=== PATIENT | male | born 1950 | race Caucasian/White ===

== ENCOUNTER 2018-04-12 02:46 | Inpatient (IN) | END 2018-04-21 12:19 | disposition home or self-care (01) | DRG 840 ==

== ENCOUNTER 2018-06-23 20:23 | Inpatient (IN) | END 2018-06-25 14:16 | disposition home or self-care (01) | DRG 871 ==

== ENCOUNTER 2018-10-20 17:09 | Inpatient (IN) | payer MEDICARE, OTHER ==
[~2018-10-20] VITALS: Ht 170.2 cm; Wt 67.0 kg
[~2018-10-20 17:09] MED LIST: CEPH-443 PO; DEXA4TAB PO; HYDR4TAB PO; LENA15CA2 PO; NAPR-685 PO
[2018-10-20 17:13] VITALS: Ht 170.2 cm; Wt 67.0 kg
[2018-10-20] MEDS ORDERED: SODIUM CHLORIDE 0.9% 1L BAG IV* STA (17:17)
[2018-10-20] MEDS ORDERED: CEFEPIME 2GM/50 ML (PMX) 50 ML IVPB STA (17:17)
[2018-10-20] MEDS ORDERED: ACETAMINOPHEN 325 MG TAB PO STA (17:17)
[2018-10-20] MEDS ORDERED: VANCOMYCIN 1 GM (PMX) 250 ML IVPB ONE (17:30)
--- NOTE | 2018-10-20 19:18 | ERD ---
ER Documentation Chief Complaint Chief Complaint FEVER AND SOB X 6 DAYS. HPI This is a very pleasant 68-year-old gentleman with a history of multiple myeloma who presents to the emergency room with cough congestion and fever. Patient is having a productive cough and shortness of breath. He was noted to be hypoxic at triage. He denies any headache chest pain or abdominal pain. Symptoms present for approximately 48 hours but shortness of breath for approximately 5-6 days. ROS All systems reviewed and are negative except as per history of present illness. Medications Home Meds Active Scripts Cephalexin* (Keflex*) 500 Mg Capsule, 500 MG PO QID for 7 Days, CAP Prov:EVERETT GALICIA PA-C 08/18/18 Reported Medications Hydromorphone Hcl* (Hydromorphone Hcl*) 4 Mg Tablet, 4 MG PO Q4H PRN for PAIN, TAB 04/12/18 Naproxen* (Naproxen*) 375 Mg Tablet, 375 MG PO BID PRN for PAIN LEVEL 6-10, TAB TAKE 1 - 2 TABLETS BY MOUTH NEEDED FOR PAIN 04/12/18 Lenalidomide (Revlimid) 15 Mg Capsule, 15 MG PO, CAP 04/12/18 Dexamethasone* (Dexamethasone*) 4 Mg Tablet, 4 MG PO Q8, TAB Take 3 tablets by mouth Once a Week. QWED 04/12/18 Allergies Allergies: Coded Allergies: No Known Allergy (Unverified , 04/12/18) PMhx/Soc History of Surgery: Yes (arm/leg/shoulder/knee) Anesthesia Reaction: No Hx Neurological Disorder: No Hx Respiratory Disorders: Yes (pneumonia) Hx Cardiac Disorders: No Hx Psychiatric Problems: No Hx Miscellaneous Medical Probl: Yes (12/2013 mult. myeloma blood d/o) Hx Alcohol Use: No Hx Substance Use: Yes Hx Tobacco Use: No Smoking Status: Never smoker FmHx Family History: No diabetes Physical Exam Vitals Vital Signs Date Temp Pulse Resp B/P (MAP) Pulse Ox O2 O2 Flow FiO2 Time Delivery Rate 10/20/18 98.4 91 37 142/79 95 Nasal 4.0 19:05 (100) Cannula 10/20/18 Nasal 2 18:03 Cannula 10/20/18 104.0 102 18 152/72 86 17:13 (98) Physical Exam General: Well developed, well nourished, no acute distress Head: Normocephalic, atraumatic. Eyes: Pupils equally reactive, EOM intact ENT: Moist mucous membranes Neck: Supple, no lymphadenopathy Respiratory: Rhonchi bilaterally, no respiratory distress Cardiovascular: Tachycardia, no murmurs, rubs, or gallops Abdominal: Soft, non-tender, non-distended, no peritoneal signs : Deferred MSK: No edema, no unilateral swelling, 5/5 strength Neurologic: Alert and oriented, moving all extremities, normal speech, no focal weakness, no cerebellar signs Skin: No rash Psych: Normal mood Result Diagram: 10/20/18 1732 10/20/18 1732 Results 24 hrs Laboratory Tests Test 10/20/18 17:32 White Blood Count 1.6 10^3/ul Red Blood Count 2.53 10^6/ul Hemoglobin 7.6 g/dl Hematocrit 23.8 % Mean Corpuscular Volume 94.1 fl Mean Corpuscular Hemoglobin 30.0 pg Mean Corpuscular Hemoglobin Concent 31.9 g/dl Red Cell Distribution Width 16.5 % Platelet Count 73 10^3/UL Mean Platelet Volume 10.9 fl Immature Granulocytes % 24.200 % Neutrophils % % Segmented Neutrophils % (Manual) 67 % Band Neutrophils % (Manual) 8 % Lymphocytes % % Lymphocytes % (Manual) 17 % Monocytes % % Eosinophils % % Eosinophils % (Manual) 2 % Basophils % (Manual) 4 % Metamyelocytes % (manual) 1 % Myelocytes % (Manual) 1 % Nucleated Red Blood Cells % 28 % Immature Granulocytes # 0.380 10^3/ul Neutrophils # 10^3/ul Neutrophils # (Manual) 1.1 10^3/ul Band Neutrophils # 0.1 10^3/ul Lymphocytes (Manual) 0.2 10^3/ul Lymphocytes # 10^3/ul Monocytes # 10^3/ul Eosinophils # 10^3/ul Basophils # (Manual) 0.0 10^3/ul Metamyelocytes # 0.0 10^3/ul Myelocytes # 0.0 10^3/ul Platelet Estimate DECREASED Polychromasia 3+ Poikilocytosis 2+ Anisocytosis 1+ Macrocytosis 1+ Prothrombin Time 14.7 Sec Prothrombin Time Ratio 1.1 INR International Normalized Ratio 1.14 Activated Partial Thromboplast Time 29.8 Sec Sodium Level 137 mmol/L Potassium Level 5.0 mmol/L Chloride Level 104 mmol/L Carbon Dioxide Level 23 mmol/L Anion Gap 10 Blood Urea Nitrogen 31 mg/dl Creatinine 2.02 mg/dl Est Glomerular Filtrat Rate mL/min 33 mL/min Glucose Level 106 mg/dl POC Venous Lactate 1.1 mmol/L Calcium Level 8.7 mg/dl Total Bilirubin 0.3 mg/dl Direct Bilirubin 0.00 mg/dl Indirect Bilirubin 0.3 mg/dl Aspartate Amino Transf (AST/SGOT) 44 IU/L Alanine Aminotransferase (ALT/SGPT) 77 IU/L Alkaline Phosphatase 137 IU/L Troponin I < 0.012 ng/ml Total Protein 10.5 g/dl Albumin 3.8 g/dl Globulin 6.70 g/dl Albumin/Globulin Ratio 0.56 Current Medications Medications Dose Sig/Kareem Start Time Status Last (Trade) Ordered Route PRN Stop Time Admin Dose Reason Admin Sodium 2,010 ml BOLUS OVER 2 10/20/18 DC 10/20/18 Chloride HOURS STAT 17:17 18:03 (NS) IV* 10/20/18 17:19 650 mg ONCE STAT 10/20/18 DC 10/20/18 Acetaminophen PO 17:17 18:03 (Tylenol 10/20/18 17:19 Tab) Cefepime HCl 50 ml @ ONCE STAT 10/20/18 DC 10/20/18 100 mls/hr IVPB 17:17 18:03 10/20/18 17:46 Vancomycin 250 ml @ ONCE ONCE 10/20/18 HCl 125 mls/hr IVPB 17:30 10/20/18 19:29 IV Flush 3 ml PER 10/20/18 UNV (NS 3 ml) PROTOCOL IV 19:30 Ondansetron 4 mg Q6H PRN 10/20/18 UNV HCl (Zofran IV 19:30 Inj) NAUSEA/VOMITI NG 650 mg Q6H PRN 10/20/18 UNV Acetaminophen PO .PAIN 1-3 19:30 (Tylenol OR TEMP Tab) Sodium 1,000 ml @ Q20H IV 10/20/18 UNV Chloride 50 mls/hr 19:30 Albuterol/ 3 ml Q6HWA RESP 10/20/18 UNV Ipratropium THERAPY HHN 20:00 (Duoneb) Albuterol/ 3 ml Q2H RESP 10/20/18 UNV Ipratropium THERAPY PRN 19:30 (Duoneb) HHN shortness of breath Ondansetron 4 mg BRIDGE ORDER 10/20/18 HCl (Zofran PRN IV 19:30 Inj) NAUSEA/VOMITI 10/21/18 19:29 NG 650 mg ER BRIDGE 10/20/18 Acetaminophen PRN PO 19:30 (Tylenol .MILD PAIN 10/21/18 19:29 Tab) 1-3 OR TEMP Procedures/MDM EKG, MONITORS, & DIAGNOSTIC IMAGING: [EKG: I reviewed and interpreted a 12-lead EKG. Rhythm: sinus tachy ST Changes: No contiguous ST segment elevations T waves: No contiguous T wave inversions Impression: No evidence of acute cardiac ischemia CXR IMPRESSION: Right upper lobe infiltrate. Follow-up after treatment is recommended. LAB INTERPRETATION: I reviewed the laboratory testing and it shows pancytopenia, normal lactic acid, renal insufficiency consistent with prior MEDICAL DECISION MAKING: Presentation very concerning for pneumonia. The patient is immunocompromised. Sepsis screening was initiated. A code sepsis was started. Patient is protecting his airway and does not require positive pressure ventilation or intubation. Continue to monitor respiratory status. Patient's hypoxemia corrected with supplement oxygen. ER COURSE: * Blood cultures prior to broad-spectrum antibiotics. Antipyretics provided. A 30 cc/kg bolus of saline was provided. * Patient's lactic acid and hemodynamics are reassuring. No indication for central line or pressors or positive pressure ventilation. CONSULTATION: None DISPOSITION PLAN: Accepting care team and consultations: I discussed the current laboratory data, diagnostic imaging and emergency care provided. Admitting team: Dr. Perez Admitting team indication: Insurance directed Sepsis Documentation: Patient's infectious symptoms have not stabilized and the patient is at risk of rapid decompensation. The patient will be admitted for careful hydration, antibiotic therapy, and infectious source control. SEVERE SEPSIS CRITERIA: Infectious source: Healthcare associated pneumonia End organ damage indicated by: Acute Resp Failure (sat < 92% w/o oxygen) SEPSIS MANAGEMENT Time of recognition of sepsis: Upon MD assessment. Time of recognition of severe sepsis: Upon MD assessment. Time of recognition of septic shock: No septic shock at this time. 3 HOUR BUNDLE Blood cultures x 2 before broad-spectrum antibiotics: Yes 30 ml/kg NS bolus completed Initial lactate less than 2 Repeat lactate pending repeat SEPTIC SHOCK ASSESSMENT: No lactic acid > 4.0 No persistent hypotension (SBP < 90 or 40 mmHg drop, MAP < 65) despite 30 mL/kg IV fluid bolus VOLUME REASSESSMENT FOR SEPTIC SHOCK: The patient does not meet criteria for septic shock in the emergency department at this time PERSISTENT HYPOTENSION TREATMENT: Comfort care no Central line not Required Vasopressor started not required I considered further perfusion assessment with CVP measurement, SCVO2, bedside ultrasound volume assessment, passive leg raise, trial of further fluid bolus. And proceeded with 30 ml/kg fluid bolus of NSS, broad spectrum antibiotics, and admission. CRITICAL CARE Critical care time 40 minutes Emergent fluid management while maintaining close respiratory support. Provision of immediate and broad-spectrum antibiotic therapy. Simultaneous assessment for possible sources in order to direct targeted therapy. Consideration for invasive and chemical support to prevent cardiopulmonary collapse. Critical care time is independent of procedures performed. Departure Diagnosis: Primary Impression: Healthcare-associated pneumonia Additional Impressions: Severe sepsis Hypoxemia Acute renal insufficiency Multiple myeloma Multiple myeloma remission status: unspecified Qualified Codes: C90.00 - Multiple myeloma not having achieved remission Pancytopenia Condition: Stable CONSTANTINO MCBRIDE MD Oct 20, 2018 19:18
[2018-10-20] MEDS ORDERED: ONDANSETRON 4 MG INJ IV PRN (19:30)
[2018-10-20] MEDS ORDERED: SOD CHLORIDE 0.9% 1,000 ML IV SCH (19:30)
[2018-10-20] MEDS ORDERED: NACL 0.9% 3 ML SYG IV SCH (19:30)
[2018-10-20] MEDS ORDERED: ACETAMINOPHEN 325 MG TAB PO PRN (19:30)
[2018-10-20] MEDS: ALBUTEROL/IPRATROPIUM (NEB) 3 ML AMP HHN SCH (20:00)
[2018-10-20 22:14] VITALS: BP 130/70; PULSE 84; RESP 22; RESP 28
[2018-10-20] MEDS: ALBUTEROL/IPRATROPIUM (NEB) 3 ML AMP HHN PRN (23:17)
[2018-10-20] MEDS ORDERED: VANCOMYCIN IV PER PHARMACY XX SCH (23:30)
--- NOTE | 2018-10-20 23:30 | HP ---
Date/Time of Note Date/Time of Note DATE: 10/20/18 TIME: 23:29 Assessment/Plan VTE Prophylaxis SCD applied (from Nsg): Yes Pharmacological prophylaxis: NA/contraindicated Pharm contraindication: thrombocytopenia, other (Severe anemia. Patient also thrombocytopenic) Lines/Catheters IV Catheter Type (from Nrsg): Saline Lock Assessment/Plan Assessment/Plan 1. Neutropenic fever, sepsis: Secondary to pneumonia -IV antibiotic, IV fluid -Neutropenic precautions/isolation -Follow-up culture results -Consider Neupogen -Hematology consult 2. Pancytopenia -Monitor hemoglobin and platelets and transfuse as needed. Also consider Neupogen -Hematology consult 3. Multiple myeloma: Again hematology to see patient -family to bring home meds 4. CKD: Secondary to #3. Kidney function has been improving since his initial admission here in April 2018 -Monitor closely -Neurology consult as needed 5. Hypoxia, secondary to pneumonia -Treat pneumonia -Supplemental oxygen, bronchodilators -Obtain ABG Result Diagram: 10/20/18 1732 10/20/18 1732 Results 24hrs Laboratory Tests Test 10/20/18 17:32 10/20/18 18:56 10/20/18 19:11 10/20/18 21:55 White Blood Count 1.6 L Red Blood Count 2.53 L Hemoglobin 7.6 L Hematocrit 23.8 L Mean Corpuscular 94.1 Volume Mean Corpuscular 30.0 Hemoglobin Mean Corpuscular 31.9 L Hemoglobin Concent Red Cell 16.5 H Distribution Width Platelet Count 73 L Mean Platelet Volume 10.9 H Immature 24.200 H Granulocytes % Neutrophils % Segmented 67 Neutrophils % (Manual) Band Neutrophils % 8 H (Manual) Lymphocytes % Lymphocytes % 17 (Manual) Monocytes % Eosinophils % Eosinophils % 2 (Manual) Basophils % (Manual) 4 H Metamyelocytes % 1 H (manual) Myelocytes % 1 H (Manual) Nucleated Red Blood 28 H Cells % Immature 0.380 H Granulocytes # Neutrophils # Neutrophils # 1.1 L (Manual) Band Neutrophils # 0.1 Lymphocytes (Manual) 0.2 L Lymphocytes # Monocytes # Eosinophils # Basophils # (Manual) 0.0 Metamyelocytes # 0.0 Myelocytes # 0.0 Platelet Estimate DECREASED Polychromasia 3+ Poikilocytosis 2+ Anisocytosis 1+ Macrocytosis 1+ Prothrombin Time 14.7 Prothrombin Time 1.1 Ratio INR International 1.14 Normalized Ratio Activated 29.8 Partial Thromboplast Time Sodium Level 137 Potassium Level 5.0 Chloride Level 104 Carbon Dioxide Level 23 Anion Gap 10 Blood Urea Nitrogen 31 H Creatinine 2.02 H Est Glomerular 33 L Filtrat Rate mL/min Glucose Level 106 POC Venous Lactate 1.1 Calcium Level 8.7 Total Bilirubin 0.3 Direct Bilirubin 0.00 Indirect Bilirubin 0.3 Aspartate Amino 44 Transf (AST/SGOT) Alanine 77 H Aminotransferase (AL T/SGPT) Alkaline Phosphatase 137 H Troponin I < 0.012 Total Protein 10.5 H Albumin 3.8 Globulin 6.70 H Albumin/Globulin 0.56 Ratio Urine Color YELLOW Urine Clarity CLEAR Urine pH 6.0 Urine Specific 1.014 Banks Urine Ketones NEGATIVE Urine Nitrite NEGATIVE Urine Bilirubin NEGATIVE Urine Urobilinogen NEGATIVE Urine Leukocyte NEGATIVE Esterase Urine Microscopic 9 H RBC Urine Microscopic 0 WBC Urine Hemoglobin 1+ H Urine Glucose NEGATIVE Urine Total Protein 2+ H Lactic Acid Level 0.5 0.9 HPI/ROS Admit Date/Time Admit Date/Time Oct 20, 2018 at 19:11 Hx of Present Illness This is a 68-year-old male with a history of multiple myeloma, CKD, neutropenic fever, pneumonia who presented to ER complaining of cough, shortness of breath and fever. Patient was admitted here twice before in April and June 2018. At that time he was treated for neutropenic fever and sepsis secondary to pneumonia. When he presented to the ER this time, he had a temp of 104, oxygen saturation 86%. WBC 1.6 with 67% neutrophils. Hemoglobin 7.6. Chest x-ray was a finding of pneumonia. PMH/Family/Social Past Medical History Medical History: other (See HPI) Medications Current Medications IV Flush (NS 3 ml) 3 ml PER PROTOCOL IV ; Start 10/20/18 at 19:30 Ondansetron HCl (Zofran Inj) 4 mg Q6H PRN IV NAUSEA/VOMITING; Start 10/20/18 at 19:30 Acetaminophen (Tylenol Tab) 650 mg Q6H PRN PO .PAIN 1-3 OR TEMP; Start 10/20/18 at 19:30 Sodium Chloride 1,000 ml @ 50 mls/hr Q20H IV Last administered on 10/20/18at 23:03; Admin Dose 50 MLS/HR; Start 10/20/18 at 19:30 Albuterol/ Ipratropium (Duoneb) 3 ml Q6HWA RESP THERAPY HHN ; Start 10/20/18 at 20:00 Albuterol/ Ipratropium (Duoneb) 3 ml Q2H RESP THERAPY PRN HHN shortness of breath Last administered on 10/20/18at 23:17; Admin Dose 3 ML; Start 10/20/18 at 19:30 Ondansetron HCl (Zofran Inj) 4 mg BRIDGE ORDER PRN IV NAUSEA/VOMITING; Start 10/20/18 at 19:30; Stop 10/21/18 at 19:29 Acetaminophen (Tylenol Tab) 650 mg ER BRIDGE PRN PO .MILD PAIN 1-3 OR TEMP; Start 10/20/18 at 19:30; Stop 10/21/18 at 19:29 Coded Allergies: No Known Allergy (Unverified , 04/12/18) Past Surgical History Past Surgical Hx: other (See HPI) Family History Significant Family History: no pertinent family hx Social History Alcohol Use: none Smoking Status: Never smoker Drug Use: none Exam/Review of Systems Vital Signs Vitals Vital Signs Date Temp Pulse Resp B/P (MAP) Pulse Ox O2 O2 Flow FiO2 Time Delivery Rate 10/20/18 Nasal 4.0 22:30 Cannula 10/20/18 102.6 84 22 130/70 92 22:14 (90) Exam Constitutional: other (Patient has been coughing and showing signs of shortness of breath. He does look uncomfortable especially when he talks) Head: normocephalic, atraumatic Eyes: EOMI, PERRL Respiratory: wheezing Cardiovascular: regular rate and rhythm, nl pulses Gastrointestinal: soft, non-tender Extremities: normal pulses Skin: other (Warm to touch) CHET THOMAS MD Oct 20, 2018 23:30
[2018-10-21] VITALS (11 sets, daily range): BP systolic 120–138; BP diastolic 57–72; PULSE 89–98; RESP 20–31
[2018-10-21] MEDS: ACETAMINOPHEN 325 MG TAB PO PRN ×2 (00:07→20:45)
[2018-10-21] MEDS: ALBUTEROL/IPRATROPIUM (NEB) 3 ML AMP HHN PRN (03:19)
[2018-10-21] MEDS ORDERED: HYDROmorphONE 4 MG TAB PO PRN (06:00)
[2018-10-21] MEDS ORDERED: DEXAMETHASONE 4 MG TAB PO SCH (06:00)
[2018-10-21] MEDS: HYDROCODONE/APAP (10/325) TAB PO PRN ×3 (06:56→20:45)
[2018-10-21] MEDS: ALBUTEROL/IPRATROPIUM (NEB) 3 ML AMP HHN SCH ×3 (08:27→19:38)
[2018-10-21] MEDS: CEPHALEXIN 500 MG CAP PO SCH ×2 (08:56→12:59)
[2018-10-21] MEDS: CEFEPIME 1GM/50 ML (PMX) 50 ML IVPB SCH ×2 (08:56→22:36)
[2018-10-21] MEDS: SOD CHLORIDE 0.9% 1,000 ML IV SCH ×3 (09:01→20:41)
[2018-10-21] MEDS ORDERED: FUROSEMIDE 40 MG INJ IV ONE (12:00)
--- NOTE | 2018-10-21 14:53 | CONS ---
Assessment/Plan Assessment/Plan Hospital Course (Demo Recall) 1. Neutropenic Fever likely 2/2 PNA 2. PNA 3 Multiple Myeloma 4. Immunosuppression 5. CKD R: sputum cx f/u bcxs serial cxr agree with vanco/cefepime add quant gold add doxy for atypical coverage Consultation Date/Type/Reason Admit Date/Time Oct 20, 2018 at 19:11 Date of Consultation: Oct 21, 2018 Type of Consult ID Reason for Consultation ABX RECS; NEUTROPENIC FEVER Requesting Provider: IZZY LEBLANC Date/Time of Note DATE: 10/21/18 TIME: 14:34 Hx of Present Illness A very pleasant 68 yo male with pmh of Multiple Myeloma, currently on chemo and steroids, CKD, admitted with progressive cough over approx 5 days. He denies recent sick contacts or travel. He denies hx of TB. He appeared to be on Keflex per emr but denies taking this. He was noted to be neutropenic and hypoxic. Xray suggests a RUL infil. He has been on empiric vanco/cefepime. Constitutional: chills, diaphoresis, requiring O2 Eyes: no complaints ENT: no complaints Respiratory: pain, cough, pleuritic pain, shortness of breath, sputum Cardiovascular: no complaints Gastrointestinal: no complaints Genitourinary: no complaints Musculoskeletal: no complaints Skin: no complaints Neurologic: no complaints Endocrine: no complaints Past Medical History Medical History: cancer, other (See HPI) Home Meds Active Scripts Cephalexin* (Keflex*) 500 Mg Capsule, 500 MG PO QID for 7 Days, CAP Prov:EVERETT GALICIA PA-C 08/18/18 Reported Medications Hydromorphone Hcl* (Hydromorphone Hcl*) 4 Mg Tablet, 4 MG PO Q4H PRN for PAIN, TAB 04/12/18 Naproxen* (Naproxen*) 375 Mg Tablet, 375 MG PO BID PRN for PAIN LEVEL 6-10, TAB TAKE 1 - 2 TABLETS BY MOUTH NEEDED FOR PAIN 04/12/18 Lenalidomide (Revlimid) 15 Mg Capsule, 15 MG PO, CAP 04/12/18 Dexamethasone* (Dexamethasone*) 4 Mg Tablet, 4 MG PO Q8, TAB Take 3 tablets by mouth Once a Week. QWED 04/12/18 Medications Current Medications IV Flush (NS 3 ml) 3 ml PER PROTOCOL IV ; Start 10/20/18 at 19:30 Ondansetron HCl (Zofran Inj) 4 mg Q6H PRN IV NAUSEA/VOMITING; Start 10/20/18 at 19:30 Acetaminophen (Tylenol Tab) 650 mg Q6H PRN PO .PAIN 1-3 OR TEMP Last administered on 10/21/18at 00:07; Admin Dose 650 MG; Start 10/20/18 at 19:30 Albuterol/ Ipratropium (Duoneb) 3 ml Q6HWA RESP THERAPY HHN Last administered on 10/21/18 08:27; Admin Dose 3 ML; Start 10/20/18 at 20:00 Albuterol/ Ipratropium (Duoneb) 3 ml Q2H RESP THERAPY PRN HHN shortness of breath Last administered on 10/21/18at 03:19; Admin Dose 3 ML; Start 10/20/18 at 19:30 Cefepime HCl 50 ml @ 100 mls/hr Q12 IVPB Last administered on 10/21/18at 08:56; Admin Dose 100 MLS/HR; Start 10/21/18 at 09:00 Vancomycin HCl (Vanco Iv Per Pharmacy) VANCOMYCIN PER PHARMACY PER PROTOCOL XX ; Start 10/20/18 at 23:30 Sodium Chloride 1,000 ml @ 100 mls/hr Q10H IV Last administered on 10/21/18at 09:01; Admin Dose 100 MLS/HR; Start 10/21/18 at 00:00 Vancomycin HCl 250 ml @ 125 mls/hr Q36H IVPB ; Start 10/21/18 at 20:00 Cephalexin (Keflex) 500 mg QID PO Last administered on 10/21/18at 12:59; Admin Dose 500 MG; Start 10/21/18 at 09:00 Dexamethasone (Decadron) 4 mg Q8 PO ; Start 10/21/18 at 06:00; Status Hold Acetaminophen/ Hydrocodone Bitart ([place] ()) 1 tab Q6H PRN PO MODERATE PAIN LEVEL 4-6 Last administered on 10/21/18at 12:56; Admin Dose 1 TAB; Start 10/21/18 at 07:00 Allergies: Coded Allergies: No Known Allergy (Unverified , 04/12/18) Past Surgical History Past Surgical Hx: other (See HPI) Social History . He grew up here in [place] Alcohol Use: none Smoking Status: Never smoker Drug Use: none Exam/Review of Systems Exam Vitals Vital Signs Date Temp Pulse Resp B/P (MAP) Pulse Ox O2 O2 Flow FiO2 Time Delivery Rate 10/21/18 3.0 13:57 10/21/18 98 12:00 10/21/18 101.3 25 137/67 92 11:51 (90) 10/21/18 Simple 10:30 Mask 10/21/18 30 03:20 Intake and Output 10/20/18 10/20/18 10/21/18 1515:00 23:00 07:00 IntakeIntake Total 250 ml 600 ml OutputOutput Total 1050 ml BalanceBalance 250 ml -450 ml Constitutional: alert, oriented, well developed Psych: no complaints, nl mood/affect Head: normocephalic, atraumatic Eyes: nl conjunctiva, EOMI, nl lids, nl sclera, PERRL ENMT: nl external ears & nose, nl lips & teeth, nl nasal mucosa & septum Respiratory: diminished breath sounds Cardiovascular: regular rate and rhythm Gastrointestinal: soft, other (rectal area w/o abscess) Genitourinary - Male: nl penis, nl scrotum Musculoskeletal: nl extremities to inspection Extremities: normal pulses Neurological: [employer] II-XII intact, nl mental status, nl speech, nl strength Results Result Diagram: 10/21/1843210/21/18 0433 Results 24hrs Laboratory Tests Test 10/20/18 17:32 10/20/18 18:56 10/20/18 19:11 10/20/18 21:55 White Blood 1.6 L Count Red Blood Count 2.53 L Hemoglobin 7.6 L Hematocrit 23.8 L Mean Corpuscular 94.1 Volume Mean Corpuscular 30.0 Hemoglobin Mean Corpuscular 31.9 L Hemoglobin Dalila nt Red Cell 16.5 H Distribution Width Platelet Count 73 L Mean Platelet 10.9 H Volume Immature 24.200 H Granulocytes % Neutrophils % Segmented 67 Neutrophils % (Manual) Band Neutrophils 8 H % (Manual) Lymphocytes % Lymphocytes % 17 (Manual) Monocytes % Eosinophils % Eosinophils % 2 (Manual) Basophils % 4 H (Manual) Metamyelocytes % 1 H (manual) Myelocytes % 1 H (Manual) Nucleated Red 28 H Blood Cells % Immature 0.380 H Granulocytes # Neutrophils # Neutrophils # 1.1 L (Manual) Band Neutrophils 0.1 # Lymphocytes 0.2 L (Manual) Lymphocytes # Monocytes # Eosinophils # Basophils # 0.0 (Manual) Metamyelocytes # 0.0 Myelocytes # 0.0 Platelet DECREASED Estimate Polychromasia 3+ Poikilocytosis 2+ Anisocytosis 1+ Macrocytosis 1+ Prothrombin Time 14.7 Prothrombin Time 1.1 Ratio INR 1.14 International Normalized Ratio Activated 29.8 Partial Thrombop last Time Sodium Level 137 Potassium Level 5.0 Chloride Level 104 Carbon Dioxide 23 Level Anion Gap 10 Blood Urea 31 H Nitrogen Creatinine 2.02 H Est Glomerular 33 L Filtrat Rate mL/min Glucose Level 106 POC Venous 1.1 Lactate Calcium Level 8.7 Total Bilirubin 0.3 Direct Bilirubin 0.00 Indirect 0.3 Bilirubin Aspartate Amino 44 Transf (AST/SGOT ) Alanine 77 H Aminotransferase (ALT/SGPT) Alkaline 137 H Phosphatase Troponin I < 0.012 Total Protein 10.5 H Albumin 3.8 Globulin 6.70 H Albumin/Globulin 0.56 Ratio Urine Color YELLOW Urine Clarity CLEAR Urine pH 6.0 Urine Specific 1.014 [place] Urine Ketones NEGATIVE Urine Nitrite NEGATIVE Urine Bilirubin NEGATIVE Urine NEGATIVE Urobilinogen Urine Leukocyte NEGATIVE Esterase Urine 9 H Microscopic RBC Urine 0 Microscopic WBC Urine Hemoglobin 1+ H Urine Glucose NEGATIVE Urine Total 2+ H Protein Lactic Acid 0.5 0.9 Level Test 10/21/18 04:33 10/21/18 07:00 10/21/18 12:55 White Blood 1.1 #L Count Red Blood Count 2.21 L Hemoglobin 6.6 *L Hematocrit 21.3 L Mean Corpuscular 96.4 Volume Mean Corpuscular 29.9 Hemoglobin Mean Corpuscular 31.0 L Hemoglobin Dalila nt Red Cell 16.7 H Distribution Width Platelet Count 51 #L Mean Platelet 11.2 H Volume Immature 19.400 H Granulocytes % Neutrophils % Segmented 52 Neutrophils % (Manual) Band Neutrophils 10 H % (Manual) Lymphocytes % Lymphocytes % 30 (Manual) Reactive 3 H Lymphocytes % (Manual) Monocytes % Monocytes % 1 (Manual) Eosinophils % Eosinophils % 3 (Manual) Basophils % Metamyelocytes % 1 H (manual) Nucleated Red 0.0 Blood Cells % Immature 0.210 H Granulocytes # Neutrophils # Neutrophils # 0.6 L (Manual) Band Neutrophils 0.1 # Lymphocytes 0.3 L (Manual) Lymphocytes # Reactive 0.0 Lymphocytes # Monocytes # Monocytes # 0.0 L (Manual) Eosinophils # Basophils # Metamyelocytes # 0.0 Nucleated Red Blood Cells # Platelet SIG DECREASED Estimate Giant Platelets 1 H Polychromasia 3+ Poikilocytosis 1+ Anisocytosis 1+ Ovalocytes 1+ Sodium Level 138 Potassium Level 4.4 Chloride Level 108 Carbon Dioxide 22 Level Anion Gap 8 Blood Urea 28 H Nitrogen Creatinine 1.93 H Est Glomerular 35 L Filtrat Rate mL/min Glucose Level 109 Hemoglobin A1c 5.9 Calcium Level 7.7 L Magnesium Level 1.6 L Total Bilirubin 0.4 Direct Bilirubin 0.00 Indirect 0.4 Bilirubin Aspartate Amino 27 Transf (AST/SGOT ) Alanine 46 Aminotransferase (ALT/SGPT) Alkaline 120 Phosphatase Total Protein 8.7 H Albumin 3.0 L Globulin 5.70 H Albumin/Globulin 0.52 Ratio Blood Gas Blood arterial Specimen Source Arterial Blood 10/21/2018 11:00 Date Drawn :29 AM Arterial Blood 7.492 H pH (Temp corrected) Arterial Blood 27.9 L pCO2 (Temp correct) Arterial Blood 50.8 *L pO2 (Temp corrected) Arterial Blood 20.9 L HCO3 Arterial Blood -2.2 Base Excess Arterial Blood 86.7 L Oxygen Saturatio n Ruiz Test ACCEPTAB Arterial Blood Right Radial Gas Puncture Site Arterial 0.1 Blood Carboxyhem oglobin Arterial Blood 0.2 Methemoglobin Blood Gas A-a O2 151.9 H Differential Oxyhemoglobin 86.4 L Percent Blood Gas 37.0 Temperature Blood Gas NASAL CANNULA Modality FiO2 33.0 Blood Gas Eliot BLAIR RN Critical Value Read Back Blood Gas T [employer]LEY [employer] Notified Whom Blood Gas 10/21/2018 11:13 Notified Time :57 AM Urine Color YELLOW Urine Clarity CLEAR Urine pH 6.0 Urine Specific 1.017 [place] Urine Ketones NEGATIVE Urine Nitrite NEGATIVE Urine Bilirubin NEGATIVE Urine NEGATIVE Urobilinogen Urine Leukocyte NEGATIVE Esterase Urine 4 Microscopic RBC Urine 1 Microscopic WBC Urine Hemoglobin 1+ H Urine Glucose NEGATIVE Urine Total 3+ H Protein Medications Medication Current Medications IV Flush (NS 3 ml) 3 ml PER PROTOCOL IV ; Start 10/20/18 at 19:30 Ondansetron HCl (Zofran Inj) 4 mg Q6H PRN IV NAUSEA/VOMITING; Start 10/20/18 at 19:30 Acetaminophen (Tylenol Tab) 650 mg Q6H PRN PO .PAIN 1-3 OR TEMP Last administered on 10/21/18 00:07; Admin Dose 650 MG; Start 10/20/18 at 19:30 Albuterol/ Ipratropium (Duoneb) 3 ml Q6HWA RESP THERAPY HHN Last administered on 10/21/18 08:27; Admin Dose 3 ML; Start 10/20/18 at 20:00 Albuterol/ Ipratropium (Duoneb) 3 ml Q2H RESP THERAPY PRN HHN shortness of breath Last administered on 10/21/18 03:19; Admin Dose 3 ML; Start 10/20/18 at 19:30 Cefepime HCl 50 ml @ 100 mls/hr Q12 IVPB Last administered on 10/21/18 08:56; Admin Dose 100 MLS/HR; Start 10/21/18 at 09:00 Vancomycin HCl (Vanco Iv Per Pharmacy) VANCOMYCIN PER PHARMACY PER PROTOCOL XX ; Start 10/20/18 at 23:30 Sodium Chloride 1,000 ml @ 100 mls/hr Q10H IV Last administered on 10/21/18 09:01; Admin Dose 100 MLS/HR; Start 10/21/18 at 00:00 Vancomycin HCl 250 ml @ 125 mls/hr Q36H IVPB ; Start 10/21/18 at 20:00 Cephalexin (Keflex) 500 mg QID PO Last administered on 10/21/18 12:59; Admin Dose 500 MG; Start 10/21/18 at 09:00 Dexamethasone (Decadron) 4 mg Q8 PO ; Start 10/21/18 at 06:00; Status Hold Acetaminophen/ Hydrocodone Bitart ([place] (10/325)) 1 tab Q6H PRN PO MODERATE PAIN LEVEL 4-6 Last administered on 10/21/18 12:56; Admin Dose 1 TAB; Start 10/21/18 at 07:00 RUTHIE OCASIO MD Oct 21, 2018 14:47
--- NOTE | 2018-10-21 17:30 | PN ---
Date/Time of Note Date/Time of Note DATE: 10/21/18 TIME: 17:23 Assessment/Plan VTE Prophylaxis Risk score (from [facility] [place] [facility])>0 risk: 2 SCD applied (from [facility]): Yes Pharmacological prophylaxis: NA/contraindicated Pharm contraindication: blood coag disorder Lines/Catheters IV Catheter Type (from [facility]): Peripheral IV Assessment/Plan Hospital Course 1. Neutropenic fever, sepsis: Secondary to pneumonia -ID consultation appreciated, continue vancomycin, cefepime and doxycycline -Neutropenic precautions/isolation -Follow-up culture results -Defer Neupogen to hematology/oncology -Patient's oncologist Dr. Reddy has been consulted and will evaluate tomorrow, recommends to hold home Revlimid 2. Pancytopenia secondary to multiple myeloma and chemo -Patient was transfused 1 unit bleed today with rising temperature, will try to transfuse second unit later today if tolerates -Hematology consult obtained 3. Multiple myeloma -Again hematology to see patient 4. CKD: Secondary to #3. Kidney function has been improving since his initial admission here in April 2018 -Monitor closely -Nephrology consult as needed 5. Hypoxia, secondary to pneumonia -Continue IV antibiotics -Supplemental oxygen, bronchodilators Prophylaxis: SCDs DC planning: Not stable for DC, continue IV antibiotics, follow-up on ID and hematology/oncology recommendations Result Diagram: 10/21/18 0433 10/21/18 0433 Results 24hrs Laboratory Tests Test 10/20/18 17:32 10/20/18 18:56 10/20/18 19:11 10/20/18 21:55 White Blood 1.6 L Count Red Blood Count 2.53 L Hemoglobin 7.6 L Hematocrit 23.8 L Mean Corpuscular 94.1 Volume Mean Corpuscular 30.0 Hemoglobin Mean Corpuscular 31.9 L Hemoglobin Dalila nt Red Cell 16.5 H Distribution Width Platelet Count 73 L Mean Platelet 10.9 H Volume Immature 24.200 H Granulocytes % Neutrophils % Segmented 67 Neutrophils % (Manual) Band Neutrophils 8 H % (Manual) Lymphocytes % Lymphocytes % 17 (Manual) Monocytes % Eosinophils % Eosinophils % 2 (Manual) Basophils % 4 H (Manual) Metamyelocytes % 1 H (manual) Myelocytes % 1 H (Manual) Nucleated Red 28 H Blood Cells % Immature 0.380 H Granulocytes # Neutrophils # Neutrophils # 1.1 L (Manual) Band Neutrophils 0.1 # Lymphocytes 0.2 L (Manual) Lymphocytes # Monocytes # Eosinophils # Basophils # 0.0 (Manual) Metamyelocytes # 0.0 Myelocytes # 0.0 Platelet DECREASED Estimate Polychromasia 3+ Poikilocytosis 2+ Anisocytosis 1+ Macrocytosis 1+ Prothrombin Time 14.7 Prothrombin Time 1.1 Ratio INR 1.14 International Normalized Ratio Activated 29.8 Partial Thrombop last Time Sodium Level 137 Potassium Level 5.0 Chloride Level 104 Carbon Dioxide 23 Level Anion Gap 10 Blood Urea 31 H Nitrogen Creatinine 2.02 H Est Glomerular 33 L Filtrat Rate mL/min Glucose Level 106 POC Venous 1.1 Lactate Calcium Level 8.7 Total Bilirubin 0.3 Direct Bilirubin 0.00 Indirect 0.3 Bilirubin Aspartate Amino 44 Transf (AST/SGOT ) Alanine 77 H Aminotransferase (ALT/SGPT) Alkaline 137 H Phosphatase Troponin I < 0.012 Total Protein 10.5 H Albumin 3.8 Globulin 6.70 H Albumin/Globulin 0.56 Ratio Urine Color YELLOW Urine Clarity CLEAR Urine pH 6.0 Urine Specific 1.014 [place] Urine Ketones NEGATIVE Urine Nitrite NEGATIVE Urine Bilirubin NEGATIVE Urine NEGATIVE Urobilinogen Urine Leukocyte NEGATIVE Esterase Urine 9 H Microscopic RBC Urine 0 Microscopic WBC Urine Hemoglobin 1+ H Urine Glucose NEGATIVE Urine Total 2+ H Protein Lactic Acid 0.5 0.9 Level Test 10/21/18 04:33 10/21/18 07:00 10/21/18 12:55 White Blood 1.1 #L Count Red Blood Count 2.21 L Hemoglobin 6.6 *L Hematocrit 21.3 L Mean Corpuscular 96.4 Volume Mean Corpuscular 29.9 Hemoglobin Mean Corpuscular 31.0 L Hemoglobin Dalila nt Red Cell 16.7 H Distribution Width Platelet Count 51 #L Mean Platelet 11.2 H Volume Immature 19.400 H Granulocytes % Neutrophils % Segmented 52 Neutrophils % (Manual) Band Neutrophils 10 H % (Manual) Lymphocytes % Lymphocytes % 30 (Manual) Reactive 3 H Lymphocytes % (Manual) Monocytes % Monocytes % 1 (Manual) Eosinophils % Eosinophils % 3 (Manual) Basophils % Metamyelocytes % 1 H (manual) Nucleated Red 0.0 Blood Cells % Immature 0.210 H Granulocytes # Neutrophils # Neutrophils # 0.6 L (Manual) Band Neutrophils 0.1 # Lymphocytes 0.3 L (Manual) Lymphocytes # Reactive 0.0 Lymphocytes # Monocytes # Monocytes # 0.0 L (Manual) Eosinophils # Basophils # Metamyelocytes # 0.0 Nucleated Red Blood Cells # Platelet SIG DECREASED Estimate Giant Platelets 1 H Polychromasia 3+ Poikilocytosis 1+ Anisocytosis 1+ Ovalocytes 1+ Sodium Level 138 Potassium Level 4.4 Chloride Level 108 Carbon Dioxide 22 Level Anion Gap 8 Blood Urea 28 H Nitrogen Creatinine 1.93 H Est Glomerular 35 L Filtrat Rate mL/min Glucose Level 109 Hemoglobin A1c 5.9 Calcium Level 7.7 L Magnesium Level 1.6 L Total Bilirubin 0.4 Direct Bilirubin 0.00 Indirect 0.4 Bilirubin Aspartate Amino 27 Transf (AST/SGOT ) Alanine 46 Aminotransferase (ALT/SGPT) Alkaline 120 Phosphatase Total Protein 8.7 H Albumin 3.0 L Globulin 5.70 H Albumin/Globulin 0.52 Ratio Blood Gas Blood arterial Specimen Source Arterial Blood 10/21/2018 11:00 Date Drawn :29 AM Arterial Blood 7.492 H pH (Temp corrected) Arterial Blood 27.9 L pCO2 (Temp correct) Arterial Blood 50.8 *L pO2 (Temp corrected) Arterial Blood 20.9 L HCO3 Arterial Blood -2.2 Base Excess Arterial Blood 86.7 L Oxygen Saturatio n Ruiz Test ACCEPTAB Arterial Blood Right Radial Gas Puncture Site Arterial 0.1 Blood Carboxyhem oglobin Arterial Blood 0.2 Methemoglobin Blood Gas A-a O2 151.9 H Differential Oxyhemoglobin 86.4 L Percent Blood Gas 37.0 Temperature Blood Gas NASAL CANNULA Modality FiO2 33.0 Blood Gas S ROSSY RN Critical Value Read Back Blood Gas T [facility] Notified Whom Blood Gas 10/21/2018 11:13 Notified Time :57 AM Urine Color YELLOW Urine Clarity CLEAR Urine pH 6.0 Urine Specific 1.017 [place] Urine Ketones NEGATIVE Urine Nitrite NEGATIVE Urine Bilirubin NEGATIVE Urine NEGATIVE Urobilinogen Urine Leukocyte NEGATIVE Esterase Urine 4 Microscopic RBC Urine 1 Microscopic WBC Urine Hemoglobin 1+ H Urine Glucose NEGATIVE Urine Total 3+ H Protein Subjective 24 Hr Interval Summary Respiratory: pain, cough Exam/Review of Systems Exam Vitals Vital Signs Date Temp Pulse Resp B/P (MAP) Pulse Ox O2 O2 Flow FiO2 Time Delivery Rate 10/21/18 Simple 4.0 16:11 Mask 10/21/18 98.8 93 23 126/72 95 16:08 (90) 10/21/18 30 03:20 Intake and Output 10/20/18 10/20/18 10/21/18 1515:00 23:00 07:00 IntakeIntake Total 250 ml 600 ml OutputOutput Total 1050 ml BalanceBalance 250 ml -450 ml Constitutional: alert, oriented Respiratory: clear to auscultation Cardiovascular: regular rate and rhythm Gastrointestinal: soft; No distended Musculoskeletal: nl extremities to inspection Results Results 24hrs Laboratory Tests Test 10/20/18 17:32 10/20/18 18:56 10/20/18 19:11 10/20/18 21:55 White Blood 1.6 L Count Red Blood Count 2.53 L Hemoglobin 7.6 L Hematocrit 23.8 L Mean Corpuscular 94.1 Volume Mean Corpuscular 30.0 Hemoglobin Mean Corpuscular 31.9 L Hemoglobin Dalila nt Red Cell 16.5 H Distribution Width Platelet Count 73 L Mean Platelet 10.9 H Volume Immature 24.200 H Granulocytes % Neutrophils % Segmented 67 Neutrophils % (Manual) Band Neutrophils 8 H % (Manual) Lymphocytes % Lymphocytes % 17 (Manual) Monocytes % Eosinophils % Eosinophils % 2 (Manual) Basophils % 4 H (Manual) Metamyelocytes % 1 H (manual) Myelocytes % 1 H (Manual) Nucleated Red 28 H Blood Cells % Immature 0.380 H Granulocytes # Neutrophils # Neutrophils # 1.1 L (Manual) Band Neutrophils 0.1 # Lymphocytes 0.2 L (Manual) Lymphocytes # Monocytes # Eosinophils # Basophils # 0.0 (Manual) Metamyelocytes # 0.0 Myelocytes # 0.0 Platelet DECREASED Estimate Polychromasia 3+ Poikilocytosis 2+ Anisocytosis 1+ Macrocytosis 1+ Prothrombin Time 14.7 Prothrombin Time 1.1 Ratio INR 1.14 International Normalized Ratio Activated 29.8 Partial Thrombop last Time Sodium Level 137 Potassium Level 5.0 Chloride Level 104 Carbon Dioxide 23 Level Anion Gap 10 Blood Urea 31 H Nitrogen Creatinine 2.02 H Est Glomerular 33 L Filtrat Rate mL/min Glucose Level 106 POC Venous 1.1 Lactate Calcium Level 8.7 Total Bilirubin 0.3 Direct Bilirubin 0.00 Indirect 0.3 Bilirubin Aspartate Amino 44 Transf (AST/SGOT ) Alanine 77 H Aminotransferase (ALT/SGPT) Alkaline 137 H Phosphatase Troponin I < 0.012 Total Protein 10.5 H Albumin 3.8 Globulin 6.70 H Albumin/Globulin 0.56 Ratio Urine Color YELLOW Urine Clarity CLEAR Urine pH 6.0 Urine Specific 1.014 [place] Urine Ketones NEGATIVE Urine Nitrite NEGATIVE Urine Bilirubin NEGATIVE Urine NEGATIVE Urobilinogen Urine Leukocyte NEGATIVE Esterase Urine 9 H Microscopic RBC Urine 0 Microscopic WBC Urine Hemoglobin 1+ H Urine Glucose NEGATIVE Urine Total 2+ H Protein Lactic Acid 0.5 0.9 Level Test 10/21/18 04:33 10/21/18 07:00 10/21/18 12:55 White Blood 1.1 #L Count Red Blood Count 2.21 L Hemoglobin 6.6 *L Hematocrit 21.3 L Mean Corpuscular 96.4 Volume Mean Corpuscular 29.9 Hemoglobin Mean Corpuscular 31.0 L Hemoglobin Dalila nt Red Cell 16.7 H Distribution Width Platelet Count 51 #L Mean Platelet 11.2 H Volume Immature 19.400 H Granulocytes % Neutrophils % Segmented 52 Neutrophils % (Manual) Band Neutrophils 10 H % (Manual) Lymphocytes % Lymphocytes % 30 (Manual) Reactive 3 H Lymphocytes % (Manual) Monocytes % Monocytes % 1 (Manual) Eosinophils % Eosinophils % 3 (Manual) Basophils % Metamyelocytes % 1 H (manual) Nucleated Red 0.0 Blood Cells % Immature 0.210 H Granulocytes # Neutrophils # Neutrophils # 0.6 L (Manual) Band Neutrophils 0.1 # Lymphocytes 0.3 L (Manual) Lymphocytes # Reactive 0.0 Lymphocytes # Monocytes # Monocytes # 0.0 L (Manual) Eosinophils # Basophils # Metamyelocytes # 0.0 Nucleated Red Blood Cells # Platelet SIG DECREASED Estimate Giant Platelets 1 H Polychromasia 3+ Poikilocytosis 1+ Anisocytosis 1+ Ovalocytes 1+ Sodium Level 138 Potassium Level 4.4 Chloride Level 108 Carbon Dioxide 22 Level Anion Gap 8 Blood Urea 28 H Nitrogen Creatinine 1.93 H Est Glomerular 35 L Filtrat Rate mL/min Glucose Level 109 Hemoglobin A1c 5.9 Calcium Level 7.7 L Magnesium Level 1.6 L Total Bilirubin 0.4 Direct Bilirubin 0.00 Indirect 0.4 Bilirubin Aspartate Amino 27 Transf (AST/SGOT ) Alanine 46 Aminotransferase (ALT/SGPT) Alkaline 120 Phosphatase Total Protein 8.7 H Albumin 3.0 L Globulin 5.70 H Albumin/Globulin 0.52 Ratio Blood Gas Blood arterial Specimen Source Arterial Blood 10/21/2018 11:00 Date Drawn :29 AM Arterial Blood 7.492 H pH (Temp corrected) Arterial Blood 27.9 L pCO2 (Temp correct) Arterial Blood 50.8 *L pO2 (Temp corrected) Arterial Blood 20.9 L HCO3 Arterial Blood -2.2 Base Excess Arterial Blood 86.7 L Oxygen Saturatio n Ruiz Test ACCEPTAB Arterial Blood Right Radial Gas Puncture Site Arterial 0.1 Blood Carboxyhem oglobin Arterial Blood 0.2 Methemoglobin Blood Gas A-a O2 151.9 H Differential Oxyhemoglobin 86.4 L Percent Blood Gas 37.0 Temperature Blood Gas NASAL CANNULA Modality FiO2 33.0 Blood Gas S ROSSY TRISTAN Critical Value Read Back Blood Gas T [employer] Notified Whom Blood Gas 10/21/2018 11:13 Notified Time :57 AM Urine Color YELLOW Urine Clarity CLEAR Urine pH 6.0 Urine Specific 1.017 [place] Urine Ketones NEGATIVE Urine Nitrite NEGATIVE Urine Bilirubin NEGATIVE Urine NEGATIVE Urobilinogen Urine Leukocyte NEGATIVE Esterase Urine 4 Microscopic RBC Urine 1 Microscopic WBC Urine Hemoglobin 1+ H Urine Glucose NEGATIVE Urine Total 3+ H Protein Medications Medication Current Medications IV Flush (NS 3 ml) 3 ml PER PROTOCOL IV ; Start 10/20/18 at 19:30 Ondansetron HCl (Zofran Inj) 4 mg Q6H PRN IV NAUSEA/VOMITING; Start 10/20/18 at 19:30 Acetaminophen (Tylenol Tab) 650 mg Q6H PRN PO .PAIN 1-3 OR TEMP Last administered on 10/21/18at 00:07; Admin Dose 650 MG; Start 10/20/18 at 19:30 Albuterol/ Ipratropium (Duoneb) 3 ml Q6HWA RESP THERAPY HHN Last administered on 10/21/18at 14:59; Admin Dose 3 ML; Start 10/20/18 at 20:00 Albuterol/ Ipratropium (Duoneb) 3 ml Q2H RESP THERAPY PRN HHN shortness of breath Last administered on 10/21/18at 03:19; Admin Dose 3 ML; Start 10/20/18 at 19:30 Cefepime HCl 50 ml @ 100 mls/hr Q12 IVPB Last administered on 10/21/18at 08:56; Admin Dose 100 MLS/HR; Start 10/21/18 at 09:00 Vancomycin HCl (Vanco Iv Per Pharmacy) VANCOMYCIN PER PHARMACY PER PROTOCOL XX ; Start 10/20/18 at 23:30 Sodium Chloride 1,000 ml @ 100 mls/hr Q10H IV Last administered on 10/21/18at 09:01; Admin Dose 100 MLS/HR; Start 10/21/18 at 00:00 Vancomycin HCl 250 ml @ 125 mls/hr Q36H IVPB ; Start 10/21/18 at 20:00 Dexamethasone (Decadron) 4 mg Q8 PO ; Start 10/21/18 at 06:00; Status Hold Acetaminophen/ Hydrocodone Bitart ([place] (10/325)) 1 tab Q6H PRN PO MODERATE PAIN LEVEL 4-6 Last administered on 10/21/18at 12:56; Admin Dose 1 TAB; Start 10/21/18 at 07:00 Doxycycline Hyclate 100 mg/ Sodium Chloride 250 ml @ 250 mls/hr Q12 IVPB ; Start 10/21/18 at 21:00 IZZY LEBLANC Oct 21, 2018 17:30
[2018-10-21] MEDS ORDERED: MAGNESIUM SULFATE 3 GM in DEXTROSE 5% 100 ML IVPB ONE (19:00)
[2018-10-21] MEDS: VANCOMYCIN 1 GM 250 ML IVPB SCH (20:54)
[2018-10-21] MEDS: DOXYCYCLINE 100 MG in SOD CHLORIDE 0.9% 250 ML IVPB SCH (22:36)
[2018-10-22] VITALS (11 sets, daily range): BP systolic 120–143; BP diastolic 60–83; PULSE 65–87; RESP 18–22
[2018-10-22] MEDS: SOD CHLORIDE 0.9% 1,000 ML IV SCH (05:57)
[2018-10-22] MEDS: ACETAMINOPHEN 325 MG TAB PO PRN (05:58)
[2018-10-22] MEDS: HYDROCODONE/APAP (10/325) TAB PO PRN ×2 (05:58→20:38)
[2018-10-22] MEDS ORDERED: METHYLPREDNISOLONE 40 MG INJ IV ONE (06:30)
[2018-10-22] MEDS: ALBUTEROL/IPRATROPIUM (NEB) 3 ML AMP HHN SCH ×3 (08:22→20:41)
[2018-10-22] MEDS: CEFEPIME 1GM/50 ML (PMX) 50 ML IVPB SCH ×2 (09:57→20:37)
[2018-10-22] MEDS: DOXYCYCLINE 100 MG in SOD CHLORIDE 0.9% 250 ML IVPB SCH ×2 (09:58→20:37)
--- NOTE | 2018-10-22 15:05 | CONS ---
Assessment/Plan Assessment/Plan Hospital Course (Demo Recall) - Severe sepsis d/t PNA - Neutropenic fever d/t PNA - PNA, R>L - Acute respiratory failure - now on vapotherm - Multiple myeloma - Immunosuppression - Pancytopenia d/t multiple myeloma and recent chemo - Acute on chronic anemia requiring PRBC - CKD III Recommendations: - F/u sputum cx and blood cx (NGTD) - Continue vancomycin and cefepime (10/20/2018-) - Continue doxycycline (10/21/2018-) for atypical coverage - F/u quantiferon TB gold - Continue neutropenic precautions - We recommend consulting Dr. Hill or Dr. Reddy and starting Neupogen - Consider Pulmonary eval Management d/w patient, RN Alexei, and with Dr. Bailey Consultation Date/Type/Reason Admit Date/Time Oct 20, 2018 at 19:11 Initial Consult Date 10/21/18 Requesting Provider: IZZY LEBLANC Date/Time of Note DATE: 10/22/18 TIME: 14:53 24 HR Interval Summary Free Text/Dictation Feels "better" after blood transfusion. States was playing [employer] prior to admission. Currently only has mild left sided pleuritic chest discomfort with coughing. SOB improved. Chart reviewed. Fever curve is improving but WBC down to 0.4. S/p 2 units of PRBC yesterday. Now on high flow O2. Exam/Review of Systems Exam Vitals Vital Signs Date Temp Pulse Resp B/P (MAP) Pulse Ox O2 O2 Flow FiO2 Time Delivery Rate 10/22/18 98.8 79 20 143/83 98 11:43 (103) 10/22/18 55 10:56 10/22/18 High Flow 05:16 10/21/18 10.0 20:00 Intake and Output 10/21/18 10/21/18 10/22/18 1515:00 23:00 07:00 IntakeIntake Total 1440 ml 2156 ml OutputOutput Total 2400 ml BalanceBalance -960 ml 2156 ml Constitutional: alert, oriented, well developed Psych: no complaints Head: normocephalic, atraumatic Eyes: nl lids ENMT: nl external ears & nose, nl lips & teeth, nl nasal mucosa & septum Neck: supple Respiratory: normal air movement, congested cough, crackles/rales, diminished breath sounds, other (on high flow O2 at 35L via NC, FiO2 55%) Cardiovascular: regular rate and rhythm, nl pulses Gastrointestinal: soft, non-tender Musculoskeletal: nl extremities to inspection Extremities: normal pulses Neurological: nl mental status, nl speech, nl strength Skin: nl turgor; No rash or lesions Results Result Diagram: 10/22/18 0522 10/22/18 0522 Results 24hrs Laboratory Tests Test 10/22/18 05:22 White Blood Count 0.4 #L Red Blood Count 2.80 #L Hemoglobin 8.3 #L Hematocrit 26.0 #L Mean Corpuscular Volume 92.9 Mean Corpuscular Hemoglobin 29.6 Mean Corpuscular Hemoglobin Concent 31.9 L Red Cell Distribution Width 16.5 H Platelet Count 45 L Mean Platelet Volume 11.5 H Immature Granulocytes % 22.900 H Neutrophils % Segmented Neutrophils % (Manual) 53 Band Neutrophils % (Manual) 16 H Lymphocytes % Lymphocytes % (Manual) 26 Reactive Lymphocytes % (Manual) 3 H Monocytes % Monocytes % (Manual) 1 Eosinophils % Eosinophils % (Manual) 2 Basophils % Nucleated Red Blood Cells % 5 H Immature Granulocytes # 0.080 H Neutrophils # Neutrophils # (Manual) 0.2 L Band Neutrophils # 0.0 Lymphocytes (Manual) 0.1 L Lymphocytes # Reactive Lymphocytes # 0.0 Monocytes # Monocytes # (Manual) 0.0 L Eosinophils # Basophils # Nucleated Red Blood Cells # Toxic Granulation 2+ Platelet Estimate SIG DECREASED Polychromasia 1+ Hypochromasia 1+ Poikilocytosis 1+ Anisocytosis 1+ Schistocytes 1+ Sodium Level 134 L Potassium Level 4.4 Chloride Level 104 Carbon Dioxide Level 21 Anion Gap 9 Blood Urea Nitrogen 28 H Creatinine 2.13 H Est Glomerular Filtrat Rate mL/min 31 L Glucose Level 108 Calcium Level 7.1 L Phosphorus Level 3.2 Magnesium Level 2.4 Imaging Imaging CXR 10/22/2018: Stable bilateral pulmonary opacities, right greater than left. Stable expansile appearance of the posterior lateral left seventh rib. Medications Medication Current Medications IV Flush (NS 3 ml) 3 ml PER PROTOCOL IV ; Start 10/20/18 at 19:30 Ondansetron HCl (Zofran Inj) 4 mg Q6H PRN IV NAUSEA/VOMITING; Start 10/20/18 at 19:30 Acetaminophen (Tylenol Tab) 650 mg Q6H PRN PO .PAIN 1-3 OR TEMP Last administered on 10/22/18 05:58; Admin Dose 650 MG; Start 10/20/18 at 19:30 Albuterol/ Ipratropium (Duoneb) 3 ml Q6HWA RESP THERAPY HHN Last administered on 10/22/18 14:17; Admin Dose 3 ML; Start 10/20/18 at 20:00 Albuterol/ Ipratropium (Duoneb) 3 ml Q2H RESP THERAPY PRN HHN shortness of breath Last administered on 10/21/18 03:19; Admin Dose 3 ML; Start 10/20/18 at 19:30 Cefepime HCl 50 ml @ 100 mls/hr Q12 IVPB Last administered on 10/22/18 09:57; Admin Dose 100 MLS/HR; Start 10/21/18 at 09:00 Vancomycin HCl (Vanco Iv Per Pharmacy) VANCOMYCIN PER PHARMACY PER PROTOCOL XX ; Start 10/20/18 at 23:30 Vancomycin HCl 250 ml @ 125 mls/hr Q36H IVPB Last administered on 10/21/18at 20:54; Admin Dose 125 MLS/HR; Start 10/21/18 at 20:00 Dexamethasone (Decadron) 4 mg Q8 PO ; Start 10/21/18 at 06:00; Status Hold Acetaminophen/ Hydrocodone Bitart ([place] (10/325)) 1 tab Q6H PRN PO MODERATE PAIN LEVEL 4-6 Last administered on 10/22/18 05:58; Admin Dose 1 TAB; Start 10/21/18 at 07:00 Doxycycline Hyclate 100 mg/ Sodium Chloride 250 ml @ 250 mls/hr Q12 IVPB Last administered on 10/22/18 09:58; Admin Dose 250 MLS/HR; Start 10/21/18 at 21:00 PAULO PATTEN NP Oct 22, 2018 15:04
--- NOTE | 2018-10-22 15:49 | PN ---
Date/Time of Note Date/Time of Note DATE: 10/22/18 TIME: 15:47 Assessment/Plan VTE Prophylaxis Risk score (from Ns)>0 risk: 9 SCD applied (from Nsg): Yes Pharmacological prophylaxis: heparin Lines/Catheters IV Catheter Type (from Nrsg): Saline Lock Urinary Cath still in place: No Assessment/Plan Hospital Course EXAM: Comfortable Breathing stable on HF RRR Crackles in lungs Soft nt nd Ext no edema 68 yo male with MM presented with neutropenic fevers 2/2 pneumoina leading to hypoxic respiratory failure MM wiht pancytopenia/neutropenia: - Management per hematology Pneumonia: - Abx per ID Acute respiratory failure: - Continue HFNC Result Diagram: 10/22/18 0522 10/22/18 0522 Results 24hrs Laboratory Tests Test 10/22/18 05:22 White Blood Count 0.4 #L Red Blood Count 2.80 #L Hemoglobin 8.3 #L Hematocrit 26.0 #L Mean Corpuscular Volume 92.9 Mean Corpuscular Hemoglobin 29.6 Mean Corpuscular Hemoglobin Concent 31.9 L Red Cell Distribution Width 16.5 H Platelet Count 45 L Mean Platelet Volume 11.5 H Immature Granulocytes % 22.900 H Neutrophils % Segmented Neutrophils % (Manual) 53 Band Neutrophils % (Manual) 16 H Lymphocytes % Lymphocytes % (Manual) 26 Reactive Lymphocytes % (Manual) 3 H Monocytes % Monocytes % (Manual) 1 Eosinophils % Eosinophils % (Manual) 2 Basophils % Nucleated Red Blood Cells % 5 H Immature Granulocytes # 0.080 H Neutrophils # Neutrophils # (Manual) 0.2 L Band Neutrophils # 0.0 Lymphocytes (Manual) 0.1 L Lymphocytes # Reactive Lymphocytes # 0.0 Monocytes # Monocytes # (Manual) 0.0 L Eosinophils # Basophils # Nucleated Red Blood Cells # Toxic Granulation 2+ Platelet Estimate SIG DECREASED Polychromasia 1+ Hypochromasia 1+ Poikilocytosis 1+ Anisocytosis 1+ Schistocytes 1+ Sodium Level 134 L Potassium Level 4.4 Chloride Level 104 Carbon Dioxide Level 21 Anion Gap 9 Blood Urea Nitrogen 28 H Creatinine 2.13 H Est Glomerular Filtrat Rate mL/min 31 L Glucose Level 108 Calcium Level 7.1 L Phosphorus Level 3.2 Magnesium Level 2.4 Subjective 24 Hr Interval Summary Free Text/Dictation Says he is feeling improved since admission Continues on HFNC Exam/Review of Systems Exam Vitals Vital Signs Date Temp Pulse Resp B/P (MAP) Pulse Ox O2 O2 Flow FiO2 Time Delivery Rate 10/22/18 98.8 79 20 143/83 98 11:43 (103) 10/22/18 55 10:56 10/22/18 Vapotherm 09:00 10/21/18 10.0 20:00 Intake and Output 10/21/18 10/21/18 10/22/18 1515:00 23:00 07:00 IntakeIntake Total 1440 ml 2156 ml OutputOutput Total 2400 ml BalanceBalance -960 ml 2156 ml Results Results 24hrs Laboratory Tests Test 10/22/18 05:22 White Blood Count 0.4 #L Red Blood Count 2.80 #L Hemoglobin 8.3 #L Hematocrit 26.0 #L Mean Corpuscular Volume 92.9 Mean Corpuscular Hemoglobin 29.6 Mean Corpuscular Hemoglobin Concent 31.9 L Red Cell Distribution Width 16.5 H Platelet Count 45 L Mean Platelet Volume 11.5 H Immature Granulocytes % 22.900 H Neutrophils % Segmented Neutrophils % (Manual) 53 Band Neutrophils % (Manual) 16 H Lymphocytes % Lymphocytes % (Manual) 26 Reactive Lymphocytes % (Manual) 3 H Monocytes % Monocytes % (Manual) 1 Eosinophils % Eosinophils % (Manual) 2 Basophils % Nucleated Red Blood Cells % 5 H Immature Granulocytes # 0.080 H Neutrophils # Neutrophils # (Manual) 0.2 L Band Neutrophils # 0.0 Lymphocytes (Manual) 0.1 L Lymphocytes # Reactive Lymphocytes # 0.0 Monocytes # Monocytes # (Manual) 0.0 L Eosinophils # Basophils # Nucleated Red Blood Cells # Toxic Granulation 2+ Platelet Estimate SIG DECREASED Polychromasia 1+ Hypochromasia 1+ Poikilocytosis 1+ Anisocytosis 1+ Schistocytes 1+ Sodium Level 134 L Potassium Level 4.4 Chloride Level 104 Carbon Dioxide Level 21 Anion Gap 9 Blood Urea Nitrogen 28 H Creatinine 2.13 H Est Glomerular Filtrat Rate mL/min 31 L Glucose Level 108 Calcium Level 7.1 L Phosphorus Level 3.2 Magnesium Level 2.4 Medications Medication Current Medications IV Flush (NS 3 ml) 3 ml PER PROTOCOL IV ; Start 10/20/18 at 19:30 Ondansetron HCl (Zofran Inj) 4 mg Q6H PRN IV NAUSEA/VOMITING; Start 10/20/18 at 19:30 Acetaminophen (Tylenol Tab) 650 mg Q6H PRN PO .PAIN 1-3 OR TEMP Last administered on 10/22/18 05:58; Admin Dose 650 MG; Start 10/20/18 at 19:30 Albuterol/ Ipratropium (Duoneb) 3 ml Q6HWA RESP THERAPY HHN Last administered on 10/22/18 14:17; Admin Dose 3 ML; Start 10/20/18 at 20:00 Albuterol/ Ipratropium (Duoneb) 3 ml Q2H RESP THERAPY PRN HHN shortness of juan th Last administered on 10/21/18 03:19; Admin Dose 3 ML; Start 10/20/18 at 19:30 Cefepime HCl 50 ml @ 100 mls/hr Q12 IVPB Last administered on 10/22/18 09:57; Admin Dose 100 MLS/HR; Start 10/21/18 at 09:00 Vancomycin HCl (Vanco Iv Per Pharmacy) VANCOMYCIN PER PHARMACY PER PROTOCOL XX ; Start 10/20/18 at 23:30 Vancomycin HCl 250 ml @ 125 mls/hr Q36H IVPB Last administered on 10/21/18at 20:54; Admin Dose 125 MLS/HR; Start 10/21/18 at 20:00 Dexamethasone (Decadron) 4 mg Q8 PO ; Start 10/21/18 at 06:00; Status Hold Acetaminophen/ Hydrocodone Bitart ([place] (10/325)) 1 tab Q6H PRN PO MODERATE PAIN LEVEL 4-6 Last administered on 10/22/18 05:58; Admin Dose 1 TAB; Start 10/21/18 at 07:00 Doxycycline Hyclate 100 mg/ Sodium Chloride 250 ml @ 250 mls/hr Q12 IVPB Last administered on 10/22/18 09:58; Admin Dose 250 MLS/HR; Start 10/21/18 at 21:00 CHYNA ARCHER MD Oct 22, 2018 15:49
--- NOTE | 2018-10-22 21:29 | CONS ---
DATE OF ADMISSION: 10/20/2018 DATE OF CONSULTATION: 10/22/2018 TYPE OF CONSULTATION: Hematology. CHIEF COMPLAINT: Fever, chills and neutropenia PHYSICIAN REQUESTING CONSULTATION: Rome Norman MD Dear Dr. Norman: Thank you very much for asking me to see this very pleasant gentleman in hematologic consultation. HISTORY OF PRESENT ILLNESS: As you may know, I am very familiar with Mr. Kay who is a 68-year-old m suresh who has a history of multiple myeloma which dates back now over 4 years. The patient has had multiple therapies in the past. More recently, the patient has been switched fro m monoclonal antibody therapy with elotuzumab to combination of therapy with lenalidomide, dexamethas one and Kyprolis. On , 10/18/2018, the patient received a second dose of Kyprolis. The patient was admitted to [facility] after presenting to the emergency room on with fever and confusion as well as a cough. The patient had apparently been experiencing i ncreasing shortness of breath and cough for 4 or 5 days prior to admission. When seen in the emergency room, the patient did have a temperature as high as 104. There was some c onfusion associated with this. On admission, the patient's white count was 1600 with an absolute neutrophil count of 1100, hemoglobi n 7.6, hematocrit 23.8 and platelet count was 73,000. The patient has been transfused with 2 units o f packed red blood cells. These were administered on 10/21/2018. Today, the patient's white count w as 400 with an absolute neutrophil count of only 200, hemoglobin 8.3, hematocrit 26 and platelet coun t 45,000. Other findings on admission included a sodium 137, potassium 5, creatinine 2.02, BUN 31, calcium of 8 .7 with an albumin of 3.8, the globulin was 6.7. Today, sodium is 134, potassium 4.4, creatinine 2.13 and BUN 28, calcium 7.1. On admission, a chest x-ray did show right upper lobe infiltrate. Today, chest x-ray shows bilateral pulmonary opacities left side greater than the right. PAST MEDICAL HISTORY: As mentioned does include IgG multiple myeloma with previous histories of hype rcalcemia. MEDICATIONS: At time of admission included: 1. Lenalidomide 15 mg p.o. daily. The patient had been taking lenalidomide for approximately 14 day s out of a 21-day course. 2. Dexamethasone 3 tablets 4 mg, 12 mg once a week. 3. Hydromorphone 4 mg every 4 hours p.r.n. 4. Naproxen 375 mg b.i.d. ALLERGIES: THE PATIENT HAS NO KNOWN ALLERGIES. PAST SURGICAL HISTORY: Included surgeries on arms, legs, shoulder and knee. PHYSICAL EXAMINATION: GENERAL: At this time reveals a well-developed, well-nourished male who is in some respiratory distr ess. The patient is awake, alert and oriented. VITAL SIGNS: Temperature 97.9 orally, pulse 74 per minute and regular, respirations 20, blood pressu re is 120/80, pulse oximetry 99% on FiO2 of 55%. SKIN: No ecchymosis, no petechiae or rashes but pale. HEENT: Normocephalic. No evidence of trauma. Pupils are equal, round, react to light and accommoda tion. Sclerae are nonicteric. Oral mucosa is dry without lesions. There is nasal oxygen in place. The oral mucosa and conjunctivae are pale. NECK: Supple. No jugular venous distention or thyroid enlargement. CHEST: No pain on percussion of spine, sternum, clavicles or ribs. There are, however, bilateral wh eezes and rales. No rubs are heard. HEART: Regular sinus rhythm. No S3, S4 or murmurs. ABDOMEN: Soft. No masses, no ascites. EXTREMITIES: No clubbing, edema or cyanosis. No palpable cords or Homans sign. NEUROLOGIC: Normal except for weakness. DISCUSSION: This patient does have a known myeloma. He has required multiple therapies. More recently, he has been started on Kyprolis. He received second dose on 10/18/2018. This is like ly the cause of the patient's neutropenia. I do feel the patient should be started on filgrastim. We will start him on a 480 mcg daily. Thus far, cultures of blood and urine are negative. The chest x-ray is consistent with bilateral pne umonia and I am concerned that this patient may have pneumocystis pneumonia. He has been on immunosuppressive agents in addition to corticosteroids. We will discuss further induction of sputum versus bronchoscopy in order to rule out the possibility of pneumocystis. We would also consider empirically starting the patient on therapy. Dictated By: KVNG GONSALES MD SR/NTS Conf#: [id number] DID#: [id number] CC: CHET THOMAS MD; TRESA SABILLON MD; ROME NORMAN MD;*End*
[2018-10-23] VITALS (12 sets, daily range): BP systolic 122–149; BP diastolic 68–87; PULSE 65–91; RESP 16–18
[2018-10-23] MEDS: FILGRASTIM 480 MCG INJ SC SCH ×2 (02:53→16:21)
[2018-10-23] MEDS: ALBUTEROL/IPRATROPIUM (NEB) 3 ML AMP HHN SCH ×3 (08:17→21:01)
[2018-10-23] MEDS: CEFEPIME 1GM/50 ML (PMX) 50 ML IVPB SCH ×2 (08:32→20:27)
[2018-10-23] MEDS: VANCOMYCIN 1 GM 250 ML IVPB SCH (08:36)
[2018-10-23] MEDS: DOXYCYCLINE 100 MG in SOD CHLORIDE 0.9% 250 ML IVPB SCH ×2 (09:59→22:32)
--- NOTE | 2018-10-23 11:06 | CONS ---
Assessment/Plan Assessment/Plan Hospital Course (Demo Recall) - Severe sepsis d/t PNA-- fever curve down but continues to require significant o2 support - Neutropenic fever d/t PNA - PNA, R>L - Acute respiratory failure - now on vapotherm - Multiple myeloma - Immunosuppression - Pancytopenia d/t multiple myeloma and recent chemo - Acute on chronic anemia requiring PRBC - CKD III Recommendations: - F/u sputum cx and blood cx (NGTD)--unfortunately he has not bee able to produce a sputum - pcp dfa, cocci,crypto, beta-d glucan, resp virus panel, legionella all ordered - consider CT chest and pulm eval - low threshold to transfer to ICU - Continue vancomycin and cefepime (10/20/2018-)-- a consideration of changing Cefepime to Merrem being entertained - monitor crcl and plts; consideration of adding Linezolid being entertained yet low plts would suggest risk higher than any benefit at this point. - Continue doxycycline (10/21/2018-) for atypical coverage - add empiric IV Bactrim today - low threshold to add empiric antifungal coverage - F/u quantiferon TB gold - Neutropenic precautions as per hospital protocol - Nystatin Consultation Date/Type/Reason Admit Date/Time Oct 20, 2018 at 19:11 cct 2.5h Initial Consult Date 10/21/18 Type of Consult ID Requesting Provider: IZZY LEBLANC Date/Time of Note DATE: 10/23/18 TIME: 10:56 24 HR Interval Summary Free Text/Dictation fever curve down. continuing to require vapotherm Exam/Review of Systems Exam Vitals Vital Signs Date Temp Pulse Resp B/P (MAP) Pulse Ox O2 O2 Flow FiO2 Time Delivery Rate 10/23/18 82 20 90 55 08:19 10/23/18 98.6 139/75 08:02 (96) 10/22/18 Vapotherm 09:00 10/21/18 10.0 20:00 Intake and Output 10/22/18 10/22/18 10/23/18 1515:00 23:00 07:00 IntakeIntake Total 845 ml 800 ml BalanceBalance 845 ml 800 ml Constitutional: alert, oriented, well developed, other (still requring o2) Psych: no complaints Head: normocephalic, atraumatic Eyes: EOMI ENMT: other (brushing teeth. worried about beginnings of thrush) Respiratory: diminished breath sounds Cardiovascular: regular rate and rhythm Gastrointestinal: soft Musculoskeletal: nl extremities to inspection, nl gait and stance Neurological: MODELING DIRECTOR II-XII intact Results Result Diagram: 10/23/18 0459 10/23/18 0459 Results 24hrs Laboratory Tests Test 10/23/18 04:59 10/23/18 07:38 White Blood Count 0.3 #L Red Blood Count 2.74 L Hemoglobin 8.1 L Hematocrit 25.0 L Mean Corpuscular Volume 91.2 Mean Corpuscular Hemoglobin 29.6 Mean Corpuscular Hemoglobin Concent 32.4 Red Cell Distribution Width 16.2 H Platelet Count 57 #L Mean Platelet Volume 12.8 H Immature Granulocytes % 11.100 H Neutrophils % Segmented Neutrophils % (Manual) 57 Band Neutrophils % (Manual) 3 Lymphocytes % Lymphocytes % (Manual) 35 Monocytes % Monocytes % (Manual) 3 Eosinophils % Eosinophils % (Manual) 2 Basophils % Nucleated Red Blood Cells % 7 H Immature Granulocytes # 0.030 Neutrophils # Neutrophils # (Manual) 0.2 L Band Neutrophils # 0.0 Lymphocytes (Manual) 0.1 L Lymphocytes # Monocytes # Monocytes # (Manual) 0.0 L Eosinophils # Basophils # Nucleated Red Blood Cells # Toxic Granulation 1+ Platelet Estimate DECREASED Giant Platelets 4 H Polychromasia 3+ Anisocytosis 1+ Sodium Level 134 L Potassium Level 4.6 Chloride Level 105 Carbon Dioxide Level 20 L Anion Gap 9 Blood Urea Nitrogen 31 H Creatinine 1.93 H Est Glomerular Filtrat Rate mL/min 35 L Glucose Level 109 Calcium Level 7.1 L Lab Scanned Report BLOOD TRANSFUSION Medications Medication Current Medications IV Flush (NS 3 ml) 3 ml PER PROTOCOL IV ; Start 10/20/18 at 19:30 Ondansetron HCl (Zofran Inj) 4 mg Q6H PRN IV NAUSEA/VOMITING; Start 10/20/18 at 19:30 Acetaminophen (Tylenol Tab) 650 mg Q6H PRN PO .PAIN 1-3 OR TEMP Last administered on 10/22/18at 05:58; Admin Dose 650 MG; Start 10/20/18 at 19:30 Albuterol/ Ipratropium (Duoneb) 3 ml Q6HWA RESP THERAPY HHN Last administered on 10/23/18at 08:17; Admin Dose 3 ML; Start 10/20/18 at 20:00 Albuterol/ Ipratropium (Duoneb) 3 ml Q2H RESP THERAPY PRN HHN shortness of breath Last administered on 10/21/18 03:19; Admin Dose 3 ML; Start 10/20/18 at 19:30 Cefepime HCl 50 ml @ 100 mls/hr Q12 IVPB Last administered on 10/23/18 08:32; Admin Dose 100 MLS/HR; Start 10/21/18 at 09:00 Vancomycin HCl (Vanco Iv Per Pharmacy) VANCOMYCIN PER PHARMACY PER PROTOCOL XX ; Start 10/20/18 at 23:30 Vancomycin HCl 250 ml @ 125 mls/hr Q36H IVPB Last administered on 10/23/18at 08:36; Admin Dose 125 MLS/HR; Start 10/21/18 at 20:00 Dexamethasone (Decadron) 4 mg Q8 PO ; Start 10/21/18 at 06:00; Status Hold Acetaminophen/ Hydrocodone Bitart ([place] (10/325)) 1 tab Q6H PRN PO MODERATE PAIN LEVEL 4-6 Last administered on 10/22/18at 20:38; Admin Dose 1 TAB; Start 10/21/18 at 07:00 Doxycycline Hyclate 100 mg/ Sodium Chloride 250 ml @ 250 mls/hr Q12 IVPB Last administered on 10/23/18at 09:59; Admin Dose 250 MLS/HR; Start 10/21/18 at 21:00 Filgrastim (Neupogen) 480 mcg DAILY@1700 SC Last administered on 10/23/18at 02:53; Admin Dose 480 MCG; Start 10/22/18 at 22:00 Trimethoprim/ Sulfamethoxazole 10 ml/Dextrose 510 ml @ 350 mls/hr Q8 IVPB ; Start 10/23/18 at 14:00; Status UNV Miscellaneous Information (* Miscellaneous Pharmacy Order) ONCE XX ; Start 10/23/18 at 11:00; Status UNV RUTHIE OCASIO MD Oct 23, 2018 11:06
[2018-10-23] MEDS: NYSTATIN SUSP 5 ML CUP PO SCH ×3 (12:41→20:28)
[2018-10-23] MEDS ORDERED: POLYETHYLENE GLYCOL 17 GM PACKET PO ONE (13:30)
[2018-10-23] MEDS: TRIMETHOPRIM/SULFAMETHOXAZOLE 20 ML in DEXTROSE 5% 500 ML IVPB SCH ×2 (13:48→23:41)
--- NOTE | 2018-10-23 14:09 | PN ---
Date/Time of Note Date/Time of Note DATE: 10/23/18 TIME: 14:08 Assessment/Plan VTE Prophylaxis Risk score (from Ns)>0 risk: 4 SCD applied (from Ns): Yes Pharmacological prophylaxis: heparin Lines/Catheters IV Catheter Type (from Nrs): Saline Lock Urinary Cath still in place: No Assessment/Plan Hospital Course EXAM: Comfortable Breathing stable on HF RRR Crackles in lungs Soft nt nd Ext no edema 68 yo male with MM presented with neutropenic fevers 2/2 pneumoina leading to hypoxic respiratory failure MM wiht pancytopenia/neutropenia: - Neupogen per hematology Pneumonia: - Abx per ID - Concern for PCP. Will get sputum induction with DFA Acute respiratory failure: - Continue HFNC Result Diagram: 10/23/189 10/23/18458 Results 24hrs Laboratory Tests Test 10/23/18 04:59 10/23/18 07:38 10/23/18 11:46 White Blood Count 0.3 #L Red Blood Count 2.74 L Hemoglobin 8.1 L Hematocrit 25.0 L Mean Corpuscular Volume 91.2 Mean Corpuscular Hemoglobin 29.6 Mean Corpuscular 32.4 Hemoglobin Concent Red Cell Distribution Width 16.2 H Platelet Count 57 #L Mean Platelet Volume 12.8 H Immature Granulocytes % 11.100 H Neutrophils % Segmented Neutrophils 57 % (Manual) Band Neutrophils % (Manual) 3 Lymphocytes % Lymphocytes % (Manual) 35 Monocytes % Monocytes % (Manual) 3 Eosinophils % Eosinophils % (Manual) 2 Basophils % Nucleated Red Blood Cells % 7 H Immature Granulocytes # 0.030 Neutrophils # Neutrophils # (Manual) 0.2 L Band Neutrophils # 0.0 Lymphocytes (Manual) 0.1 L Lymphocytes # Monocytes # Monocytes # (Manual) 0.0 L Eosinophils # Basophils # Nucleated Red Blood Cells # Toxic Granulation 1+ Platelet Estimate DECREASED Giant Platelets 4 H Polychromasia 3+ Anisocytosis 1+ Sodium Level 134 L Potassium Level 4.6 Chloride Level 105 Carbon Dioxide Level 20 L Anion Gap 9 Blood Urea Nitrogen 31 H Creatinine 1.93 H Est Glomerular Filtrat 35 L Rate mL/min Glucose Level 109 Calcium Level 7.1 L Lab Scanned Report BLOOD TRANSFUSION Lactic Acid Level 0.9 HIV (1&2) Antibody NEGATIVE Subjective 24 Hr Interval Summary Free Text/Dictation Still quite hypoxic Given neupogen Feels well Exam/Review of Systems Exam Vitals Vital Signs Date Temp Pulse Resp B/P (MAP) Pulse Ox O2 O2 Flow FiO2 Time Delivery Rate 10/23/18 100 55 13:01 10/23/18 99.4 79 17 149/87 12:04 (107) 10/22/18 Vapotherm 09:00 10/21/18 10.0 20:00 Intake and Output 10/22/18 10/22/18 10/23/18 1515:00 23:00 07:00 IntakeIntake Total 845 ml 800 ml BalanceBalance 845 ml 800 ml Results Results 24hrs Laboratory Tests Test 10/23/18 04:59 10/23/18 07:38 10/23/18 11:46 White Blood Count 0.3 #L Red Blood Count 2.74 L Hemoglobin 8.1 L Hematocrit 25.0 L Mean Corpuscular Volume 91.2 Mean Corpuscular Hemoglobin 29.6 Mean Corpuscular 32.4 Hemoglobin Concent Red Cell Distribution Width 16.2 H Platelet Count 57 #L Mean Platelet Volume 12.8 H Immature Granulocytes % 11.100 H Neutrophils % Segmented Neutrophils 57 % (Manual) Band Neutrophils % (Manual) 3 Lymphocytes % Lymphocytes % (Manual) 35 Monocytes % Monocytes % (Manual) 3 Eosinophils % Eosinophils % (Manual) 2 Basophils % Nucleated Red Blood Cells % 7 H Immature Granulocytes # 0.030 Neutrophils # Neutrophils # (Manual) 0.2 L Band Neutrophils # 0.0 Lymphocytes (Manual) 0.1 L Lymphocytes # Monocytes # Monocytes # (Manual) 0.0 L Eosinophils # Basophils # Nucleated Red Blood Cells # Toxic Granulation 1+ Platelet Estimate DECREASED Giant Platelets 4 H Polychromasia 3+ Anisocytosis 1+ Sodium Level 134 L Potassium Level 4.6 Chloride Level 105 Carbon Dioxide Level 20 L Anion Gap 9 Blood Urea Nitrogen 31 H Creatinine 1.93 H Est Glomerular Filtrat 35 L Rate mL/min Glucose Level 109 Calcium Level 7.1 L Lab Scanned Report BLOOD TRANSFUSION Lactic Acid Level 0.9 HIV (1&2) Antibody NEGATIVE Medications Medication Current Medications IV Flush (NS 3 ml) 3 ml PER PROTOCOL IV ; Start 10/20/18 at 19:30 Ondansetron HCl (Zofran Inj) 4 mg Q6H PRN IV NAUSEA/VOMITING; Start 10/20/18 at 19:30 Acetaminophen (Tylenol Tab) 650 mg Q6H PRN PO .PAIN 1-3 OR TEMP Last administered on 10/22/18 05:58; Admin Dose 650 MG; Start 10/20/18 at 19:30 Albuterol/ Ipratropium (Duoneb) 3 ml Q6HWA RESP THERAPY HHN Last administered on 10/23/18 08:17; Admin Dose 3 ML; Start 10/20/18 at 20:00 Albuterol/ Ipratropium (Duoneb) 3 ml Q2H RESP THERAPY PRN HHN shortness of breath Last administered on 10/21/18 03:19; Admin Dose 3 ML; Start 10/20/18 at 19:30 Cefepime HCl 50 ml @ 100 mls/hr Q12 IVPB Last administered on 10/23/18 08:32; Admin Dose 100 MLS/HR; Start 10/21/18 at 09:00 Vancomycin HCl (Vanco Iv Per Pharmacy) VANCOMYCIN PER PHARMACY PER PROTOCOL XX ; Start 10/20/18 at 23:30 Vancomycin HCl 250 ml @ 125 mls/hr Q36H IVPB Last administered on 10/23/18 08:36; Admin Dose 125 MLS/HR; Start 10/21/18 at 20:00 Dexamethasone (Decadron) 4 mg Q8 PO ; Start 10/21/18 at 06:00; Status Hold Acetaminophen/ Hydrocodone Bitart ([employer] [place] (10/325)) 1 tab Q6H PRN PO MODERATE PAIN LEVEL 4-6 Last administered on 10/22/18 20:38; Admin Dose 1 TAB; Start 10/21/18 at 07:00 Doxycycline Hyclate 100 mg/ Sodium Chloride 250 ml @ 250 mls/hr Q12 IVPB Last administered on 10/23/18 09:59; Admin Dose 250 MLS/HR; Start 10/21/18 at 21:00 Filgrastim (Neupogen) 480 mcg DAILY@1700 SC Last administered on 10/23/18 02:53; Admin Dose 480 MCG; Start 10/22/18 at 22:00 Trimethoprim/ Sulfamethoxazole 20 ml/Dextrose 520 ml @ 350 mls/hr Q8 IVPB Last administered on 10/23/18 13:48; Admin Dose 350 MLS/HR; Start 10/23/18 at 14:00 Miscellaneous Information (* Miscellaneous Pharmacy Order) ONCE XX ; Start 10/23/18 at 11:00 Nystatin (Nystatin Susp) 5 ml QID PO Last administered on 10/23/18at 12:41; Admin Dose 5 ML; Start 10/23/18 at 13:00 CHYNA ARCHER MD Oct 23, 2018 14:09
[2018-10-23] MEDS: ACETAMINOPHEN 325 MG TAB PO PRN (16:25)
--- NOTE | 2018-10-23 21:00 | PN ---
DATE: 10/23/2018 SUBJECTIVE: The patient states that he is feeling somewhat more weak and lightheaded today. Cough persists and is still not productive. The patient states that the chest pain is somewhat improved. OBJECTIVE: GENERAL: The patient is a well-developed, chronically ill-appearing male who is in no acute distress but is dyspneic. VITAL SIGNS: Temperature 99.3 axillary, did have a T-max of 102.7 four hours ago. Pulse 72 per minute and regular, respirations 18, blood pressure 126/68, pulse oximetry 100% on high flow oxygen, FiO2 55. SKIN: Warm and dry. No ecchymosis, no petechiae or rashes. There are tattoos. HEENT: Normocephalic. No evidence of trauma. Pupils equal, round, react to light and accommodation. Sclerae are nonicteric. Oral mucosa is dry. There are no lesions. There is a pallor of the conjunctiva and oral mucosa. NECK: Supple. No jugular venous distention or thyroid enlargement. CHEST: Decreased breath sounds and dullness to percussion on the left side with some E to A changes on the left, which are greater than the right. ABDOMEN: Soft, no masses, no ascites. EXTREMITIES: Good range of motion, no clubbing, edema or cyanosis. No palpable cords or Homans sign. NEUROLOGIC: Normal except for weakness. There are no focal neurologic abnormalities. LABORATORY DATA: Sodium 134, potassium 4.6, creatinine 1.93, BUN 31, calcium 7.1. White count is 300 with absolute neutrophil count of 200, hemoglobin 8.1, hematocrit 25, and platelet count is 57,000. ASSESSMENT: 1. Neutropenic fever. 2. Respiratory failure with bilateral pulmonary infiltrates. 3. Multiple myeloma. 4. Pancytopenia secondary to #3 and chemotherapy. DISCUSSION: Still concern that this patient's pulmonary process represents a pneumocystis pneumonia. I have requested a beta D glucan level. It is likely the patient will require either an induced sputum or bronchoalveolar lavage. The patient's platelet count is marginal. As far as this type of traumatic intervention. If this is what is necessary to make the diagnosis, we will then transfused the platelets prior to this either of these procedures. We will continue the filgrastim 480 mcg daily. We will also recheck chest x-ray in a.m. Dictated By: KVNG GONSALES MD SR/NTS Conf#: [id number] [facility]#: [id number] CC: CHET THOMAS MD;*EndCC* MTDD
[2018-10-23] MEDS: HYDROCODONE/APAP (10/325) TAB PO PRN (22:57)
[2018-10-24] VITALS (28 sets, daily range): BP systolic 111–156; BP diastolic 63–85; PULSE 72–93; RESP 17–40
[2018-10-24] MEDS: TRIMETHOPRIM/SULFAMETHOXAZOLE 20 ML in DEXTROSE 5% 500 ML IVPB SCH ×3 (05:41→22:11)
[2018-10-24] MEDS: ALBUTEROL/IPRATROPIUM (NEB) 3 ML AMP HHN PRN (06:25)
[2018-10-24] MEDS: HYDROCODONE/APAP (10/325) TAB PO PRN ×2 (07:24→20:59)
[2018-10-24] MEDS: CEFEPIME 1GM/50 ML (PMX) 50 ML IVPB SCH (08:22)
[2018-10-24] MEDS: NYSTATIN SUSP 5 ML CUP PO SCH ×4 (08:22→20:59)
[2018-10-24] MEDS: ALBUTEROL/IPRATROPIUM (NEB) 3 ML AMP HHN SCH ×4 (08:24→20:52)
[2018-10-24] MEDS: DOXYCYCLINE 100 MG in SOD CHLORIDE 0.9% 250 ML IVPB SCH ×2 (09:29→21:20)
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
--- NOTE | 2018-10-24 13:45 | PN ---
Date/Time of Note Date/Time of Note DATE: 10/24/18 TIME: 13:43 Assessment/Plan VTE Prophylaxis Risk score (from Ns)>0 risk: 4 SCD applied (from Ns): Yes Pharmacological prophylaxis: heparin Lines/Catheters IV Catheter Type (from Nrs): Saline Lock Urinary Cath still in place: No Assessment/Plan Hospital Course EXAM: Comfortable Breathing stable on HF RRR Crackles in lungs Soft nt nd Ext no edema 68 yo male with MM presented with neutropenic fevers 2/2 pneumoina leading to hypoxic respiratory failure MM wiht pancytopenia/neutropenia: - Neupogen per hematology Pneumonia: - Abx per ID. Bactrim has been added - Concern for PCP. We have tried to do sputum induction but unsuccessful. I have consulted pulmonary for consideration of bronchoscopy Acute respiratory failure: - Continue HFNC CKD III: - stable - result of MM - trend creatinine Result Diagram: 10/24/18 0509 10/24/18 0509 Results 24hrs Laboratory Tests Test 10/24/18 05:09 White Blood Count 0.2 #L Red Blood Count 2.83 L Hemoglobin 8.3 L Hematocrit 26.1 L Mean Corpuscular Volume 92.2 Mean Corpuscular Hemoglobin 29.3 Mean Corpuscular Hemoglobin Concent 31.8 L Red Cell Distribution Width 15.8 H Platelet Count 58 L Mean Platelet Volume 11.6 H Immature Granulocytes % 0.000 L Neutrophils % Segmented Neutrophils % (Manual) 44 Band Neutrophils % (Manual) 22 H Lymphocytes % Lymphocytes % (Manual) 27 Reactive Lymphocytes % (Manual) 1 H Monocytes % Eosinophils % Eosinophils % (Manual) 3 Basophils % Metamyelocytes % (manual) 1 H Myelocytes % (Manual) 2 H Nucleated Red Blood Cells % 3 H Immature Granulocytes # 0.000 Neutrophils # Neutrophils # (Manual) 0.1 L Band Neutrophils # 0.0 Lymphocytes (Manual) 0.0 L Lymphocytes # Reactive Lymphocytes # 0.0 Monocytes # Eosinophils # Basophils # Metamyelocytes # 0.0 Myelocytes # 0.0 Nucleated Red Blood Cells # Platelet Estimate DECREASED Giant Platelets 9 H Polychromasia 2+ Poikilocytosis 1+ Anisocytosis 1+ Prothrombin Time 14.7 Prothrombin Time Ratio 1.1 INR International Normalized Ratio 1.14 Activated Partial Thromboplast Time 30.0 Fibrinogen 707.0 H Sodium Level 133 L Potassium Level 5.0 Chloride Level 103 Carbon Dioxide Level 22 Anion Gap 8 Blood Urea Nitrogen 26 H Creatinine 1.79 H Est Glomerular Filtrat Rate mL/min 38 L Glucose Level 96 Calcium Level 7.1 L Total Bilirubin 0.0 L Direct Bilirubin 0.00 Indirect Bilirubin 0.0 Aspartate Amino Transf (AST/SGOT) 25 Alanine Aminotransferase (ALT/SGPT) 15 Alkaline Phosphatase 74 Total Protein 8.4 H Albumin 2.9 L Globulin 5.50 H Albumin/Globulin Ratio 0.52 Immunoglobulin A < 40 L Immunoglobulin G 4349 H Immunoglobulin M < 25 L Subjective 24 Hr Interval Summary Free Text/Dictation Feels well but still very hypoxic Unable to produce sputum for PCP DFA Exam/Review of Systems Exam Vitals Vital Signs Date Temp Pulse Resp B/P (MAP) Pulse Ox O2 O2 Flow FiO2 Time Delivery Rate 10/24/18 89 18 98 55 13:10 10/24/18 99.9 147/65 11:47 (92) 10/24/18 High Flow 08:11 10/21/18 10.0 20:00 Intake and Output 10/23/18 10/23/18 10/24/18 1515:00 23:00 07:00 IntakeIntake Total 550 ml 940 ml 950 ml OutputOutput Total 475 ml 475 ml BalanceBalance 550 ml 465 ml 475 ml Results Results 24hrs Laboratory Tests Test 10/24/18 05:09 White Blood Count 0.2 #L Red Blood Count 2.83 L Hemoglobin 8.3 L Hematocrit 26.1 L Mean Corpuscular Volume 92.2 Mean Corpuscular Hemoglobin 29.3 Mean Corpuscular Hemoglobin Concent 31.8 L Red Cell Distribution Width 15.8 H Platelet Count 58 L Mean Platelet Volume 11.6 H Immature Granulocytes % 0.000 L Neutrophils % Segmented Neutrophils % (Manual) 44 Band Neutrophils % (Manual) 22 H Lymphocytes % Lymphocytes % (Manual) 27 Reactive Lymphocytes % (Manual) 1 H Monocytes % Eosinophils % Eosinophils % (Manual) 3 Basophils % Metamyelocytes % (manual) 1 H Myelocytes % (Manual) 2 H Nucleated Red Blood Cells % 3 H Immature Granulocytes # 0.000 Neutrophils # Neutrophils # (Manual) 0.1 L Band Neutrophils # 0.0 Lymphocytes (Manual) 0.0 L Lymphocytes # Reactive Lymphocytes # 0.0 Monocytes # Eosinophils # Basophils # Metamyelocytes # 0.0 Myelocytes # 0.0 Nucleated Red Blood Cells # Platelet Estimate DECREASED Giant Platelets 9 H Polychromasia 2+ Poikilocytosis 1+ Anisocytosis 1+ Prothrombin Time 14.7 Prothrombin Time Ratio 1.1 INR International Normalized Ratio 1.14 Activated Partial Thromboplast Time 30.0 Fibrinogen 707.0 H Sodium Level 133 L Potassium Level 5.0 Chloride Level 103 Carbon Dioxide Level 22 Anion Gap 8 Blood Urea Nitrogen 26 H Creatinine 1.79 H Est Glomerular Filtrat Rate mL/min 38 L Glucose Level 96 Calcium Level 7.1 L Total Bilirubin 0.0 L Direct Bilirubin 0.00 Indirect Bilirubin 0.0 Aspartate Amino Transf (AST/SGOT) 25 Alanine Aminotransferase (ALT/SGPT) 15 Alkaline Phosphatase 74 Total Protein 8.4 H Albumin 2.9 L Globulin 5.50 H Albumin/Globulin Ratio 0.52 Immunoglobulin A < 40 L Immunoglobulin G 4349 H Immunoglobulin M < 25 L Medications Medication Current Medications IV Flush (NS 3 ml) 3 ml PER PROTOCOL IV ; Start 10/20/18 at 19:30 Ondansetron HCl (Zofran Inj) 4 mg Q6H PRN IV NAUSEA/VOMITING; Start 10/20/18 at 19:30 Acetaminophen (Tylenol Tab) 650 mg Q6H PRN PO .PAIN 1-3 OR TEMP Last administered on 10/23/18at 16:25; Admin Dose 650 MG; Start 10/20/18 at 19:30 Albuterol/ Ipratropium (Duoneb) 3 ml Q6HWA RESP THERAPY HHN Last administered on 10/24/18at 13:00; Admin Dose 3 ML; Start 10/20/18 at 20:00 Albuterol/ Ipratropium (Duoneb) 3 ml Q2H RESP THERAPY PRN HHN shortness of juan th Last administered on 10/24/18at 06:25; Admin Dose 3 ML; Start 10/20/18 at 19:30 Cefepime HCl 50 ml @ 100 mls/hr Q12 IVPB Last administered on 10/24/18at 08:22; Admin Dose 100 MLS/HR; Start 10/21/18 at 09:00 Vancomycin HCl (Vanco Iv Per Pharmacy) VANCOMYCIN PER PHARMACY PER PROTOCOL XX ; Start 10/20/18 at 23:30 Vancomycin HCl 250 ml @ 125 mls/hr Q36H IVPB Last administered on 10/23/18at 08:36; Admin Dose 125 MLS/HR; Start 10/21/18 at 20:00 Dexamethasone (Decadron) 4 mg Q8 PO ; Start 10/21/18 at 06:00; Status Hold Acetaminophen/ Hydrocodone Bitart ([place] (10/325)) 1 tab Q6H PRN PO MODERATE PAIN LEVEL 4-6 Last administered on 10/24/18 07:24; Admin Dose 1 TAB; Start 10/21/18 at 07:00 Doxycycline Hyclate 100 mg/ Sodium Chloride 250 ml @ 250 mls/hr Q12 IVPB Last administered on 10/24/18 09:29; Admin Dose 250 MLS/HR; Start 10/21/18 at 21:00 Filgrastim (Neupogen) 480 mcg DAILY@1700 SC Last administered on 10/23/18 16:21; Admin Dose 480 MCG; Start 10/22/18 at 22:00 Trimethoprim/ Sulfamethoxazole 20 ml/Dextrose 520 ml @ 350 mls/hr Q8 IVPB Last administered on 10/24/18 13:09; Admin Dose 350 MLS/HR; Start 10/23/18 at 14:00 Miscellaneous Information (* Miscellaneous Pharmacy Order) ONCE XX ; Start 10/23/18 at 11:00 Nystatin (Nystatin Susp) 5 ml QID PO Last administered on 10/24/18 13:09; Admin Dose 5 ML; Start 10/23/18 at 13:00 Magnesium Hydroxide (Milk Of Mag) 30 ml DAILY PRN PO CONSTIPATION; Start 10/24/18 at 00:30 Miscellaneous Information (*Rx Drug Level Order Reminder*) VANCOMYCIN TROUGH LEVEL... 1900 ONCE XX ; Start 10/24/18 at 19:00; Stop 10/24/18 at 19:01 CHYNA ARCHER MD Oct 24, 2018 13:45
[2018-10-24] MEDS: FILGRASTIM 480 MCG INJ SC SCH (17:00)
[2018-10-24] MEDS ORDERED: FUROSEMIDE 40 MG INJ IV ONE (18:30)
--- NOTE | 2018-10-24 18:44 | CONS ---
Assessment/Plan Assessment/Plan Hospital Course (Demo Recall) Case reviewed with Dr. Norman several times yesterday afternoon. d/w Dr. Hill yesterday. Case d/w CHILD NUTRITION ASSISTANT Travis this afternoon. Care coordinated. d/w Dr. Gonzalez this evening. Care coordinated. EMR reviewed. Cxs/labs ordered. Abx broadened. Will continue to follow closely with you. Consultation Date/Type/Reason Admit Date/Time Oct 20, 2018 at 19:11 Initial Consult Date 10/21/18 Type of Consult ID Requesting Provider: IZZY LEBLANC Date/Time of Note DATE: 10/24/18 TIME: 18:39 cct 2.5 h 2nd visit today Exam/Review of Systems Exam Vitals Vital Signs Date Temp Pulse Resp B/P (MAP) Pulse Ox O2 O2 Flow FiO2 Time Delivery Rate 10/24/18 89 31 18:30 10/24/18 BIPAP 18:30 10/24/18 100 100 18:20 10/24/18 134/75 18:00 (94) 10/24/18 100.2 16:43 10/21/18 10.0 20:00 Intake and Output 10/23/18 10/23/18 10/24/18 1515:00 23:00 07:00 IntakeIntake Total 550 ml 940 ml 950 ml OutputOutput Total 475 ml 475 ml BalanceBalance 550 ml 465 ml 475 ml Results Result Diagram: 10/24/18 0509 10/24/18 0509 Results 24hrs Laboratory Tests Test 10/24/18 05:09 White Blood Count 0.2 #L Red Blood Count 2.83 L Hemoglobin 8.3 L Hematocrit 26.1 L Mean Corpuscular Volume 92.2 Mean Corpuscular Hemoglobin 29.3 Mean Corpuscular Hemoglobin Concent 31.8 L Red Cell Distribution Width 15.8 H Platelet Count 58 L Mean Platelet Volume 11.6 H Immature Granulocytes % 0.000 L Neutrophils % Segmented Neutrophils % (Manual) 44 Band Neutrophils % (Manual) 22 H Lymphocytes % Lymphocytes % (Manual) 27 Reactive Lymphocytes % (Manual) 1 H Monocytes % Eosinophils % Eosinophils % (Manual) 3 Basophils % Metamyelocytes % (manual) 1 H Myelocytes % (Manual) 2 H Nucleated Red Blood Cells % 3 H Immature Granulocytes # 0.000 Neutrophils # Neutrophils # (Manual) 0.1 L Band Neutrophils # 0.0 Lymphocytes (Manual) 0.0 L Lymphocytes # Reactive Lymphocytes # 0.0 Monocytes # Eosinophils # Basophils # Metamyelocytes # 0.0 Myelocytes # 0.0 Nucleated Red Blood Cells # Platelet Estimate DECREASED Giant Platelets 9 H Polychromasia 2+ Poikilocytosis 1+ Anisocytosis 1+ Prothrombin Time 14.7 Prothrombin Time Ratio 1.1 INR International Normalized Ratio 1.14 Activated Partial Thromboplast Time 30.0 Fibrinogen 707.0 H Sodium Level 133 L Potassium Level 5.0 Chloride Level 103 Carbon Dioxide Level 22 Anion Gap 8 Blood Urea Nitrogen 26 H Creatinine 1.79 H Est Glomerular Filtrat Rate mL/min 38 L Glucose Level 96 Calcium Level 7.1 L Total Bilirubin 0.0 L Direct Bilirubin 0.00 Indirect Bilirubin 0.0 Aspartate Amino Transf (AST/SGOT) 25 Alanine Aminotransferase (ALT/SGPT) 15 Alkaline Phosphatase 74 Total Protein 8.4 H Albumin 2.9 L Globulin 5.50 H Albumin/Globulin Ratio 0.52 Immunoglobulin A < 40 L Immunoglobulin G 4349 H Immunoglobulin M < 25 L Medications Medication Current Medications IV Flush (NS 3 ml) 3 ml PER PROTOCOL IV ; Start 10/20/18 at 19:30 Ondansetron HCl (Zofran Inj) 4 mg Q6H PRN IV NAUSEA/VOMITING; Start 10/20/18 at 19:30 Acetaminophen (Tylenol Tab) 650 mg Q6H PRN PO .PAIN 1-3 OR TEMP Last administered on 10/23/18at 16:25; Admin Dose 650 MG; Start 10/20/18 at 19:30 Albuterol/ Ipratropium (Duoneb) 3 ml Q6HWA RESP THERAPY HHN Last administered on 10/24/18at 13:00; Admin Dose 3 ML; Start 10/20/18 at 20:00 Albuterol/ Ipratropium (Duoneb) 3 ml Q2H RESP THERAPY PRN HHN shortness of breath Last administered on 10/24/18at 06:25; Admin Dose 3 ML; Start 10/20/18 at 19:30 Vancomycin HCl (Vanco Iv Per Pharmacy) VANCOMYCIN PER PHARMACY PER PROTOCOL XX ; Start 10/20/18 at 23:30 Vancomycin HCl 250 ml @ 125 mls/hr Q36H IVPB Last administered on 10/23/18at 08:36; Admin Dose 125 MLS/HR; Start 10/21/18 at 20:00 Acetaminophen/ Hydrocodone Bitart ([place] (10/325)) 1 tab Q6H PRN PO MODERATE PAIN LEVEL 4-6 Last administered on 10/24/18at 07:24; Admin Dose 1 TAB; Start 10/21/18 at 07:00 Doxycycline Hyclate 100 mg/ Sodium Chloride 250 ml @ 250 mls/hr Q12 IVPB Last administered on 10/24/18at 09:29; Admin Dose 250 MLS/HR; Start 10/21/18 at 21:00 Filgrastim (Neupogen) 480 mcg DAILY@1700 SC Last administered on 10/23/18at 16:21; Admin Dose 480 MCG; Start 10/22/18 at 22:00 Trimethoprim/ Sulfamethoxazole 20 ml/Dextrose 520 ml @ 350 mls/hr Q8 IVPB Last administered on 10/24/18at 13:09; Admin Dose 350 MLS/HR; Start 10/23/18 at 14:00 Miscellaneous Information (* Miscellaneous Pharmacy Order) ONCE XX ; Start 10/23/18 at 11:00 Nystatin (Nystatin Susp) 5 ml QID PO Last administered on 10/24/18at 17:46; Admin Dose 5 ML; Start 10/23/18 at 13:00 Magnesium Hydroxide (Milk Of Mag) 30 ml DAILY PRN PO CONSTIPATION; Start 10/24/18 at 00:30 Miscellaneous Information (*Rx Drug Level Order Reminder*) VANCOMYCIN TROUGH LEVEL... 1900 ONCE XX ; Start 10/24/18 at 19:00; Stop 10/24/18 at 19:01 Methylprednisolone Sodium Succinate (Solu-Medrol) 60 mg Q8 IV ; Start 10/24/18 at 18:30 Caspofungin 70 mg/ Sodium Chloride 250 ml @ 250 mls/hr ONCE ONCE IVPB ; Start 10/24/18 at 19:00; Stop 10/24/18 at 19:59; Status UNV Caspofungin 50 mg/ Sodium Chloride 250 ml @ 250 mls/hr Q24H IVPB ; Start 10/24/18 at 19:00; Status UNV Meropenem/Sodium Chloride 50 ml @ 100 mls/hr Q12 IVPB ; Start 10/24/18 at 21:00; Status UNV Oseltamivir Phosphate (Tamiflu) 75 mg DAILY PO ; Start 10/24/18 at 19:00; Status UNV RUTHIE OCASIO MD Oct 24, 2018 18:44
[2018-10-24] MEDS: METHYLPREDNISOLONE 125 MG INJ IV SCH (18:47)
[2018-10-24] MEDS ORDERED: CASPOFUNGIN 70 MG in SOD CHLORIDE 0.9% 250 ML IVPB ONE (19:00)
[2018-10-24] MEDS ORDERED: OSELTAMIVIR 75 MG CAP PO SCH (19:00)
[2018-10-24] MEDS ORDERED: CASPOFUNGIN 50 MG in SOD CHLORIDE 0.9% 250 ML IVPB SCH (19:00)
--- NOTE | 2018-10-24 19:49 | CONS ---
DATE OF ADMISSION: 10/20/2018 DATE OF CONSULTATION: REASON FOR CONSULTATION: Shortness of breath. Thank you, Dr. Norman, for this consultation. HISTORY OF PRESENT ILLNESS: This is a 68-year-old gentleman with a history of multiple myeloma statu s post chemotherapy, came in with fever, chills, cough and dyspnea, was found to have extensive bilat eral infiltrates complicated by neutropenia. Diagnosed with neutropenic fevers and pneumonia, possib ly opportunistic given his compromised immune status. Today, he continues high flow O2 with 55% FIO2 at 30 liters per minute, appears labored and intermittently confused. PAST MEDICAL HISTORY: Multiple myeloma. MEDICATIONS: Per chart include Bactrim, doxycycline, vancomycin, cefepime. Recently on doxycycline, and currently Neupogen. ALLERGIES: NONE. SOCIAL HISTORY: He is a nonsmoker, no alcohol, no history of drug use. FAMILY HISTORY: Noncontributory. SYSTEMS REVIEW: A 12-point review of systems was negative other than that mentioned. PHYSICAL EXAMINATION: GENERAL: A well-nourished, well-developed gentleman, comfortable at rest, no acute distress. VITAL SIGNS: Currently afebrile, pulse is 89, blood pressure 140/65, O2 saturation 94% on FIO2 of 55 %. NECK: Supple. No JVD or lymphadenopathy. CARDIAC: S1, S2. No added sounds or murmurs. CHEST: Diminished air entry bilaterally with rales. ABDOMEN: Soft, nontender. No guarding or rebound. EXTREMITIES: No cyanosis or clubbing. A 1+ edema. NEUROLOGIC: Generalized weakness. LABORATORIES: White count 0.2, hemoglobin 8.3, platelets of 58. BUN 26, creatinine 1.79. ABG: Rebeca 2 was 50 several days ago. INR was 1.14. DIAGNOSTIC STUDIES: Chest x-ray demonstrates ongoing bilateral infiltrates, slightly worse yesterday . IMPRESSION AND PLAN: 1. Acute hypoxemic respiratory failure, possibly secondary to opportunistic infection. 2. Severe neutropenia, status post chemotherapy for multiple myeloma. 3. Renal insufficiency. The patient will require: 1. Transfer to ICU. 2. High flow O2. 3. Continue broad-spectrum antibiotic coverage. 4. We will consider bronchoscopy, which I discussed with the patient at length today. The patient i s currently declining. I explained to him that bronchoscopy currently would require intubation, mech anical ventilation, which he does not want at this point. 5. Continue hematology/oncology recommendations with Neupogen. 6. We will consider addition of steroids given his marked hypoxemia and possibility of pneumocystis jiroveci. Dictated By: SAI JACKSON MD SV/NTS Conf#: [id number] DID#: [id number] CC: CHET THOMAS MD; TRESA SABILLON MD; CHYNA NORMAN MD;*[facility]*
[2018-10-24] MEDS ORDERED: LORAZEPAM 2 MG INJ IV ONE (21:00)
[2018-10-24] MEDS: MEROPENEM 1 GM/50ML(PMX) 50 ML IVPB SCH (21:00)
[2018-10-24] MEDS: VANCOMYCIN 1 GM 250 ML IVPB SCH (21:00)
[2018-10-24] MEDS ORDERED: METHYLPREDNISOLONE 125 MG INJ IV SCH (22:00)
[2018-10-24] MEDS: VORICONAZOLE 200 MG/100 ML 100 ML IVPB SCH (22:11)
--- NOTE | 2018-10-24 22:30 | PN ---
DATE: 10/24/2018 SUBJECTIVE: The patient has been transferred to the intensive care unit. Became increasingly short of breath and also demonstrated some mild confusion. The patient is now feeling better. Has just taken hydrocodone is not complaining of chest pain. OBJECTIVE: GENERAL: The patient is a well-developed, well-nourished, chronically ill-appearing, tachypneic male who is short of breath. VITAL SIGNS: Temperature 100.2 orally, pulse is 88 per minute and regular, respirations 30, blood pr essure 134/75, pulse oximetry is 97% with FIO2 of 60 on high flow oxygen. SKIN: No ecchymosis, no petechiae or rashes. HEENT: Normocephalic. No evidence of trauma. Pupils equal, round, reactive to light and accommodat ion. Sclerae nonicteric. Oral mucosa is moist without lesions. There is nasal oxygen in place. NECK: Supple. No jugular venous distention or thyroid enlargement. CHEST: Decreased breath sounds, particularly in the left base, with dullness to percussion, and E:a change. HEART: Regular sinus rhythm, no S3, S4 or murmurs. ABDOMEN: Soft, no masses, no ascites. EXTREMITIES: No clubbing. No edema or cyanosis. No palpable cords or Homans sign. NEUROLOGIC: Normal. LABORATORY DATA: White count 200 with absolute neutrophil count of 100, hemoglobin 8.3, hematocrit 2 6.1, platelet count 58,000. Sodium 133, potassium 5, creatinine 1.79, BUN 26, calcium 7.1, albumin i s 2.9. IgG4 1349, IgA less than 40, IgM less than 25. ASSESSMENT: 1. Pneumonia in an immunocompromised host. 2. Pancytopenia. 3. Multiple myeloma. 4. Neutropenic fever. PLAN: The patient has empirically been started on trimethoprim and sulfamethoxazole to cover possib le pneumocystis. Patient also remains on vancomycin as well as Meropenem. Discussed the possibility of a bronchoscopy with the patient. As noted, he is empirically being [place] for pneumocystis, but if a bronchoscope is ot done, the actual opportunistic infection may be mis sed. The patient's platelet count is borderline. I feel that an invasive procedure could be done, but if necessary would support the patient with platelets. Although the patient is critically ill. There has been some evidence of response to the Kyprolis. T he patient's creatinine is now the lowest it has been since starting on this medication. There has a lso been approximately a 25% decrease in the IgG level. Dictated By: KVNG GONSALES MD, SR/SHARON Conf#: [id number] DID#: [id number]
[2018-10-25] VITALS (35 sets, daily range): BP systolic 101–142; BP diastolic 64–93; PULSE 63–79; RESP 17–29
[2018-10-25] MEDS: METHYLPREDNISOLONE 125 MG INJ IV SCH ×4 (02:30→22:17)
[2018-10-25] MEDS: OSELTAMIVIR 75 MG CAP PO SCH ×2 (02:33→08:49)
[2018-10-25] MEDS: TRIMETHOPRIM/SULFAMETHOXAZOLE 20 ML in DEXTROSE 5% 500 ML IVPB SCH ×3 (05:42→22:17)
[2018-10-25] MEDS: NYSTATIN SUSP 5 ML CUP PO SCH ×4 (08:49→22:16)
[2018-10-25] MEDS: DOXYCYCLINE 100 MG in SOD CHLORIDE 0.9% 250 ML IVPB SCH ×2 (08:50→20:56)
[2018-10-25] MEDS: MEROPENEM 1 GM/50ML(PMX) 50 ML IVPB SCH ×2 (08:51→20:22)
[2018-10-25] MEDS: VORICONAZOLE 200 MG/100 ML 100 ML IVPB SCH ×2 (08:51→22:17)
[2018-10-25] MEDS: ALBUTEROL/IPRATROPIUM (NEB) 3 ML AMP HHN SCH ×3 (09:11→20:25)
[2018-10-25] MEDS ORDERED: FUROSEMIDE 40 MG INJ IV ONE (10:00)
--- NOTE | 2018-10-25 10:01 | CONS ---
Consult Date/Type/Reason Admit Date/Time Oct 20, 2018 at 19:11 Initial Consult Date 10/21/18 Type of Consult Pulmonary Requesting Provider: IZZY LELBANC Date/Time of Note DATE: 10/25/18 TIME: 09:59 Subjective Transfer to ICU yesterday for respiratory distress, feels significantly better today. Continues high flow O2 with no significant radiographic changes. However less respiratory distress and improved confusion. Objective Vital Signs Date Temp Pulse Resp B/P (MAP) Pulse Ox O2 O2 Flow FiO2 Time Delivery Rate 10/25/18 70 08:00 10/25/18 98 50 06:08 10/25/18 21 121/74 High Flow 06:00 (90) 10/25/18 97.9 04:00 10/21/18 10.0 20:00 Intake and Output 10/24/18 10/24/18 10/25/18 1515:00 23:00 07:00 IntakeIntake Total 2270 ml 720 ml OutputOutput Total 1330 ml 380 ml BalanceBalance 940 ml 340 ml Exam PHYSICAL EXAMINATION: GENERAL: A well-nourished, well-developed gentleman, comfortable at rest, no acute distress. VITAL SIGNS: NECK: Supple. No JVD or lymphadenopathy. CARDIAC: S1, S2. No added sounds or murmurs. CHEST: Diminished air entry bilaterally with rales. ABDOMEN: Soft, nontender. No guarding or rebound. EXTREMITIES: No cyanosis or clubbing. A 1+ edema. NEUROLOGIC: Generalized weakness. Vent Setting Fraction of Inspired Oxygen pe: 50 Results/Medications Result Diagram: 10/24/18 0509 10/24/18 0509 Results 24 hrs Laboratory Tests Test 10/24/18 19:00 10/24/18 19:07 10/24/18 19:30 10/25/18 07:00 Urine Color COLORLESS Urine Clarity CLEAR Urine pH 6.0 Urine Specific 1.005 [place] Urine Ketones NEGATIVE Urine Nitrite NEGATIVE Urine Bilirubin NEGATIVE Urine NEGATIVE Urobilinogen Urine Leukocyte NEGATIVE Esterase Urine 0 Microscopic RBC Urine 0 Microscopic WBC Urine Hemoglobin 1+ H Urine Glucose NEGATIVE Urine Total 1+ H Protein Lactic Acid 1.4 Level Vancomycin Level 5.7 L Trough Blood Gas Blood arterial Blood arterial Specimen Source Arterial Blood 10/24/2018 7:30: 10/25/2018 7:20: Date Drawn 00 PM 39 AM Arterial Blood 7.427 7.410 pH (Temp corrected) Arterial Blood 32.2 L 30.6 L pCO2 (Temp correct) Arterial Blood 265.8 H 83.5 pO2 (Temp corrected) Arterial Blood 20.7 L 19.0 L HCO3 Arterial Blood -3.0 -4.9 L Base Excess Arterial Blood 99.5 H 95.6 Oxygen Saturatio n Ruiz Test ACCEPTAB ACCEPTAB Arterial Blood Right Radial Right Radial Gas Puncture Site Arterial 0.3 0.3 Blood Carboxyhem oglobin Arterial Blood 0.5 0.1 Methemoglobin Blood Gas A-a O2 415.0 H 238.6 H Differential Oxyhemoglobin 98.7 95.2 Percent Blood Gas 37.0 37.0 Temperature Blood Gas 20.0 Respiration Rate Blood Gas Actual 36 Respiration Rate Blood Gas MASK - BIPAP HFNC Modality FiO2 100.0 50.0 Blood Gas 12 Pressure Support Blood Gas 20/8 IPAP/EPAP Ratio Blood Gas TX TM Notified Whom Blood Gas 10/24/2018 7:39: 10/25/2018 7:31: Notified Time 56 PM 47 AM Medications Current Medications IV Flush (NS 3 ml) 3 ml PER PROTOCOL IV ; Start 10/20/18 at 19:30 Ondansetron HCl (Zofran Inj) 4 mg Q6H PRN IV NAUSEA/VOMITING; Start 10/20/18 at 19:30 Acetaminophen (Tylenol Tab) 650 mg Q6H PRN PO .PAIN 1-3 OR TEMP Last administered on 10/23/18at 16:25; Admin Dose 650 MG; Start 10/20/18 at 19:30 Albuterol/ Ipratropium (Duoneb) 3 ml Q6HWA RESP THERAPY HHN Last administered on 10/25/18at 09:11; Admin Dose 3 ML; Start 10/20/18 at 20:00 Albuterol/ Ipratropium (Duoneb) 3 ml Q2H RESP THERAPY PRN HHN shortness of breath Last administered on 10/24/18at 06:25; Admin Dose 3 ML; Start 10/20/18 at 19:30 Vancomycin HCl (Vanco Iv Per Pharmacy) VANCOMYCIN PER PHARMACY PER PROTOCOL XX ; Start 10/20/18 at 23:30 Acetaminophen/ Hydrocodone Bitart ([place] (10/325)) 1 tab Q6H PRN PO MODERATE PAIN LEVEL 4-6 Last administered on 10/24/18at 20:59; Admin Dose 1 TAB; Start 10/21/18 at 07:00 Doxycycline Hyclate 100 mg/ Sodium Chloride 250 ml @ 250 mls/hr Q12 IVPB Last administered on 10/25/18 08:50; Admin Dose 250 MLS/HR; Start 10/21/18 at 21:00 Filgrastim (Neupogen) 480 mcg DAILY@1700 SC Last administered on 10/24/18at 17:00; Admin Dose 480 MCG; Start 10/22/18 at 22:00 Trimethoprim/ Sulfamethoxazole 20 ml/Dextrose 520 ml @ 350 mls/hr Q8 IVPB Last administered on 10/25/18 05:42; Admin Dose 350 MLS/HR; Start 10/23/18 at 14:00 Miscellaneous Information (* Miscellaneous Pharmacy Order) ONCE XX ; Start 10/23/18 at 11:00 Nystatin (Nystatin Susp) 5 ml QID PO Last administered on 10/25/18 08:49; A dmin Dose 5 ML; Start 10/23/18 at 13:00 Magnesium Hydroxide (Milk Of Mag) 30 ml DAILY PRN PO CONSTIPATION; Start 10/24/18 at 00:30 Methylprednisolone Sodium Succinate (Solu-Medrol) 60 mg Q8 IV Last administered on 10/25/18 05:42; Admin Dose 60 MG; Start 10/24/18 at 18:30 Meropenem/Sodium Chloride 50 ml @ 100 mls/hr Q12 IVPB Last administered on 10/25/18 08:51; Admin Dose 100 MLS/HR; Start 10/24/18 at 21:00 Voriconazole 100 ml @ 50 mls/hr Q12 IVPB Last administered on 10/25/18 08:51; Admin Dose 50 MLS/HR; Start 10/24/18 at 21:00 Miscellaneous Information (* Miscellaneous Pharmacy Order) Please adjust voriconazole dosing ... ONCE XX ; Start 10/24/18 at 19:00 Oseltamivir Phosphate (Tamiflu) 75 mg DAILY PO Last administered on 10/25/18 08:49; Admin Dose 75 MG; Start 10/24/18 at 21:30 Vancomycin HCl 250 ml @ 125 mls/hr Q24H IVPB ; Start 10/25/18 at 21:00 Assessment/Plan Hospital Course (Demo Recall) IMPRESSION AND PLAN: 1. Acute hypoxemic respiratory failure, possibly secondary to opportunistic infection. 2. Severe neutropenia, status post chemotherapy for multiple myeloma. 3. Renal insufficiency. Plan 1. Continue diuretics 2. High flow O2. Decrease as tolerated 3. Continue broad-spectrum antibiotic coverage. 4. Hold off on bronchoscopy for analysis patient currently improved on empiric treatment however will discuss with infectious disease and hematology oncology. 5. Continue hematology/oncology recommendations with Neugen. 6. Continue steroids for empiric pneumocystis hypoxemia Critical care time 40 minutes. SAI JACKSON MD, [facility] Oct 25, 2018 10:01
[2018-10-25] MEDS: MAGNESIUM HYDROXIDE 30ML CUP PO PRN (13:28)
[2018-10-25] MEDS: DOCUSATE SODIUM 100 MG CAP PO PRN (13:28)
--- NOTE | 2018-10-25 16:37 | PN ---
Date/Time of Note Date/Time of Note DATE: 10/25/18 TIME: 16:36 Assessment/Plan VTE Prophylaxis Risk score (from Nsg)>0 risk: 8 SCD applied (from Nsg): Yes Pharmacological prophylaxis: heparin Lines/Catheters IV Catheter Type (from Nrsg): Peripheral IV Urinary Cath still in place: No Assessment/Plan Hospital Course EXAM: Comfortable Breathing stable on HF RRR Crackles in lungs Soft nt nd Ext no edema 68 yo male with MM presented with neutropenic fevers 2/2 pneumoina leading to hypoxic respiratory failure MM wiht pancytopenia/neutropenia: - Neupogen per hematology Pneumonia: - Abx per ID. Bactrim has been added - Concern for PCP. Await DFA sputum. Bronchoscopy risk outweighs benefit per pulmonary Acute respiratory failure: - Continue HFNC - Lasix as needed for pulmonary edema CKD III: - stable - result of MM - trend creatinine Result Diagram: 10/25/18 1141 10/25/18 1141 Results 24hrs Laboratory Tests Test 10/24/18 19:00 10/24/18 19:07 10/24/18 19:30 10/25/18 07:00 Urine Color COLORLESS Urine Clarity CLEAR Urine pH 6.0 Urine Specific 1.005 [place] Urine Ketones NEGATIVE Urine Nitrite NEGATIVE Urine Bilirubin NEGATIVE Urine NEGATIVE Urobilinogen Urine Leukocyte NEGATIVE Esterase Urine 0 Microscopic RBC Urine 0 Microscopic WBC Urine 1+ H Hemoglobin Urine Glucose NEGATIVE Urine Total 1+ H Protein Lactic Acid 1.4 Level Vancomycin 5.7 L Level Trough Blood Gas Blood Blood Specimen arterial arterial Source Arterial Blood 10/24/2018 7:30 10/25/2018 7:20 Date Drawn :00 PM :39 AM Arterial Blood 7.427 7.410 pH (Temp corrected ) Arterial Blood 32.2 L 30.6 L pCO2 (Temp correct) Arterial Blood 265.8 H 83.5 pO2 (Temp corrected ) Arterial Blood 20.7 L 19.0 L HCO3 Arterial Blood -3.0 -4.9 L Base Excess Arterial Blood 99.5 H 95.6 Oxygen Saturati on Ruiz Test ACCEPTAB ACCEPTAB Arterial Blood Right Radial Right Radial Gas Puncture Site Arterial 0.3 0.3 Blood Carboxyhe moglobin Arterial Blood 0.5 0.1 Methemoglobin Blood Gas A-a 415.0 H 238.6 H O2 Differential Oxyhemoglobin 98.7 95.2 Percent Blood Gas 37.0 37.0 Temperature Blood Gas 20.0 Respiration Rate Blood Gas 36 Actual Respiration Rat e Blood Gas MASK - BIPAP HFNC Modality FiO2 100.0 50.0 Blood Gas 12 Pressure Support Blood Gas 20/8 IPAP/EPAP Ratio Blood Gas MA TM Notified Whom Blood Gas 10/24/2018 7:39 10/25/2018 7:31 Notified Time :56 PM :47 AM Test 10/25/18 11:37 10/25/18 11:41 Lab Scanned REFERENCE LAB Report White Blood 0.3 #L Count Red Blood Count 2.92 L Hemoglobin 8.7 L Hematocrit 26.2 L Mean 89.7 Corpuscular Volume Mean 29.8 Corpuscular Hemoglobin Mean 33.2 Corpuscular Hemoglobin Conc ent Red Cell 15.8 H Distribution Width Platelet Count 45 #L Mean Platelet 10.7 H Volume Immature 18.500 H Granulocytes % Neutrophils % Segmented 49 Neutrophils % (Manual) Band 12 H Neutrophils % (Manual) Lymphocytes % Lymphocytes % 29 (Manual) Reactive 4 H Lymphocytes % (Manual) Monocytes % Monocytes % 1 (Manual) Eosinophils % Basophils % Metamyelocytes 5 H % (manual) Nucleated Red 1 H Blood Cells % Immature 0.050 H Granulocytes # Neutrophils # Neutrophils # 0.1 L (Manual) Band 0.0 Neutrophils # Lymphocytes 0.0 L (Manual) Lymphocytes # Reactive 0.0 Lymphocytes # Monocytes # Monocytes # 0.0 L (Manual) Eosinophils # Basophils # Metamyelocytes 0.0 # Nucleated Red Blood Cells # Toxic 3+ Granulation Platelet SIG DECREASED Estimate Giant Platelets 4 H Polychromasia 1+ Anisocytosis 1+ Macrocytosis 1+ Sodium Level 134 L Potassium Level 4.4 Chloride Level 99 Carbon Dioxide 22 Level Anion Gap 13 Blood Urea 32 H Nitrogen Creatinine 2.06 H Est Glomerular 32 L Filtrat Rate mL/min Glucose Level 130 Calcium Level 7.2 L Subjective 24 Hr Interval Summary Free Text/Dictation Patient stable on high flow Comfortable respiratory status Exam/Review of Systems Exam Vitals Vital Signs Date Temp Pulse Resp B/P (MAP) Pulse Ox O2 O2 Flow FiO2 Time Delivery Rate 10/25/18 75 16:00 10/25/18 97.7 17 120/78 100 High Flow 16:00 (92) Nasal Cannula 10/25/18 50 14:27 10/21/18 10.0 20:00 Intake and Output 410/24/18 10/25/18 1515:00 23:00 07:00 IntakeIntake Total 2270 ml 720 ml OutputOutput Total 1330 ml 380 ml BalanceBalance 940 ml 340 ml Results Results 24hrs Laboratory Tests Test 10/24/18 19:00 10/24/18 19:07 10/24/18 19:30 10/25/18 07:00 Urine Color COLORLESS Urine Clarity CLEAR Urine pH 6.0 Urine Specific 1.005 [place] Urine Ketones NEGATIVE Urine Nitrite NEGATIVE Urine Bilirubin NEGATIVE Urine NEGATIVE Urobilinogen Urine Leukocyte NEGATIVE Esterase Urine 0 Microscopic RBC Urine 0 Microscopic WBC Urine 1+ H Hemoglobin Urine Glucose NEGATIVE Urine Total 1+ H Protein Lactic Acid 1.4 Level Vancomycin 5.7 L Level Trough Blood Gas Blood Blood Specimen arterial arterial Source Arterial Blood 10/24/2018 7:30 10/25/2018 7:20 Date Drawn :00 PM :39 AM Arterial Blood 7.427 7.410 pH (Temp corrected ) Arterial Blood 32.2 L 30.6 L pCO2 (Temp correct) Arterial Blood 265.8 H 83.5 pO2 (Temp corrected ) Arterial Blood 20.7 L 19.0 L HCO3 Arterial Blood -3.0 -4.9 L Base Excess Arterial Blood 99.5 H 95.6 Oxygen Saturati on Ruiz Test ACCEPTAB ACCEPTAB Arterial Blood Right Radial Right Radial Gas Puncture Site Arterial 0.3 0.3 Blood Carboxyhe moglobin Arterial Blood 0.5 0.1 Methemoglobin Blood Gas A-a 415.0 H 238.6 H O2 Differential Oxyhemoglobin 98.7 95.2 Percent Blood Gas 37.0 37.0 Temperature Blood Gas 20.0 Respiration Rate Blood Gas 36 Actual Respiration Rat e Blood Gas MASK - BIPAP HFNC Modality FiO2 100.0 50.0 Blood Gas 12 Pressure Support Blood Gas 20/8 IPAP/EPAP Ratio Blood Gas NC TM Notified Whom Blood Gas 10/24/2018 7:39 10/25/2018 7:31 Notified Time :56 PM :47 AM Test 10/25/18 11:37 10/25/18 11:41 Lab Scanned REFERENCE LAB Report White Blood 0.3 #L Count Red Blood Count 2.92 L Hemoglobin 8.7 L Hematocrit 26.2 L Mean 89.7 Corpuscular Volume Mean 29.8 Corpuscular Hemoglobin Mean 33.2 Corpuscular Hemoglobin Conc ent Red Cell 15.8 H Distribution Width Platelet Count 45 #L Mean Platelet 10.7 H Volume Immature 18.500 H Granulocytes % Neutrophils % Segmented 49 Neutrophils % (Manual) Band 12 H Neutrophils % (Manual) Lymphocytes % Lymphocytes % 29 (Manual) Reactive 4 H Lymphocytes % (Manual) Monocytes % Monocytes % 1 (Manual) Eosinophils % Basophils % Metamyelocytes 5 H % (manual) Nucleated Red 1 H Blood Cells % Immature 0.050 H Granulocytes # Neutrophils # Neutrophils # 0.1 L (Manual) Band 0.0 Neutrophils # Lymphocytes 0.0 L (Manual) Lymphocytes # Reactive 0.0 Lymphocytes # Monocytes # Monocytes # 0.0 L (Manual) Eosinophils # Basophils # Metamyelocytes 0.0 # Nucleated Red Blood Cells # Toxic 3+ Granulation Platelet SIG DECREASED Estimate Giant Platelets 4 H Polychromasia 1+ Anisocytosis 1+ Macrocytosis 1+ Sodium Level 134 L Potassium Level 4.4 Chloride Level 99 Carbon Dioxide 22 Level Anion Gap 13 Blood Urea 32 H Nitrogen Creatinine 2.06 H Est Glomerular 32 L Filtrat Rate mL/min Glucose Level 130 Calcium Level 7.2 L Medications Medication Current Medications IV Flush (NS 3 ml) 3 ml PER PROTOCOL IV ; Start 10/20/18 at 19:30 Ondansetron HCl (Zofran Inj) 4 mg Q6H PRN IV NAUSEA/VOMITING; Start 10/20/18 at 19:30 Acetaminophen (Tylenol Tab) 650 mg Q6H PRN PO .PAIN 1-3 OR TEMP Last adm inistered on 10/23/18at 16:25; Admin Dose 650 MG; Start 10/20/18 at 19:30 Albuterol/ Ipratropium (Duoneb) 3 ml Q6HWA RESP THERAPY HHN Last administered on 10/25/18at 14:26; Admin Dose 3 ML; Start 10/20/18 at 20:00 Albuterol/ Ipratropium (Duoneb) 3 ml Q2H RESP THERAPY PRN HHN shortness of breath Last administered on 10/24/18at 06:25; Admin Dose 3 ML; Start 10/20/18 at 19:30 Vancomycin HCl (Vanco Iv Per Pharmacy) VANCOMYCIN PER PHARMACY PER PROTOCOL XX ; Start 10/20/18 at 23:30 Acetaminophen/ Hydrocodone Bitart ([place] (10/325)) 1 tab Q6H PRN PO MODERATE PAIN LEVEL 4-6 Last administered on 10/24/18 20:59; Admin Dose 1 TAB; Start 10/21/18 at 07:00 Doxycycline Hyclate 100 mg/ Sodium Chloride 250 ml @ 250 mls/hr Q12 IVPB Last administered on 10/25/18 08:50; Admin Dose 250 MLS/HR; Start 10/21/18 at 21:00 Filgrastim (Neupogen) 480 mcg DAILY@1700 SC Last administered on 10/24/18 17:00; Admin Dose 480 MCG; Start 10/22/18 at 22:00 Trimethoprim/ Sulfamethoxazole 20 ml/Dextrose 520 ml @ 350 mls/hr Q8 IVPB Last administered on 10/25/18 13:28; Admin Dose 350 MLS/HR; Start 10/23/18 at 14:00 Miscellaneous Information (* Miscellaneous Pharmacy Order) ONCE XX ; Start 10/23/18 at 11:00 Nystatin (Nystatin Susp) 5 ml QID PO Last administered on 10/25/18 12:55; Admin Dose 5 ML; Start 10/23/18 at 13:00 Magnesium Hydroxide (Milk Of Mag) 30 ml DAILY PRN PO CONSTIPATION Last administered on 10/25/18 13:28; Admin Dose 30 ML; Start 10/24/18 at 00:30 Methylprednisolone Sodium Succinate (Solu-Medrol) 60 mg Q8 IV Last administered on 10/25/18 13:28; Admin Dose 60 MG; Start 10/24/18 at 18:30 Meropenem/Sodium Chloride 50 ml @ 100 mls/hr Q12 IVPB Last administered on 10/25/18 08:51; Admin Dose 100 MLS/HR; Start 10/24/18 at 21:00 Voriconazole 100 ml @ 50 mls/hr Q12 IVPB Last administered on 10/25/18 08:51; Admin Dose 50 MLS/HR; Start 10/24/18 at 21:00 Miscellaneous Information (* Miscellaneous Pharmacy Order) Please adjust voriconazole dosing ... ONCE XX ; Start 10/24/18 at 19:00 Oseltamivir Phosphate (Tamiflu) 75 mg DAILY PO Last administered on 10/25/18 08:49; Admin Dose 75 MG; Start 4/17/19 at 21:30 Docusate Sodium (Colace) 100 mg DAILY PRN PO CONSTIPATION Last administered on 10/25/18at 13:28; Admin Dose 100 MG; Start 10/25/18 at 10:30 Vancomycin HCl 250 ml @ 125 mls/hr Q24H IVPB ; Start 10/25/18 at 22:00 CHYNA ARCHER MD Oct 25, 2018 16:37
[2018-10-25] MEDS: FILGRASTIM 480 MCG INJ SC SCH (16:38)
--- NOTE | 2018-10-25 17:41 | CONS ---
Assessment/Plan Assessment/Plan Hospital Course (Demo Recall) - Severe sepsis d/t PNA-- fever curve down but continues to require significant o2 support - Neutropenic fever d/t PNA - PNA, R>L - Acute respiratory failure - now on vapotherm - Multiple myeloma - Immunosuppression - Pancytopenia d/t multiple myeloma and recent chemo - Acute on chronic anemia requiring PRBC - CKD III - resp virus panel returned negative - s/p cefepime (10/20/2018-)- Recommendations: - F/u sputum cx again tmrw. so far ngtd - F/u blood cx (NGTD), cocci,crypto, beta-d glucan, legionella, TB Quantiferon Gold; pcp dfa - all sent and in process - Continue vancomycin and Merrem - if bcxs and sputum remain negative tmrw then consider d/c Vanco - Continue doxycycline (10/21/2018-) for atypical coverage - Continue empiric IV Bactrim (10/23/18 - ) - cont. vfend; monitor crcl. We may need to change to po formulation if renal insufficiency worsens/continues; coordinated with pharmacy earlier - Neutropenic precautions as per hospital protocol - Continue Nystatin Consultation Date/Type/Reason Admit Date/Time Oct 20, 2018 at 19:11 Initial Consult Date 10/21/18 Type of Consult ID Requesting Provider: IZZY LEBLANC Date/Time of Note DATE: 10/25/18 TIME: 17:35 cct 2.5 h 24 HR Interval Summary Free Text/Dictation I had a prolonged conversation with patient and his . I answered all their questions. I explained to him/her the critical nature of the situation. d/w Pulm earlier this afternoon as well. care coordinated. Exam/Review of Systems Exam Vitals Vital Signs Date Temp Pulse Resp B/P (MAP) Pulse Ox O2 O2 Flow FiO2 Time Delivery Rate 10/25/18 75 16:00 10/25/18 97.7 17 120/78 100 High Flow 16:00 (92) Nasal Cannula 10/25/18 50 14:27 10/21/18 10.0 20:00 Intake and Output 10/24/18 10/24/18 10/25/18 1515:00 23:00 07:00 IntakeIntake Total 2270 ml 720 ml OutputOutput Total 1330 ml 380 ml BalanceBalance 940 ml 340 ml Constitutional: alert, frail, other (fatigued) Head: normocephalic, atraumatic Eyes: EOMI Respiratory: diminished breath sounds Cardiovascular: regular rate and rhythm Gastrointestinal: soft Neurological: LABORATORY ASST II-XII intact Results Result Diagram: 10/25/18 1141 10/25/18 1141 Results 24hrs Laboratory Tests Test 10/24/18 19:00 10/24/18 19:07 10/24/18 19:30 10/25/18 07:00 Urine Color COLORLESS Urine Clarity CLEAR Urine pH 6.0 Urine Specific 1.005 [place] Urine Ketones NEGATIVE Urine Nitrite NEGATIVE Urine Bilirubin NEGATIVE Urine NEGATIVE Urobilinogen Urine Leukocyte NEGATIVE Esterase Urine 0 Microscopic RBC Urine 0 Microscopic WBC Urine 1+ H Hemoglobin Urine Glucose NEGATIVE Urine Total 1+ H Protein Lactic Acid 1.4 Level Vancomycin 5.7 L Level Trough Blood Gas Blood Blood Specimen arterial arterial Source Arterial Blood 10/24/2018 7:30 10/25/2018 7:20 Date Drawn :00 PM :39 AM Arterial Blood 7.427 7.410 pH (Temp corrected ) Arterial Blood 32.2 L 30.6 L pCO2 (Temp correct) Arterial Blood 265.8 H 83.5 pO2 (Temp corrected ) Arterial Blood 20.7 L 19.0 L HCO3 Arterial Blood -3.0 -4.9 L Base Excess Arterial Blood 99.5 H 95.6 Oxygen Saturati on Ruiz Test ACCEPTAB ACCEPTAB Arterial Blood Right Radial Right Radial Gas Puncture Site Arterial 0.3 0.3 Blood Carboxyhe moglobin Arterial Blood 0.5 0.1 Methemoglobin Blood Gas A-a 415.0 H 238.6 H O2 Differential Oxyhemoglobin 98.7 95.2 Percent Blood Gas 37.0 37.0 Temperature Blood Gas 20.0 Respiration Rate Blood Gas 36 Actual Respiration Rat e Blood Gas MASK - BIPAP HFNC Modality FiO2 100.0 50.0 Blood Gas 12 Pressure Support Blood Gas 20/8 IPAP/EPAP Ratio Blood Gas MA TM Notified Whom Blood Gas 10/24/2018 7:39 10/25/2018 7:31 Notified Time :56 PM :47 AM Test 10/25/18 11:37 10/25/18 11:41 Lab Scanned REFERENCE LAB Report White Blood 0.3 #L Count Red Blood Count 2.92 L Hemoglobin 8.7 L Hematocrit 26.2 L Mean 89.7 Corpuscular Volume Mean 29.8 Corpuscular Hemoglobin Mean 33.2 Corpuscular Hemoglobin Conc ent Red Cell 15.8 H Distribution Width Platelet Count 45 #L Mean Platelet 10.7 H Volume Immature 18.500 H Granulocytes % Neutrophils % Segmented 49 Neutrophils % (Manual) Band 12 H Neutrophils % (Manual) Lymphocytes % Lymphocytes % 29 (Manual) Reactive 4 H Lymphocytes % (Manual) Monocytes % Monocytes % 1 (Manual) Eosinophils % Basophils % Metamyelocytes 5 H % (manual) Nucleated Red 1 H Blood Cells % Immature 0.050 H Granulocytes # Neutrophils # Neutrophils # 0.1 L (Manual) Band 0.0 Neutrophils # Lymphocytes 0.0 L (Manual) Lymphocytes # Reactive 0.0 Lymphocytes # Monocytes # Monocytes # 0.0 L (Manual) Eosinophils # Basophils # Metamyelocytes 0.0 # Nucleated Red Blood Cells # Toxic 3+ Granulation Platelet SIG DECREASED Estimate Giant Platelets 4 H Polychromasia 1+ Anisocytosis 1+ Macrocytosis 1+ Sodium Level 134 L Potassium Level 4.4 Chloride Level 99 Carbon Dioxide 22 Level Anion Gap 13 Blood Urea 32 H Nitrogen Creatinine 2.06 H Est Glomerular 32 L Filtrat Rate mL/min Glucose Level 130 Calcium Level 7.2 L Medications Medication Current Medications IV Flush (NS 3 ml) 3 ml PER PROTOCOL IV ; Start 10/20/18 at 19:30 Ondansetron HCl (Zofran Inj) 4 mg Q6H PRN IV NAUSEA/VOMITING; Start 10/20/18 at 19:30 Acetaminophen (Tylenol Tab) 650 mg Q6H PRN PO .PAIN 1-3 OR TEMP Last administered on 10/23/18at 16:25; Admin Dose 650 MG; Start 10/20/18 at 19:30 Albuterol/ Ipratropium (Duoneb) 3 ml Q6HWA RESP THERAPY HHN Last administered on 10/25/18at 14:26; Admin Dose 3 ML; Start 10/20/18 at 20:00 Albuterol/ Ipratropium (Duoneb) 3 ml Q2H RESP THERAPY PRN HHN shortness of breath Last administered on 10/24/18at 06:25; Admin Dose 3 ML; Start 10/20/18 at 19:30 Vancomycin HCl (Vanco Iv Per Pharmacy) VANCOMYCIN PER PHARMACY PER PROTOCOL XX ; Start 10/20/18 at 23:30 Acetaminophen/ Hydrocodone Bitart ([place] (10)) 1 tab Q6H PRN PO MODERATE PAIN LEVEL 4-6 Last administered on 10/24/18 20:59; Admin Dose 1 TAB; Start 10/21/18 at 07:00 Doxycycline Hyclate 100 mg/ Sodium Chloride 250 ml @ 250 mls/hr Q12 IVPB Last administered on 10/25/18 08:50; Admin Dose 250 MLS/HR; Start 10/21/18 at 21:00 Filgrastim (Neupogen) 480 mcg DAILY@1700 SC Last administered on 10/25/18 16:38; Admin Dose 480 MCG; Start 10/22/18 at 22:00 Trimethoprim/ Sulfamethoxazole 20 ml/Dextrose 520 ml @ 350 mls/hr Q8 IVPB Last administered on 10/25/18 13:28; Admin Dose 350 MLS/HR; Start 10/23/18 at 14:00 Miscellaneous Information (* Miscellaneous Pharmacy Order) ONCE XX ; Start 10/23/18 at 11:00 Nystatin (Nystatin Susp) 5 ml QID PO Last administered on 10/25/18 16:36; Admin Dose 5 ML; Start 10/23/18 at 13:00 Magnesium Hydroxide (Milk Of Mag) 30 ml DAILY PRN PO CONSTIPATION Last administered on 10/25/18 13:28; Admin Dose 30 ML; Start 10/24/18 at 00:30 Methylprednisolone Sodium Succinate (Solu-Medrol) 60 mg Q8 IV Last administered on 10/25/18 13:28; Admin Dose 60 MG; Start 10/24/18 at 18:30 Meropenem/Sodium Chloride 50 ml @ 100 mls/hr Q12 IVPB Last administered on 10/25/18 08:51; Admin Dose 100 MLS/HR; Start 10/24/18 at 21:00 Voriconazole 100 ml @ 50 mls/hr Q12 IVPB Last administered on 10/25/18 08:51; Admin Dose 50 MLS/HR; Start 10/24/18 at 21:00 Miscellaneous Information (* Miscellaneous Pharmacy Order) Please adjust voriconazole dosing ... ONCE XX ; Start 10/24/18 at 19:00 Docusate Sodium (Colace) 100 mg DAILY PRN PO CONSTIPATION Last administered on 10/25/18at 13:28; Admin Dose 100 MG; Start 10/25/18 at 10:30 Vancomycin HCl 250 ml @ 125 mls/hr Q24H IVPB ; Start 10/25/18 at 22:00 RUTHIE OCASIO MD Oct 25, 2018 17:41
[2018-10-25] MEDS: ONDANSETRON 4 MG INJ IV PRN (19:28)
[2018-10-25] MEDS ORDERED: VANCOMYCIN HCL 1.25 GM in SOD CHLORIDE 0.9% 250 ML IVPB SCH (21:00)
[2018-10-25] MEDS ORDERED: VANCOMYCIN 1 GM 250 ML IVPB SCH ×3 (21:00→22:00)
--- NOTE | 2018-10-25 22:21 | PN ---
DATE: 10/25/2018 SUBJECTIVE: The patient is lethargic and according to partner, he has been sleeping much of the day. There have been no complaints of pain. OBJECTIVE: GENERAL: The patient is a well-developed, but chronically appearing male, who is sleeping at the pre sent time. VITAL SIGNS: Temperature 97.7 orally, pulse 74 per minute and regular, respirations 20, blood pressu re 124/70 and pulse oximetry 97% on FIO2 of 40. SKIN: No ecchymosis, no petechiae or rashes. HEENT: Normocephalic. No evidence of trauma. Pupils equal, round, reactive to light and accommodat ion. Sclerae are nonicteric. Oral mucosa is dry, but there are no lesions. Mucosa and conjunctivae are pale. NECK: Supple. No jugular venous distention or thyroid enlargement. CHEST: Decreased breath sounds and some tubular breath sounds with dullness to percussion in the lef t base as compared to the right. Breath sounds have improved; however, since yesterday. There are n o rubs. HEART: Regular sinus rhythm, no S3, S4 or murmurs. No rubs. ABDOMEN: Soft, no masses, no ascites. EXTREMITIES: No clubbing. No edema or cyanosis. NEUROLOGIC: Reveals no focal neurologic abnormalities. The patient is lethargic as noted. LABORATORY DATA: Sodium 134, potassium 4.4, BUN 32, creatinine 2.06 and calcium 7.2. White count is 300 with an absolute neutrophil count of 100, hemoglobin 8.7, hematocrit 26.2 and platelet count 45, 000. Sputum for cytology from 10/24reveals only normal respiratory kobe. ASSESSMENT: 1. Pneumonia in an immunocompromised host. 2. Pancytopenia secondary to chemotherapy and myeloma. 3. Multiple myeloma for neutropenic fever. There has been some slight improvement from respiratory status. There has not been any improvement h ematologically. We will continue the patient on filgrastim 480 mcg daily. The patient will be continued on trimethoprim and sulfa as empiric therapy for pneumocystis. A decis ion for bronchoscopy or bronchoalveolar lavage has not been made. According to the patient's girlfriend, he has not had a bowel movement for a week. We will give the patient a methylnaltrexone subcutaneously to hopefully stimulate bowel movement. It is unclear how m uch the patient has received in the way of narcotics. We will also offer patient high calorie and protein dietary supplements. Dictated By: KVNG GONSALES MD, SR/SHARON Conf#: [id number] DID#: [id number]
[2018-10-26] VITALS (19 sets, daily range): BP systolic 119–147; BP diastolic 67–89; PULSE 66–79; RESP 18–27
[2018-10-26] MEDS: TRIMETHOPRIM/SULFAMETHOXAZOLE 20 ML in DEXTROSE 5% 500 ML IVPB SCH ×3 (06:09→23:12)
[2018-10-26] MEDS: METHYLPREDNISOLONE 125 MG INJ IV SCH ×3 (06:09→23:12)
[2018-10-26] MEDS: NYSTATIN SUSP 5 ML CUP PO SCH ×4 (08:43→21:06)
[2018-10-26] MEDS: MEROPENEM 1 GM/50ML(PMX) 50 ML IVPB SCH ×2 (08:44→21:06)
[2018-10-26] MEDS: ALBUTEROL/IPRATROPIUM (NEB) 3 ML AMP HHN SCH ×3 (08:48→19:55)
--- NOTE | 2018-10-26 08:56 | PN ---
DATE: 10/26/2018 SUBJECTIVE: The patient is more awake and talkative this morning, was able to eat some protein shake s yesterday. He is not experiencing any chest pain. Cough has been productive of grayish yellow sputum. The vipul ent has not had shaking chills. OBJECTIVE: GENERAL: The patient is a well-developed, but chronically ill appearing male who is in no acute dist ress. VITAL SIGNS: Temperature 97.7 orally, pulse 70 per minute and regular, respirations 24 per minute, b lood pressure 116/73, pulse oximetry 100% on 35% FIO2. SKIN: No ecchymosis, no petechiae or rashes. HEENT: Normocephalic. No evidence of trauma. Pupils are equal, round, react to light and accommoda tion. Sclerae are nonicteric. Oral mucosa is moist without lesions. Tongue is well papillated. No gingival hyperplasia, no hypertrophy of Wal[place]yer ring. NECK: Supple. No jugular venous distention or thyroid enlargement. No wheezes, rhonchi or rales. CHEST: Decreased breath sounds throughout. Some dullness to percussion greater on the left than on the right with some changes and diffuse rales. This is better than previous. No pain on percussion of spine, sternum, clavicles or ribs. HEART: Regular sinus rhythm, no S3, S4 or murmurs. ABDOMEN: Soft, no masses, no ascites. EXTREMITIES: Good range of motion, no clubbing, edema or cyanosis. No palpable cords or Homans sign . NEUROLOGIC: Normal. LABORATORY DATA: Pending. ASSESSMENT: 1. Pneumonia in immunocompromised host. 2. Pancytopenia secondary to chemotherapy and myeloma. 3. Multiple myeloma with neutropenic fever. PLAN: Again, the patient seems to have improved. His FIO2 requirements are decreasing. The patient is producing some sputum. He is more awake and talkative today. The patient will continue on empiric therapy for pneumocystis as well as other broad spectrum antibio tics. We will continue to push the patient's caloric intake. The patient continues to take filgrastim for neutropenia. Dictated By: KVNG GONSALES MD SR/NTS Conf#: [id number] DID#: [id number] CC: CHET THOMAS MD; TRESA SABILLON MD; CHYNA ARCHER MD;*EndCC*
[2018-10-26] MEDS: DOXYCYCLINE 100 MG in SOD CHLORIDE 0.9% 250 ML IVPB SCH ×2 (09:00→23:12)
[2018-10-26] MEDS: METHYLNALTREXONE 12 MG/0.6 ML VIAL SC SCH (09:00)
--- NOTE | 2018-10-26 10:01 | CONS ---
Consult Date/Type/Reason Admit Date/Time Oct 20, 2018 at 19:11 Initial Consult Date 10/21/18 Type of Consult Pulmonary Requesting Provider: IZZY LEBLANC Date/Time of Note DATE: 10/26/18 TIME: 10:00 Subjective Patient continues to slowly improve. Decreasing FiO2 requirements although no significant radiographic changes. Objective Vital Signs Date Temp Pulse Resp B/P (MAP) Pulse Ox O2 O2 Flow FiO2 Time Delivery Rate 10/26/18 96 35 08:49 10/26/18 66 20 08:49 10/26/18 132/76 High Flow 08:00 (94) 10/26/18 97.9 04:00 Intake and Output 10/25/18 10/25/18 10/26/18 1515:00 23:00 07:00 IntakeIntake Total 1290.00 ml 450 ml 1120 ml OutputOutput Total 1280 ml 230 ml 700 ml BalanceBalance 10.00 ml 220 ml 420 ml Exam PHYSICAL EXAMINATION: GENERAL: A well-nourished, well-developed gentleman, comfortable at rest, no acute distress. VITAL SIGNS: NECK: Supple. No JVD or lymphadenopathy. CARDIAC: S1, S2. No added sounds or murmurs. CHEST: Diminished air entry bilaterally with rales. ABDOMEN: Soft, nontender. No guarding or rebound. EXTREMITIES: No cyanosis or clubbing. A 1+ edema. NEUROLOGIC: Generalized weakness. Vent Setting Fraction of Inspired Oxygen pe: 35 Results/Medications Result Diagram: 10/26/18 0818 10/26/18 0818 Results 24 hrs Laboratory Tests Test 10/25/18 11:37 10/25/18 11:41 10/26/18 04:40 10/26/18 07:00 Lab Scanned REFERENCE LAB Report White Blood 0.3 #L Count Red Blood Count 2.92 L Hemoglobin 8.7 L Hematocrit 26.2 L Mean 89.7 Corpuscular Volume Mean 29.8 Corpuscular Hemoglobin Mean 33.2 Corpuscular Hemoglobin Conc ent Red Cell 15.8 H Distribution Width Platelet Count 45 #L Mean Platelet 10.7 H Volume Immature 18.500 H Granulocytes % Neutrophils % Segmented 49 Neutrophils % (Manual) Band 12 H Neutrophils % (Manual) Lymphocytes % Lymphocytes % 29 (Manual) Reactive 4 H Lymphocytes % (Manual) Monocytes % Monocytes % 1 (Manual) Eosinophils % Basophils % Metamyelocytes 5 H % (manual) Nucleated Red 1 H Blood Cells % Immature 0.050 H Granulocytes # Neutrophils # Neutrophils # 0.1 L (Manual) Band 0.0 Neutrophils # Lymphocytes 0.0 L (Manual) Lymphocytes # Reactive 0.0 Lymphocytes # Monocytes # Monocytes # 0.0 L (Manual) Eosinophils # Basophils # Metamyelocytes 0.0 # Nucleated Red Blood Cells # Toxic 3+ Granulation Platelet SIG DECREASED Estimate Giant Platelets 4 H Polychromasia 1+ Anisocytosis 1+ Macrocytosis 1+ Sodium Level 134 L Potassium Level 4.4 Chloride Level 99 Carbon Dioxide 22 Level Anion Gap 13 Blood Urea 32 H 37 H Nitrogen Creatinine 2.06 H 1.91 H Est Glomerular 32 L Filtrat Rate mL/min Glucose Level 130 Calcium Level 7.2 L Blood Gas Blood Specimen arterial Source Arterial Blood 10/26/2018 7:00 Date Drawn :32 AM Arterial Blood 7.448 pH (Temp corrected ) Arterial Blood 28.0 L pCO2 (Temp correct) Arterial Blood 91.2 pO2 (Temp corrected ) Arterial Blood 18.9 L HCO3 Arterial Blood -4.2 L Base Excess Arterial Blood 96.2 Oxygen Saturati on Ruiz Test ACCEPTAB Arterial Blood Right Radial Gas Puncture Site Arterial 0.2 Blood Carboxyhe moglobin Arterial Blood 0 Methemoglobin Blood Gas A-a 125.8 H O2 Differential Oxyhemoglobin 96.0 Percent Blood Gas 37.0 Temperature Blood Gas HFNC Modality FiO2 35.0 Blood Gas TM Notified Whom Blood Gas 10/26/2018 7:27 Notified Time :37 AM Test 10/26/18 08:18 10/26/18 09:27 White Blood 0.4 #L Count Red Blood Count 2.52 L Hemoglobin 7.5 L Hematocrit 22.8 L Mean 90.5 Corpuscular Volume Mean 29.8 Corpuscular Hemoglobin Mean 32.9 Corpuscular Hemoglobin Conc ent Red Cell 16.0 H Distribution Width Platelet Count 37 L Mean Platelet Volume Immature 21.600 H Granulocytes % Neutrophils % Segmented 78 H Neutrophils % (Manual) Band 2 Neutrophils % (Manual) Lymphocytes % Lymphocytes % 19 (Manual) Reactive 1 H Lymphocytes % (Manual) Monocytes % Monocytes % 1 (Manual) Eosinophils % Basophils % Nucleated Red 2 H Blood Cells % Immature 0.080 H Granulocytes # Neutrophils # Neutrophils # 0.3 L (Manual) Band 0.0 Neutrophils # Lymphocytes 0.0 L (Manual) Lymphocytes # Reactive 0.0 Lymphocytes # Monocytes # Monocytes # 0.0 L (Manual) Eosinophils # Basophils # Nucleated Red Blood Cells # Toxic 3+ Granulation Platelet DECREASED Estimate Giant Platelets 42 H Polychromasia 2+ Poikilocytosis 1+ Anisocytosis 1+ Ovalocytes 1+ Sodium Level 133 L Potassium Level 4.1 Chloride Level 103 Carbon Dioxide 20 L Level Anion Gap 10 Blood Urea 36 H Nitrogen Creatinine 1.77 H Est Glomerular 38 L Filtrat Rate mL/min Glucose Level 153 Calcium Level 7.0 L Lab Scanned REFERENCE LAB Report Medications Current Medications IV Flush (NS 3 ml) 3 ml PER PROTOCOL IV ; Start 10/20/18 at 19:30 Ondansetron HCl (Zofran Inj) 4 mg Q6H PRN IV NAUSEA/VOMITING Last administered on 10/25/18 19:28; Admin Dose 4 MG; Start 10/20/18 at 19:30 Acetaminophen (Tylenol Tab) 650 mg Q6H PRN PO .PAIN 1-3 OR TEMP Last administered on 10/23/18 16:25; Admin Dose 650 MG; Start 10/20/18 at 19:30 Albuterol/ Ipratropium (Duoneb) 3 ml Q6HWA RESP THERAPY HHN Last administered on 10/26/18 08:48; Admin Dose 3 ML; Start 10/20/18 at 20:00 Albuterol/ Ipratropium (Duoneb) 3 ml Q2H RESP THERAPY PRN HHN shortness of breath Last administered on 10/24/18 06:25; Admin Dose 3 ML; Start 10/20/18 at 19:30 Vancomycin HCl (Vanco Iv Per Pharmacy) VANCOMYCIN PER PHARMACY PER PROTOCOL XX ; Start 10/20/18 at 23:30 Acetaminophen/ Hydrocodone Bitart ([place] (10/325)) 1 tab Q6H PRN PO MODERATE PAIN LEVEL 4-6 Last administered on 10/24/18 20:59; Admin Dose 1 TAB; Start 10/21/18 at 07:00 Doxycycline Hyclate 100 mg/ Sodium Chloride 250 ml @ 250 mls/hr Q12 IVPB Last administered on 10/25/18 20:56; Admin Dose 250 MLS/HR; Start 10/21/18 at 21:00 Filgrastim (Neupogen) 480 mcg DAILY@1700 SC Last administered on 10/25/18 16:38; Admin Dose 480 MCG; Start 10/22/18 at 22:00 Trimethoprim/ Sulfamethoxazole 20 ml/Dextrose 520 ml @ 350 mls/hr Q8 IVPB Last administered on 10/26/18 06:09; Admin Dose 350 MLS/HR; Start 10/23/18 at 14:00 Miscellaneous Information (* Miscellaneous Pharmacy Order) ONCE XX ; Start 10/23/18 at 11:00 Nystatin (Nystatin Susp) 5 ml QID PO Last administered on 10/26/18 08:43; Admin Dose 5 ML; Start 10/23/18 at 13:00 Magnesium Hydroxide (Milk Of Mag) 30 ml DAILY PRN PO CONSTIPATION Last administered on 10/25/18 13:28; Admin Dose 30 ML; Start 10/24/18 at 00:30 Methylprednisolone Sodium Succinate (Solu-Medrol) 60 mg Q8 IV Last administered on 10/26/18 06:09; Admin Dose 60 MG; Start 10/24/18 at 18:30 Meropenem/Sodium Chloride 50 ml @ 100 mls/hr Q12 IVPB Last administered on 10/26/18 08:44; Admin Dose 100 MLS/HR; Start 10/24/18 at 21:00 Voriconazole 100 ml @ 50 mls/hr Q12 IVPB Last administered on 10/25/18 22:17; Admin Dose 50 MLS/HR; Start 10/24/18 at 21:00 Miscellaneous Information (* Miscellaneous Pharmacy Order) Please adjust voriconazole dosing ... ONCE XX ; Start 10/24/18 at 19:00 Docusate Sodium (Colace) 100 mg DAILY PRN PO CONSTIPATION Last administered on 10/25/18 13:28; Admin Dose 100 MG; Start 10/25/18 at 10:30 Vancomycin HCl 250 ml @ 125 mls/hr Q24H IVPB Last administered on 10/25/18 23:06; Admin Dose 125 MLS/HR; Start 10/25/18 at 22:00 Methylnaltrexone [place] (Relistor) 12 mg DAILY SC ; Start 10/26/18 at 09:00 Assessment/Plan Hospital Course (Demo Recall) IMPRESSION AND PLAN: 1. Acute hypoxemic respiratory failure, possibly secondary to opportunistic infection. 2. Severe neutropenia, status post chemotherapy for multiple myeloma. 3. Renal insufficiency. Plan 1. Continue diuretics 2. High flow O2. Decrease as tolerated 3. Continue broad-spectrum antibiotic coverage. 4. Discussed with hematology oncology this morning. Will hold off on b ronchoscopy for now and is clinically improving. 5. Continue hematology/oncology recommendations with Neupogen. 6. Continue steroids for empiric pneumocystis hypoxemia, will decrease steroids tomorrow. Critical care time 40 minutes. SAI JACKSON MD, [facility] Oct 26, 2018 10:01
[2018-10-26] MEDS: VORICONAZOLE 200 MG/100 ML 100 ML IVPB SCH (11:06)
[2018-10-26] MEDS: ONDANSETRON 4 MG INJ IV PRN (11:17)
[2018-10-26] MEDS: HYDROCODONE/APAP (10/325) TAB PO PRN (11:31)
--- NOTE | 2018-10-26 14:19 | CONS ---
[facility] LIVE HCIS Consult Follow-up Patient Name: Cornell Kay Unit Number: [id number] Date of : 1950 Patient Status: Admitted Inpatient Attending Doctor: Rome Norman MD Edit: CHANTAL ADAIR M.D. on 10/29/18 @ 04:47 Mana: I discussed the management with [employer]ENER and agree Assessment/Plan Assessment/Plan Hospital Course (Demo Recall) - Severe sepsis d/t PNA - fever curve down but continues to require significant o2 support - Neutropenic fever d/t PNA - PNA, R>L - Acute respiratory failure - now on vapotherm - Multiple myeloma - Immunosuppression - Pancytopenia d/t multiple myeloma and recent chemo - Acute on chronic anemia requiring PRBC - CKD III - resp virus panel returned negative, crypto neg, legionella screen neg, TB Quant Gold indeterminate - s/p cefepime (10/20/2018-) Recommendations: - F/u blood cx (NGTD), cocci, beta d glucan, pcp dfa, fungal blood cxs, aspergillus screen - all sent and in process - Ordered: Aspergillus antigen, Histoplasma, mycoplasma IgG IgM, Fungal sputum specimen - Continue Merrem - Discontinue vanco - ordered - Continue doxycycline (10/21/2018-) for atypical coverage - Continue empiric IV Bactrim (10/23/18 - ) - Cont. vfend; - Change to PO; monitor crcl. - check vori trough level next week - Neutropenic precautions as per hospital protocol - Continue Nystatin Plan was d/w patient, patient's RN at the bedside, and with Dr. Adair. Thank you Total critical care time spent: 75 minutes. Consultation Date/Type/Reason Admit Date/Time Oct 20, 2018 at 19:11 Initial Consult Date 10/21/18 Type of Consult ID Requesting Provider: IZZY LEBLANC Date/Time of Note DATE: 10/26/18 TIME: 14:12 24 HR Interval Summary Free Text/Dictation The patient will be transferring out of ICU today to 6th floor. No acute issues were reported by nursing, he has remained afebrile. WBC 0.4, neut 0.3. plts 37. The patient reports sob with exertion, still with occasional cough without phlegm expectoration. Generalized body pain. Exam/Review of Systems Exam Vitals Vital Signs Date Temp Pulse Resp B/P (MAP) Pulse Ox O2 O2 Flow FiO2 Time Delivery Rate 10/26/18 98 35 12:50 10/26/18 66 24 12:50 10/26/18 119/71 High Flow 11:00 (87) 10/26/18 98.2 09:00 Intake and Output 10/25/18 10/25/18 10/26/18 1515:00 23:00 07:00 IntakeIntake Total 1290.00 ml 450 ml 1120 ml OutputOutput Total 1280 ml 230 ml 700 ml BalanceBalance 10.00 ml 220 ml 420 ml Allergies Coded Allergies No Known Allergy (Eevdpadcre22/4/18) . Constitutional: alert, oriented, well developed, other (sitting up in bed) Psych: no complaints, nl mood/affect Head: normocephalic, atraumatic Eyes: nl conjunctiva, nl lids, nl sclera ENMT: nl external ears & nose, nl nasal mucosa & septum, mucosa pink and moist Neck: supple, non-tender Respiratory: normal air movement, diminished breath sounds, other (on nc high flow 35% , sob with exertion in bed) Cardiovascular: regular rate and rhythm, nl pulses Gastrointestinal: soft, non-tender, bowel sounds (normoactive ); No distended, No tender Genitourinary - Male: other (urinal at bedside) Musculoskeletal: nl extremities to inspection Extremities: normal pulses, other (LUE PIV site c/d/i) Neurological: nl mental status, nl speech, nl strength Skin: nl turgor, other (R lateral knee well healed scar, RUE well healed scar ); No rash or lesions Results Result Diagram: 10/26/18 0818 10/26/18 0818 Results 24hrs Laboratory Tests Test 10/26/18 04:40 10/26/18 07:00 10/26/18 08:18 10/26/18 09:27 Blood Urea 37 H 36 H Nitrogen Creatinine 1.91 H 1.77 H Blood Gas Blood arterial Specimen Source Arterial Blood 10/26/2018 7:00: Date Drawn 32 AM Arterial Blood 7.448 pH (Temp corrected) Arterial Blood 28.0 L pCO2 (Temp correct) Arterial Blood 91.2 pO2 (Temp corrected) Arterial Blood 18.9 L HCO3 Arterial Blood -4.2 L Base Excess Arterial Blood 96.2 Oxygen Saturatio n Ruiz Test ACCEPTAB Arterial Blood Right Radial Gas Puncture Site Arterial 0.2 Blood Carboxyhem oglobin Arterial Blood 0 Methemoglobin Blood Gas A-a O2 125.8 H Differential Oxyhemoglobin 96.0 Percent Blood Gas 37.0 Temperature Blood Gas HFNC Modality FiO2 35.0 Blood Gas TM Notified Whom Blood Gas 10/26/2018 7:27: Notified Time 37 AM White Blood 0.4 #L Count Red Blood Count 2.52 L Hemoglobin 7.5 L Hematocrit 22.8 L Mean Corpuscular 90.5 Volume Mean Corpuscular 29.8 Hemoglobin Mean Corpuscular 32.9 Hemoglobin Dalila nt Red Cell 16.0 H Distribution Width Platelet Count 37 L Mean Platelet Volume Immature 21.600 H Granulocytes % Neutrophils % Segmented 78 H Neutrophils % (Manual) Band Neutrophils 2 % (Manual) Lymphocytes % Lymphocytes % 19 (Manual) Reactive 1 H Lymphocytes % (Manual) Monocytes % Monocytes % 1 (Manual) Eosinophils % Basophils % Nucleated Red 2 H Blood Cells % Immature 0.080 H Granulocytes # Neutrophils # Neutrophils # 0.3 L (Manual) Band Neutrophils 0.0 # Lymphocytes 0.0 L (Manual) Lymphocytes # Reactive 0.0 Lymphocytes # Monocytes # Monocytes # 0.0 L (Manual) Eosinophils # Basophils # Nucleated Red Blood Cells # Toxic 3+ Granulation Platelet DECREASED Estimate Giant Platelets 42 H Polychromasia 2+ Poikilocytosis 1+ Anisocytosis 1+ Ovalocytes 1+ Sodium Level 133 L Potassium Level 4.1 Chloride Level 103 Carbon Dioxide 20 L Level Anion Gap 10 Est Glomerular 38 L Filtrat Rate mL/min Glucose Level 153 Calcium Level 7.0 L Lab Scanned REFERENCE LAB Report Imaging Imaging CXR 10/26/18 IMPRESSION: 1. Diffuse bilateral alveolar opacities may reflect combination of edema and pneumonia. No significant interval change. 2. Low lung volumes. Medications Medication Current Medications IV Flush (NS 3 ml) 3 ml PER PROTOCOL IV ; Start 10/20/18 at 19:30 Ondansetron HCl (Zofran Inj) 4 mg Q6H PRN IV NAUSEA/VOMITING Last administered on 10/26/18 11:17; Admin Dose 4 MG; Start 10/20/18 at 19:30 Acetaminophen (Tylenol Tab) 650 mg Q6H PRN PO .PAIN 1-3 OR TEMP Last administered on 10/23/18 16:25; Admin Dose 650 MG; Start 10/20/18 at 19:30 Albuterol/ Ipratropium (Duoneb) 3 ml Q6HWA RESP THERAPY HHN Last administered on 10/26/18 12:51; Admin Dose 3 ML; Start 10/20/18 at 20:00 Albuterol/ Ipratropium (Duoneb) 3 ml Q2H RESP THERAPY PRN HHN shortness of breath Last administered on 10/24/18 06:25; Admin Dose 3 ML; Start 10/20/18 at 19:30 Vancomycin HCl (Vanco Iv Per Pharmacy) VANCOMYCIN PER PHARMACY PER PROTOCOL XX ; Start 10/20/18 at 23:30 Acetaminophen/ Hydrocodone Bitart ([place] (10/325)) 1 tab Q6H PRN PO MODERATE PAIN LEVEL 4-6 Last administered on 10/26/18 11:31; Admin Dose 1 TAB; Start 10/21/18 at 07:00 Doxycycline Hyclate 100 mg/ Sodium Chloride 250 ml @ 250 mls/hr Q12 IVPB Last administered on 10/26/18 09:00; Admin Dose 250 MLS/HR; Start 10/21/18 at 21:00 Filgrastim (Neupogen) 480 mcg DAILY@1700 SC Last administered on 10/25/18 16:38; Admin Dose 480 MCG; Start 10/22/18 at 22:00 Trimethoprim/ Sulfamethoxazole 20 ml/Dextrose 520 ml @ 350 mls/hr Q8 IVPB Last administered on 10/26/18 13:43; Admin Dose 350 MLS/HR; Start 10/23/18 at 14:00 Miscellaneous Information (* Miscellaneous Pharmacy Order) ONCE XX ; Start 10/23/18 at 11:00 Nystatin (Nystatin Susp) 5 ml QID PO Last administered on 10/26/18 12:33; Admin Dose 5 ML; Start 10/23/18 at 13:00 Magnesium Hydroxide (Milk Of Mag) 30 ml DAILY PRN PO CONSTIPATION Last administered on 10/25/18 13:28; Admin Dose 30 ML; Start 10/24/18 at 00:30 Methylprednisolone Sodium Succinate (Solu-Medrol) 60 mg Q8 IV Last administered on 10/26/18 13:50; Admin Dose 60 MG; Start 10/24/18 at 18:30 Meropenem/Sodium Chloride 50 ml @ 100 mls/hr Q12 IVPB Last administered on 10/26/18 08:44; Admin Dose 100 MLS/HR; Start 10/24/18 at 21:00 Voriconazole 100 ml @ 50 mls/hr Q12 IVPB Last administered on 10/26/18 11:06; Admin Dose 50 MLS/HR; Start 10/24/18 at 21:00 Miscellaneous Information (* Miscellaneous Pharmacy Order) Please adjust voriconazole dosing ... ONCE XX ; Start 10/24/18 at 19:00 Docusate Sodium (Colace) 100 mg DAILY PRN PO CONSTIPATION Last administered on 10/25/18 13:28; Admin Dose 100 MG; Start 10/25/18 at 10:30 Vancomycin HCl 250 ml @ 125 mls/hr Q24H IVPB Last administered on 10/25/18 23:06; Admin Dose 125 MLS/HR; Start 10/25/18 at 22:00 Methylnaltrexone [place] (Relistor) 12 mg DAILY SC Last administered on 10/26/18 09:00; Admin Dose 12 MG; Start 10/26/18 at 09:00 MAR CHISHOLM NP Oct 26, 2018 14:19
--- NOTE | 2018-10-26 15:00 | PN ---
Date/Time of Note Date/Time of Note DATE: 10/26/18 TIME: 14:59 Assessment/Plan VTE Prophylaxis Risk score (from Ns)>0 risk: 8 SCD applied (from Ns): Yes Pharmacological prophylaxis: heparin Lines/Catheters IV Catheter Type (from Nrs): Peripheral IV Urinary Cath still in place: No Assessment/Plan Hospital Course EXAM: Comfortable Breathing stable on HF RRR Crackles in lungs Soft nt nd Ext no edema 68 yo male with MM presented with neutropenic fevers 2/2 pneumoina leading to hypoxic respiratory failure MM wiht pancytopenia/neutropenia: - Neupogen per hematology Pneumonia: - Abx per ID. Bactrim has been added - Concern for PCP. Await DFA sputum. Bronchoscopy risk outweighs benefit per pulmonary Acute respiratory failure: - Continue HFNC - Lasix as needed for pulmonary edema CKD III: - stable - result of MM - trend creatinine Result Diagram: 10/26/18 0818 10/26/18 0818 Results 24hrs Laboratory Tests Test 10/26/18 04:40 10/26/18 07:00 10/26/18 08:18 10/26/18 09:27 Blood Urea 37 H 36 H Nitrogen Creatinine 1.91 H 1.77 H Blood Gas Blood arterial Specimen Source Arterial Blood 10/26/2018 7:00: Date Drawn 32 AM Arterial Blood 7.448 pH (Temp corrected) Arterial Blood 28.0 L pCO2 (Temp correct) Arterial Blood 91.2 pO2 (Temp corrected) Arterial Blood 18.9 L HCO3 Arterial Blood -4.2 L Base Excess Arterial Blood 96.2 Oxygen Saturatio n Ruiz Test ACCEPTAB Arterial Blood Right Radial Gas Puncture Site Arterial 0.2 Blood Carboxyhem oglobin Arterial Blood 0 Methemoglobin Blood Gas A-a O2 125.8 H Differential Oxyhemoglobin 96.0 Percent Blood Gas 37.0 Temperature Blood Gas HFNC Modality FiO2 35.0 Blood Gas TM Notified Whom Blood Gas 10/26/2018 7:27: Notified Time 37 AM White Blood 0.4 #L Count Red Blood Count 2.52 L Hemoglobin 7.5 L Hematocrit 22.8 L Mean Corpuscular 90.5 Volume Mean Corpuscular 29.8 Hemoglobin Mean Corpuscular 32.9 Hemoglobin Dalila nt Red Cell 16.0 H Distribution Width Platelet Count 37 L Mean Platelet Volume Immature 21.600 H Granulocytes % Neutrophils % Segmented 78 H Neutrophils % (Manual) Band Neutrophils 2 % (Manual) Lymphocytes % Lymphocytes % 19 (Manual) Reactive 1 H Lymphocytes % (Manual) Monocytes % Monocytes % 1 (Manual) Eosinophils % Basophils % Nucleated Red 2 H Blood Cells % Immature 0.080 H Granulocytes # Neutrophils # Neutrophils # 0.3 L (Manual) Band Neutrophils 0.0 # Lymphocytes 0.0 L (Manual) Lymphocytes # Reactive 0.0 Lymphocytes # Monocytes # Monocytes # 0.0 L (Manual) Eosinophils # Basophils # Nucleated Red Blood Cells # Toxic 3+ Granulation Platelet DECREASED Estimate Giant Platelets 42 H Polychromasia 2+ Poikilocytosis 1+ Anisocytosis 1+ Ovalocytes 1+ Sodium Level 133 L Potassium Level 4.1 Chloride Level 103 Carbon Dioxide 20 L Level Anion Gap 10 Est Glomerular 38 L Filtrat Rate mL/min Glucose Level 153 Calcium Level 7.0 L Lab Scanned REFERENCE LAB Report Subjective 24 Hr Interval Summary Free Text/Dictation Continues on HFNC A bit lethargic today s/p benzos Exam/Review of Systems Exam Vitals Vital Signs Date Temp Pulse Resp B/P (MAP) Pulse Ox O2 O2 Flow FiO2 Time Delivery Rate 10/26/18 98 35 12:50 10/26/18 66 24 12:50 10/26/18 119/71 High Flow 11:00 (87) 10/26/18 98.2 09:00 Intake and Output 10/25/18 10/25/18 10/26/18 1515:00 23:00 07:00 IntakeIntake Total 1290.00 ml 450 ml 1120 ml OutputOutput Total 1280 ml 230 ml 700 ml BalanceBalance 10.00 ml 220 ml 420 ml Results Results 24hrs Laboratory Tests Test 10/26/18 04:40 10/26/18 07:00 10/26/18 08:18 10/26/18 09:27 Blood Urea 37 H 36 H Nitrogen Creatinine 1.91 H 1.77 H Blood Gas Blood arterial Specimen Source Arterial Blood 10/26/2018 7:00: Date Drawn 32 AM Arterial Blood 7.448 pH (Temp corrected) Arterial Blood 28.0 L pCO2 (Temp correct) Arterial Blood 91.2 pO2 (Temp corrected) Arterial Blood 18.9 L HCO3 Arterial Blood -4.2 L Base Excess Arterial Blood 96.2 Oxygen Saturatio n Ruiz Test ACCEPTAB Arterial Blood Right Radial Gas Puncture Site Arterial 0.2 Blood Carboxyhem oglobin Arterial Blood 0 Methemoglobin Blood Gas A-a O2 125.8 H Differential Oxyhemoglobin 96.0 Percent Blood Gas 37.0 Temperature Blood Gas HFNC Modality FiO2 35.0 Blood Gas TM Notified Whom Blood Gas 10/26/2018 7:27: Notified Time 37 AM White Blood 0.4 #L Count Red Blood Count 2.52 L Hemoglobin 7.5 L Hematocrit 22.8 L Mean Corpuscular 90.5 Volume Mean Corpuscular 29.8 Hemoglobin Mean Corpuscular 32.9 Hemoglobin Dalila nt Red Cell 16.0 H Distribution Width Platelet Count 37 L Mean Platelet Volume Immature 21.600 H Granulocytes % Neutrophils % Segmented 78 H Neutrophils % (Manual) Band Neutrophils 2 % (Manual) Lymphocytes % Lymphocytes % 19 (Manual) Reactive 1 H Lymphocytes % (Manual) Monocytes % Monocytes % 1 (Manual) Eosinophils % Basophils % Nucleated Red 2 H Blood Cells % Immature 0.080 H Granulocytes # Neutrophils # Neutrophils # 0.3 L (Manual) Band Neutrophils 0.0 # Lymphocytes 0.0 L (Manual) Lymphocytes # Reactive 0.0 Lymphocytes # Monocytes # Monocytes # 0.0 L (Manual) Eosinophils # Basophils # Nucleated Red Blood Cells # Toxic 3+ Granulation Platelet DECREASED Estimate Giant Platelets 42 H Polychromasia 2+ Poikilocytosis 1+ Anisocytosis 1+ Ovalocytes 1+ Sodium Level 133 L Potassium Level 4.1 Chloride Level 103 Carbon Dioxide 20 L Level Anion Gap 10 Est Glomerular 38 L Filtrat Rate mL/min Glucose Level 153 Calcium Level 7.0 L Lab Scanned REFERENCE LAB Report Medications Medication Current Medications IV Flush (NS 3 ml) 3 ml PER PROTOCOL IV ; Start 10/20/18 at 19:30 Ondansetron HCl (Zofran Inj) 4 mg Q6H PRN IV NAUSEA/VOMITING Last administered on 10/26/18at 11:17; Admin Dose 4 MG; Start 10/20/18 at 19:30 Acetaminophen (Tylenol Tab) 650 mg Q6H PRN PO .PAIN 1-3 OR TEMP Last administered on 10/23/18 16:25; Admin Dose 650 MG; Start 10/20/18 at 19:30 Albuterol/ Ipratropium (Duoneb) 3 ml Q6HWA RESP THERAPY HHN Last administered on 10/26/18at 12:51; Admin Dose 3 ML; Start 10/20/18 at 20:00 Albuterol/ Ipratropium (Duoneb) 3 ml Q2H RESP THERAPY PRN HHN shortness of breath Last administered on 10/24/18 06:25; Admin Dose 3 ML; Start 10/20/18 at 19:30 Vancomycin HCl (Vanco Iv Per Pharmacy) VANCOMYCIN PER PHARMACY PER PROTOCOL XX ; Start 10/20/18 at 23:30 Acetaminophen/ Hydrocodone Bitart ([place] (10)) 1 tab Q6H PRN PO MODERATE PAIN LEVEL 4-6 Last administered on 10/26/18 11:31; Admin Dose 1 TAB; Start 10/21/18 at 07:00 Doxycycline Hyclate 100 mg/ Sodium Chloride 250 ml @ 250 mls/hr Q12 IVPB Last administered on 10/26/18 09:00; Admin Dose 250 MLS/HR; Start 10/21/18 at 21:00 Filgrastim (Neupogen) 480 mcg DAILY@1700 SC Last administered on 10/25/18 16:38; Admin Dose 480 MCG; Start 10/22/18 at 22:00 Trimethoprim/ Sulfamethoxazole 20 ml/Dextrose 520 ml @ 350 mls/hr Q8 IVPB Last administered on 10/26/18 13:43; Admin Dose 350 MLS/HR; Start 10/23/18 at 14:00 Miscellaneous Information (* Miscellaneous Pharmacy Order) ONCE XX ; Start 10/23/18 at 11:00 Nystatin (Nystatin Susp) 5 ml QID PO Last administered on 10/26/18 12:33; Admin Dose 5 ML; Start 10/23/18 at 13:00 Magnesium Hydroxide (Milk Of Mag) 30 ml DAILY PRN PO CONSTIPATION Last administered on 10/25/18 13:28; Admin Dose 30 ML; Start 10/24/18 at 00:30 Methylprednisolone Sodium Succinate (Solu-Medrol) 60 mg Q8 IV Last administered on 10/26/18 13:50; Admin Dose 60 MG; Start 10/24/18 at 18:30 Meropenem/Sodium Chloride 50 ml @ 100 mls/hr Q12 IVPB Last administered on 10/26/18 08:44; Admin Dose 100 MLS/HR; Start 10/24/18 at 21:00 Voriconazole 100 ml @ 50 mls/hr Q12 IVPB Last administered on 10/26/18 11:06; Admin Dose 50 MLS/HR; Start 10/24/18 at 21:00 Miscellaneous Information (* Miscellaneous Pharmacy Order) Please adjust voriconazole dosing ... ONCE XX ; Start 10/24/18 at 19:00 Docusate Sodium (Colace) 100 mg DAILY PRN PO CONSTIPATION Last administered on 10/25/18at 13:28; Admin Dose 100 MG; Start 10/25/18 at 10:30 Vancomycin HCl 250 ml @ 125 mls/hr Q24H IVPB Last administered on 10/25/18 23:06; Admin Dose 125 MLS/HR; Start 10/25/18 at 22:00 Methylnaltrexone [place] (Relistor) 12 mg DAILY SC Last administered on 10/26/18 09:00; Admin Dose 12 MG; Start 10/26/18 at 09:00 CHYNA ARCHER MD Oct 26, 2018 15:00
[2018-10-26] MEDS: FILGRASTIM 480 MCG INJ SC SCH (16:48)
[2018-10-26] MEDS: VORICONAZOLE 200 MG TAB PO SCH (21:07)
[2018-10-27] VITALS (12 sets, daily range): BP systolic 141–160; BP diastolic 65–75; PULSE 63–73; RESP 17–20
[2018-10-27] MEDS: TRIMETHOPRIM/SULFAMETHOXAZOLE 20 ML in DEXTROSE 5% 500 ML IVPB SCH ×3 (06:41→23:28)
[2018-10-27] MEDS: METHYLPREDNISOLONE 125 MG INJ IV SCH (06:41)
[2018-10-27] MEDS: ONDANSETRON 4 MG INJ IV PRN (07:01)
[2018-10-27] MEDS: ALBUTEROL/IPRATROPIUM (NEB) 3 ML AMP HHN SCH ×3 (08:00→21:01)
--- NOTE | 2018-10-27 08:08 | CONS ---
Consult Date/Type/Reason Admit Date/Time Oct 20, 2018 at 7:11 pm Initial Consult Date 10/21/18 Requesting Provider: IZZY LEBLANC Date/Time of Note DATE: 10/27/18 TIME: 08:01 Subjective Pt transferred to floor from ICU. Feels a bit better. Less sob. Eating some. Objective Vitals Vital Signs Date Temp Pulse Resp B/P (MAP) Pulse Ox O2 O2 Flow FiO2 Time Delivery Rate 10/27/18 98.4 73 18 155/75 99 07:56 (101) 10/27/18 4.0 05:45 10/26/18 Nasal 23:48 Cannula 10/26/18 35 19:55 Intake and Output 10/26/18 10/26/18 10/27/18 1515:00 23:00 07:00 IntakeIntake Total 275 ml 250 ml 770 ml OutputOutput Total 600 ml 200 ml 250 ml BalanceBalance -325 ml 50 ml 520 ml Exam Mild respiratory distress while talking OP clear RRR no m/g/r CTA B-without much wheezing at all Soft NT ND +BS No c/c/e Results/Medications Result Diagram: 10/27/18 0535 10/27/18 0535 Results 24 hrs Laboratory Tests Test 10/26/18 08:18 10/26/18 09:27 10/27/18 05:35 White Blood Count 0.4 #L 0.6 #L Red Blood Count 2.52 L 2.70 L Hemoglobin 7.5 L 8.0 L Hematocrit 22.8 L 24.6 L Mean Corpuscular Volume 90.5 91.1 Mean Corpuscular Hemoglobin 29.8 29.6 Mean Corpuscular 32.9 32.5 Hemoglobin Concent Red Cell Distribution Width 16.0 H 16.1 H Platelet Count 37 L 32 L Mean Platelet Volume Immature Granulocytes % 21.600 H 1.700 H Neutrophils % Segmented Neutrophils % (Manual) 78 H Band Neutrophils % (Manual) 2 Lymphocytes % Lymphocytes % (Manual) 19 Reactive Lymphocytes % (Manual) 1 H Monocytes % Monocytes % (Manual) 1 Eosinophils % Basophils % Nucleated Red Blood Cells % 2 H 0.0 Immature Granulocytes # 0.080 H 0.010 Neutrophils # Neutrophils # (Manual) 0.3 L Band Neutrophils # 0.0 Lymphocytes (Manual) 0.0 L Lymphocytes # Reactive Lymphocytes # 0.0 Monocytes # Monocytes # (Manual) 0.0 L Eosinophils # Basophils # Nucleated Red Blood Cells # Toxic Granulation 3+ Platelet Estimate DECREASED Giant Platelets 42 H Polychromasia 2+ Poikilocytosis 1+ Anisocytosis 1+ Ovalocytes 1+ Sodium Level 133 L 136 Potassium Level 4.1 4.7 Chloride Level 103 104 Carbon Dioxide Level 20 L 21 Anion Gap 10 11 Blood Urea Nitrogen 36 H 41 H Creatinine 1.77 H 1.61 H Est Glomerular Filtrat 38 L 43 L Rate mL/min Glucose Level 153 113 # Calcium Level 7.0 L 7.2 L Lab Scanned Report REFERENCE LAB Phosphorus Level 3.2 Magnesium Level 2.9 H Home Meds Active Scripts Cephalexin* (Keflex*) 500 Mg Capsule, 500 MG PO QID for 7 Days, CAP Prov:EVERETT GALICIA PA-C 08/18/18 Reported Medications Hydromorphone Hcl* (Hydromorphone Hcl*) 4 Mg Tablet, 4 MG PO Q4H PRN for PAIN, TAB 04/12/18 Naproxen* (Naproxen*) 375 Mg Tablet, 375 MG PO BID PRN for PAIN LEVEL 6-10, TAB TAKE 1 - 2 TABLETS BY MOUTH NEEDED FOR PAIN 04/12/18 Lenalidomide (Revlimid) 15 Mg Capsule, 15 MG PO, CAP 04/12/18 Dexamethasone* (Dexamethasone*) 4 Mg Tablet, 4 MG PO Q8, TAB Take 3 tablets by mouth Once a Week. QWED 04/12/18 Medications Current Medications IV Flush (NS 3 ml) 3 ml PER PROTOCOL IV ; Start 10/20/18 at 19:30 Ondansetron HCl (Zofran Inj) 4 mg Q6H PRN IV NAUSEA/VOMITING Last administered on 10/27/18at 07:01; Admin Dose 4 MG; Start 10/20/18 at 19:30 Acetaminophen (Tylenol Tab) 650 mg Q6H PRN PO .PAIN 1-3 OR TEMP Last administered on 10/23/18at 16:25; Admin Dose 650 MG; Start 10/20/18 at 19:30 Albuterol/ Ipratropium (Duoneb) 3 ml Q6HWA RESP THERAPY HHN Last administered on 10/26/18at 19:55; Admin Dose 3 ML; Start 10/20/18 at 20:00 Albuterol/ Ipratropium (Duoneb) 3 ml Q2H RESP THERAPY PRN HHN shortness of breath Last administered on 10/24/18 06:25; Admin Dose 3 ML; Start 10/20/18 at 19:30 Acetaminophen/ Hydrocodone Bitart ([place] (10/)) 1 tab Q6H PRN PO MODERATE PAIN LEVEL 4-6 Last administered on 10/26/18 11:31; Admin Dose 1 TAB; Start 10/21/18 at 07:00 Doxycycline Hyclate 100 mg/ Sodium Chloride 250 ml @ 250 mls/hr Q12 IVPB Last administered on 10/26/18 23:12; Admin Dose 250 MLS/HR; Start 10/21/18 at 21:00 Filgrastim (Neupogen) 480 mcg DAILY@1700 SC Last administered on 10/26/18 16:48; Admin Dose 480 MCG; Start 10/22/18 at 22:00 Trimethoprim/ Sulfamethoxazole 20 ml/Dextrose 520 ml @ 350 mls/hr Q8 IVPB Last administered on 10/27/18 06:41; Admin Dose 350 MLS/HR; Start 10/23/18 at 14:00 Miscellaneous Information (* Miscellaneous Pharmacy Order) ONCE XX ; Start 10/23/18 at 11:00 Nystatin (Nystatin Susp) 5 ml QID PO Last administered on 10/26/18 21:06; Admin Dose 5 ML; Start 10/23/18 at 13:00 Magnesium Hydroxide (Milk Of Mag) 30 ml DAILY PRN PO CONSTIPATION Last administered on 10/25/18 13:28; Admin Dose 30 ML; Start 10/24/18 at 00:30 Methylprednisolone Sodium Succinate (Solu-Medrol) 60 mg Q8 IV Last administered on 10/27/18 06:41; Admin Dose 60 MG; Start 10/24/18 at 18:30 Meropenem/Sodium Chloride 50 ml @ 100 mls/hr Q12 IVPB Last administered on 10/26/18 21:06; Admin Dose 100 MLS/HR; Start 10/24/18 at 21:00 Miscellaneous Information (* Miscellaneous Pharmacy Order) Please adjust voriconazole dosing ... ONCE XX ; Start 10/24/18 at 19:00 Docusate Sodium (Colace) 100 mg DAILY PRN PO CONSTIPATION Last administered on 10/25/18at 13:28; Admin Dose 100 MG; Start 10/25/18 at 10:30 Methylnaltrexone [place] (Relistor) 12 mg DAILY SC Last administered on 10/26/18at 09:00; Admin Dose 12 MG; Start 10/26/18 at 09:00 Voriconazole (Vfend) 200 mg BID PO Last administered on 10/26/18at 21:07; Admin Dose 200 MG; Start 10/26/18 at 21:00 Assessment/Plan Assessment/Plan (Daily) 68yo male with h/o MM admitted with PNA. On broad spectrum Abx. May have PCP pna. On Bactrim. 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 May be complicated by Bactrim. On G-CSF. Counts improving slightly-particularly WBC and Hb. Cont current tx. No new heme recs. Will f/u tomorrow. Remain in isolation with neutropenic precautions. ABHI HERNANDEZ Oct 27, 2018 8:08 am
[2018-10-27] MEDS: MEROPENEM 1 GM/50ML(PMX) 50 ML IVPB SCH (10:07)
[2018-10-27] MEDS: NYSTATIN SUSP 5 ML CUP PO SCH ×4 (10:08→20:46)
[2018-10-27] MEDS: VORICONAZOLE 200 MG TAB PO SCH ×2 (10:08→20:52)
[2018-10-27] MEDS: DOXYCYCLINE 100 MG in SOD CHLORIDE 0.9% 250 ML IVPB SCH ×2 (10:14→20:54)
[2018-10-27] MEDS: METHYLNALTREXONE 12 MG/0.6 ML VIAL SC SCH (11:22)
--- NOTE | 2018-10-27 11:52 | CONS ---
Consult Date/Type/Reason Admit Date/Time Oct 20, 2018 at 19:11 Initial Consult Date 10/21/18 Type of Consult Pulmonary Requesting Provider: IZZY LEBLANC Date/Time of Note DATE: 10/27/18 TIME: 11:51 Subjective Continues to improve. Decreased FiO2 requirements. Still with significant global weakness. Objective Vital Signs Date Temp Pulse Resp B/P (MAP) Pulse Ox O2 O2 Flow FiO2 Time Delivery Rate 10/27/18 69 08:18 10/27/18 98.4 18 155/75 99 07:56 (101) 10/27/18 4.0 05:45 10/26/18 Nasal 23:48 Cannula 10/26/18 35 19:55 Intake and Output 10/26/18 10/26/18 10/27/18 1515:00 23:00 07:00 IntakeIntake Total 275 ml 250 ml 770 ml OutputOutput Total 600 ml 200 ml 250 ml BalanceBalance -325 ml 50 ml 520 ml Exam PHYSICAL EXAMINATION: GENERAL: A well-nourished, well-developed gentleman, comfortable at rest, no acute distress. 3 L nasal cannula VITAL SIGNS: NECK: Supple. No JVD or lymphadenopathy. CARDIAC: S1, S2. No added sounds or murmurs. CHEST: Diminished air entry bilaterally with rales. ABDOMEN: Soft, nontender. No guarding or rebound. EXTREMITIES: No cyanosis or clubbing. A 1+ edema. NEUROLOGIC: Generalized weakness. Vent Setting Fraction of Inspired Oxygen pe: 35 Results/Medications Result Diagram: 10/27/18 0535 10/27/18 0535 Results 24 hrs Laboratory Tests Test 10/27/18 05:35 White Blood Count 0.6 #L Red Blood Count 2.70 L Hemoglobin 8.0 L Hematocrit 24.6 L Mean Corpuscular Volume 91.1 Mean Corpuscular Hemoglobin 29.6 Mean Corpuscular Hemoglobin Concent 32.5 Red Cell Distribution Width 16.1 H Platelet Count 32 L Mean Platelet Volume Immature Granulocytes % 1.700 H Neutrophils % Segmented Neutrophils % (Manual) 77 Band Neutrophils % (Manual) 12 H Lymphocytes % Lymphocytes % (Manual) 8 L Monocytes % Monocytes % (Manual) 1 Eosinophils % Basophils % Myelocytes % (Manual) 1 H Plasma Cells % (manual) 1 Nucleated Red Blood Cells % 3 H Immature Granulocytes # 0.010 Neutrophils # Neutrophils # (Manual) 0.5 L Band Neutrophils # 0.0 Lymphocytes (Manual) 0.0 L Lymphocytes # Monocytes # Monocytes # (Manual) 0.0 L Eosinophils # Basophils # Myelocytes # 0.0 Plasma Cells # (manual) 0.0 Nucleated Red Blood Cells # Toxic Granulation 3+ Platelet Estimate DECREASED Polychromasia 1+ Poikilocytosis 1+ Anisocytosis 1+ Macrocytosis 1+ Ovalocytes 1+ Rouleau 1+ Sodium Level 136 Potassium Level 4.7 Chloride Level 104 Carbon Dioxide Level 21 Anion Gap 11 Blood Urea Nitrogen 41 H Creatinine 1.61 H Est Glomerular Filtrat Rate mL/min 43 L Glucose Level 113 # Calcium Level 7.2 L Phosphorus Level 3.2 Magnesium Level 2.9 H Medications Current Medications IV Flush (NS 3 ml) 3 ml PER PROTOCOL IV ; Start 10/20/18 at 19:30 Ondansetron HCl (Zofran Inj) 4 mg Q6H PRN IV NAUSEA/VOMITING Last administered on 10/27/18 07:01; Admin Dose 4 MG; Start 10/20/18 at 19:30 Acetaminophen (Tylenol Tab) 650 mg Q6H PRN PO .PAIN 1-3 OR TEMP Last administered on 10/23/18 16:25; Admin Dose 650 MG; Start 10/20/18 at 19:30 Albuterol/ Ipratropium (Duoneb) 3 ml Q6HWA RESP THERAPY HHN Last administered on 10/26/18 19:55; Admin Dose 3 ML; Start 10/20/18 at 20:00 Albuterol/ Ipratropium (Duoneb) 3 ml Q2H RESP THERAPY PRN HHN shortness of breath Last administered on 10/24/18at 06:25; Admin Dose 3 ML; Start 10/20/18 at 19:30 Acetaminophen/ Hydrocodone Bitart ([place] ()) 1 tab Q6H PRN PO MODERATE PAIN LEVEL 4-6 Last administered on 10/26/18 11:31; Admin Dose 1 TAB; Start 10/21/18 at 07:00 Doxycycline Hyclate 100 mg/ Sodium Chloride 250 ml @ 250 mls/hr Q12 IVPB Last administered on 10/27/18 10:14; Admin Dose 250 MLS/HR; Start 10/21/18 at 21:00 Filgrastim (Neupogen) 480 mcg DAILY@1700 SC Last administered on 10/26/18 16:48; Admin Dose 480 MCG; Start 10/22/18 at 22:00 Trimethoprim/ Sulfamethoxazole 20 ml/Dextrose 520 ml @ 350 mls/hr Q8 IVPB Last administered on 10/27/18 06:41; Admin Dose 350 MLS/HR; Start 10/23/18 at 14:00 Miscellaneous Information (* Miscellaneous Pharmacy Order) ONCE XX ; Start 10/23/18 at 11:00 Nystatin (Nystatin Susp) 5 ml QID PO Last administered on 10/27/18 10:08; Admin Dose 5 ML; Start 10/23/18 at 13:00 Magnesium Hydroxide (Milk Of Mag) 30 ml DAILY PRN PO CONSTIPATION Last administered on 10/25/18 13:28; Admin Dose 30 ML; Start 10/24/18 at 00:30 Methylprednisolone Sodium Succinate (Solu-Medrol) 60 mg Q8 IV Last administered on 10/27/18 06:41; Admin Dose 60 MG; Start 10/24/18 at 18:30 Meropenem/Sodium Chloride 50 ml @ 100 mls/hr Q12 IVPB Last administered on 10/27/18 10:07; Admin Dose 100 MLS/HR; Start 10/24/18 at 21:00 Miscellaneous Information (* Miscellaneous Pharmacy Order) Please adjust voricon azole dosing ... ONCE XX ; Start 10/24/18 at 19:00 Docusate Sodium (Colace) 100 mg DAILY PRN PO CONSTIPATION Last administered on 10/25/18 13:28; Admin Dose 100 MG; Start 10/25/18 at 10:30 Methylnaltrexone [place] (Relistor) 12 mg DAILY SC Last administered on 10/27/18 11:22; Admin Dose 12 MG; Start 10/26/18 at 09:00 Voriconazole (Vfend) 200 mg BID PO Last administered on 10/27/18 10:08; Admin Dose 200 MG; Start 10/26/18 at 21:00 Assessment/Plan Hospital Course (Demo Recall) IMPRESSION AND PLAN: 1. Acute hypoxemic respiratory failure, possibly secondary to opportunistic infection. 2. Severe neutropenia, status post chemotherapy for multiple myeloma. Improving WBC 3. Renal insufficiency. Plan 1. Continue diuretics, decrease steroids 2. High flow O2. Decrease as tolerated 3. Continue broad-spectrum antibiotic coverage. 4. Continue Neupogen per oncology 5. Continue hematology/oncology recommendations with Neupogen. 6. Physical therapy SAI Wang MD, [facility] Oct 27, 2018 11:52
--- NOTE | 2018-10-27 13:22 | CONS ---
[facility] LIVE HCIS Consult Follow-up Patient Name: Cornell Kay Unit Number: [id number] Date of : 1950 Patient Status: Admitted Inpatient Attending Doctor: Rome Norman MD Edit: CHANTAL ADAIR M.D. on 10/29/18 @ 04:50 Mana: I discussed the management with CAR LOADER and agree Assessment/Plan Assessment/Plan Hospital Course (Demo Recall) - Severe sepsis d/t PNA - fever curve down but continues to require significant o2 support but this is slowly being titrated down. Now on nc 4l. - Neutropenic fever d/t PNA - PNA, R>L - Acute respiratory failure - now on vapotherm - Multiple myeloma - Immunosuppression - Pancytopenia d/t multiple myeloma and recent chemo - Acute on chronic anemia requiring PRBC - CKD III - resp virus panel returned negative, crypto neg, legionella screen neg, TB Quant Gold indeterminate - s/p cefepime (10/20/2018-) Recommendations: - F/u blood cx (NGTD), cocci, beta d glucan, pcp dfa, fungal blood cxs, aspergillus ab/ag, histoplasma, mycoplasma IgG, IgM - all sent and in process - Asked RN to obtain and send Fungal sputum specimen ordered yesterday - D/c Merrem - ordered - Reordered Aspergillus Antigen as the order I placed yesterday was gone - Continue doxycycline (10/21/2018-) for atypical coverage - Continue empiric IV Bactrim (10/23/18 - ) - Cont. vfend PO; monitor crcl. - check vori trough level next week - Neutropenic precautions as per hospital protocol - Continue Nystatin Plan was d/w patient, his family, RN at bedside, and with Dr. Adair. Thank you Consultation Date/Type/Reason Admit Date/Time Oct 20, 2018 at 19:11 Initial Consult Date 10/21/18 Type of Consult ID Requesting Provider: IZZY LEBLANC Date/Time of Note DATE: 10/27/18 TIME: 13:18 24 HR Interval Summary Free Text/Dictation The patient still reports sob with exertion but is up in the chair and reports feeling better in the chair. Ambulated in the room and to the bathroom. Reports he rec'd laxative and had 2 bm yesterday that had "chunks but with some liquid." States he feels like he has phlegm but having trouble expectorating it, states he will provide a specimen if he is able to bring it up. Denies feeling of fevers, but c/o sweating. Denies chills. Denies chest pain, palpitations, h/a, n/v/d. Does c/o acid reflux and per his family member at the bedside he has been only eating oatmeal for breakfast lunch and dinner. Denies dysuria, prurits, or rash. No acute issues were reported by nsg and patient has remained afebrile Detailed Summary Eyes: no complaints ENT: no complaints Respiratory: shortness of breath, sputum (unable to bring up) Cardiovascular: no complaints Gastrointestinal: passing stool, other (acid reflux) Genitourinary: no complaints Musculoskeletal: no complaints Skin: bruising (RUE) Neurologic: no complaints Endocrine: no complaints Lymphatic: no complaints Psychological: no complaints, nl mood/affect Exam/Review of Systems Exam Vitals Vital Signs Date Temp Pulse Resp B/P (MAP) Pulse Ox O2 O2 Flow FiO2 Time Delivery Rate 10/27/18 70 12:16 10/27/18 98.2 20 160/70 92 12:05 (100) 10/27/18 Nasal 4.0 08:54 Cannula 10/26/18 35 19:55 Intake and Output 10/26/18 10/26/18 10/27/18 1515:00 23:00 07:00 IntakeIntake Total 275 ml 250 ml 770 ml OutputOutput Total 600 ml 200 ml 250 ml BalanceBalance -325 ml 50 ml 520 ml Allergies Coded Allergies No Known Allergy ([id number]) Exam Constitutional: alert, oriented, well developed, other (sitting up in a chair at the bedside) Psych: no complaints, nl mood/affect Head: normocephalic, atraumatic Eyes: nl conjunctiva, nl lids, nl sclera ENMT: nl external ears & nose, nl nasal mucosa & septum, mucosa pink and moist Neck: supple, non-tender Respiratory: normal air movement, diminished breath sounds, other (on nc 4L, sob with exertion) Cardiovascular: regular rate and rhythm, nl pulses Gastrointestinal: soft, non-tender, bowel sounds (normoactive ); No distended, No tender Genitourinary - Male: other (urinal at bedside) Musculoskeletal: nl extremities to inspection Extremities: normal pulses, other (LUE PIV site c/d/i) Neurological: nl mental status, nl speech, nl strength Skin: nl turgor, ecchymosis (RUE), other (R lateral knee well healed scar, RUE well healed scar ); No rash or lesions Results Result Diagram: 10/27/18 0535 10/27/18 0535 Results 24hrs Laboratory Tests Test 10/27/18 05:35 White Blood Count 0.6 #L Red Blood Count 2.70 L Hemoglobin 8.0 L Hematocrit 24.6 L Mean Corpuscular Volume 91.1 Mean Corpuscular Hemoglobin 29.6 Mean Corpuscular Hemoglobin Concent 32.5 Red Cell Distribution Width 16.1 H Platelet Count 32 L Mean Platelet Volume Immature Granulocytes % 1.700 H Neutrophils % Segmented Neutrophils % (Manual) 77 Band Neutrophils % (Manual) 12 H Lymphocytes % Lymphocytes % (Manual) 8 L Monocytes % Monocytes % (Manual) 1 Eosinophils % Basophils % Myelocytes % (Manual) 1 H Plasma Cells % (manual) 1 Nucleated Red Blood Cells % 3 H Immature Granulocytes # 0.010 Neutrophils # Neutrophils # (Manual) 0.5 L Band Neutrophils # 0.0 Lymphocytes (Manual) 0.0 L Lymphocytes # Monocytes # Monocytes # (Manual) 0.0 L Eosinophils # Basophils # Myelocytes # 0.0 Plasma Cells # (manual) 0.0 Nucleated Red Blood Cells # Toxic Granulation 3+ Platelet Estimate DECREASED Polychromasia 1+ Poikilocytosis 1+ Anisocytosis 1+ Macrocytosis 1+ Ovalocytes 1+ Rouleau 1+ Sodium Level 136 Potassium Level 4.7 Chloride Level 104 Carbon Dioxide Level 21 Anion Gap 11 Blood Urea Nitrogen 41 H Creatinine 1.61 H Est Glomerular Filtrat Rate mL/min 43 L Glucose Level 113 # Calcium Level 7.2 L Phosphorus Level 3.2 Magnesium Level 2.9 H Imaging Imaging CXR 10/26/18 IMPRESSION: 1. Diffuse bilateral alveolar opacities may reflect combination of edema and pneumonia. No significant interval change. 2. Low lung volumes. Medications Medication Current Medications IV Flush (NS 3 ml) 3 ml PER PROTOCOL IV ; Start 10/20/18 at 19:30 Ondansetron HCl (Zofran Inj) 4 mg Q6H PRN IV NAUSEA/VOMITING Last administered on 10/27/18 07:01; Admin Dose 4 MG; Start 10/20/18 at 19:30 Acetaminophen (Tylenol Tab) 650 mg Q6H PRN PO .PAIN 1-3 OR TEMP Last administered on 10/23/18 16:25; Admin Dose 650 MG; Start 10/20/18 at 19:30 Albuterol/ Ipratropium (Duoneb) 3 ml Q6HWA RESP THERAPY HHN Last administered on 10/26/18 19:55; Admin Dose 3 ML; Start 10/20/18 at 20:00 Albuterol/ Ipratropium (Duoneb) 3 ml Q2H RESP THERAPY PRN HHN shortness of b reath Last administered on 10/24/18 06:25; Admin Dose 3 ML; Start 10/20/18 at 19:30 Acetaminophen/ Hydrocodone Bitart ([place] (10/325)) 1 tab Q6H PRN PO MODERATE PAIN LEVEL 4-6 Last administered on 10/26/18 11:31; Admin Dose 1 TAB; Start 10/21/18 at 07:00 Doxycycline Hyclate 100 mg/ Sodium Chloride 250 ml @ 250 mls/hr Q12 IVPB Last administered on 10/27/18 10:14; Admin Dose 250 MLS/HR; Start 10/21/18 at 21:00 Filgrastim (Neupogen) 480 mcg DAILY@1700 SC Last administered on 10/26/18 16:48; Admin Dose 480 MCG; Start 10/22/18 at 22:00 Trimethoprim/ Sulfamethoxazole 20 ml/Dextrose 520 ml @ 350 mls/hr Q8 IVPB Last administered on 10/27/18 06:41; Admin Dose 350 MLS/HR; Start 10/23/18 at 14:00 Miscellaneous Information (* Miscellaneous Pharmacy Order) ONCE XX ; Start 10/23/18 at 11:00 Nystatin (Nystatin Susp) 5 ml QID PO Last administered on 10/27/18 10:08; Admin Dose 5 ML; Start 10/23/18 at 13:00 Magnesium Hydroxide (Milk Of Mag) 30 ml DAILY PRN PO CONSTIPATION Last administered on 10/25/18 13:28; Admin Dose 30 ML; Start 10/24/18 at 00:30 Meropenem/Sodium Chloride 50 ml @ 100 mls/hr Q12 IVPB Last administered on 10/27/18 10:07; Admin Dose 100 MLS/HR; Start 10/24/18 at 21:00 Miscellaneous Information (* Miscellaneous Pharmacy Order) Please adjust voriconazole dosing ... ONCE XX ; Start 10/24/18 at 19:00 Docusate Sodium (Colace) 100 mg DAILY PRN PO CONSTIPATION Last administered on 10/25/18 13:28; Admin Dose 100 MG; Start 10/25/18 at 10:30 Methylnaltrexone [place] (Relistor) 12 mg DAILY SC Last administered on 10/27/18 11:22; Admin Dose 12 MG; Start 10/26/18 at 09:00 Voriconazole (Vfend) 200 mg BID PO Last administered on 10/27/18 10:08; Admin Dose 200 MG; Start 10/26/18 at 21:00 Methylprednisolone Sodium Succinate (Solu-Medrol) 40 mg Q12 IV ; Start 10/27/18 at 21:00 MAR CHISHOLM NP Oct 27, 2018 13:22
[2018-10-27] MEDS: CALCIUM CARBONATE 500 MG CHEW TAB PO PRN ×2 (14:23→20:45)
--- NOTE | 2018-10-27 14:41 | PN ---
Date/Time of Note Date/Time of Note DATE: 10/27/18 TIME: 14:41 Assessment/Plan VTE Prophylaxis Risk score (from Ns)>0 risk: 10 SCD applied (from Ns): Yes Pharmacological prophylaxis: heparin Lines/Catheters IV Catheter Type (from Nrsg): Peripheral IV Urinary Cath still in place: No Assessment/Plan Hospital Course EXAM: Comfortable Breathing stable on NC RRR Crackles in lungs Soft nt nd Ext no edema 68 yo male with MM presented with neutropenic fevers 2/2 pneumoina leading to hypoxic respiratory failure MM wiht pancytopenia/neutropenia: - Neupogen per hematology Pneumonia: - Abx per ID. Bactrim has been added - Concern for PCP. Await DFA sputum. Bronchoscopy risk outweighs benefit per pulmonary Acute respiratory failure: - Continue O2 by NC as needed - Lasix as needed for pulmonary edema CKD III: - stable - result of MM - trend creatinine Result Diagram: 10/27/18 0535 10/27/18 0535 Results 24hrs Laboratory Tests Test 10/27/18 05:35 White Blood Count 0.6 #L Red Blood Count 2.70 L Hemoglobin 8.0 L Hematocrit 24.6 L Mean Corpuscular Volume 91.1 Mean Corpuscular Hemoglobin 29.6 Mean Corpuscular Hemoglobin Concent 32.5 Red Cell Distribution Width 16.1 H Platelet Count 32 L Mean Platelet Volume Immature Granulocytes % 1.700 H Neutrophils % Segmented Neutrophils % (Manual) 77 Band Neutrophils % (Manual) 12 H Lymphocytes % Lymphocytes % (Manual) 8 L Monocytes % Monocytes % (Manual) 1 Eosinophils % Basophils % Myelocytes % (Manual) 1 H Plasma Cells % (manual) 1 Nucleated Red Blood Cells % 3 H Immature Granulocytes # 0.010 Neutrophils # Neutrophils # (Manual) 0.5 L Band Neutrophils # 0.0 Lymphocytes (Manual) 0.0 L Lymphocytes # Monocytes # Monocytes # (Manual) 0.0 L Eosinophils # Basophils # Myelocytes # 0.0 Plasma Cells # (manual) 0.0 Nucleated Red Blood Cells # Toxic Granulation 3+ Platelet Estimate DECREASED Polychromasia 1+ Poikilocytosis 1+ Anisocytosis 1+ Macrocytosis 1+ Ovalocytes 1+ Rouleau 1+ Sodium Level 136 Potassium Level 4.7 Chloride Level 104 Carbon Dioxide Level 21 Anion Gap 11 Blood Urea Nitrogen 41 H Creatinine 1.61 H Est Glomerular Filtrat Rate mL/min 43 L Glucose Level 113 # Calcium Level 7.2 L Phosphorus Level 3.2 Magnesium Level 2.9 H Subjective 24 Hr Interval Summary Free Text/Dictation Oxygenation is improving Feels well Exam/Review of Systems Exam Vitals Vital Signs Date Temp Pulse Resp B/P (MAP) Pulse Ox O2 O2 Flow FiO2 Time Delivery Rate 10/27/18 68 18 98 Nasal 3.0 14:13 Cannula 10/27/18 98.2 160/70 12:05 (100) 10/26/18 35 19:55 Intake and Output 10/26/18 10/26/18 10/27/18 1515:00 23:00 07:00 IntakeIntake Total 275 ml 250 ml 770 ml OutputOutput Total 600 ml 200 ml 250 ml BalanceBalance -325 ml 50 ml 520 ml Results Results 24hrs Laboratory Tests Test 10/27/18 05:35 White Blood Count 0.6 #L Red Blood Count 2.70 L Hemoglobin 8.0 L Hematocrit 24.6 L Mean Corpuscular Volume 91.1 Mean Corpuscular Hemoglobin 29.6 Mean Corpuscular Hemoglobin Concent 32.5 Red Cell Distribution Width 16.1 H Platelet Count 32 L Mean Platelet Volume Immature Granulocytes % 1.700 H Neutrophils % Segmented Neutrophils % (Manual) 77 Band Neutrophils % (Manual) 12 H Lymphocytes % Lymphocytes % (Manual) 8 L Monocytes % Monocytes % (Manual) 1 Eosinophils % Basophils % Myelocytes % (Manual) 1 H Plasma Cells % (manual) 1 Nucleated Red Blood Cells % 3 H Immature Granulocytes # 0.010 Neutrophils # Neutrophils # (Manual) 0.5 L Band Neutrophils # 0.0 Lymphocytes (Manual) 0.0 L Lymphocytes # Monocytes # Monocytes # (Manual) 0.0 L Eosinophils # Basophils # Myelocytes # 0.0 Plasma Cells # (manual) 0.0 Nucleated Red Blood Cells # Toxic Granulation 3+ Platelet Estimate DECREASED Polychromasia 1+ Poikilocytosis 1+ Anisocytosis 1+ Macrocytosis 1+ Ovalocytes 1+ Rouleau 1+ Sodium Level 136 Potassium Level 4.7 Chloride Level 104 Carbon Dioxide Level 21 Anion Gap 11 Blood Urea Nitrogen 41 H Creatinine 1.61 H Est Glomerular Filtrat Rate mL/min 43 L Glucose Level 113 # Calcium Level 7.2 L Phosphorus Level 3.2 Magnesium Level 2.9 H Medications Medication Current Medications IV Flush (NS 3 ml) 3 ml PER PROTOCOL IV ; Start 10/20/18 at 19:30 Ondansetron HCl (Zofran Inj) 4 mg Q6H PRN IV NAUSEA/VOMITING Last administered on 10/27/18 07:01; Admin Dose 4 MG; Start 10/20/18 at 19:30 Acetaminophen (Tylenol Tab) 650 mg Q6H PRN PO .PAIN 1-3 OR TEMP Last administered on 10/23/18 16:25; Admin Dose 650 MG; Start 10/20/18 at 19:30 Albuterol/ Ipratropium (Duoneb) 3 ml Q6HWA RESP THERAPY HHN Last administered on 10/27/18 14:06; Admin Dose 3 ML; Start 10/20/18 at 20:00 Albuterol/ Ipratropium (Duoneb) 3 ml Q2H RESP THERAPY PRN HHN shortness of breath Last administered on 10/24/18 06:25; Admin Dose 3 ML; Start 10/20/18 at 19:30 Acetaminophen/ Hydrocodone Bitart ([place] (10/325)) 1 tab Q6H PRN PO MODERATE PAIN LEVEL 4-6 Last administered on 10/26/18 11:31; Admin Dose 1 TAB; Start 10/21/18 at 07:00 Doxycycline Hyclate 100 mg/ Sodium Chloride 250 ml @ 250 mls/hr Q12 IVPB Last administered on 10/27/18 10:14; Admin Dose 250 MLS/HR; Start 10/21/18 at 21:00 Filgrastim (Neupogen) 480 mcg DAILY@1700 SC Last administered on 10/26/18 16:48; Admin Dose 480 MCG; Start 10/22/18 at 22:00 Trimethoprim/ Sulfamethoxazole 20 ml/Dextrose 520 ml @ 350 mls/hr Q8 IVPB Last administered on 10/27/18 13:25; Admin Dose 350 MLS/HR; Start 10/23/18 at 14:00 Miscellaneous Information (* Miscellaneous Pharmacy Order) ONCE XX ; Start 10/23/18 at 11:00 Nystatin (Nystatin Susp) 5 ml QID PO Last administered on 10/27/18 13:24; Admin Dose 5 ML; Start 10/23/18 at 13:00 Magnesium Hydroxide (Milk Of Mag) 30 ml DAILY PRN PO CONSTIPATION Last administered on 10/25/18 13:28; Admin Dose 30 ML; Start 10/24/18 at 00:30 Meropenem/Sodium Chloride 50 ml @ 100 mls/hr Q12 IVPB Last administered on 10/27/18 10:07; Admin Dose 100 MLS/HR; Start 10/24/18 at 21:00 Miscellaneous Information (* Miscellaneous Pharmacy Order) Please adjust voriconazole dosing ... ONCE XX ; Start 10/24/18 at 19:00 Docusate Sodium (Colace) 100 mg DAILY PRN PO CONSTIPATION Last administered on 10/25/18 13:28; Admin Dose 100 MG; Start 10/25/18 at 10:30 Methylnaltrexone [place] (Relistor) 12 mg DAILY SC Last administered on 10/27/18 11:22; Admin Dose 12 MG; Start 10/26/18 at 09:00 Voriconazole (Vfend) 200 mg BID PO Last administered on 10/27/18 10:08; Admin Dose 200 MG; Start 10/26/18 at 21:00 Methylprednisolone Sodium Succinate (Solu-Medrol) 40 mg Q12 IV ; Start 10/27/18 at 21:00 Calcium Carbonate (Tums) 500 mg PRN PRN PO HEARTBURN Last administered on 10/27/18 14:23; Admin Dose 500 MG; Start 10/27/18 at 14:00 CHYNA ARCHER MD Oct 27, 2018 14:41
[2018-10-27 16:04] LABS: PNEUMOCYSTIS JIROVECCI DFA NOT DETECTED
[2018-10-27] MEDS: FILGRASTIM-AAFI 480 MCG/0.8 ML SYRINGE SC SCH (18:42)
[2018-10-27] MEDS: HYDROCODONE/APAP (10/325) TAB PO PRN (19:00)
[2018-10-27] MEDS: METHYLPREDNISOLONE 40 MG INJ IV SCH (20:56)
[2018-10-27] MEDS: ACETAMINOPHEN 325 MG TAB PO PRN (21:17)
[2018-10-27] MEDS ORDERED: morphine 2 MG INJ IV PRN (22:30)
[2018-10-27] MEDS ORDERED: HYDROmorphONE 1 MG/ML SYG IV ONE (23:30)
[2018-10-27] MEDS ORDERED: ASPIRIN 325 MG TAB PO ONE (23:30)
[2018-10-28] VITALS (12 sets, daily range): BP systolic 138–161; BP diastolic 74–81; PULSE 62–81; RESP 17–21
[2018-10-28] MEDS ORDERED: NITROGLYCERIN (SL) 0.4 MG TAB SL ONE (00:30)
[2018-10-28] MEDS ORDERED: morphine 2 MG INJ IV ONE (01:11)
--- NOTE | 2018-10-28 01:16 | EN ---
Date/Time of Note Date/Time of Note DATE: 10/28/18 TIME: 01:15 Event Note Medicine Medicine Event Note acute event note Chief complaint: Chest pain Was notified by the RN that the patient had been reporting chest pain at approximately 22: 20 on 10/27/2018. Stat EKG was ordered along with stat tro ponin and CK-MB. Patient was given his as needed morphine that was already on board. EKG was reviewed which when compared to previous EKG on admission did show some changes in leads V2 and V3 however there was no overt ST segment elevation noted. Patient was given aspirin 325 mg p.o. x1 patient did report some mild improvement in the chest pain so a sublingual nitroglycerin was then given which did improve patient's pain significantly. Repeat EKG at approximately at 06: 31 on 10/28/2018 showed some changes in the prior EKG however again there was no ST elevation noted. Patient did have a slightly elevated troponin of 0.277. At this point patient's pain had improved completely. I did speak with Dr. Gandara of the warehouse logistics coordinator crane ladle person who at the current time recommended continued monitoring and no emergent intervention at the current time. Vital signs stable General: Patient currently sitting in bed in no acute distress CVS: Regular rate rhythm Lungs: Clear to auscultation bilaterally, no wheezes noted Neuro: Alert and oriented x3 EKG: Normal sinus rhythm with changes noted in V2 to V3 compared to previous EKG but no overt ST elevations appreciated Repeat EKG: Again normal sinus rhythm with progression of previous changes noted, however with no overt ST elevation Assessment and plan: 1. Non-STEMI: Type I versus type II. patient did have some EKG changes however there was no ST elevation noted. Troponin was slightly elevated at 0.277. Patient's pain at the current time has been relieved with sublingual nitro. Will add a nitro patch. Patient was given aspirin 325 mg p.o. initially when he first experienced chest pain. Continue to monitor closely. Given his renal failure we will hold off on initiation of ALYSSA inhibitor at the current time. Also patient has significant thrombocytopenia which may make it challenging in regards to anticoagulation if indeed patient is found to have an overt non- STEMI. Will monitor closely. We will continue to monitor patient on telemetry, Greater than 35 minutes of critical care time was spent on the care management this patient. ARACELIS DAMON Oct 28, 2018 01:16
[2018-10-28] MEDS: NITROGLYCERIN 0.2 MG/HR PATCH TRANSDERM SCH ×2 (01:21→09:00)
[2018-10-28] MEDS ORDERED: ATORVASTATIN 80 MG TAB PO ONE ×2 (04:00→08:00)
[2018-10-28] MEDS ORDERED: LISINOPRIL 5 MG TAB PO ONE (04:00)
[2018-10-28] MEDS: TRIMETHOPRIM/SULFAMETHOXAZOLE 20 ML in DEXTROSE 5% 500 ML IVPB SCH ×2 (06:33→14:05)
--- NOTE | 2018-10-28 08:09 | CONS ---
Consult Date/Type/Reason Admit Date/Time Oct 20, 2018 at 19:11 Initial Consult Date 10/21/18 Requesting Provider: IZZY LEBLANC Date/Time of Note DATE: 10/28/18 TIME: 07:59 Subjective Pt quite fatigued and breathing is labored. Able to walk around room but tires easily. Eating about 25% of meals. No fevers or chills. Reported some chest pain with radiation to arms. Objective Vitals Vital Signs Date Temp Pulse Resp B/P (MAP) Pulse Ox O2 O2 Flow FiO2 Time Delivery Rate 10/28/18 98.8 67 20 158/75 100 07:08 (102) 10/28/18 3.0 02:16 10/28/18 Nasal 02:00 Cannula 10/26/18 35 19:55 Intake and Output 10/27/18 10/27/18 10/28/18 1414:59 22:59 06:59 IntakeIntake Total 350 ml 1050 ml 520 ml OutputOutput Total 850 ml BalanceBalance 350 ml 200 ml 520 ml Exam NCAT, VICKIE, EOMI B, Anicteric B Moderate respiratory distress while talking Oxygen dependent Using accessory muscles to help breath Neck supple, No LAD OP: clear RRR no m/g/r Bilateral crackles Soft, NT, ND, +BS No c/c/e Results/Medications Result Diagram: 10/28/18 0554 10/28/18 0554 Results 24 hrs Laboratory Tests Test 10/27/18 21:19 10/27/18 23:37 10/28/18 02:50 10/28/18 05:54 Bedside Glucose 138 Creatine Kinase 27 89 148 Creatine Kinase 8.1 7.7 10.5 Index Creatinine Kinase MB 2.20 6.81 H 15.50 H (Mass) Troponin I 0.277 *H 1.770 *H 4.870 *H White Blood Count 1.4 #L Red Blood Count 2.72 L Hemoglobin 7.9 L Hematocrit 24.5 L Mean Corpuscular 90.1 Volume Mean Corpuscular 29.0 Hemoglobin Mean Corpuscular 32.2 Hemoglobin Concent Red Cell 16.3 H Distribution Width Platelet Count 21 #*L Mean Platelet Volume Immature 17.400 H Granulocytes % Neutrophils % Lymphocytes % Monocytes % Eosinophils % Basophils % Nucleated Red Blood 1.4 H Cells % Immature 0.250 H Granulocytes # Neutrophils # Lymphocytes # Monocytes # Eosinophils # Basophils # Nucleated Red Blood Cells # Sodium Level 135 Potassium Level 5.2 H Chloride Level 107 Carbon Dioxide Level 19 L Anion Gap 9 Blood Urea Nitrogen 47 H Creatinine 1.68 H Est Glomerular 41 L Filtrat Rate mL/min Glucose Level 121 Calcium Level 7.6 L Magnesium Level 2.8 H Home Meds Active Scripts Cephalexin* (Keflex*) 500 Mg Capsule, 500 MG PO QID for 7 Days, CAP Prov:EVERETT GALICIA PA-C 08/18/18 Reported Medications Hydromorphone Hcl* (Hydromorphone Hcl*) 4 Mg Tablet, 4 MG PO Q4H PRN for PAIN, TAB 04/12/18 Naproxen* (Naproxen*) 375 Mg Tablet, 375 MG PO BID PRN for PAIN LEVEL 6-10, TAB TAKE 1 - 2 TABLETS BY MOUTH NEEDED FOR PAIN 04/12/18 Lenalidomide (Revlimid) 15 Mg Capsule, 15 MG PO, CAP 04/12/18 Dexamethasone* (Dexamethasone*) 4 Mg Tablet, 4 MG PO Q8, TAB Take 3 tablets by mouth Once a Week. QWED 04/12/18 Medications Current Medications IV Flush (NS 3 ml) 3 ml PER PROTOCOL IV ; Start 10/20/18 at 19:30 Ondansetron HCl (Zofran Inj) 4 mg Q6H PRN IV NAUSEA/VOMITING Last administered on 10/27/18at 07:01; Admin Dose 4 MG; Start 10/20/18 at 19:30 Acetaminophen (Tylenol Tab) 650 mg Q6H PRN PO .PAIN 1-3 OR TEMP Last administered on 10/27/18at 21:17; Admin Dose 650 MG; Start 10/20/18 at 19:30 Albuterol/ Ipratropium (Duoneb) 3 ml Q6HWA RESP THERAPY HHN Last administered on 10/27/18at 21:01; Admin Dose 3 ML; Start 10/20/18 at 20:00 Albuterol/ Ipratropium (Duoneb) 3 ml Q2H RESP THERAPY PRN HHN shortness of breath Last administered on 10/24/18at 06:25; Admin Dose 3 ML; Start 10/20/18 at 19:30 Acetaminophen/ Hydrocodone Bitart ([place] (10/325)) 1 tab Q6H PRN PO MODERATE PAIN LEVEL 4-6 Last administered on 10/27/18 19:00; Admin Dose 1 TAB; Start 10/21/18 at 07:00 Doxycycline Hyclate 100 mg/ Sodium Chloride 250 ml @ 250 mls/hr Q12 IVPB Last administered on 10/27/18 20:54; Admin Dose 250 MLS/HR; Start 10/21/18 at 21:00 Trimethoprim/ Sulfamethoxazole 20 ml/Dextrose 520 ml @ 350 mls/hr Q8 IVPB Last administered on 10/28/18 06:33; Admin Dose 350 MLS/HR; Start 10/23/18 at 14:00 Miscellaneous Information (* Miscellaneous Pharmacy Order) ONCE XX ; Start 10/23/18 at 11:00 Nystatin (Nystatin Susp) 5 ml QID PO Last administered on 10/27/18 18:04; Admin Dose 5 ML; Start 10/23/18 at 13:00 Magnesium Hydroxide (Milk Of Mag) 30 ml DAILY PRN PO CONSTIPATION Last administered on 10/25/18 13:28; Admin Dose 30 ML; Start 10/24/18 at 00:30 Miscellaneous Information (* Miscellaneous Pharmacy Order) Please adjust voriconazole dosing ... ONCE XX ; Start 10/24/18 at 19:00 Docusate Sodium (Colace) 100 mg DAILY PRN PO CONSTIPATION Last administered on 10/25/18 13:28; Admin Dose 100 MG; Start 10/25/18 at 10:30 Methylnaltrexone [place] (Relistor) 12 mg DAILY SC Last administered on 10/27/18 11:22; Admin Dose 12 MG; Start 10/26/18 at 09:00 Voriconazole (Vfend) 200 mg BID PO Last administered on 10/27/18 20:52; Admin Dose 200 MG; Start 10/26/18 at 21:00 Methylprednisolone Sodium Succinate (Solu-Medrol) 40 mg Q12 IV Last administered on 10/27/18 20:56; Admin Dose 40 MG; Start 10/27/18 at 21:00 Calcium Carbonate (Tums) 500 mg PRN PRN PO HEARTBURN Last administered on 10/27/18 20:45; Admin Dose 500 MG; Start 10/27/18 at 14:00 Filgrastim (Nivestym) 480 mcg DAILY@1700 SC Last administered on 10/27/18at 18:42; Admin Dose 480 MCG; Start 10/27/18 at 18:45 Morphine Sulfate (morphine) 2 mg Q4H PRN IV SEVERE PAIN LEVEL 7-10 Last administered on 10/27/18at 22:10; Admin Dose 2 MG; Start 10/27/18 at 22:30 Nitroglycerin (Nitroglycerin 0.2 Mg/Hr) 1 patch DAILY TRANSDERM Last administered on 10/28/18at 01:21; Admin Dose 1 PATCH; Start 10/28/18 at 01:30 Al Hydrox/Mg Hydrox/Simethicone (Mag-Al Plus) 30 ml Q6H PRN PO GASTROINTESTINAL UPSET; Start 10/28/18 at 06:00 Assessment/Plan Assessment/Plan (Daily) 68yo male with h/o MM admitted with PNA-bilateral. Pt quite immunocompromised du e to MM and myelosuppression. On broad spectrum Abx. May have PCP pna. On Bactrim. 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 May be complicated by Bactrim. On G-CSF. Counts improving slightly-particularly WBC and Hb. Chest pain:likely pulmonary in origin but troponins rising. Possible SC? Cont broad spectrum Abx for now. Remain in isolation with neutropenic precautions. Cont G-CSF. D/c once ANC over 500 for at least 3 days. No need for platelet or pRBC transfusion today. F/u cultures. Sputum sample sent yesterday. Cardiology to see pt. Anti-platelet therapy ok. Not a good candidate for coronary revascularization. Abhi Hernandez MD Hematology/Oncology ABHI HERNANDEZ Oct 28, 2018 08:09
--- NOTE | 2018-10-28 08:36 | CONS ---
Assessment/Plan Assessment/Plan Hospital Course (Demo Recall) 68 yo with multiple myeloma and opportunistic infections, pneumonia, who had an NSTEMI last night, with chest pain, dynamic ekg changes, and elevation of troponin. Impression: NSTEMI severe thrombocytopenia, multifactorial, due to MM, and possibly also drug- induced Multiple myeloma Recommendations: The patient's severe thrombocytopenia makes management of the patient's CO challenging. Conventional therapy, which would involve coronary angiography, possible angioplasty with stent placement, and subsequent dual antiplatelet therapy for a minimum of one month would be very risky for life-threatening bleeding. At this point, the patient is pain free, and will treat conservatively. I have spoken at length with Dr. Yuan, who feels reasonably comfortable with single antiplatelet therapy, but that dual antiplatelets would be too risky. Spoke with pharmacy, and there is an interaction of clopidogrel and voriconazole which leads to enhanced elimination of clopidogrel, so I will g lissette asa 81 mg po daily. I have put him on carvedilol and atorvastatin as well. Echo, lipid panel, and CXR are ordered. He knows to let nursing know if he has recurrent chest pain; if this occurs, this may push us toward a more invasive, but ultimately riskier. Consultation Date/Type/Reason Admit Date/Time Oct 20, 2018 at 19:11 Date of Consultation: Oct 28, 2018 Type of Consult Cardiology Reason for Consultation chest pain, CO Requesting Provider: ARACELIS DAMON Date/Time of Note DATE: 10/28/18 TIME: 08:24 Hx of Present Illness 68 yo with multiple myeloma, admitted due to infections, being treated with chemotherapy and antibiotics, had onset of chest pain last night. Pain began as a sensation of reflux, but pain spread across the chest to both arms and persisted. Troponins have risen significantly, and EKG demonstrates subtle but dynamic changes. At present he is pain free. Patient states no h/o prior cardiac issues, no hypertension, remote h/o hyperlipidemia, no diabetes. Prior to hospitalization, and even throughout chemotherapy, he has been physically active playing [employer] for up to 2 hours a day. Constitutional: no complaints Eyes: no complaints ENT: no complaints Respiratory: shortness of breath Cardiovascular: chest pain Gastrointestinal: no complaints Genitourinary: no complaints Musculoskeletal: no complaints Skin: no complaints Neurologic: no complaints Endocrine: no complaints Lymphatic: no complaints Psychological: no complaints Immunologic: no complaints Past Medical History Medical History: other (multiple myeloma) Home Meds Active Scripts Cephalexin* (Keflex*) 500 Mg Capsule, 500 MG PO QID for 7 Days, CAP Prov:EVERETT GALICIA PA-C 08/18/18 Reported Medications Hydromorphone Hcl* (Hydromorphone Hcl*) 4 Mg Tablet, 4 MG PO Q4H PRN for PAIN, TAB 04/12/18 Naproxen* (Naproxen*) 375 Mg Tablet, 375 MG PO BID PRN for PAIN LEVEL 6-10, TAB TAKE 1 - 2 TABLETS BY MOUTH NEEDED FOR PAIN 04/12/18 Lenalidomide (Revlimid) 15 Mg Capsule, 15 MG PO, CAP 04/12/18 Dexamethasone* (Dexamethasone*) 4 Mg Tablet, 4 MG PO Q8, TAB Take 3 tablets by mouth Once a Week. QWED 04/12/18 Medications Current Medications IV Flush (NS 3 ml) 3 ml PER PROTOCOL IV ; Start 10/20/18 at 19:30 Ondansetron HCl (Zofran Inj) 4 mg Q6H PRN IV NAUSEA/VOMITING Last administered on 10/27/18at 07:01; Admin Dose 4 MG; Start 10/20/18 at 19:30 Acetaminophen (Tylenol Tab) 650 mg Q6H PRN PO .PAIN 1-3 OR TEMP Last administered on 10/27/18at 21:17; Admin Dose 650 MG; Start 10/20/18 at 19:30 Albuterol/ Ipratropium (Duoneb) 3 ml Q6HWA RESP THERAPY HHN Last administered on 10/27/18at 21:01; Admin Dose 3 ML; Start 10/20/18 at 20:00 Albuterol/ Ipratropium (Duoneb) 3 ml Q2H RESP THERAPY PRN HHN shortness of breath Last administered on 10/24/18at 06:25; Admin Dose 3 ML; Start 10/20/18 at 19:30 Acetaminophen/ Hydrocodone Bitart ([place] (10/325)) 1 tab Q6H PRN PO MODERATE PAIN LEVEL 4-6 Last administered on 10/27/18at 19:00; Admin Dose 1 TAB; Start 10/21/18 at 07:00 Doxycycline Hyclate 100 mg/ Sodium Chloride 250 ml @ 250 mls/hr Q12 IVPB Last administered on 10/27/18 20:54; Admin Dose 250 MLS/HR; Start 10/21/18 at 21:00 Trimethoprim/ Sulfamethoxazole 20 ml/Dextrose 520 ml @ 350 mls/hr Q8 IVPB Last administered on 10/28/18 06:33; Admin Dose 350 MLS/HR; Start 10/23/18 at 14:00 Miscellaneous Information (* Miscellaneous Pharmacy Order) ONCE XX ; Start 10/23/18 at 11:00 Nystatin (Nystatin Susp) 5 ml QID PO Last administered on 10/27/18 18:04; Admin Dose 5 ML; Start 10/23/18 at 13:00 Magnesium Hydroxide (Milk Of Mag) 30 ml DAILY PRN PO CONSTIPATION Last administered on 10/25/18 13:28; Admin Dose 30 ML; Start 10/24/18 at 00:30 Miscellaneous Information (* Miscellaneous Pharmacy Order) Please adjust voricon azole dosing ... ONCE XX ; Start 10/24/18 at 19:00 Docusate Sodium (Colace) 100 mg DAILY PRN PO CONSTIPATION Last administered on 10/25/18 13:28; Admin Dose 100 MG; Start 10/25/18 at 10:30 Methylnaltrexone [place] (Relistor) 12 mg DAILY SC Last administered on 10/27/18 11:22; Admin Dose 12 MG; Start 10/26/18 at 09:00 Voriconazole (Vfend) 200 mg BID PO Last administered on 10/27/18 20:52; Admin Dose 200 MG; Start 10/26/18 at 21:00 Methylprednisolone Sodium Succinate (Solu-Medrol) 40 mg Q12 IV Last administered on 10/27/18 20:56; Admin Dose 40 MG; Start 10/27/18 at 21:00 Calcium Carbonate (Tums) 500 mg PRN PRN PO HEARTBURN Last administered on 10/27/18 20:45; Admin Dose 500 MG; Start 10/27/18 at 14:00 Filgrastim (Nivestym) 480 mcg DAILY@1700 SC Last administered on 10/27/18 18:42; Admin Dose 480 MCG; Start 10/27/18 at 18:45 Morphine Sulfate (morphine) 2 mg Q4H PRN IV SEVERE PAIN LEVEL 7-10 Last administered on 10/27/18at 22:10; Admin Dose 2 MG; Start 10/27/18 at 22:30 Nitroglycerin (Nitroglycerin 0.2 Mg/Hr) 1 patch DAILY TRANSDERM Last administered on 10/28/18at 01:21; Admin Dose 1 PATCH; Start 10/28/18 at 01:30 Al Hydrox/Mg Hydrox/Simethicone (Mag-Al Plus) 30 ml Q6H PRN PO GASTROINTESTINAL UPSET; Start 10/28/18 at 06:00 Atorvastatin Calcium (Lipitor) 80 mg HS PO ; Start 10/29/18 at 21:00 Carvedilol (Coreg) 3.125 mg BID PO ; Start 10/28/18 at 09:00 Allergies: Coded Allergies: No Known Allergy (Unverified , 04/12/18) Family History Significant Family History: no pertinent family hx Social History Alcohol Use: none Smoking Status: Never smoker Drug Use: none Exam/Review of Systems Vital Signs Vitals Vital Signs Date Temp Pulse Resp B/P (MAP) Pulse Ox O2 O2 Flow FiO2 Time Delivery Rate 10/28/18 81 08:00 10/28/18 98.8 20 158/75 100 07:08 (102) 10/28/18 3.0 02:16 10/28/18 Nasal 02:00 Cannula 10/26/18 35 19:55 Intake and Output 10/27/18 10/27/18 10/28/18 1515:00 23:00 07:00 IntakeIntake Total 350 ml 1050 ml 520 ml OutputOutput Total 850 ml BalanceBalance 350 ml 200 ml 520 ml Exam Constitutional: alert, oriented, well developed Psych: nl mood/affect Head: normocephalic, atraumatic Eyes: nl conjunctiva, EOMI, nl lids, nl sclera ENMT: nl external ears & nose, nl lips & teeth, nl nasal mucosa & septum Neck: supple, non-tender Respiratory: normal air movement, crackles/rales (at both bases) Cardiovascular: regular rate and rhythm, nl pulses; No murmurs/extra sounds Gastrointestinal: soft, nl liver, spleen, non-tender Musculoskeletal: nl extremities to inspection Extremities: normal pulses Neurological: nl mental status, nl speech Skin: No rash or lesions Lymph: nl lymph nodes Labs Result Diagram: 10/28/18 0554 10/28/18 0554 Results 24hrs Laboratory Tests Test 10/27/18 21:19 10/27/18 23:37 10/28/18 02:50 10/28/18 05:54 Bedside Glucose 138 Creatine Kinase 27 89 148 Creatine Kinase 8.1 7.7 10.5 Index Creatinine Kinase MB 2.20 6.81 H 15.50 H (Mass) Troponin I 0.277 *H 1.770 *H 4.870 *H White Blood Count 1.4 #L Red Blood Count 2.72 L Hemoglobin 7.9 L Hematocrit 24.5 L Mean Corpuscular 90.1 Volume Mean Corpuscular 29.0 Hemoglobin Mean Corpuscular 32.2 Hemoglobin Concent Red Cell 16.3 H Distribution Width Platelet Count 21 #*L Mean Platelet Volume Immature 17.400 H Granulocytes % Neutrophils % Lymphocytes % Monocytes % Eosinophils % Basophils % Nucleated Red Blood 1.4 H Cells % Immature 0.250 H Granulocytes # Neutrophils # Lymphocytes # Monocytes # Eosinophils # Basophils # Nucleated Red Blood Cells # Sodium Level 135 Potassium Level 5.2 H Chloride Level 107 Carbon Dioxide Level 19 L Anion Gap 9 Blood Urea Nitrogen 47 H Creatinine 1.68 H Est Glomerular 41 L Filtrat Rate mL/min Glucose Level 121 Calcium Level 7.6 L Magnesium Level 2.8 H Imaging Imaging EKG last night demonstrates NSR at 79 bpm, Peaked T waves with subtle [address] elevation in lead V1, and about 1/2 mm elevation in lead V2, with reciprocal subtle depressions in V4-V6, AVL. Repeat ekg this am shows resolution of these changes. Medications Medications Current Medications IV Flush (NS 3 ml) 3 ml PER PROTOCOL IV ; Start 10/20/18 at 19:30 Ondansetron HCl (Zofran Inj) 4 mg Q6H PRN IV NAUSEA/VOMITING Last administered on 10/27/18at 07:01; Admin Dose 4 MG; Start 10/20/18 at 19:30 Acetaminophen (Tylenol Tab) 650 mg Q6H PRN PO .PAIN 1-3 OR TEMP Last administered on 10/27/18at 21:17; Admin Dose 650 MG; Start 10/20/18 at 19:30 Albuterol/ Ipratropium (Duoneb) 3 ml Q6HWA RESP THERAPY HHN Last administered on 10/27/18 21:01; Admin Dose 3 ML; Start 10/20/18 at 20:00 Albuterol/ Ipratropium (Duoneb) 3 ml Q2H RESP THERAPY PRN HHN shortness of breath Last administered on 10/24/18 06:25; Admin Dose 3 ML; Start 10/20/18 at 19:30 Acetaminophen/ Hydrocodone Bitart ([place] (10/325)) 1 tab Q6H PRN PO MODERATE PAIN LEVEL 4-6 Last administered on 10/27/18 19:00; Admin Dose 1 TAB; Start 10/21/18 at 07:00 Doxycycline Hyclate 100 mg/ Sodium Chloride 250 ml @ 250 mls/hr Q12 IVPB Last administered on 10/27/18 20:54; Admin Dose 250 MLS/HR; Start 10/21/18 at 21:00 Trimethoprim/ Sulfamethoxazole 20 ml/Dextrose 520 ml @ 350 mls/hr Q8 IVPB Last administered on 10/28/18 06:33; Admin Dose 350 MLS/HR; Start 10/23/18 at 14:00 Miscellaneous Information (* Miscellaneous Pharmacy Order) ONCE XX ; Start 10/23/18 at 11:00 Nystatin (Nystatin Susp) 5 ml QID PO Last administered on 10/27/18 18:04; Admin Dose 5 ML; Start 10/23/18 at 13:00 Magnesium Hydroxide (Milk Of Mag) 30 ml DAILY PRN PO CONSTIPATION Last administered on 10/25/18 13:28; Admin Dose 30 ML; Start 10/24/18 at 00:30 Miscellaneous Information (* Miscellaneous Pharmacy Order) Please adjust voriconazole dosing ... ONCE XX ; Start 10/24/18 at 19:00 Docusate Sodium (Colace) 100 mg DAILY PRN PO CONSTIPATION Last administered on 10/25/18 13:28; Admin Dose 100 MG; Start 10/25/18 at 10:30 Methylnaltrexone [place] (Relistor) 12 mg DAILY SC Last administered on 10/27/18 11:22; Admin Dose 12 MG; Start 10/26/18 at 09:00 Voriconazole (Vfend) 200 mg BID PO Last administered on 10/27/18 20:52; Admin Dose 200 MG; Start 10/26/18 at 21:00 Methylprednisolone Sodium Succinate (Solu-Medrol) 40 mg Q12 IV Last administered on 10/27/18at 20:56; Admin Dose 40 MG; Start 10/27/18 at 21:00 Calcium Carbonate (Tums) 500 mg PRN PRN PO HEARTBURN Last administered on 10/27/18at 20:45; Admin Dose 500 MG; Start 10/27/18 at 14:00 Filgrastim (Nivestym) 480 mcg DAILY@1700 SC Last administered on 10/27/18at 18:42; Admin Dose 480 MCG; Start 10/27/18 at 18:45 Morphine Sulfate (morphine) 2 mg Q4H PRN IV SEVERE PAIN LEVEL 7-10 Last administered on 10/27/18at 22:10; Admin Dose 2 MG; Start 10/27/18 at 22:30 Nitroglycerin (Nitroglycerin 0.2 Mg/Hr) 1 patch DAILY TRANSDERM Last administered on 10/28/18at 01:21; Admin Dose 1 PATCH; Start 10/28/18 at 01:30 Al Hydrox/Mg Hydrox/Simethicone (Mag-Al Plus) 30 ml Q6H PRN PO GASTROINTESTINAL UPSET; Start 10/28/18 at 06:00 Atorvastatin Calcium (Lipitor) 80 mg HS PO ; Start 10/29/18 at 21:00 Carvedilol (Coreg) 3.125 mg BID PO ; Start 10/28/18 at 09:00 GUANAKITO MOHAN Oct 28, 2018 08:36
[2018-10-28] MEDS: ALBUTEROL/IPRATROPIUM (NEB) 3 ML AMP HHN SCH ×3 (08:44→20:45)
[2018-10-28] MEDS: VORICONAZOLE 200 MG TAB PO SCH ×2 (08:56→21:13)
[2018-10-28] MEDS: ASPIRIN 81 MG TAB PO SCH (08:57)
[2018-10-28] MEDS: NYSTATIN SUSP 5 ML CUP PO SCH ×4 (08:57→21:14)
[2018-10-28] MEDS: METHYLNALTREXONE 12 MG/0.6 ML VIAL SC SCH (09:00)
[2018-10-28] MEDS ORDERED: CLOPIDOGREL 75 MG TAB PO SCH (09:00)
[2018-10-28] MEDS: METHYLPREDNISOLONE 40 MG INJ IV SCH ×2 (09:00→21:13)
[2018-10-28] MEDS: FILGRASTIM-AAFI 480 MCG/0.8 ML SYRINGE SC SCH (10:32)
--- NOTE | 2018-10-28 10:58 | CONS ---
Consult Date/Type/Reason Admit Date/Time Oct 20, 2018 at 19:11 Initial Consult Date 10/21/18 Type of Consult Pulmonary Requesting Provider: ARACELIS DAMON Date/Time of Note DATE: 10/28/18 TIME: 10:56 Subjective Patient had chest pain overnight. Elevated troponins noted this morning. Objective Vital Signs Date Temp Pulse Resp B/P (MAP) Pulse Ox O2 O2 Flow FiO2 Time Delivery Rate 10/28/18 4.0 08:00 10/28/18 81 08:00 10/28/18 98.8 20 158/75 100 07:08 (102) 10/28/18 Nasal 02:00 Cannula 10/26/18 35 19:55 Intake and Output 10/27/18 10/27/18 10/28/18 1515:00 23:00 07:00 IntakeIntake Total 350 ml 1050 ml 520 ml OutputOutput Total 850 ml BalanceBalance 350 ml 200 ml 520 ml Exam PHYSICAL EXAMINATION: GENERAL: A well-nourished, well-developed gentleman, comfortable at rest, no acute distress. 3 L nasal cannula VITAL SIGNS: NECK: Supple. No JVD or lymphadenopathy. CARDIAC: S1, S2. No added sounds or murmurs. CHEST: Bilateral rales. ABDOMEN: Soft, nontender. No guarding or rebound. EXTREMITIES: No cyanosis or clubbing. A 1+ edema. NEUROLOGIC: Generalized weakness. Vent Setting Fraction of Inspired Oxygen pe: 35 Results/Medications Result Diagram: 10/28/18 0554 10/28/18 0554 Results 24 hrs Laboratory Tests Test 10/27/18 21:19 10/27/18 23:37 10/28/18 02:50 10/28/18 05:54 Bedside Glucose 138 Creatine Kinase 27 89 148 Creatine Kinase 8.1 7.7 10.5 Index Creatinine Kinase 2.20 6.81 H 15.50 H MB (Mass) Troponin I 0.277 *H 1.770 *H 4.870 *H White Blood Count 1.4 #L Red Blood Count 2.72 L Hemoglobin 7.9 L Hematocrit 24.5 L Mean Corpuscular 90.1 Volume Mean Corpuscular 29.0 Hemoglobin Mean Corpuscular 32.2 Hemoglobin Concent Red Cell 16.3 H Distribution Width Platelet Count 21 #*L Mean Platelet Volume Immature 17.400 H Granulocytes % Neutrophils % Segmented 75 Neutrophils % (Manual) Band Neutrophils % 20 H (Manual) Lymphocytes % Lymphocytes % 5 L (Manual) Monocytes % Eosinophils % Basophils % Nucleated Red 2 H Blood Cells % Immature 0.250 H Granulocytes # Neutrophils # Neutrophils # 1.1 L (Manual) Band Neutrophils # 0.2 Lymphocytes 0.0 L (Manual) Lymphocytes # Monocytes # Eosinophils # Basophils # Nucleated Red Blood Cells # Platelet Estimate SIG DECREASED Giant Platelets 2 H Polychromasia 1+ Hypochromasia 1+ Anisocytosis 1+ Ovalocytes 1+ Sodium Level 135 Potassium Level 5.2 H Chloride Level 107 Carbon Dioxide 19 L Level Anion Gap 9 Blood Urea 47 H Nitrogen Creatinine 1.68 H Est Glomerular 41 L Filtrat Rate mL/min Glucose Level 121 Calcium Level 7.6 L Magnesium Level 2.8 H Triglycerides 314 H Level Cholesterol Level 115 LDL Cholesterol, 42 Calculated HDL Cholesterol 10 L Cholesterol/HDL 11.5 Ratio Medications Current Medications IV Flush (NS 3 ml) 3 ml PER PROTOCOL IV ; Start 10/20/18 at 19:30 Ondansetron HCl (Zofran Inj) 4 mg Q6H PRN IV NAUSEA/VOMITING Last administered on 10/27/18at 07:01; Admin Dose 4 MG; Start 10/20/18 at 19:30 Acetaminophen (Tylenol Tab) 650 mg Q6H PRN PO .PAIN 1-3 OR TEMP Last administered on 10/27/18 21:17; Admin Dose 650 MG; Start 10/20/18 at 19:30 Albuterol/ Ipratropium (Duoneb) 3 ml Q6HWA RESP THERAPY HHN Last administered on 10/28/18 08:44; Admin Dose 3 ML; Start 10/20/18 at 20:00 Albuterol/ Ipratropium (Duoneb) 3 ml Q2H RESP THERAPY PRN HHN shortness of breath Last administered on 10/24/18 06:25; Admin Dose 3 ML; Start 10/20/18 at 19:30 Acetaminophen/ Hydrocodone Bitart ([place] (10/325)) 1 tab Q6H PRN PO MODERATE PAIN LEVEL 4-6 Last administered on 10/27/18 19:00; Admin Dose 1 TAB; Start 10/21/18 at 07:00 Doxycycline Hyclate 100 mg/ Sodium Chloride 250 ml @ 250 mls/hr Q12 IVPB Last administered on 10/27/18 20:54; Admin Dose 250 MLS/HR; Start 10/21/18 at 21:00 Trimethoprim/ Sulfamethoxazole 20 ml/Dextrose 520 ml @ 350 mls/hr Q8 IVPB Last administered on 10/28/18 06:33; Admin Dose 350 MLS/HR; Start 10/23/18 at 14:00 Miscellaneous Information (* Miscellaneous Pharmacy Order) ONCE XX ; Start 10/23/18 at 11:00 Nystatin (Nystatin Susp) 5 ml QID PO Last administered on 10/28/18 08:57; Adm in Dose 5 ML; Start 10/23/18 at 13:00 Magnesium Hydroxide (Milk Of Mag) 30 ml DAILY PRN PO CONSTIPATION Last administered on 10/25/18 13:28; Admin Dose 30 ML; Start 10/24/18 at 00:30 Miscellaneous Information (* Miscellaneous Pharmacy Order) Please adjust voriconazole dosing ... ONCE XX ; Start 10/24/18 at 19:00 Docusate Sodium (Colace) 100 mg DAILY PRN PO CONSTIPATION Last administered on 10/25/18 13:28; Admin Dose 100 MG; Start 10/25/18 at 10:30 Methylnaltrexone [place] (Relistor) 12 mg DAILY SC Last administered on 10/27/18 11:22; Admin Dose 12 MG; Start 10/26/18 at 09:00 Voriconazole (Vfend) 200 mg BID PO Last administered on 10/28/18 08:56; Admin Dose 200 MG; Start 10/26/18 at 21:00 Methylprednisolone Sodium Succinate (Solu-Medrol) 40 mg Q12 IV Last administered on 10/28/18 09:00; Admin Dose 40 MG; Start 10/27/18 at 21:00 Calcium Carbonate (Tums) 500 mg PRN PRN PO HEARTBURN Last administered on 10/27/18 20:45; Admin Dose 500 MG; Start 10/27/18 at 14:00 Filgrastim (Nivestym) 480 mcg DAILY@1700 SC Last administered on 10/27/18 18:42; Admin Dose 480 MCG; Start 10/27/18 at 18:45 Morphine Sulfate (morphine) 2 mg Q4H PRN IV SEVERE PAIN LEVEL 7-10 Last administered on 10/27/18at 22:10; Admin Dose 2 MG; Start 10/27/18 at 22:30 Nitroglycerin (Nitroglycerin 0.2 Mg/Hr) 1 patch DAILY TRANSDERM Last administered on 10/28/18at 09:00; Admin Dose 1 PATCH; Start 10/28/18 at 01:30 Al Hydrox/Mg Hydrox/Simethicone (Mag-Al Plus) 30 ml Q6H PRN PO GASTROINTESTINAL UPSET; Start 10/28/18 at 06:00 Atorvastatin Calcium (Lipitor) 80 mg HS PO ; Start 10/29/18 at 21:00 Carvedilol (Coreg) 3.125 mg BID PO Last administered on 10/28/18at 08:57; Admin Dose 3.125 MG; Start 10/28/18 at 09:00 Aspirin (Aspirin) 81 mg DAILY PO Last administered on 10/28/18at 08:57; Admin Dose 81 MG; Start 10/28/18 at 09:00 Assessment/Plan Hospital Course (Demo Recall) IMPRESSION AND PLAN: 1. Acute hypoxemic respiratory failure, possibly secondary to opportunistic in fection. 2. Severe neutropenia, status post chemotherapy for multiple myeloma. Improving WBC 3. Renal insufficiency. 4. Non-STEMI acute. Plan 1. Continue diuretics, decrease steroids 2. Decrease O2 as tolerated currently on 3 L 3. Continue broad-spectrum antibiotic coverage. 4. Continue Neupogen per oncology 5. Cardiology recommendations regarding no STEMI. Antiplatelet therapy is limi [place] secondary to thrombocytopenia. 6. Physical therapy recommendations SAI JACKSON MD, [facility] Oct 28, 2018 10:58
[2018-10-28] MEDS: DOXYCYCLINE 100 MG in SOD CHLORIDE 0.9% 250 ML IVPB SCH ×2 (10:59→21:14)
--- NOTE | 2018-10-28 11:35 | CONS ---
[facility] LIVE HCIS Consult Follow-up Patient Name: Cornell Kay Unit Number: [id number] Date of : 1950 Patient Status: Admitted Inpatient Attending Doctor: Rome Norman MD Edit: CHANTAL ADAIR M.D. on 10/29/18 @ 04:52 Mana: I discussed the management with [employer] 9 12 TUTOR and agree Assessment/Plan Assessment/Plan Hospital Course (Demo Recall) - Severe sepsis d/t PNA - fever curve down but continues to require significant o2 support but this is slowly being titrated down. Now on nc 4l. - Neutropenic fever d/t PNA - PNA, R>L - Acute respiratory failure - now on vapotherm - Multiple myeloma - Immunosuppression - Pancytopenia d/t multiple myeloma and recent chemo - Acute on chronic anemia requiring PRBC - CKD III - resp virus panel returned negative, crypto neg, legionella screen neg, TB Quant Gold indeterminate - s/p cefepime (10/20/2018-) Updated Recommendations: - F/u blood cx (NGTD), cocci, beta d glucan, pcp dfa, fungal blood cxs, fungal sputum culture, aspergillus ab/ag, histoplasma, mycoplasma IgG, IgM - all sent and in process - Continue doxycycline (10/21/2018-) for atypical coverage - Discontinue empiric IV Bactrim (10/23/18 - 10/28/18) - ordered - Start Atovaquone 750mg bid - ordered - Cont. vfend PO; monitor crcl. - check vori trough level next week - Neutropenic precautions as per hospital protocol - Continue Nystatin Plan was d/w patient, his at bedside, RN at bedside, pharmacist, and with Dr. Adair. Thank you Consultation Date/Type/Reason Admit Date/Time Oct 20, 2018 at 19:11 Initial Consult Date 10/21/18 Type of Consult ID Requesting Provider: ARACELIS DAMON Date/Time of Note DATE: 10/28/18 TIME: 11:32 24 HR Interval Summary Free Text/Dictation Getting 2u Platelets today - platelets were 21. Remains afebrile, WBC up to 1.4 today. No other acute issues reported by nursing today. Detailed Summary Eyes: no complaints ENT: no complaints Respiratory: cough (intermittent but improved and infrequent), shortness of breath, other (states sputum production improved); No wheezing Cardiovascular: no complaints Gastrointestinal: other (states acid reflux has improved, was able to eat all his oatmeal this morning); No diarrhea, No nausea, No vomiting Genitourinary: no complaints Musculoskeletal: other (feels weak, states break from PT today then will resume tomorrow, states will do strengthening exercises BLE in bed) Skin: no complaints Neurologic: no complaints Endocrine: no complaints Lymphatic: no complaints Psychological: no complaints, nl mood/affect Exam/Review of Systems Exam Vitals Vital Signs Date Temp Pulse Resp B/P (MAP) Pulse Ox O2 O2 Flow FiO2 Time Delivery Rate 10/28/18 4.0 08:00 10/28/18 81 08:00 10/28/18 98.8 20 158/75 100 07:08 (102) 10/28/18 Nasal 02:00 Cannula 10/26/18 35 19:55 Intake and Output 10/27/18 10/27/18 10/28/18 1515:00 23:00 07:00 IntakeIntake Total 350 ml 1050 ml 520 ml OutputOutput Total 850 ml BalanceBalance 350 ml 200 ml 520 ml Allergies Coded Allergies No Known Allergy ([id number]/4/18) Exam Constitutional: alert, oriented, well developed, other (sitting up in bed in NAD) Psych: no complaints, nl mood/affect Head: normocephalic, atraumatic Eyes: nl conjunctiva, nl lids, nl sclera ENMT: nl external ears & nose, nl nasal mucosa & septum, mucosa pink and moist Neck: supple, non-tender Respiratory: normal air movement, crackles/rales (bilaterally posteriorly), diminished breath sounds, other (on nc, sob with exertion) Cardiovascular: regular rate and rhythm, nl pulses Gastrointestinal: soft, non-tender, bowel sounds (normoactive); No distended, No tender Genitourinary - Male: other (urinal at bedside) Musculoskeletal: nl extremities to inspection Extremities: normal pulses, other (LUE PIV site c/d/i, R hand PIV site is c/d/i) Neurological: nl mental status, nl speech, nl strength Skin: nl turgor, ecchymosis (RUE), other (R lateral knee well healed scar, RUE well healed scar ); No rash or lesions Results Result Diagram: 10/28/18 0554 10/28/18 0554 Results 24hrs Laboratory Tests Test 10/27/18 21:19 10/27/18 23:37 10/28/18 02:50 10/28/18 05:54 Bedside Glucose 138 Creatine Kinase 27 89 148 Creatine Kinase 8.1 7.7 10.5 Index Creatinine Kinase 2.20 6.81 H 15.50 H MB (Mass) Troponin I 0.277 *H 1.770 *H 4.870 *H White Blood Count 1.4 #L Red Blood Count 2.72 L Hemoglobin 7.9 L Hematocrit 24.5 L Mean Corpuscular 90.1 Volume Mean Corpuscular 29.0 Hemoglobin Mean Corpuscular 32.2 Hemoglobin Concent Red Cell 16.3 H Distribution Width Platelet Count 21 #*L Mean Platelet Volume Immature 17.400 H Granulocytes % Neutrophils % Segmented 75 Neutrophils % (Manual) Band Neutrophils % 20 H (Manual) Lymphocytes % Lymphocytes % 5 L (Manual) Monocytes % Eosinophils % Basophils % Nucleated Red 2 H Blood Cells % Immature 0.250 H Granulocytes # Neutrophils # Neutrophils # 1.1 L (Manual) Band Neutrophils # 0.2 Lymphocytes 0.0 L (Manual) Lymphocytes # Monocytes # Eosinophils # Basophils # Nucleated Red Blood Cells # Platelet Estimate SIG DECREASED Giant Platelets 2 H Polychromasia 1+ Hypochromasia 1+ Anisocytosis 1+ Ovalocytes 1+ Sodium Level 135 Potassium Level 5.2 H Chloride Level 107 Carbon Dioxide 19 L Level Anion Gap 9 Blood Urea 47 H Nitrogen Creatinine 1.68 H Est Glomerular 41 L Filtrat Rate mL/min Glucose Level 121 Calcium Level 7.6 L Magnesium Level 2.8 H Triglycerides 314 H Level Cholesterol Level 115 LDL Cholesterol, 42 Calculated HDL Cholesterol 10 L Cholesterol/HDL 11.5 Ratio Imaging Imaging CXR 10/27/18 FINDINGS: The heart is normal in size. There are mild aortic calcifications. There are moderate right greater left lung consolidations with mild improvement within the left upper lobe. There is no pleural effusion. No pneumothorax is identified. The osseous structures are intact. IMPRESSION: Moderate right greater left lung consolidations with mild improvement within the left upper lobe. Aortic calcifications. Further findings as detailed above. Medications Medication Current Medications IV Flush (NS 3 ml) 3 ml PER PROTOCOL IV ; Start 10/20/18 at 19:30 Ondansetron HCl (Zofran Inj) 4 mg Q6H PRN IV NAUSEA/VOMITING Last administered on 10/27/18 07:01; Admin Dose 4 MG; Start 10/20/18 at 19:30 Acetaminophen (Tylenol Tab) 650 mg Q6H PRN PO .PAIN 1-3 OR TEMP Last administered on 10/27/18 21:17; Admin Dose 650 MG; Start 10/20/18 at 19:30 Albuterol/ Ipratropium (Duoneb) 3 ml Q6HWA RESP THERAPY HHN Last administered on 10/28/18 08:44; Admin Dose 3 ML; Start 10/20/18 at 20:00 Albuterol/ Ipratropium (Duoneb) 3 ml Q2H RESP THERAPY PRN HHN shortness of breath Last administered on 10/24/18 06:25; Admin Dose 3 ML; Start 10/20/18 at 19:30 Acetaminophen/ Hydrocodone Bitart ([place] (10/325)) 1 tab Q6H PRN PO MODERATE PAIN LEVEL 4-6 Last administered on 10/27/18 19:00; Admin Dose 1 TAB; Start 10/21/18 at 07:00 Doxycycline Hyclate 100 mg/ Sodium Chloride 250 ml @ 250 mls/hr Q12 IVPB Last administered on 10/28/18 10:59; Admin Dose 250 MLS/HR; Start 10/21/18 at 21:00 Trimethoprim/ Sulfamethoxazole 20 ml/Dextrose 520 ml @ 350 mls/hr Q8 IVPB Last administered on 10/28/18 06:33; Admin Dose 350 MLS/HR; Start 10/23/18 at 14:00 Miscellaneous Information (* Miscellaneous Pharmacy Order) ONCE XX ; Start 10/23/18 at 11:00 Nystatin (Nystatin Susp) 5 ml QID PO Last administered on 10/28/18 08:57; Admin Dose 5 ML; Start 10/23/18 at 13:00 Magnesium Hydroxide (Milk Of Mag) 30 ml DAILY PRN PO CONSTIPATION Last administered on 10/25/18 13:28; Admin Dose 30 ML; Start 10/24/18 at 00:30 Miscellaneous Information (* Miscellaneous Pharmacy Order) Please adjust voriconazole dosing ... ONCE XX ; Start 10/24/18 at 19:00 Docusate Sodium (Colace) 100 mg DAILY PRN PO CONSTIPATION Last administered on 10/25/18 13:28; Admin Dose 100 MG; Start 10/25/18 at 10:30 Methylnaltrexone [place] (Relistor) 12 mg DAILY SC Last administered on 10/27/18 11:22; Admin Dose 12 MG; Start 10/26/18 at 09:00 Voriconazole (Vfend) 200 mg BID PO Last administered on 10/28/18 08:56; Admin Dose 200 MG; Start 10/26/18 at 21:00 Methylprednisolone Sodium Succinate (Solu-Medrol) 40 mg Q12 IV Last administer ed on 10/28/18 09:00; Admin Dose 40 MG; Start 10/27/18 at 21:00 Calcium Carbonate (Tums) 500 mg PRN PRN PO HEARTBURN Last administered on 10/27/18 20:45; Admin Dose 500 MG; Start 10/27/18 at 14:00 Filgrastim (Nivestym) 480 mcg DAILY@1700 SC Last administered on 10/27/18 18:42; Admin Dose 480 MCG; Start 10/27/18 at 18:45 Morphine Sulfate (morphine) 2 mg Q4H PRN IV SEVERE PAIN LEVEL 7-10 Last administered on 10/27/18 22:10; Admin Dose 2 MG; Start 10/27/18 at 22:30 Nitroglycerin (Nitroglycerin 0.2 Mg/Hr) 1 patch DAILY TRANSDERM Last administered on 10/28/18 09:00; Admin Dose 1 PATCH; Start 10/28/18 at 01:30 Al Hydrox/Mg Hydrox/Simethicone (Mag-Al Plus) 30 ml Q6H PRN PO GASTROINTESTINAL UPSET; Start 10/28/18 at 06:00 Atorvastatin Calcium (Lipitor) 80 mg HS PO ; Start 10/29/18 at 21:00 Carvedilol (Coreg) 3.125 mg BID PO Last administered on 10/28/18at 08:57; Admin Dose 3.125 MG; Start 10/28/18 at 09:00 Aspirin (Aspirin) 81 mg DAILY PO Last administered on 10/28/18at 08:57; Admin D ose 81 MG; Start 10/28/18 at 09:00 Furosemide (Lasix) 40 mg DAILY IV ; Start 10/28/18 at 11:00 MAR CHISHOLM NP Oct 28, 2018 11:35
[2018-10-28] MEDS: FUROSEMIDE 40 MG INJ IV SCH (12:38)
[2018-10-28] MEDS: ONDANSETRON 4 MG INJ IV PRN (15:07)
--- NOTE | 2018-10-28 16:47 | PN ---
Date/Time of Note Date/Time of Note DATE: 10/28/18 TIME: 16:46 Assessment/Plan VTE Prophylaxis Risk score (from Ns)>0 risk: 9 SCD applied (from Ns): Yes Pharmacological prophylaxis: heparin Lines/Catheters IV [facility]from [facility] Peripheral IV Urinary Cath still in place: No Assessment/Plan Hospital Course EXAM: Comfortable Breathing stable on NC RRR Crackles in lungs Soft nt nd Ext no edema 68 yo male with MM presented with neutropenic fevers 2/2 pneumoina leading to hypoxic respiratory failure MM wiht pancytopenia/neutropenia: - Neupogen per hematology. Neutrophil count thankfully is starting to respond he is no longer neutropenic NSTEMI: -Managing medically given thrombocytopenia and other medical morbidities Pneumonia: - Abx per ID. Bactrim has been added for empiric treatment of PCP Acute respiratory failure: - Continue O2 by NC as needed. Dialysis markedly improved - Lasix as needed for pulmonary edema CKD III: - stable - result of MM - trend creatinine Result Diagram: 10/28/18 0554 10/28/18 0554 Results 24hrs Laboratory Tests Test 10/27/18 21:19 10/27/18 23:37 10/28/18 02:50 10/28/18 05:54 Bedside Glucose 138 Creatine Kinase 27 89 148 Creatine Kinase 8.1 7.7 10.5 Index Creatinine Kinase 2.20 6.81 H 15.50 H MB (Mass) Troponin I 0.277 *H 1.770 *H 4.870 *H White Blood Count 1.4 #L Red Blood Count 2.72 L Hemoglobin 7.9 L Hematocrit 24.5 L Mean Corpuscular 90.1 Volume Mean Corpuscular 29.0 Hemoglobin Mean Corpuscular 32.2 Hemoglobin Concent Red Cell 16.3 H Distribution Width Platelet Count 21 #*L Mean Platelet Volume Immature 17.400 H Granulocytes % Neutrophils % Segmented 75 Neutrophils % (Manual) Band Neutrophils % 20 H (Manual) Lymphocytes % Lymphocytes % 5 L (Manual) Monocytes % Eosinophils % Basophils % Nucleated Red 2 H Blood Cells % Immature 0.250 H Granulocytes # Neutrophils # Neutrophils # 1.1 L (Manual) Band Neutrophils # 0.2 Lymphocytes 0.0 L (Manual) Lymphocytes # Monocytes # Eosinophils # Basophils # Nucleated Red Blood Cells # Platelet Estimate SIG DECREASED Giant Platelets 2 H Polychromasia 1+ Hypochromasia 1+ Anisocytosis 1+ Ovalocytes 1+ Sodium Level 135 Potassium Level 5.2 H Chloride Level 107 Carbon Dioxide 19 L Level Anion Gap 9 Blood Urea 47 H Nitrogen Creatinine 1.68 H Est Glomerular 41 L Filtrat Rate mL/min Glucose Level 121 Calcium Level 7.6 L Magnesium Level 2.8 H Triglycerides 314 H Level Cholesterol Level 115 LDL Cholesterol, 42 Calculated HDL Cholesterol 10 L Cholesterol/HDL 11.5 Ratio Test 10/28/18 14:37 Creatine Kinase 267 H Creatine Kinase 14.0 Index Creatinine Kinase 37.40 H MB (Mass) Troponin I 11.500 *H Subjective 24 Hr Interval Summary Free Text/Dictation The patient unfortunately suffered an NSTEMI last night. Had chest pain. Medically managed. Now symptoms are resolved Respiratory status is doing much better Exam/Review of Systems Exam Vitals Vital Signs Date Temp Pulse Resp B/P (MAP) Pulse Ox O2 O2 Flow FiO2 Time Delivery Rate 10/28/18 98.5 76 20 138/78 97 16:14 (98) 10/28/18 Nasal 3.0 13:41 Cannula 10/26/18 35 19:55 Intake and Output 10/27/18 10/27/18 10/28/18 1515:00 23:00 07:00 IntakeIntake Total 350 ml 1050 ml 520 ml OutputOutput Total 850 ml BalanceBalance 350 ml 200 ml 520 ml Results Results 24hrs Laboratory Tests Test 10/27/18 21:19 10/27/18 23:37 10/28/18 02:50 10/28/18 05:54 Bedside Glucose 138 Creatine Kinase 27 89 148 Creatine Kinase 8.1 7.7 10.5 Index Creatinine Kinase 2.20 6.81 H 15.50 H MB (Mass) Troponin I 0.277 *H 1.770 *H 4.870 *H White Blood Count 1.4 #L Red Blood Count 2.72 L Hemoglobin 7.9 L Hematocrit 24.5 L Mean Corpuscular 90.1 Volume Mean Corpuscular 29.0 Hemoglobin Mean Corpuscular 32.2 Hemoglobin Concent Red Cell 16.3 H Distribution Width Platelet Count 21 #*L Mean Platelet Volume Immature 17.400 H Granulocytes % Neutrophils % Segmented 75 Neutrophils % (Manual) Band Neutrophils % 20 H (Manual) Lymphocytes % Lymphocytes % 5 L (Manual) Monocytes % Eosinophils % Basophils % Nucleated Red 2 H Blood Cells % Immature 0.250 H Granulocytes # Neutrophils # Neutrophils # 1.1 L (Manual) Band Neutrophils # 0.2 Lymphocytes 0.0 L (Manual) Lymphocytes # Monocytes # Eosinophils # Basophils # Nucleated Red Blood Cells # Platelet Estimate SIG DECREASED Giant Platelets 2 H Polychromasia 1+ Hypochromasia 1+ Anisocytosis 1+ Ovalocytes 1+ Sodium Level 135 Potassium Level 5.2 H Chloride Level 107 Carbon Dioxide 19 L Level Anion Gap 9 Blood Urea 47 H Nitrogen Creatinine 1.68 H Est Glomerular 41 L Filtrat Rate mL/min Glucose Level 121 Calcium Level 7.6 L Magnesium Level 2.8 H Triglycerides 314 H Level Cholesterol Level 115 LDL Cholesterol, 42 Calculated HDL Cholesterol 10 L Cholesterol/HDL 11.5 Ratio Test 10/28/18 14:37 Creatine Kinase 267 H Creatine Kinase 14.0 Index Creatinine Kinase 37.40 H MB (Mass) Troponin I 11.500 *H Medications Medication Current Medications IV Flush (NS 3 ml) 3 ml PER PROTOCOL IV ; Start 10/20/18 at 19:30 Ondansetron HCl (Zofran Inj) 4 mg Q6H PRN IV NAUSEA/VOMITING Last administered on 10/28/18at 15:07; Admin Dose 4 MG; Start 10/20/18 at 19:30 Acetaminophen (Tylenol Tab) 650 mg Q6H PRN PO .PAIN 1-3 OR TEMP Last administered on 10/27/18at 21:17; Admin Dose 650 MG; Start 10/20/18 at 19:30 Albuterol/ Ipratropium (Duoneb) 3 ml Q6HWA RESP THERAPY HHN Last administered on 10/28/18at 13:41; Admin Dose 3 ML; Start 10/20/18 at 20:00 Albuterol/ Ipratropium (Duoneb) 3 ml Q2H RESP THERAPY PRN HHN shortness of breath Last administered on 10/24/18at 06:25; Admin Dose 3 ML; Start 10/20/18 at 19:30 Acetaminophen/ Hydrocodone Bitart ([place] (10/325)) 1 tab Q6H PRN PO MODERATE PAIN LEVEL 4-6 Last administered on 10/27/18at 19:00; Admin Dose 1 TAB; Start 10/21/18 at 07:00 Doxycycline Hyclate 100 mg/ Sodium Chloride 250 ml @ 250 mls/hr Q12 IVPB Last administered on 10/28/18 10:59; Admin Dose 250 MLS/HR; Start 10/21/18 at 21:00 Nystatin (Nystatin Susp) 5 ml QID PO Last administered on 10/28/18 12:39; Admin Dose 5 ML; Start 10/23/18 at 13:00 Magnesium Hydroxide (Milk Of Mag) 30 ml DAILY PRN PO CONSTIPATION Last administered on 10/25/18 13:28; Admin Dose 30 ML; Start 10/24/18 at 00:30 Miscellaneous Information (* Miscellaneous Pharmacy Order) Please adjust voriconazole dosing ... ONCE XX ; Start 10/24/18 at 19:00 Docusate Sodium (Colace) 100 mg DAILY PRN PO CONSTIPATION Last administered on 10/25/18 13:28; Admin Dose 100 MG; Start 10/25/18 at 10:30 Methylnaltrexone [place] (Relistor) 12 mg DAILY SC Last administered on 10/27/18 11:22; Admin Dose 12 MG; Start 10/26/18 at 09:00 Voriconazole (Vfend) 200 mg BID PO Last administered on 10/28/18 08:56; Admin Dose 200 MG; Start 10/26/18 at 21:00 Methylprednisolone Sodium Succinate (Solu-Medrol) 40 mg Q12 IV Last administered on 10/28/18 09:00; Admin Dose 40 MG; Start 10/27/18 at 21:00 Calcium Carbonate (Tums) 500 mg PRN PRN PO HEARTBURN Last administered on 10/27/18 20:45; Admin Dose 500 MG; Start 10/27/18 at 14:00 Filgrastim (Nivestym) 480 mcg DAILY@1700 SC Last administered on 10/27/18 18:42; Admin Dose 480 MCG; Start 10/27/18 at 18:45 Morphine Sulfate (morphine) 2 mg Q4H PRN IV SEVERE PAIN LEVEL 7-10 Last administered on 10/27/18 22:10; Admin Dose 2 MG; Start 10/27/18 at 22:30 Nitroglycerin (Nitroglycerin 0.2 Mg/Hr) 1 patch DAILY TRANSDERM Last administered on 10/28/18 09:00; Admin Dose 1 PATCH; Start 10/28/18 at 01:30 Al Hydrox/Mg Hydrox/Simethicone (Mag-Al Plus) 30 ml Q6H PRN PO GASTROINTESTINAL UPSET; Start 10/28/18 at 06:00 Atorvastatin Calcium (Lipitor) 80 mg HS PO ; Start 10/29/18 at 21:00 Carvedilol (Coreg) 3.125 mg BID PO Last administered on 10/28/18at 08:57; Admin Dose 3.125 MG; Start 10/28/18 at 09:00 Aspirin (Aspirin) 81 mg DAILY PO Last administered on 10/28/18at 08:57; Admin Dose 81 MG; Start 10/28/18 at 09:00 Furosemide (Lasix) 40 mg DAILY IV Last administered on 10/28/18at 12:38; Admin Dose 40 MG; Start 10/28/18 at 11:00 Atovaquone (Mepron) 750 mg BID PO ; Start 10/28/18 at 21:00 CHYNA ARCHER MD Oct 28, 2018 16:47
--- NOTE | 2018-10-28 17:35 | RADRPT ---
Echocardiogram Report Patient Name: ELISE CLARKPatient ID: [id number] : 1950 (68y 1m)Study Date: 10/28/2018 9:27:18 AM Gender: MAccession #: [id number] Tech: Marcio Cordero [facility] Location: 8- Ref.Physician: MILY GANDARA Height(Cm): BSA: Weight(Kg): Quality: AdequateAccount #: Procedures: Echocardiographic Report: Transthoracic echocardiogram with complete 2D, M-Mode, and doppler examination. Indications: [place]. Measurements: 2D/M Mode Doppler Measurement Value Normal Range Measurement Value Normal Range LVIDd 2D 4.6 [ 4.2 - 5.8 ] cm AV Peak Hong 1.9 [ 100.0 - 170.0 ] cm/sec LVIDs 2D 3.5 [ 2.5 - 4.0 ] cm AV Peak PG 14.0 [ 2.0 - 9.0 ] mmHg LVPWd 2D 1.0 [ 0.6 - 1.0 ] cm LVOT Peak Hong 1.1 [ 70.0 - 110.0 ] cm/sec IVSd 2D 0.9 [ 0.6 - 1.0 ] cm LVOT Peak PG 5.0 [ 2.0 - 6.0 ] mmHg IVS/LVPW 2D 0.9 ratio MV E Peak Hong 0.8 [ 60.0 - 130.0 ] cm/sec AoR Diam 2D 2.8 [ 2.6 - 3.4 ] cm MV A Peak Hong 1.1 [ 100.0 - 120.0 ] cm/sec LA/Ao 2D 1 ratio MV E/A 0.8 [ 0.8 - 1.5 ] ratio LA Dimen 2D 3.2 [ 3.0 - 4.0 ] cm MV Decel Time 169 [ 104 - 258 ] msec MV E/A 0.8 [ 0.8 - 1.5 ] ratio Findings: Left Ventricle: Normal left ventricular systolic function. Normal left ventricular cavity size. Normal left ventricular wall thickness. Ejection fraction is visually estimated at 55 %. Tissue Doppler/Mitral Doppler indices are consistent with impaired relaxation (Stage I diastolic dysfunction). These segments of the LV are akinetic apical anterior segment and apical cap. Right Ventricle: Normal right ventricular size. Normal right ventricular systolic function. Left Atrium: The left atrium is normal in size. Right Atrium: The right atrium is normal in size. Atrial Septum: Normal atrial septum. Ventricular septum: Normal/intact ventricular septum. Mitral Valve: Normal appearance of the mitral valve. Trace mitral regurgitation. Aortic Valve: No significant aortic stenosis or insufficiency. Mild aortic valve regurgitation. Tricuspid Valve: Normal appearance of the tricuspid valve. Unable to obtain RVSP due to minimal presence of tricuspid regurgitation. Pulmonic Valve: Pulmonic valve not well visualized. No evidence of pulmonic regurgitation. Pericardium: Normal pericardium with no significant pericardial effusion. Aorta: Normal aortic root. IVC: Normal size and normal respiratory collapse consistent with normal right atrial pressure. Conclusions: Preserved left ventricular systolic function with apical, distal septal and distal anterior akinesis. Impaired relaxation. Trace mitral regurgitation. Mild aortic regurgitation. Electronically Signed By: Mily Gandara 2018-10-28 17:34:43 PDT
[2018-10-28] MEDS: MAGNESIUM HYDROXIDE 30ML CUP PO PRN (17:59)
[2018-10-28] MEDS: ATOVAQUONE 750 MG/5 ML CUP PO SCH (21:14)
[2018-10-29] VITALS (12 sets, daily range): BP systolic 120–151; BP diastolic 65–76; PULSE 59–75; RESP 16–18
[2018-10-29] MEDS: AL HYDROX/MG HYDROX/SIMETH 30 ML CUP PO PRN ×2 (07:30→19:23)
[2018-10-29] MEDS: METHYLPREDNISOLONE 40 MG INJ IV SCH ×2 (08:17→21:39)
[2018-10-29] MEDS: ATOVAQUONE 750 MG/5 ML CUP PO SCH (08:17)
[2018-10-29] MEDS: NYSTATIN SUSP 5 ML CUP PO SCH ×4 (08:17→21:39)
[2018-10-29] MEDS: VORICONAZOLE 200 MG TAB PO SCH ×2 (08:18→21:39)
[2018-10-29] MEDS: FUROSEMIDE 40 MG INJ IV SCH (08:18)
[2018-10-29] MEDS: ASPIRIN 81 MG TAB PO SCH (08:18)
[2018-10-29] MEDS: DOXYCYCLINE 100 MG in SOD CHLORIDE 0.9% 250 ML IVPB SCH (08:19)
[2018-10-29] MEDS: METHYLNALTREXONE 12 MG/0.6 ML VIAL SC SCH (08:26)
[2018-10-29] MEDS: NITROGLYCERIN 0.2 MG/HR PATCH TRANSDERM SCH (08:32)
[2018-10-29] MEDS: ALBUTEROL/IPRATROPIUM (NEB) 3 ML AMP HHN SCH ×3 (08:35→20:38)
--- NOTE | 2018-10-29 12:48 | CONS ---
Consult Date/Type/Reason Admit Date/Time Oct 20, 2018 at 19:11 Initial Consult Date 10/21/18 Type of Consult Pulmonary Requesting Provider: ARACELIS DAMON Date/Time of Note DATE: 10/29/18 TIME: 12:47 Subjective Patient had rapid response this morning. Slurred speech and increased respiratory distress which appears to be transient now resolved. Objective Vital Signs Date Temp Pulse Resp B/P (MAP) Pulse Ox O2 O2 Flow FiO2 Time Delivery Rate 10/29/18 97.5 67 16 120/70 98 11:58 (87) 10/29/18 Aerosol 3.0 08:36 Mask 10/26/18 35 19:55 Intake and Output 10/28/18 10/28/18 10/29/18 1515:00 23:00 07:00 IntakeIntake Total 1836 ml 1178 ml OutputOutput Total 1650 ml 1500 ml BalanceBalance 186 ml -322 ml Exam PHYSICAL EXAMINATION: GENERAL: A well-nourished, well-developed gentleman, comfortable at rest, no acute distress. 5 L nasal cannula VITAL SIGNS: NECK: Supple. No JVD or lymphadenopathy. CARDIAC: S1, S2. No added sounds or murmurs. CHEST: Bilateral rales. ABDOMEN: Soft, nontender. No guarding or rebound. EXTREMITIES: No cyanosis or clubbing. A 1+ edema. NEUROLOGIC: Generalized weakness. Vent Setting Fraction of Inspired Oxygen pe: 35 Results/Medications Result Diagram: 10/29/18 0547 10/29/18 0547 Results 24 hrs Laboratory Tests Test 10/28/18 14:37 10/28/18 20:14 10/29/18 05:47 10/29/18 10:07 Creatine Kinase 267 H 255 H Creatine Kinase 14.0 16.5 Index Creatinine Kinase 37.40 H 42.00 H MB (Mass) Troponin I 11.500 *H 16.400 *H White Blood Count 1.4 L 1.6 L Red Blood Count 2.69 L 2.85 L Hemoglobin 7.9 L 8.2 L Hematocrit 24.3 L 25.9 L Mean Corpuscular 90.3 90.9 Volume Mean Corpuscular 29.4 28.8 L Hemoglobin Mean Corpuscular 32.5 31.7 L Hemoglobin Concent Red Cell 16.1 H 16.2 H Distribution Width Platelet Count 56 #L 43 #L Mean Platelet 11.0 H Volume Immature 25.700 H 6.400 H Granulocytes % Neutrophils % Segmented 71 85 H Neutrophils % (Manual) Band Neutrophils % 15 H 6 H (Manual) Lymphocytes % Lymphocytes % 11 L 7 L (Manual) Monocytes % Monocytes % 3 2 (Manual) Eosinophils % Basophils % Nucleated Red 0.0 0.0 Blood Cells % Immature 0.370 H 0.100 H Granulocytes # Neutrophils # Neutrophils # 1.0 L 1.4 L (Manual) Band Neutrophils # 0.2 0.0 Lymphocytes 0.1 L 0.1 L (Manual) Lymphocytes # Monocytes # Monocytes # 0.0 L 0.0 L (Manual) Eosinophils # Basophils # Nucleated Red Blood Cells # Toxic Granulation 1+ 1+ Platelet Estimate DECREASED DECREASED Giant Platelets 1 H 2 H Polychromasia 1+ 3+ Hypochromasia 1+ Poikilocytosis 2+ 1+ Anisocytosis 1+ Microcytosis 1+ Target Cells 1+ Ovalocytes 1+ Sodium Level 134 L 134 L Potassium Level 5.3 H 5.8 H Chloride Level 98 101 Carbon Dioxide 26 26 Level Anion Gap 10 7 Blood Urea 53 H 58 H Nitrogen Creatinine 1.70 H 1.69 H Est Glomerular 40 L 40 L Filtrat Rate mL/min Glucose Level 122 118 Calcium Level 7.7 L 7.6 L Tear Drop Cells 1+ Phosphorus Level 3.7 Magnesium Level 2.7 H Bedside Glucose 143 Test 10/29/18 12:46 Lab Scanned Report REFERENCE LAB Medications Current Medications IV Flush (NS 3 ml) 3 ml PER PROTOCOL IV ; Start 10/20/18 at 19:30 Ondansetron HCl (Zofran Inj) 4 mg Q6H PRN IV NAUSEA/VOMITING Last administered on 10/28/18at 15:07; Admin Dose 4 MG; Start 10/20/18 at 19:30 Acetaminophen (Tylenol Tab) 650 mg Q6H PRN PO .PAIN 1-3 OR TEMP Last adminis tered on 10/27/18at 21:17; Admin Dose 650 MG; Start 10/20/18 at 19:30 Albuterol/ Ipratropium (Duoneb) 3 ml Q6HWA RESP THERAPY HHN Last administered on 10/29/18at 08:35; Admin Dose 3 ML; Start 10/20/18 at 20:00 Albuterol/ Ipratropium (Duoneb) 3 ml Q2H RESP THERAPY PRN HHN shortness of breath Last administered on 10/24/18 06:25; Admin Dose 3 ML; Start 10/20/18 at 19:30 Acetaminophen/ Hydrocodone Bitart ([place] (10/325)) 1 tab Q6H PRN PO MODERATE PAIN LEVEL 4-6 Last administered on 10/27/18 19:00; Admin Dose 1 TAB; Start 10/21/18 at 07:00 Doxycycline Hyclate 100 mg/ Sodium Chloride 250 ml @ 250 mls/hr Q12 IVPB Last administered on 10/29/18 08:19; Admin Dose 250 MLS/HR; Start 10/21/18 at 21:00 Nystatin (Nystatin Susp) 5 ml QID PO Last administered on 10/29/18 08:17; Admin Dose 5 ML; Start 10/23/18 at 13:00 Magnesium Hydroxide (Milk Of Mag) 30 ml DAILY PRN PO CONSTIPATION Last admini stered on 10/28/18 17:59; Admin Dose 30 ML; Start 10/24/18 at 00:30 Miscellaneous Information (* Miscellaneous Pharmacy Order) Please adjust voriconazole dosing ... ONCE XX ; Start 10/24/18 at 19:00 Docusate Sodium (Colace) 100 mg DAILY PRN PO CONSTIPATION Last administered on 10/25/18 13:28; Admin Dose 100 MG; Start 10/25/18 at 10:30 Methylnaltrexone [place] (Relistor) 12 mg DAILY SC Last administered on 10/29/18 08:26; Admin Dose 12 MG; Start 10/26/18 at 09:00 Voriconazole (Vfend) 200 mg BID PO Last administered on 10/29/18 08:18; Admin Dose 200 MG; Start 10/26/18 at 21:00 Methylprednisolone Sodium Succinate (Solu-Medrol) 40 mg Q12 IV Last administered on 10/29/18 08:17; Admin Dose 40 MG; Start 10/27/18 at 21:00 Calcium Carbonate (Tums) 500 mg PRN PRN PO HEARTBURN Last administered on 10/27/18at 20:45; Admin Dose 500 MG; Start 10/27/18 at 14:00 Filgrastim (Nivestym) 480 mcg DAILY@1700 SC Last administered on 10/28/18 10:32; Admin Dose 480 MCG; Start 10/27/18 at 18:45 Morphine Sulfate (morphine) 2 mg Q4H PRN IV SEVERE PAIN LEVEL 7-10 Last administered on 10/27/18 22:10; Admin Dose 2 MG; Start 10/27/18 at 22:30 Nitroglycerin (Nitroglycerin 0.2 Mg/Hr) 1 patch DAILY TRANSDERM Last administered on 10/29/18 08:32; Admin Dose 1 PATCH; Start 10/28/18 at 01:30 Al Hydrox/Mg Hydrox/Simethicone (Mag-Al Plus) 30 ml Q6H PRN PO GASTROINTESTINAL UPSET Last administered on 10/29/18 07:30; Admin Dose 30 ML; Start 10/28/18 at 06:00 Atorvastatin Calcium (Lipitor) 80 mg HS PO ; Start 10/29/18 at 21:00 Carvedilol (Coreg) 3.125 mg BID PO Last administered on 10/29/18 08:18; Admin Dose 3.125 MG; Start 10/28/18 at 09:00 Aspirin (Aspirin) 81 mg DAILY PO Last administered on 10/29/18 08:18; Admin Dose 81 MG; Start 10/28/18 at 09:00 Furosemide (Lasix) 40 mg DAILY IV Last administered on 10/29/18 08:18; Admin Dose 40 MG; Start 10/28/18 at 11:00 Atovaquone (Mepron) 750 mg BID PO Last administered on 10/29/18 08:17; Admin Dose 750 MG; Start 10/28/18 at 21:00 Ceftriaxone Sodium 50 ml @ 100 mls/hr Q24H IVPB ; Start 10/29/18 at 12:30 Assessment/Plan Hospital Course (Demo Recall) IMPRESSION AND PLAN: 1. Acute hypoxemic respiratory failure, possibly secondary to opportunistic infection. 2. Severe neutropenia, status post chemotherapy for multiple myeloma. Improving WBC 3. Renal insufficiency. 4. Non-STEMI acute. Plan 1. Continue diuretics, continue steroids 2. Continue supplemental O2 3. Continue broad-spectrum antibiotic coverage. 4. Continue Neupogen per oncology 5. Cardiology recommendations regarding no STEMI. Antiplatelet therapy is limited secondary to thrombocytopenia. 6. Physical therapy recommendations Prognosis remains guarded. SAI JACKSON MD, [facility] Oct 29, 2018 12:48
--- NOTE | 2018-10-29 13:29 | CONS ---
Assessment/Plan Assessment/Plan Hospital Course (Demo Recall) 68 yo with multiple myeloma and opportunistic infections, pneumonia, who had an NSTEMI two nights ago, with chest pain, dynamic ekg changes, and elevation of troponin. Impression: NSTEMI severe thrombocytopenia, multifactorial, due to MM, and possibly also drug- induced, now improved Multiple myeloma Recommendations: I spoke with Dr. Hill, and with the patient and his . Dr. Hill feels that with a platelet count that is improved that it is reasonable to undergo a coronary angiogram, and for dual antiplatelet therapy for 3 months. To be on clopidogrel, he'll need to come off of voriconazole which makes clopidogrel less effective. Risks and benefits of cath discussed with and she agrees for him to proceed. Plan for coronary angiogram in the am at 0730. A total of 50 minutes spent on care, including coordinating care, discussion with Dr. Hill, nursing, and the patient and his . Consultation Date/Type/Reason Admit Date/Time Oct 20, 2018 at 19:11 Initial Consult Date 10/28/18 Type of Consult Cardiology Requesting Provider: ARACELIS DAMON Date/Time of Note DATE: 10/29/18 TIME: 13:18 24 HR Interval Summary Free Text/Dictation Patient seen this am around 9:30, in the room. Patient sitting up in navya r, is speaking but not coherent. Denies chest pain and dyspnea. Exam/Review of Systems Vital Signs Vitals Vital Signs Date Temp Pulse Resp B/P (MAP) Pulse Ox O2 O2 Flow FiO2 Time Delivery Rate 10/29/18 97.5 67 16 120/70 98 11:58 (87) 10/29/18 Aerosol 3.0 08:36 Mask 10/26/18 35 19:55 Intake and Output 10/28/18 10/28/18 10/29/18 1515:00 23:00 07:00 IntakeIntake Total 1836 ml 1178 ml OutputOutput Total 1650 ml 1500 ml BalanceBalance 186 ml -322 ml Exam Constitutional: alert, well developed Psych: no complaints, nl mood/affect Head: normocephalic, atraumatic Eyes: EOMI, nl lids, nl sclera ENMT: nl external ears & nose, nl lips & teeth Neck: supple, bruits; No jvd Respiratory: clear to auscultation, normal air movement Cardiovascular: regular rate and rhythm, nl pulses; No murmurs/extra sounds Gastrointestinal: soft, non-tender Musculoskeletal: nl extremities to inspection Extremities: normal pulses; No edema Neurological: confused, other (speech clear but not making sense) Skin: nl turgor Labs Result Diagram: 10/29/18 0547 10/29/18 0547 Results 24hrs Laboratory Tests Test 10/28/18 14:37 10/28/18 20:14 10/29/18 05:47 10/29/18 10:07 Creatine Kinase 267 H 255 H Creatine Kinase 14.0 16.5 Index Creatinine Kinase 37.40 H 42.00 H MB (Mass) Troponin I 11.500 *H 16.400 *H White Blood Count 1.4 L 1.6 L Red Blood Count 2.69 L 2.85 L Hemoglobin 7.9 L 8.2 L Hematocrit 24.3 L 25.9 L Mean Corpuscular 90.3 90.9 Volume Mean Corpuscular 29.4 28.8 L Hemoglobin Mean Corpuscular 32.5 31.7 L Hemoglobin Concent Red Cell 16.1 H 16.2 H Distribution Width Platelet Count 56 #L 43 #L Mean Platelet 11.0 H Volume Immature 25.700 H 6.400 H Granulocytes % Neutrophils % Segmented 71 85 H Neutrophils % (Manual) Band Neutrophils % 15 H 6 H (Manual) Lymphocytes % Lymphocytes % 11 L 7 L (Manual) Monocytes % Monocytes % 3 2 (Manual) Eosinophils % Basophils % Nucleated Red 0.0 0.0 Blood Cells % Immature 0.370 H 0.100 H Granulocytes # Neutrophils # Neutrophils # 1.0 L 1.4 L (Manual) Band Neutrophils # 0.2 0.0 Lymphocytes 0.1 L 0.1 L (Manual) Lymphocytes # Monocytes # Monocytes # 0.0 L 0.0 L (Manual) Eosinophils # Basophils # Nucleated Red Blood Cells # Toxic Granulation 1+ 1+ Platelet Estimate DECREASED DECREASED Giant Platelets 1 H 2 H Polychromasia 1+ 3+ Hypochromasia 1+ Poikilocytosis 2+ 1+ Anisocytosis 1+ Microcytosis 1+ Target Cells 1+ Ovalocytes 1+ Sodium Level 134 L 134 L Potassium Level 5.3 H 5.8 H Chloride Level 98 101 Carbon Dioxide 26 26 Level Anion Gap 10 7 Blood Urea 53 H 58 H Nitrogen Creatinine 1.70 H 1.69 H Est Glomerular 40 L 40 L Filtrat Rate mL/min Glucose Level 122 118 Calcium Level 7.7 L 7.6 L Tear Drop Cells 1+ Phosphorus Level 3.7 Magnesium Level 2.7 H Bedside Glucose 143 Test 10/29/18 12:46 Lab Scanned Report REFERENCE LAB Imaging Imaging telemetry shows NSR Medications Medications Current Medications IV Flush (NS 3 ml) 3 ml PER PROTOCOL IV ; Start 10/20/18 at 19:30 Ondansetron HCl (Zofran Inj) 4 mg Q6H PRN IV NAUSEA/VOMITING Last administered on 10/28/18 15:07; Admin Dose 4 MG; Start 10/20/18 at 19:30 Acetaminophen (Tylenol Tab) 650 mg Q6H PRN PO .PAIN 1-3 OR TEMP Last administered on 10/27/18 21:17; Admin Dose 650 MG; Start 10/20/18 at 19:30 Albuterol/ Ipratropium (Duoneb) 3 ml Q6HWA RESP THERAPY HHN Last administered on 10/29/18 08:35; Admin Dose 3 ML; Start 10/20/18 at 20:00 Albuterol/ Ipratropium (Duoneb) 3 ml Q2H RESP THERAPY PRN HHN shortness of breath Last administered on 10/24/18 06:25; Admin Dose 3 ML; Start 10/20/18 at 19:30 Acetaminophen/ Hydrocodone Bitart ([place] (10/325)) 1 tab Q6H PRN PO MODERATE PAIN LEVEL 4-6 Last administered on 10/27/18 19:00; Admin Dose 1 TAB; Start 10/21/18 at 07:00 Doxycycline Hyclate 100 mg/ Sodium Chloride 250 ml @ 250 mls/hr Q12 IVPB Last administered on 10/29/18 08:19; Admin Dose 250 MLS/HR; Start 10/21/18 at 21:00 Nystatin (Nystatin Susp) 5 ml QID PO Last administered on 10/29/18 08:17; Admin Dose 5 ML; Start 10/23/18 at 13:00 Magnesium Hydroxide (Milk Of Mag) 30 ml DAILY PRN PO CONSTIPATION Last administered on 10/28/18at 17:59; Admin Dose 30 ML; Start 10/24/18 at 00:30 Miscellaneous Information (* Miscellaneous Pharmacy Order) Please adjust vo riconazole dosing ... ONCE XX ; Start 10/24/18 at 19:00 Docusate Sodium (Colace) 100 mg DAILY PRN PO CONSTIPATION Last administered on 10/25/18 13:28; Admin Dose 100 MG; Start 10/25/18 at 10:30 Methylnaltrexone [place] (Relistor) 12 mg DAILY SC Last administered on 10/29/18 08:26; Admin Dose 12 MG; Start 10/26/18 at 09:00 Voriconazole (Vfend) 200 mg BID PO Last administered on 10/29/18 08:18; Admin Dose 200 MG; Start 10/26/18 at 21:00 Methylprednisolone Sodium Succinate (Solu-Medrol) 40 mg Q12 IV Last administered on 10/29/18 08:17; Admin Dose 40 MG; Start 10/27/18 at 21:00 Calcium Carbonate (Tums) 500 mg PRN PRN PO HEARTBURN Last administered on 10/27/18 20:45; Admin Dose 500 MG; Start 10/27/18 at 14:00 Filgrastim (Nivestym) 480 mcg DAILY@1700 SC Last administered on 10/28/18 10:32; Admin Dose 480 MCG; Start 10/27/18 at 18:45 Morphine Sulfate (morphine) 2 mg Q4H PRN IV SEVERE PAIN LEVEL 7-10 Last administered on 10/27/18 22:10; Admin Dose 2 MG; Start 10/27/18 at 22:30 Nitroglycerin (Nitroglycerin 0.2 Mg/Hr) 1 patch DAILY TRANSDERM Last administered on 10/29/18 08:32; Admin Dose 1 PATCH; Start 10/28/18 at 01:30 Al Hydrox/Mg Hydrox/Simethicone (Mag-Al Plus) 30 ml Q6H PRN PO GASTROINTESTINAL UPSET Last administered on 10/29/18 07:30; Admin Dose 30 ML; Start 10/28/18 at 06:00 Atorvastatin Calcium (Lipitor) 80 mg HS PO ; Start 10/29/18 at 21:00 Carvedilol (Coreg) 3.125 mg BID PO Last administered on 10/29/18 08:18; Admin Dose 3.125 MG; Start 10/28/18 at 09:00 Aspirin (Aspirin) 81 mg DAILY PO Last administered on 10/29/18at 08:18; Admin Dose 81 MG; Start 10/28/18 at 09:00 Furosemide (Lasix) 40 mg DAILY IV Last administered on 10/29/18at 08:18; Admin Dose 40 MG; Start 10/28/18 at 11:00 Atovaquone (Mepron) 750 mg BID PO Last administered on 10/29/18at 08:17; Admin Dose 750 MG; Start 10/28/18 at 21:00 Ceftriaxone Sodium 50 ml @ 100 mls/hr Q24H IVPB ; Start 10/29/18 at 12:30 GUANAKITO MOHAN Oct 29, 2018 13:29
[2018-10-29] MEDS ORDERED: DIPHENHYDRAMINE 50 MG CAP PO ONE (13:30)
[2018-10-29] MEDS ORDERED: DIAZEPAM 5 MG TAB PO ONE (13:30)
--- NOTE | 2018-10-29 13:30 | CONS ---
Assessment/Plan Assessment/Plan Hospital Course (Demo Recall) assessment/impression - severe sepsis due to pneumonia - multilobar pneumonia - neutropenic fever - acute hypoxic resp failure - NSTEMI - multiple myeloma - immunocompromised state - pancytopenia due to multiple myeloma and chemo - anemia - CKD III - resp virus panel returned negative, crypto neg, legionella screen neg, TB Quant Gold indeterminate, [id number] level non-diagnostic due to the presence of interfering substances, crypto antigen negative, pneumocystis antigen negative recommendations: - pending results: coccidioides, fungal blood cultures, fungal sputum culture, aspergillus Ab/Ag, histoplasma antigen, mycoplasma IgG, IgM - ordered: procalcitonin level in AM - will check voriconazole trough level at the end of this week - d/c doxycycline (10/21/2018-) - d/c atovaquone - continue empiric ceftriaxone and voriconazole - continue nystatin - neutropenic precautions management d/w Pt, his and RN Mira Consultation Date/Type/Reason Admit Date/Time Oct 20, 2018 at 19:11 Initial Consult Date 10/28/18 Type of Consult ID Requesting Provider: ARACELIS DAMON Date/Time of Note DATE: 10/29/18 TIME: 13:24 24 HR Interval Summary Constitutional: requiring O2, other (fatigue) Detailed Summary Eyes: no complaints ENT: no complaints Respiratory: cough, shortness of breath Cardiovascular: no complaints Gastrointestinal: no complaints Genitourinary: no complaints Musculoskeletal: no complaints Skin: no complaints Neurologic: no complaints, other (do not find speech is impaired now) Exam/Review of Systems Exam Vitals Vital Signs Date Temp Pulse Resp B/P (MAP) Pulse Ox O2 O2 Flow FiO2 Time Delivery Rate 10/29/18 97.5 67 16 120/70 98 11:58 (87) 10/29/18 Aerosol 3.0 08:36 Mask 10/26/18 35 19:55 Intake and Output 10/28/18 10/28/18 10/29/18 1515:00 23:00 07:00 IntakeIntake Total 1836 ml 1178 ml OutputOutput Total 1650 ml 1500 ml BalanceBalance 186 ml -322 ml Constitutional: frail Psych: no complaints, nl mood/affect Head: normocephalic, atraumatic Eyes: nl conjunctiva, nl lids, nl sclera ENMT: nl external ears & nose, nl nasal mucosa & septum, mucosa pink and moist Neck: other (not swollen) Respiratory: congested cough, crackles/rales Cardiovascular: regular rate and rhythm, nl pulses, edema (UEs) Gastrointestinal: soft, non-tender Musculoskeletal: nl extremities to inspection Extremities: No edema Neurological: [employer]IC[employer] II-XII intact, nl mental status, nl speech, nl strength Skin: nl turgor; No rash or lesions Results Result Diagram: 10/29/18 0547 10/29/18 0547 Results 24hrs Laboratory Tests Test 10/28/18 14:37 10/28/18 20:14 10/29/18 05:47 10/29/18 10:07 Creatine Kinase 267 H 255 H Creatine Kinase 14.0 16.5 Index Creatinine Kinase 37.40 H 42.00 H MB (Mass) Troponin I 11.500 *H 16.400 *H White Blood Count 1.4 L 1.6 L Red Blood Count 2.69 L 2.85 L Hemoglobin 7.9 L 8.2 L Hematocrit 24.3 L 25.9 L Mean Corpuscular 90.3 90.9 Volume Mean Corpuscular 29.4 28.8 L Hemoglobin Mean Corpuscular 32.5 31.7 L Hemoglobin Concent Red Cell 16.1 H 16.2 H Distribution Width Platelet Count 56 #L 43 #L Mean Platelet 11.0 H Volume Immature 25.700 H 6.400 H Granulocytes % Neutrophils % Segmented 71 85 H Neutrophils % (Manual) Band Neutrophils % 15 H 6 H (Manual) Lymphocytes % Lymphocytes % 11 L 7 L (Manual) Monocytes % Monocytes % 3 2 (Manual) Eosinophils % Basophils % Nucleated Red 0.0 0.0 Blood Cells % Immature 0.370 H 0.100 H Granulocytes # Neutrophils # Neutrophils # 1.0 L 1.4 L (Manual) Band Neutrophils # 0.2 0.0 Lymphocytes 0.1 L 0.1 L (Manual) Lymphocytes # Monocytes # Monocytes # 0.0 L 0.0 L (Manual) Eosinophils # Basophils # Nucleated Red Blood Cells # Toxic Granulation 1+ 1+ Platelet Estimate DECREASED DECREASED Giant Platelets 1 H 2 H Polychromasia 1+ 3+ Hypochromasia 1+ Poikilocytosis 2+ 1+ Anisocytosis 1+ Microcytosis 1+ Target Cells 1+ Ovalocytes 1+ Sodium Level 134 L 134 L Potassium Level 5.3 H 5.8 H Chloride Level 98 101 Carbon Dioxide 26 26 Level Anion Gap 10 7 Blood Urea 53 H 58 H Nitrogen Creatinine 1.70 H 1.69 H Est Glomerular 40 L 40 L Filtrat Rate mL/min Glucose Level 122 118 Calcium Level 7.7 L 7.6 L Tear Drop Cells 1+ Phosphorus Level 3.7 Magnesium Level 2.7 H Bedside Glucose 143 Test 10/29/18 12:46 Lab Scanned Report REFERENCE LAB Medications Medication Current Medications IV Flush (NS 3 ml) 3 ml PER PROTOCOL IV ; Start 10/20/18 at 19:30 Ondansetron HCl (Zofran Inj) 4 mg Q6H PRN IV NAUSEA/VOMITING Last administered on 10/28/18at 15:07; Admin Dose 4 MG; Start 10/20/18 at 19:30 Acetaminophen (Tylenol Tab) 650 mg Q6H PRN PO .PAIN 1-3 OR TEMP Last admi nistered on 10/27/18 21:17; Admin Dose 650 MG; Start 10/20/18 at 19:30 Albuterol/ Ipratropium (Duoneb) 3 ml Q6HWA RESP THERAPY HHN Last administered on 10/29/18 08:35; Admin Dose 3 ML; Start 10/20/18 at 20:00 Albuterol/ Ipratropium (Duoneb) 3 ml Q2H RESP THERAPY PRN HHN shortness of breath Last administered on 10/24/18 06:25; Admin Dose 3 ML; Start 10/20/18 at 19:30 Acetaminophen/ Hydrocodone Bitart ([place] (10/325)) 1 tab Q6H PRN PO MODERATE PAIN LEVEL 4-6 Last administered on 10/27/18 19:00; Admin Dose 1 TAB; Start 10/21/18 at 07:00 Doxycycline Hyclate 100 mg/ Sodium Chloride 250 ml @ 250 mls/hr Q12 IVPB Last administered on 10/29/18 08:19; Admin Dose 250 MLS/HR; Start 10/21/18 at 21:00 Nystatin (Nystatin Susp) 5 ml QID PO Last administered on 10/29/18 08:17; Admin Dose 5 ML; Start 10/23/18 at 13:00 Magnesium Hydroxide (Milk Of Mag) 30 ml DAILY PRN PO CONSTIPATION Last adm inistered on 10/28/18 17:59; Admin Dose 30 ML; Start 10/24/18 at 00:30 Miscellaneous Information (* Miscellaneous Pharmacy Order) Please adjust voriconazole dosing ... ONCE XX ; Start 10/24/18 at 19:00 Docusate Sodium (Colace) 100 mg DAILY PRN PO CONSTIPATION Last administered on 10/25/18 13:28; Admin Dose 100 MG; Start 10/25/18 at 10:30 Methylnaltrexone [place] (Relistor) 12 mg DAILY SC Last administered on 10/29/18 08:26; Admin Dose 12 MG; Start 10/26/18 at 09:00 Voriconazole (Vfend) 200 mg BID PO Last administered on 10/29/18 08:18; Admin Dose 200 MG; Start 10/26/18 at 21:00 Methylprednisolone Sodium Succinate (Solu-Medrol) 40 mg Q12 IV Last administered on 10/29/18 08:17; Admin Dose 40 MG; Start 10/27/18 at 21:00 Calcium Carbonate (Tums) 500 mg PRN PRN PO HEARTBURN Last administered on 10/27/18 20:45; Admin Dose 500 MG; Start 10/27/18 at 14:00 Filgrastim (Nivestym) 480 mcg DAILY@1700 SC Last administered on 10/28/18 10:32; Admin Dose 480 MCG; Start 10/27/18 at 18:45 Morphine Sulfate (morphine) 2 mg Q4H PRN IV SEVERE PAIN LEVEL 7-10 Last administered on 10/27/18 22:10; Admin Dose 2 MG; Start 10/27/18 at 22:30 Nitroglycerin (Nitroglycerin 0.2 Mg/Hr) 1 patch DAILY TRANSDERM Last administered on 10/29/18 08:32; Admin Dose 1 PATCH; Start 10/28/18 at 01:30 Al Hydrox/Mg Hydrox/Simethicone (Mag-Al Plus) 30 ml Q6H PRN PO GASTROINTESTINAL UPSET Last administered on 10/29/18 07:30; Admin Dose 30 ML; Start 10/28/18 at 06:00 Atorvastatin Calcium (Lipitor) 80 mg HS PO ; Start 10/29/18 at 21:00 Carvedilol (Coreg) 3.125 mg BID PO Last administered on 10/29/18 08:18; Admin Dose 3.125 MG; Start 10/28/18 at 09:00 Aspirin (Aspirin) 81 mg DAILY PO Last administered on 10/29/18 08:18; Admin Dose 81 MG; Start 10/28/18 at 09:00 Furosemide (Lasix) 40 mg DAILY IV Last administered on 10/29/18 08:18; Admin Dose 40 MG; Start 10/28/18 at 11:00 Atovaquone (Mepron) 750 mg BID PO Last administered on 10/29/18 08:17; Admin Dose 750 MG; Start 10/28/18 at 21:00 Ceftriaxone Sodium 50 ml @ 100 mls/hr Q24H IVPB ; Start 10/29/18 at 12:30 CHANTAL LE M.D. Oct 29, 2018 13:30
--- NOTE | 2018-10-29 14:49 | PN ---
Date/Time of Note Date/Time of Note DATE: 10/29/18 TIME: 14:38 Assessment/Plan VTE Prophylaxis Risk score (from [facility])>0 risk: 9 SCD applied (from [facility]): Yes Pharmacological prophylaxis: NA/contraindicated Pharm contraindication: low risk/ambulating Lines/Catheters IV C[facility]ter Type [facility]from [facility] Peripheral IV Urinary Cath still in place: No Assessment/Plan Hospital Course 68 yo male with MM presented with neutropenic fevers 2/2 pneumonia leading to hypoxic respiratory failure MM with pancytopenia/neutropenia: - Neupogen per hematology. Neutrophil count thankfully is starting to respond he is no longer neutropenic NSTEMI: -Plan is for angio today, continue antiplatelet therapy Pneumonia: - Abx per ID Acute respiratory failure: - Continue O2 by NC as needed - Lasix as needed for pulmonary edema CKD III: - stable - result of MM -Nephrology consultation obtained Result Diagram: 10/29/18 0547 10/29/18 0547 Results 24hrs Laboratory Tests Test 10/28/18 20:14 10/29/18 05:47 10/29/18 10:07 10/29/18 12:46 White Blood Count 1.4 L 1.6 L Red Blood Count 2.69 L 2.85 L Hemoglobin 7.9 L 8.2 L Hematocrit 24.3 L 25.9 L Mean Corpuscular 90.3 90.9 Volume Mean Corpuscular 29.4 28.8 L Hemoglobin Mean Corpuscular 32.5 31.7 L Hemoglobin Concent Red Cell 16.1 H 16.2 H Distribution Width Platelet Count 56 #L 43 #L Mean Platelet 11.0 H Volume Immature 25.700 H 6.400 H Granulocytes % Neutrophils % Segmented 71 85 H Neutrophils % (Manual) Band Neutrophils % 15 H 6 H (Manual) Lymphocytes % Lymphocytes % 11 L 7 L (Manual) Monocytes % Monocytes % 3 2 (Manual) Eosinophils % Basophils % Nucleated Red 0.0 0.0 Blood Cells % Immature 0.370 H 0.100 H Granulocytes # Neutrophils # Neutrophils # 1.0 L 1.4 L (Manual) Band Neutrophils # 0.2 0.0 Lymphocytes 0.1 L 0.1 L (Manual) Lymphocytes # Monocytes # Monocytes # 0.0 L 0.0 L (Manual) Eosinophils # Basophils # Nucleated Red Blood Cells # Toxic Granulation 1+ 1+ Platelet Estimate DECREASED DECREASED Giant Platelets 1 H 2 H Polychromasia 1+ 3+ Hypochromasia 1+ Poikilocytosis 2+ 1+ Anisocytosis 1+ Microcytosis 1+ Target Cells 1+ Ovalocytes 1+ Sodium Level 134 L 134 L Potassium Level 5.3 H 5.8 H Chloride Level 98 101 Carbon Dioxide 26 26 Level Anion Gap 10 7 Blood Urea 53 H 58 H Nitrogen Creatinine 1.70 H 1.69 H Est Glomerular 40 L 40 L Filtrat Rate mL/min Glucose Level 122 118 Calcium Level 7.7 L 7.6 L Creatine Kinase 255 H Creatine Kinase 16.5 Index Creatinine Kinase 42.00 H MB (Mass) Troponin I 16.400 *H Tear Drop Cells 1+ Phosphorus Level 3.7 Magnesium Level 2.7 H Bedside Glucose 143 Lab Scanned Report REFERENCE LAB Subjective 24 Hr Interval Summary Constitutional: no complaints Exam/Review of Systems Exam Vitals Vital Signs Date Temp Pulse Resp B/P (MAP) Pulse Ox O2 O2 Flow FiO2 Time Delivery Rate 10/29/18 97.5 67 16 120/70 98 11:58 (87) 10/29/18 Aerosol 3.0 08:36 Mask 10/26/18 35 19:55 Intake and Output 10/28/18 10/28/18 10/29/18 1515:00 23:00 07:00 IntakeIntake Total 1836 ml 1178 ml OutputOutput Total 1650 ml 1500 ml BalanceBalance 186 ml -322 ml Constitutional: alert Respiratory: clear to auscultation Cardiovascular: regular rate and rhythm Gastrointestinal: soft; No distended Musculoskeletal: nl extremities to inspection Results Results 24hrs Laboratory Tests Test 10/28/18 20:14 10/29/18 05:47 10/29/18 10:07 10/29/18 12:46 White Blood Count 1.4 L 1.6 L Red Blood Count 2.69 L 2.85 L Hemoglobin 7.9 L 8.2 L Hematocrit 24.3 L 25.9 L Mean Corpuscular 90.3 90.9 Volume Mean Corpuscular 29.4 28.8 L Hemoglobin Mean Corpuscular 32.5 31.7 L Hemoglobin Concent Red Cell 16.1 H 16.2 H Distribution Width Platelet Count 56 #L 43 #L Mean Platelet 11.0 H Volume Immature 25.700 H 6.400 H Granulocytes % Neutrophils % Segmented 71 85 H Neutrophils % (Manual) Band Neutrophils % 15 H 6 H (Manual) Lymphocytes % Lymphocytes % 11 L 7 L (Manual) Monocytes % Monocytes % 3 2 (Manual) Eosinophils % Basophils % Nucleated Red 0.0 0.0 Blood Cells % Immature 0.370 H 0.100 H Granulocytes # Neutrophils # Neutrophils # 1.0 L 1.4 L (Manual) Band Neutrophils # 0.2 0.0 Lymphocytes 0.1 L 0.1 L (Manual) Lymphocytes # Monocytes # Monocytes # 0.0 L 0.0 L (Manual) Eosinophils # Basophils # Nucleated Red Blood Cells # Toxic Granulation 1+ 1+ Platelet Estimate DECREASED DECREASED Giant Platelets 1 H 2 H Polychromasia 1+ 3+ Hypochromasia 1+ Poikilocytosis 2+ 1+ Anisocytosis 1+ Microcytosis 1+ Target Cells 1+ Ovalocytes 1+ Sodium Level 134 L 134 L Potassium Level 5.3 H 5.8 H Chloride Level 98 101 Carbon Dioxide 26 26 Level Anion Gap 10 7 Blood Urea 53 H 58 H Nitrogen Creatinine 1.70 H 1.69 H Est Glomerular 40 L 40 L Filtrat Rate mL/min Glucose Level 122 118 Calcium Level 7.7 L 7.6 L Creatine Kinase 255 H Creatine Kinase 16.5 Index Creatinine Kinase 42.00 H MB (Mass) Troponin I 16.400 *H Tear Drop Cells 1+ Phosphorus Level 3.7 Magnesium Level 2.7 H Bedside Glucose 143 Lab Scanned Report REFERENCE LAB Medications Medication Current Medications IV Flush (NS 3 ml) 3 ml PER PROTOCOL IV ; Start 10/20/18 at 19:30 Ondansetron HCl (Zofran Inj) 4 mg Q6H PRN IV NAUSEA/VOMITING Last administered on 10/28/18at 15:07; Admin Dose 4 MG; Start 10/20/18 at 19:30 Acetaminophen (Tylenol Tab) 650 mg Q6H PRN PO .PAIN 1-3 OR TEMP Last administered on 10/27/18at 21:17; Admin Dose 650 MG; Start 10/20/18 at 19:30 Albuterol/ Ipratropium (Duoneb) 3 ml Q6HWA RESP THERAPY HHN Last administered on 10/29/18at 08:35; Admin Dose 3 ML; Start 10/20/18 at 20:00 Albuterol/ Ipratropium (Duoneb) 3 ml Q2H RESP THERAPY PRN HHN shortness of breath Last administered on 10/24/18 06:25; Admin Dose 3 ML; Start 10/20/18 at 19:30 Acetaminophen/ Hydrocodone Bitart ([place] (10)) 1 tab Q6H PRN PO MODERATE PAIN LEVEL 4-6 Last administered on 10/27/18 19:00; Admin Dose 1 TAB; Start 10/21/18 at 07:00 Nystatin (Nystatin Susp) 5 ml QID PO Last administered on 10/29/18 08:17; Adm in Dose 5 ML; Start 10/23/18 at 13:00 Magnesium Hydroxide (Milk Of Mag) 30 ml DAILY PRN PO CONSTIPATION Last administered on 10/28/18 17:59; Admin Dose 30 ML; Start 10/24/18 at 00:30 Miscellaneous Information (* Miscellaneous Pharmacy Order) Please adjust voriconazole dosing ... ONCE XX ; Start 10/24/18 at 19:00 Docusate Sodium (Colace) 100 mg DAILY PRN PO CONSTIPATION Last administered on 10/25/18 13:28; Admin Dose 100 MG; Start 10/25/18 at 10:30 Methylnaltrexone [place] (Relistor) 12 mg DAILY SC Last administered on 10/29/18 08:26; Admin Dose 12 MG; Start 10/26/18 at 09:00 Voriconazole (Vfend) 200 mg BID PO Last administered on 10/29/18 08:18; Admin Dose 200 MG; Start 10/26/18 at 21:00 Methylprednisolone Sodium Succinate (Solu-Medrol) 40 mg Q12 IV Last administered on 10/29/18 08:17; Admin Dose 40 MG; Start 10/27/18 at 21:00 Calcium Carbonate (Tums) 500 mg PRN PRN PO HEARTBURN Last administered on 10/27/18 20:45; Admin Dose 500 MG; Start 10/27/18 at 14:00 Filgrastim (Nivestym) 480 mcg DAILY@1700 SC Last administered on 10/28/18 10:32; Admin Dose 480 MCG; Start 10/27/18 at 18:45 Morphine Sulfate (morphine) 2 mg Q4H PRN IV SEVERE PAIN LEVEL 7-10 Last administered on 10/27/18 22:10; Admin Dose 2 MG; Start 10/27/18 at 22:30 Nitroglycerin (Nitroglycerin 0.2 Mg/Hr) 1 patch DAILY TRANSDERM Last administered on 10/29/18at 08:32; Admin Dose 1 PATCH; Start 10/28/18 at 01:30 Al Hydrox/Mg Hydrox/Simethicone (Mag-Al Plus) 30 ml Q6H PRN PO GASTROINTESTINAL UPSET Last administered on 10/29/18at 07:30; Admin Dose 30 ML; Start 10/28/18 at 06:00 Atorvastatin Calcium (Lipitor) 80 mg HS PO ; Start 10/29/18 at 21:00 Carvedilol (Coreg) 3.125 mg BID PO Last administered on 10/29/18 08:18; Admin Dose 3.125 MG; Start 10/28/18 at 09:00 Aspirin (Aspirin) 81 mg DAILY PO Last administered on 10/29/18 08:18; Admin Dose 81 MG; Start 10/28/18 at 09:00 Furosemide (Lasix) 40 mg DAILY IV Last administered on 10/29/18at 08:18; Admin Dose 40 MG; Start 10/28/18 at 11:00 Ceftriaxone Sodium 50 ml @ 100 mls/hr Q24H IVPB ; Start 10/29/18 at 12:30 Sodium Chloride 1,000 ml @ 75 mls/hr [id number] IV ; Start 10/30/18 at 00:00 IZZY LEBLANC Oct 29, 2018 14:48
[2018-10-29] MEDS: CEFTRIAXONE 1 GM/50 ML (PMX) 50 ML IVPB SCH (15:54)
--- NOTE | 2018-10-29 17:40 | CONS ---
DATE OF ADMISSION: 10/20/2018 DATE OF CONSULTATION: 10/29/2018 TYPE OF CONSULTATION: Nephrology. REASON FOR CONSULTATION: Acute kidney injury, CKD, hyperkalemia. PHYSICIAN REQUESTING CONSULT: Sonia Graves MD HISTORY OF PRESENT ILLNESS: This is a 68-year-old male with a past medical history of multiple myelo ma initially diagnosed in 2013, history of chronic kidney disease with previous baseline creatinine a round 1.5 to 1.8 mg/dL, history of neutropenic fever and pneumonia, who presents to [facility] Emergency Room complaining of cough, shortness of breath and fever. The patient was previously ad mitted in 04/2018. At that time, the patient has hypercalcemia, acute kidney injury. He was treated accordingly. The patient also had neutropenic fever and sepsis, was treated with antibiotic therapy . The patient on this admission was noted to have temperature of 104, a white count of 1.6 and hemog lobin 7.6. The patient was admitted to telemetry. He was placed on broad spectrum antibiotics, anti viral therapy. He was seen by infectious disease, Dr. Bailey. The patient was diagnosed with severe sepsis with pneumonia, multilobular. The patient was also placed on high flow antifungal therapy. During the hospital course, the patient was seen by hematology/oncology and was given Neupogen as he was pancytopenic. In terms of patient's renal history on admission, the patient had a creatinine of 2.0 mg/dL. During the hospital course, the patient's creatinine improved marginally to 1.7 mg/dL. During this time, th e patient has been receiving antibiotic therapy. The patient is also noted to be hyperkalemic during the hospital course and he was previously on ALYSSA inhibitor as well as receiving Bactrim. The patient has had poor oral intake. Denies any hemoptysis, hematemesis, hematochezia. PAST MEDICAL HISTORY: History of chronic kidney disease, history of multiple myeloma, history of hyp ertension. ALLERGIES: NO KNOWN DRUG ALLERGIES. FAMILY HISTORY: No family history of kidney disease. SOCIAL HISTORY: Does not drink, smoke, do drugs. PAST SURGICAL HISTORY: Has been reviewed. REVIEW OF SYSTEMS: A 14-point review of systems conducted. Pertinent positives stated in HPI, other ivory negative. PHYSICAL EXAMINATION: VITAL SIGNS: Blood pressure is 135/67, respirations 16, pulse 63, temperature 97.6. HEENT: Head is normocephalic. There is bilateral temporal wasting. NECK: Supple. HEART: Regular rate. LUNGS: Show diminished breath sounds at the base. ABDOMEN: Soft, nontender to palpation without rebound or guarding. EXTREMITIES: Negative for clubbing, cyanosis. No edema. DERMATOLOGIC: No rashes. MUSCULOSKELETAL: No joint effusions. NEUROLOGIC: No focal deficits. MEDICATIONS: Have been reviewed. LABORATORY DATA: Has been reviewed. IMAGING STUDIES: Have been reviewed ASSESSMENT AND PLAN: This is a 68-year-old male who presents with: 1. Nonoliguric acute kidney injury on top of chronic kidney disease with previous baseline creatinin e around 2.0 mg/dL. Etiology of current acute kidney injury is secondary to hemodynamics. Renal fun ction has improved during hospital course. The patient's urinalysis was bland, no active sediment. Recommendation is to continue current treatment. Continue supportive care, renally dose all meds. M onitor closely on diuretic therapy. Please note, the patient is at moderate risk for contrast-associ ated nephropathy given history of chronic kidney disease. Risks and benefits were explained to the p atient and patient's at bedside. 2. Hyperkalemia. Etiology may be multifactorial secondary to Bactrim effect, ALYSSA inhibitor, chronic kidney disease. The patient's ALYSSA inhibitor and Bactrim had been discontinued. We will continue th e patient on low potassium diet and monitor potassium levels closely. 3. Hyponatremia secondary to acute kidney injury causing decreased free water urinary excretion. We will continue to monitor sodium levels. 4. Non-ST elevation myocardial infarction. Continue medical management. The patient is pending pos sible cardiac catheterization as stated above. The patient is at moderate risk for contrast-associat ed nephropathy. We will continue to monitor closely. We will follow up with cardiology. 5. Multiple myeloma. The patient is status post chemotherapy. Continue to monitor. 6. Severe sepsis secondary to pneumonia. Continue current medical management. Continue antibiotic therapy per infectious disease. 7. Pancytopenia. Etiology is likely secondary to multiple myeloma, on chemotherapy. Continue to mo nitor. Follow up with hematology for recommendations. 8. Acute respiratory failure secondary to pneumonia, questionable pulmonary congestion. The patient is currently on diuretic therapy. We will continue steroids. Continue antibiotic therapy. Follow up with pulmonary. Continue supplemental oxygen. 9. Mineral bone disorder. Monitor calcium and phosphorus levels. 10. History of hypertension. Continue to monitor. Thank you, Dr. Graves, for this interesting consult. It will be a pleasure to follow patient with y ou throughout the hospital course. Dictated By: NICHOLAS BENOIT/NTS Conf#: [id number] DID#: [id number] CC: CHET THOMAS MD; SONIA GRAVES MD; TRESA SABILLON MD;*End*
[2018-10-29] MEDS: FILGRASTIM-AAFI 480 MCG/0.8 ML SYRINGE SC SCH (21:00)
[2018-10-29] MEDS: ATORVASTATIN 80 MG TAB PO SCH (21:39)
[2018-10-30] VITALS (12 sets, daily range): BP systolic 109–140; BP diastolic 62–74; PULSE 60–84; RESP 16–18
[2018-10-30] MEDS ORDERED: SOD CHLORIDE 0.9% 1,000 ML IV SCH
--- NOTE | 2018-10-30 07:01 | PN ---
DATE: 10/29/2018 SUBJECTIVE: The patient is now not complaining of any shortness of breath or chest pain. Yesterday, however, did have chest pain which radiated to both axilla and to the left upper extremity. Apparently this morning, the patient also had a brief period of expressive aphasia which resolved within 10 minutes. There was no motor abnormalities noted. OBJECTIVE: GENERAL: The patient is a well-developed, well-nourished, but somewhat chronically ill-appearing male, in no acute distress. VITAL SIGNS: Temperature 97.6 orally, pulse 63 per minute and regular, respirations 16, blood pressure 135/67 and pulse oximetry 100% on 3 liters of oxygen via nasal cannula. SKIN: No ecchymosis, no petechiae or rashes. HEENT: Normocephalic. No evidence of trauma. Pupils are equal, round and reactive to light and accommodation. Sclerae nonicteric. Oral mucosa is moist without lesions. Mucosa and conjunctivae are pale. There is nasal oxygen in place. NECK: Supple. No jugular venous distention or thyroid enlargement. CHEST: Clear to auscultation and percussion. No rhonchi, wheezes, rales or rubs. NODES: No palpable lymphadenopathy in lymph node bearing area. HEART: Regular sinus rhythm, no S3, S4 or murmurs. No rubs. ABDOMEN: Soft, no masses, no ascites. EXTREMITIES: No clubbing. No edema or cyanosis. No palpable cords or Homans sign. NEUROLOGIC: Normal except for weakness. There are no focal neurologic abnormalities at this time. LABORATORY DATA: White blood cell count 1600 with absolute neutrophil count of 1400, hemoglobin 8.2, hematocrit 25.9 and platelet count 43,000. Sodium 134, potassium 5.8, creatinine 1.69, BUN 58, calcium 7.6. Troponin 1800 was 11.5 at 1437 on 10/28/2018 and increased to 16.4 at 2000 on 10/28/2018. ASSESSMENT: 1. Pneumonia immunocompromised host of possible pneumocystis. 2. Pancytopenia secondary to chemotherapy myeloma. 3. Multiple myeloma with neutropenic fever. 4. Non-ST elevation myocardial infarction. The patient's respiratory status has improved. Hematologically, the patient is relatively stable. Unfortunately, patient has had symptoms and chemical changes consistent with a non-STEMI. I do feel that this patient would be able to tolerate and should undergo angioplasty and possible placement of a coated stent. As noted, the patient's platelet count today is 43,000. The patient did receive 3 units of plateletpheresis on 10/28/2018. We will arrange for the patient to have 2 more units of platelet pheresis in the morning prior to the coronary angiogram and possible stent placement. We will continue the patient on filgrastim. We will also check a protime and PTT in a.m. Dictated By: KVNG GONSALES MD SR/NTS Conf#: [id number] DID#: [id number] MTDAndry
--- NOTE | 2018-10-30 07:14 | CONS ---
Assessment/Plan Assessment/Plan Hospital Course (Demo Recall) 68 yo with multiple myeloma and opportunistic infections, pneumonia, who had an NSTEMI three nights ago, with chest pain, dynamic ekg changes, and elevation of troponin. Angiography had been planned for today, with possible PCI, but this has been canceled due to recurrence of severe thrombocytopenia Impression: NSTEMI severe thrombocytopenia, multifactorial, due to MM, and possibly also drug- induced Multiple myeloma Transient word-finding difficulties Recommendations: Cannot proceed with coronary angiography with possible PCI due to severe thrombocytopenia Continue asa, statin, bb Consider neurologic evaluation for transient word finding difficulties I have spoken with the hospital pharmacist, who will review medications and evaluate which could be contributing to thrombocytopenia Also, voriconazole lowers effectiveness of clopidogrel, so if patient were to undergo PCI, would want the patient off voriconazole so that clopidogrel could be administered Possible angiography tomorrow or in the coming days IF platelet count stabilizes Consultation Date/Type/Reason Admit Date/Time Oct 20, 2018 at 19:11 Initial Consult Date 10/28/18 Type of Consult Cardiology Requesting Provider: ARACELIS DAMON Date/Time of Note DATE: 10/30/18 TIME: 07:08 24 HR Interval Summary Free Text/Dictation Patient platelet count is severely reduced this am, coronary angiography canceled. Patient has no chest pain or dyspnea, but has back discomfort and is uncomfortable in the bed and wants to get up. He also had two episodes yesterday of transient word finding difficulties. Exam/Review of Systems Vital Signs Vitals Vital Signs Date Temp Pulse Resp B/P (MAP) Pulse Ox O2 O2 Flow FiO2 Time Delivery Rate 10/30/18 2.0 05:55 10/30/18 63 04:00 10/30/18 97.7 18 129/65 99 03:07 (86) 10/29/18 Nasal 20:38 Cannula 10/26/18 35 19:55 Intake and Output 10/29/18 10/29/18 10/30/18 1414:59 22:59 06:59 IntakeIntake Total 800 ml 800 ml OutputOutput Total 1750 ml 850 ml BalanceBalance -950 ml -50 ml Exam Constitutional: alert, oriented, well developed Psych: nl mood/affect Head: normocephalic, atraumatic Eyes: EOMI, nl lids, nl sclera ENMT: nl external ears & nose, nl lips & teeth Neck: supple; No jvd, No bruits Respiratory: clear to auscultation, normal air movement Cardiovascular: regular rate and rhythm, nl pulses; No murmurs/extra sounds Gastrointestinal: soft, nl liver, spleen, non-tender Musculoskeletal: nl extremities to inspection Extremities: normal pulses; No edema Neurological: nl mental status, nl speech Skin: nl turgor; No rash or lesions Labs Result Diagram: 10/30/18 0525 10/29/18 0547 Results 24hrs Laboratory Tests Test 10/29/18 10:07 10/29/18 12:46 10/30/18 05:25 Bedside Glucose 143 Lab Scanned Report REFERENCE LAB White Blood Count 2.9 #L Red Blood Count 3.13 L Hemoglobin 9.1 L Hematocrit 28.5 L Mean Corpuscular Volume 91.1 Mean Corpuscular Hemoglobin 29.1 Mean Corpuscular 31.9 L Hemoglobin Concent Red Cell Distribution Width 16.1 H Platelet Count 27 #*L Mean Platelet Volume Immature Granulocytes % 1.700 H Neutrophils % Lymphocytes % Monocytes % Eosinophils % Basophils % Nucleated Red Blood Cells % 0.0 Immature Granulocytes # 0.050 H Neutrophils # Lymphocytes # Monocytes # Eosinophils # Basophils # Nucleated Red Blood Cells # Prothrombin Time 18.7 #H Prothrombin Time Ratio 1.5 INR International 1.55 Normalized Ratio Activated Partial Thromboplast 25.6 Time Medications Medications Current Medications IV Flush (NS 3 ml) 3 ml PER PROTOCOL IV ; Start 10/20/18 at 19:30 Ondansetron HCl (Zofran Inj) 4 mg Q6H PRN IV NAUSEA/VOMITING Last administered on 10/28/18at 15:07; Admin Dose 4 MG; Start 10/20/18 at 19:30 Acetaminophen (Tylenol Tab) 650 mg Q6H PRN PO .PAIN 1-3 OR TEMP Last administered on 10/27/18at 21:17; Admin Dose 650 MG; Start 10/20/18 at 19:30 Albuterol/ Ipratropium (Duoneb) 3 ml Q6HWA RESP THERAPY HHN Last administered on 10/29/18at 20:38; Admin Dose 3 ML; Start 10/20/18 at 20:00 Albuterol/ Ipratropium (Duoneb) 3 ml Q2H RESP THERAPY PRN HHN shortness of breath Last administered on 10/24/18 06:25; Admin Dose 3 ML; Start 10/20/18 at 19:30 Acetaminophen/ Hydrocodone Bitart ([place] (10)) 1 tab Q6H PRN PO MODERATE PAIN LEVEL 4-6 Last administered on 10/27/18 19:00; Admin Dose 1 TAB; Start 10/21/18 at 07:00 Nystatin (Nystatin Susp) 5 ml QID PO Last administered on 10/29/18 21:39; Admin Dose 5 ML; Start 10/23/18 at 13:00 Magnesium Hydroxide (Milk Of Mag) 30 ml DAILY PRN PO CONSTIPATION Last administered on 10/28/18 17:59; Admin Dose 30 ML; Start 10/24/18 at 00:30 Miscellaneous Information (* Miscellaneous Pharmacy Order) Please adjust voriconazole dosing ... ONCE XX ; Start 10/24/18 at 19:00 Docusate Sodium (Colace) 100 mg DAILY PRN PO CONSTIPATION Last administered on 10/25/18 13:28; Admin Dose 100 MG; Start 10/25/18 at 10:30 Methylnaltrexone [place] (Relistor) 12 mg DAILY SC Last administered on 10/29/18 08:26; Admin Dose 12 MG; Start 10/26/18 at 09:00 Voriconazole (Vfend) 200 mg BID PO Last administered on 10/29/18 21:39; Admin Dose 200 MG; Start 10/26/18 at 21:00 Methylprednisolone Sodium Succinate (Solu-Medrol) 40 mg Q12 IV Last administered on 10/29/18 21:39; Admin Dose 40 MG; Start 10/27/18 at 21:00 Calcium Carbonate (Tums) 500 mg PRN PRN PO HEARTBURN Last administered on 10/27/18 20:45; Admin Dose 500 MG; Start 10/27/18 at 14:00 Filgrastim (Nivestym) 480 mcg DAILY@1700 SC Last administered on 10/29/18 21:00; Admin Dose 480 MCG; Start 10/27/18 at 18:45 Morphine Sulfate (morphine) 2 mg Q4H PRN IV SEVERE PAIN LEVEL 7-10 Last administered on 10/27/18at 22:10; Admin Dose 2 MG; Start 10/27/18 at 22:30 Nitroglycerin (Nitroglycerin 0.2 Mg/Hr) 1 patch DAILY TRANSDERM Last administered on 10/29/18 08:32; Admin Dose 1 PATCH; Start 10/28/18 at 01:30 Al Hydrox/Mg Hydrox/Simethicone (Mag-Al Plus) 30 ml Q6H PRN PO GASTROINTESTINAL UPSET Last administered on 10/29/18 19:23; Admin Dose 30 ML; Start 10/28/18 at 06:00 Atorvastatin Calcium (Lipitor) 80 mg HS PO Last administered on 10/29/18 21:39; Admin Dose 80 MG; Start 10/29/18 at 21:00 Carvedilol (Coreg) 3.125 mg BID PO Last administered on 10/29/18 21:39; Admin Dose 3.125 MG; Start 10/28/18 at 09:00 Aspirin (Aspirin) 81 mg DAILY PO Last administered on 10/29/18 08:18; Admin Dose 81 MG; Start 10/28/18 at 09:00 Furosemide (Lasix) 40 mg DAILY IV Last administered on 10/29/18 08:18; Admin Dose 40 MG; Start 10/28/18 at 11:00 Ceftriaxone Sodium 50 ml @ 100 mls/hr Q24H IVPB Last administered on 10/29/18 15:54; Admin Dose 100 MLS/HR; Start 10/29/18 at 12:30 Sodium Chloride 1,000 ml @ 75 mls/hr [id number] IV Last administered on 10/29/18 23:49; Admin Dose 75 MLS/HR; Start 10/30/18 at 00:00 GUANAKITO MOHAN Oct 30, 2018 07:14
[2018-10-30] MEDS: ALBUTEROL/IPRATROPIUM (NEB) 3 ML AMP HHN SCH ×3 (08:00→20:29)
[2018-10-30] MEDS ORDERED: NA POLYST SULFON 15 GM/60 ML BTL PO ONE (09:30)
[2018-10-30] MEDS: NYSTATIN SUSP 5 ML CUP PO SCH ×4 (09:31→21:34)
[2018-10-30] MEDS: VORICONAZOLE 200 MG TAB PO SCH (09:32)
[2018-10-30] MEDS: ASPIRIN 81 MG TAB PO SCH (09:32)
[2018-10-30] MEDS: METHYLPREDNISOLONE 40 MG INJ IV SCH ×2 (09:32→21:33)
[2018-10-30] MEDS: NITROGLYCERIN 0.2 MG/HR PATCH TRANSDERM SCH (09:33)
[2018-10-30] MEDS: METHYLNALTREXONE 12 MG/0.6 ML VIAL SC SCH (09:36)
--- NOTE | 2018-10-30 10:27 | PN ---
DATE: 10/30/2018 SUBJECTIVE: The patient is stable, no acute events overnight. No fevers, chills, nausea, vomiting. OBJECTIVE: VITAL SIGNS: Blood pressure is 127/70, respirations 16, pulse 75, temperature 97.7. HEENT: Head is normocephalic. NECK: Supple. HEART: Regular rate. LUNGS: Show diminished breath sounds at the base. ABDOMEN: Soft, nontender to palpation without rebound or guarding. EXTREMITIES: Negative for clubbing, cyanosis, no edema. DERMATOLOGIC: No rashes. MUSCULOSKELETAL: No joint effusion. NEUROLOGIC: No change in exam. MEDICATIONS: Reviewed. LABORATORY DATA: 10/30/2018 shows sodium 135, potassium 6.2, BUN 68, creatinine 1.56. White count 2 .9, hemoglobin 9.1, platelet count is 27. IMAGING: The patient's chest x-ray from 10/30/2018 shows patchy infiltrates. ASSESSMENT AND PLAN: 1. Nonoliguric kidney injury on top of chronic kidney disease with previous baseline creatinine arou nd 2.0 mg/dL. Etiology of acute kidney injury was secondary to hemodynamics. Renal function, howeve r, is below previous baseline. At this point, continue current treatment plan, supportive care, kinga lly dose all meds. 2. Hyperkalemia. Etiology is likely multifactorial secondary to Bactrim effect, ALYSSA inhibitor, chrome tanner clemencia kidney disease. The patient's potassium levels are elevated. We will give the patient a course of Kayexalate. Will consider fluid challenge. The patient will be placed on low-potassium diet and monitor potassium levels closely. 3. Hyponatremia secondary to acute kidney injury causing decreased free water urinary excretion. Co ntinue to monitor. 4. Non-STEMI. Continue medical management. Cardiac catheterization is currently on hold due to thr ombocytopenia. Continue to monitor. 5. Multiple myeloma. The patient is status post chemotherapy. Continue to monitor. 6. Severe sepsis secondary to pneumonia. Continue current antibiotic regimen. 7. Pancytopenia, likely secondary to multiple myeloma, on chemotherapy. Continue to monitor. Follo w up with hematology. 8. Acute respiratory failure secondary to pneumonia, questionable pulmonary congestion. Continue cu rrent treatment plan. Continue antibiotic therapy, nebulizers. 9. Mineral bone disorder, monitor calcium and phosphorus levels. 10. Hypertension. Continue to monitor. Dictated By: NICHOLAS CONCEPCION DO NR/NTS Conf#: [id number] DID#: [id number] CC: TRESA SABILLON MD; CHET THOMAS MD; IZZY LEBLANC MD;*EndCC*
[2018-10-30] MEDS ORDERED: METOPROLOL 50 MG TAB PO ONE (13:00)
[2018-10-30] MEDS: CEFTRIAXONE 1 GM/50 ML (PMX) 50 ML IVPB SCH (13:16)
--- NOTE | 2018-10-30 14:43 | CONS ---
Assessment/Plan Assessment/Plan Hospital Course 68 yo M with hx of multiple myeloma on Revlimid and other comorbidities who presents for evaluation of cough, SOB and fevers. He was additionally noted to have dysphasia... for which neurology is consulted. The clinical picture is most ominously concerning for minor stroke. P: CTH without contrast for further characterization Ok to cautiously give aspirin pending the above; LDL is at goal Cont other medical management per primary PT/OT/ST as necessary Will follow clinically, to recommend neurologic studies, as necessary Consultation Date/Type/Reason Admit Date/Time Oct 20, 2018 at 19:11 Type of Consult Neurology Reason for Consultation slurred speech, word finding Requesting Provider: IZZY LEBLANC Date/Time of Note DATE: 10/30/18 TIME: 14:43 Hx of Present Illness 68 yo M with hx of multiple myeloma on Revlimid, and other comorbidities who initially presented to the ED with c/o cough, SOB, and fevers. History was obtained from pt, , HCP, and chart review. The stated that the pt has been in and out of the hospital a couple times o gopal the past few months d/t pneumonia. She stated that last time he was in the hospital, in June, he was unable to take his Revlimid. During that time, the pt developed slurred speech and difficulty with word finding. She stated that brain imaging was obtained at the time and was negative for stroke. She states that yesterday, while in the hospital, the pt developed difficulty with word finding. She states that it has been on and off since then. The pt endorses some difficulty speaking and states that it takes longer for him to get the words out. He denies confusion, lethargy, weakness, vision problems, numbness or tingling. It is additionally elsewhere noted: Hx of Present Illness This is a 68-year-old male with a history of multiple myeloma, CKD, neutropenic fever, pneumonia who presented to ER complaining of cough, shortness of breath and fever. Patient was admitted here twice before in April and June 2018. At that time he was treated for neutropenic fever and sepsis secondary to pneumonia. When he presented to the ER this time, he had a temp of 104, oxygen saturation 86%. WBC 1.6 with 67% neutrophils. Hemoglobin 7.6. Chest x-ray was a finding of pneumonia. negative unless noted otherwise in HPI Exam/Review of Systems Exam Vitals Vital Signs Date Temp Pulse Resp B/P (MAP) Pulse Ox O2 O2 Flow FiO2 Time Delivery Rate 10/30/18 84 12:00 10/30/18 97.7 17 109/62 100 11:59 (78) 10/30/18 Nasal 3.0 09:59 Cannula 10/26/18 35 19:55 Intake and Output 10/29/18 10/29/18 10/30/18 1515:00 23:00 07:00 IntakeIntake Total 800 ml 800 ml OutputOutput Total 1750 ml 850 ml BalanceBalance -950 ml -50 ml Exam PE: Gen Appearance: No Apparent Distress HEENT: Normocephalic Cardiovascular: Regular rate Lungs: Clear bilaterally Abdomen: Soft Extremities: Dry NE: The patient was alert and oriented. Speech was slightly dysphasic. No dysarthria noted. Fund of knowledge was normal. Pupils were equal and reactive to light. There was no afferent pupillary defect. Visual rasheed were normal. Funduscopic examination was limited. Extra-ocular movements were full. Ptosis was absent. There was no nystagmus. Facial sensation was normal. Face was symmetric with normal strength. Hearing was intact. Palate movements were normal. Neck strength was normal. There was normal tongue bulk and speed of movement. Tone was normal. Muscle bulk was normal. I did not see fasciculations. Arms and legs were strong to confrontation. Vibration sensation was normal. Temperature and pinprick sensation was normal. Rapid alternating movements were normal. There was no dysmetria. There was no intention tremor. Gait was deferred due to bedrest. Arm and leg reflexes were 2+ and symmetric. Ragsdale's sign was absent. Plantar responses were flexor. Results Result Diagram: 10/30/1852410/30/1825 Results 24hrs Laboratory Tests Test 10/30/18 05:25 10/30/18 11:20 White Blood Count 2.9 #L Red Blood Count 3.13 L Hemoglobin 9.1 L Hematocrit 28.5 L Mean Corpuscular Volume 91.1 Mean Corpuscular Hemoglobin 29.1 Mean Corpuscular Hemoglobin Concent 31.9 L Red Cell Distribution Width 16.1 H Platelet Count 27 #*L Mean Platelet Volume Immature Granulocytes % 1.700 H Neutrophils % Segmented Neutrophils % (Manual) 84 H Band Neutrophils % (Manual) 12 H Lymphocytes % Lymphocytes % (Manual) 3 L Monocytes % Monocytes % (Manual) 1 Eosinophils % Basophils % Nucleated Red Blood Cells % 0.0 Immature Granulocytes # 0.050 H Neutrophils # Neutrophils # (Manual) 2.4 Band Neutrophils # 0.3 Lymphocytes (Manual) 0.0 L Lymphocytes # Monocytes # Monocytes # (Manual) 0.0 L Eosinophils # Basophils # Nucleated Red Blood Cells # Platelet Estimate SIG DECREASED Giant Platelets 8 H Polychromasia 1+ Spherocytes 1+ Prothrombin Time 18.7 #H Prothrombin Time Ratio 1.5 INR International Normalized Ratio 1.55 Activated Partial Thromboplast Time 25.6 Sodium Level 135 Potassium Level 6.2 *H Chloride Level 104 Carbon Dioxide Level 24 Anion Gap 7 Blood Urea Nitrogen 68 H Creatinine 1.56 H Est Glomerular Filtrat Rate mL/min 44 L Glucose Level 123 Calcium Level 7.7 L Phosphorus Level 3.8 Magnesium Level 2.7 H Urine Color STRAW Urine Clarity CLEAR Urine pH 5.0 Urine Specific [place] 1.008 Urine Ketones NEGATIVE Urine Nitrite NEGATIVE Urine Bilirubin NEGATIVE Urine Urobilinogen NEGATIVE Urine Leukocyte Esterase NEGATIVE Urine Microscopic RBC 0 Urine Microscopic WBC 0 Urine Hemoglobin 1+ H Urine Random Creatinine 13.29 L Urine Random Sodium 120 H Urine Glucose NEGATIVE Urine Total Protein 49.0 H Medications Medication Current Medications IV Flush (NS 3 ml) 3 ml PER PROTOCOL IV ; Start 10/20/18 at 19:30 Ondansetron HCl (Zofran Inj) 4 mg Q6H PRN IV NAUSEA/VOMITING Last administered on 10/28/18at 15:07; Admin Dose 4 MG; Start 10/20/18 at 19:30 Acetaminophen (Tylenol Tab) 650 mg Q6H PRN PO .PAIN 1-3 OR TEMP Last administered on 10/27/18at 21:17; Admin Dose 650 MG; Start 10/20/18 at 19:30 Albuterol/ Ipratropium (Duoneb) 3 ml Q6HWA RESP THERAPY HHN Last administered on 10/29/18at 20:38; Admin Dose 3 ML; Start 10/20/18 at 20:00 Albuterol/ Ipratropium (Duoneb) 3 ml Q2H RESP THERAPY PRN HHN shortness of breath Last administered on 10/24/18at 06:25; Admin Dose 3 ML; Start 10/20/18 at 19:30 Acetaminophen/ Hydrocodone Bitart ([place] (10)) 1 tab Q6H PRN PO MODERATE PAIN LEVEL 4-6 Last administered on 10/27/18 19:00; Admin Dose 1 TAB; Start 10/21/18 at 07:00 Nystatin (Nystatin Susp) 5 ml QID PO Last administered on 10/30/18 13:16; Admin Dose 5 ML; Start 10/23/18 at 13:00 Magnesium Hydroxide (Milk Of Mag) 30 ml DAILY PRN PO CONSTIPATION Last administered on 10/28/18 17:59; Admin Dose 30 ML; Start 10/24/18 at 00:30 Miscellaneous Information (* Miscellaneous Pharmacy Order) Please adjust voriconazole dosing ... ONCE XX ; Start 10/24/18 at 19:00 Docusate Sodium (Colace) 100 mg DAILY PRN PO CONSTIPATION Last administered on 10/25/18 13:28; Admin Dose 100 MG; Start 10/25/18 at 10:30 Methylnaltrexone [place] (Relistor) 12 mg DAILY SC Last administered on 10/30/18 09:36; Admin Dose 12 MG; Start 10/26/18 at 09:00 Voriconazole (Vfend) 200 mg BID PO Last administered on 10/30/18 09:32; Admin Dose 200 MG; Start 10/26/18 at 21:00 Methylprednisolone Sodium Succinate (Solu-Medrol) 40 mg Q12 IV Last administered on 10/30/18 09:32; Admin Dose 40 MG; Start 10/27/18 at 21:00 Calcium Carbonate (Tums) 500 mg PRN PRN PO HEARTBURN Last administered on 10/27/18 20:45; Admin Dose 500 MG; Start 10/27/18 at 14:00 Filgrastim (Nivestym) 480 mcg DAILY@1700 SC Last administered on 10/29/18 21:00; Admin Dose 480 MCG; Start 10/27/18 at 18:45 Morphine Sulfate (morphine) 2 mg Q4H PRN IV SEVERE PAIN LEVEL 7-10 Last administered on 10/27/18 22:10; Admin Dose 2 MG; Start 10/27/18 at 22:30 Nitroglycerin (Nitroglycerin 0.2 Mg/Hr) 1 patch DAILY TRANSDERM Last administered on 10/30/18 09:33; Admin Dose 1 PATCH; Start 10/28/18 at 01:30 Al Hydrox/Mg Hydrox/Simethicone (Mag-Al Plus) 30 ml Q6H PRN PO GASTROINTESTINAL UPSET Last administered on 10/29/18at 19:23; Admin Dose 30 ML; Start 10/28/18 at 06:00 Atorvastatin Calcium (Lipitor) 80 mg HS PO Last administered on 10/29/18at 21:39; Admin Dose 80 MG; Start 10/29/18 at 21:00 Carvedilol (Coreg) 3.125 mg BID PO Last administered on 10/30/18 09:32; Admin Dose 3.125 MG; Start 10/28/18 at 09:00 Aspirin (Aspirin) 81 mg DAILY PO Last administered on 10/30/18 09:32; Admin Dose 81 MG; Start 10/28/18 at 09:00 Furosemide (Lasix) 40 mg DAILY IV Last administered on 10/29/18at 08:18; Admin Dose 40 MG; Start 10/28/18 at 11:00; Status Hold Ceftriaxone Sodium 50 ml @ 100 mls/hr Q24H IVPB Last administered on 10/30/18 13:16; Admin Dose 100 MLS/HR; Start 10/29/18 at 12:30 Past Medical History reviewed Medical History: cancer, other (See HPI) Home Meds Active Scripts Cephalexin* (Keflex*) 500 Mg Capsule, 500 MG PO QID for 7 Days, CAP Prov:EVERETT GALICIA PA-C 08/18/18 Reported Medications Hydromorphone Hcl* (Hydromorphone Hcl*) 4 Mg Tablet, 4 MG PO Q4H PRN for PAIN, TAB 04/12/18 Naproxen* (Naproxen*) 375 Mg Tablet, 375 MG PO BID PRN for PAIN LEVEL 6-10, TAB TAKE 1 - 2 TABLETS BY MOUTH NEEDED FOR PAIN 04/12/18 Lenalidomide (Revlimid) 15 Mg Capsule, 15 MG PO, CAP 04/12/18 Dexamethasone* (Dexamethasone*) 4 Mg Tablet, 4 MG PO Q8, TAB Take 3 tablets by mouth Once a Week. QWED 04/12/18 Medications Current Medications IV Flush (NS 3 ml) 3 ml PER PROTOCOL IV ; Start 10/20/18 at 19:30 Ondansetron HCl (Zofran Inj) 4 mg Q6H PRN IV NAUSEA/VOMITING Last administered on 10/28/18 15:07; Admin Dose 4 MG; Start 10/20/18 at 19:30 Acetaminophen (Tylenol Tab) 650 mg Q6H PRN PO .PAIN 1-3 OR TEMP Last administered on 10/27/18 21:17; Admin Dose 650 MG; Start 10/20/18 at 19:30 Albuterol/ Ipratropium (Duoneb) 3 ml Q6HWA RESP THERAPY HHN Last administered on 10/29/18 20:38; Admin Dose 3 ML; Start 10/20/18 at 20:00 Albuterol/ Ipratropium (Duoneb) 3 ml Q2H RESP THERAPY PRN HHN shortness of breath Last administered on 10/24/18 06:25; Admin Dose 3 ML; Start 10/20/18 at 19:30 Acetaminophen/ Hydrocodone Bitart ([place] (10/325)) 1 tab Q6H PRN PO MODERATE PAIN LEVEL 4-6 Last administered on 10/27/18 19:00; Admin Dose 1 TAB; Start 10/21/18 at 07:00 Nystatin (Nystatin Susp) 5 ml QID PO Last administered on 10/30/18 13:16; Admin Dose 5 ML; Start 10/23/18 at 13:00 Magnesium Hydroxide (Milk Of Mag) 30 ml DAILY PRN PO CONSTIPATION Last administered on 10/28/18 17:59; Admin Dose 30 ML; Start 10/24/18 at 00:30 Miscellaneous Information (* Miscellaneous Pharmacy Order) Please adjust voriconazole dosing ... ONCE XX ; Start 10/24/18 at 19:00 Docusate Sodium (Colace) 100 mg DAILY PRN PO CONSTIPATION Last administered on 10/25/18 13:28; Admin Dose 100 MG; Start 10/25/18 at 10:30 Methylnaltrexone [place] (Relistor) 12 mg DAILY SC Last administered on 10/30/18 09:36; Admin Dose 12 MG; Start 10/26/18 at 09:00 Voriconazole (Vfend) 200 mg BID PO Last administered on 10/30/18 09:32; Admin Dose 200 MG; Start 10/26/18 at 21:00 Methylprednisolone Sodium Succinate (Solu-Medrol) 40 mg Q12 IV Last administere d on 10/30/18 09:32; Admin Dose 40 MG; Start 10/27/18 at 21:00 Calcium Carbonate (Tums) 500 mg PRN PRN PO HEARTBURN Last administered on 10/27/18 20:45; Admin Dose 500 MG; Start 10/27/18 at 14:00 Filgrastim (Nivestym) 480 mcg DAILY@1700 SC Last administered on 10/29/18 21:00; Admin Dose 480 MCG; Start 10/27/18 at 18:45 Morphine Sulfate (morphine) 2 mg Q4H PRN IV SEVERE PAIN LEVEL 7-10 Last a dministered on 10/27/18 22:10; Admin Dose 2 MG; Start 10/27/18 at 22:30 Nitroglycerin (Nitroglycerin 0.2 Mg/Hr) 1 patch DAILY TRANSDERM Last administered on 10/30/18 09:33; Admin Dose 1 PATCH; Start 10/28/18 at 01:30 Al Hydrox/Mg Hydrox/Simethicone (Mag-Al Plus) 30 ml Q6H PRN PO GASTROINTESTINAL UPSET Last administered on 10/29/18 19:23; Admin Dose 30 ML; Start 10/28/18 at 06:00 Atorvastatin Calcium (Lipitor) 80 mg HS PO Last administered on 10/29/18 21:39; Admin Dose 80 MG; Start 10/29/18 at 21:00 Carvedilol (Coreg) 3.125 mg BID PO Last administered on 10/30/18 09:32; Admin Dose 3.125 MG; Start 10/28/18 at 09:00 Aspirin (Aspirin) 81 mg DAILY PO Last administered on 10/30/18 09:32; Admin Dose 81 MG; Start 10/28/18 at 09:00 Furosemide (Lasix) 40 mg DAILY IV Last administered on 10/29/18 08:18; Admin Dose 40 MG; Start 10/28/18 at 11:00; Status Hold Ceftriaxone Sodium 50 ml @ 100 mls/hr Q24H IVPB Last administered on 10/30/18 13:16; Admin Dose 100 MLS/HR; Start 10/29/18 at 12:30 Allergies: Coded Allergies: No Known Allergy (Unverified , 04/12/18) Past Surgical History reviewed Social History reviewed Alcohol Use: none Smoking Status: Never smoker Drug Use: none NORMA CABRALES NP Oct 30, 2018 14:43
--- NOTE | 2018-10-30 15:15 | PN ---
Date/Time of Note Date/Time of Note DATE: 10/30/18 TIME: 15:11 Assessment/Plan VTE Prophylaxis Risk score (from Ns)>0 risk: 2 SCD applied (from Ns): Yes Pharmacological prophylaxis: NA/contraindicated Pharm contraindication: low risk/ambulating Lines/Catheters IV [facility]from [facility] Mid Line Urinary Cath still in place: No Assessment/Plan Hospital Course 68 yo male with MM presented with neutropenic fevers 2/2 pneumonia leading to hypoxic respiratory failure MM with pancytopenia/neutropenia: - Neupogen per hematology. Neutrophil count thankfully is starting to respond and is no longer neutropenic Intermittent slurred speech -Patient with intermittent slurred speech and difficulty finding words, etiology may be related to multiple myeloma -Neurology consultation obtained NSTEMI: -Plan is for angio tomorrow if platelets stabilize Pneumonia: - Abx per ID Acute respiratory failure: - Continue O2 by NC as needed - Lasix as needed for pulmonary edema Acute kidney injury on CKD 3 - stable renal function has improved - result of MM -Nephrology consultation appreciated Hyperkalemia secondary to CKD and Bactrim effect -Status post Kayexalate Result Diagram: 10/30/18 0525 10/30/18 1357 Results 24hrs Laboratory Tests Test 10/30/18 05:25 10/30/18 11:20 10/30/18 13:57 White Blood Count 2.9 #L Red Blood Count 3.13 L Hemoglobin 9.1 L Hematocrit 28.5 L Mean Corpuscular Volume 91.1 Mean Corpuscular Hemoglobin 29.1 Mean Corpuscular 31.9 L Hemoglobin Concent Red Cell Distribution Width 16.1 H Platelet Count 27 #*L Mean Platelet Volume Immature Granulocytes % 1.700 H Neutrophils % Segmented Neutrophils % (Manual) 84 H Band Neutrophils % (Manual) 12 H Lymphocytes % Lymphocytes % (Manual) 3 L Monocytes % Monocytes % (Manual) 1 Eosinophils % Basophils % Nucleated Red Blood Cells % 0.0 Immature Granulocytes # 0.050 H Neutrophils # Neutrophils # (Manual) 2.4 Band Neutrophils # 0.3 Lymphocytes (Manual) 0.0 L Lymphocytes # Monocytes # Monocytes # (Manual) 0.0 L Eosinophils # Basophils # Nucleated Red Blood Cells # Platelet Estimate SIG DECREASED Giant Platelets 8 H Polychromasia 1+ Spherocytes 1+ Prothrombin Time 18.7 #H Prothrombin Time Ratio 1.5 INR International 1.55 Normalized Ratio Activated Partial Thromboplast 25.6 Time Sodium Level 135 136 Potassium Level 6.2 *H 5.6 H Chloride Level 104 102 Carbon Dioxide Level 24 25 Anion Gap 7 9 Blood Urea Nitrogen 68 H 72 H Creatinine 1.56 H 1.71 H Est Glomerular Filtrat 44 L 40 L Rate mL/min Glucose Level 123 141 Calcium Level 7.7 L 7.9 L Phosphorus Level 3.8 Magnesium Level 2.7 H Urine Color STRAW Urine Clarity CLEAR Urine pH 5.0 Urine Specific [place] 1.008 Urine Ketones NEGATIVE Urine Nitrite NEGATIVE Urine Bilirubin NEGATIVE Urine Urobilinogen NEGATIVE Urine Leukocyte Esterase NEGATIVE Urine Microscopic RBC 0 Urine Microscopic WBC 0 Urine Hemoglobin 1+ H Urine Random Creatinine 13.29 L Urine Random Sodium 120 H Urine Glucose NEGATIVE Urine Total Protein 49.0 H Subjective 24 Hr Interval Summary Constitutional: no complaints Exam/Review of Systems Exam Vitals Vital Signs Date Temp Pulse Resp B/P (MAP) Pulse Ox O2 O2 Flow FiO2 Time Delivery Rate 10/30/18 84 12:00 10/30/18 97.7 17 109/62 100 11:59 (78) 10/30/18 Nasal 3.0 09:59 Cannula 10/26/18 35 19:55 Intake and Output 10/29/18 10/29/18 10/30/18 1515:00 23:00 07:00 IntakeIntake Total 800 ml 800 ml OutputOutput Total 1750 ml 850 ml BalanceBalance -950 ml -50 ml Constitutional: alert, oriented Respiratory: clear to auscultation Cardiovascular: regular rate and rhythm Gastrointestinal: soft; No distended Musculoskeletal: nl extremities to inspection Results Results 24hrs Laboratory Tests Test 10/30/18 05:25 10/30/18 11:20 10/30/18 13:57 White Blood Count 2.9 #L Red Blood Count 3.13 L Hemoglobin 9.1 L Hematocrit 28.5 L Mean Corpuscular Volume 91.1 Mean Corpuscular Hemoglobin 29.1 Mean Corpuscular 31.9 L Hemoglobin Concent Red Cell Distribution Width 16.1 H Platelet Count 27 #*L Mean Platelet Volume Immature Granulocytes % 1.700 H Neutrophils % Segmented Neutrophils % (Manual) 84 H Band Neutrophils % (Manual) 12 H Lymphocytes % Lymphocytes % (Manual) 3 L Monocytes % Monocytes % (Manual) 1 Eosinophils % Basophils % Nucleated Red Blood Cells % 0.0 Immature Granulocytes # 0.050 H Neutrophils # Neutrophils # (Manual) 2.4 Band Neutrophils # 0.3 Lymphocytes (Manual) 0.0 L Lymphocytes # Monocytes # Monocytes # (Manual) 0.0 L Eosinophils # Basophils # Nucleated Red Blood Cells # Platelet Estimate SIG DECREASED Giant Platelets 8 H Polychromasia 1+ Spherocytes 1+ Prothrombin Time 18.7 #H Prothrombin Time Ratio 1.5 INR International 1.55 Normalized Ratio Activated Partial Thromboplast 25.6 Time Sodium Level 135 136 Potassium Level 6.2 *H 5.6 H Chloride Level 104 102 Carbon Dioxide Level 24 25 Anion Gap 7 9 Blood Urea Nitrogen 68 H 72 H Creatinine 1.56 H 1.71 H Est Glomerular Filtrat 44 L 40 L Rate mL/min Glucose Level 123 141 Calcium Level 7.7 L 7.9 L Phosphorus Level 3.8 Magnesium Level 2.7 H Urine Color STRAW Urine Clarity CLEAR Urine pH 5.0 Urine Specific [place] 1.008 Urine Ketones NEGATIVE Urine Nitrite NEGATIVE Urine Bilirubin NEGATIVE Urine Urobilinogen NEGATIVE Urine Leukocyte Esterase NEGATIVE Urine Microscopic RBC 0 Urine Microscopic WBC 0 Urine Hemoglobin 1+ H Urine Random Creatinine 13.29 L Urine Random Sodium 120 H Urine Glucose NEGATIVE Urine Total Protein 49.0 H Medications Medication Current Medications IV Flush (NS 3 ml) 3 ml PER PROTOCOL IV ; Start 10/20/18 at 19:30 Ondansetron HCl (Zofran Inj) 4 mg Q6H PRN IV NAUSEA/VOMITING Last administered on 10/28/18 15:07; Admin Dose 4 MG; Start 10/20/18 at 19:30 Acetaminophen (Tylenol Tab) 650 mg Q6H PRN PO .PAIN 1-3 OR TEMP Last administered on 10/27/18at 21:17; Admin Dose 650 MG; Start 10/20/18 at 19:30 Albuterol/ Ipratropium (Duoneb) 3 ml Q6HWA RESP THERAPY HHN Last administered on 10/30/18 15:09; Admin Dose 3 ML; Start 10/20/18 at 20:00 Albuterol/ Ipratropium (Duoneb) 3 ml Q2H RESP THERAPY PRN HHN shortness of breath Last administered on 10/24/18 06:25; Admin Dose 3 ML; Start 10/20/18 at 19:30 Acetaminophen/ Hydrocodone Bitart ([place] (10/325)) 1 tab Q6H PRN PO MODERATE PAIN LEVEL 4-6 Last administered on 10/27/18 19:00; Admin Dose 1 TAB; Start 10/21/18 at 07:00 Nystatin (Nystatin Susp) 5 ml QID PO Last administered on 10/30/18 13:16; Admin Dose 5 ML; Start 10/23/18 at 13:00 Magnesium Hydroxide (Milk Of Mag) 30 ml DAILY PRN PO CONSTIPATION Last administered on 10/28/18 17:59; Admin Dose 30 ML; Start 10/24/18 at 00:30 Miscellaneous Information (* Miscellaneous Pharmacy Order) Please adjust voriconazole dosing ... ONCE XX ; Start 10/24/18 at 19:00 Docusate Sodium (Colace) 100 mg DAILY PRN PO CONSTIPATION Last administered on 10/25/18 13:28; Admin Dose 100 MG; Start 10/25/18 at 10:30 Methylnaltrexone [place] (Relistor) 12 mg DAILY SC Last administered on 10/30/18 09:36; Admin Dose 12 MG; Start 10/26/18 at 09:00 Voriconazole (Vfend) 200 mg BID PO Last administered on 10/30/18 09:32; Admin Dose 200 MG; Start 10/26/18 at 21:00 Methylprednisolone Sodium Succinate (Solu-Medrol) 40 mg Q12 IV Last administered on 10/30/18 09:32; Admin Dose 40 MG; Start 10/27/18 at 21:00 Calcium Carbonate (Tums) 500 mg PRN PRN PO HEARTBURN Last administered on 10/27/18 20:45; Admin Dose 500 MG; Start 10/27/18 at 14:00 Filgrastim (Nivestym) 480 mcg DAILY@1700 SC Last administered on 10/29/18 21:00; Admin Dose 480 MCG; Start 10/27/18 at 18:45 Morphine Sulfate (morphine) 2 mg Q4H PRN IV SEVERE PAIN LEVEL 7-10 Last administered on 10/27/18 22:10; Admin Dose 2 MG; Start 10/27/18 at 22:30 Nitroglycerin (Nitroglycerin 0.2 Mg/Hr) 1 patch DAILY TRANSDERM Last administered on 10/30/18 09:33; Admin Dose 1 PATCH; Start 10/28/18 at 01:30 Al Hydrox/Mg Hydrox/Simethicone (Mag-Al Plus) 30 ml Q6H PRN PO GASTROINTESTINAL UPSET Last administered on 10/29/18 19:23; Admin Dose 30 ML; Start 10/28/18 at 06:00 Atorvastatin Calcium (Lipitor) 80 mg HS PO Last administered on 10/29/18 21:39; Admin Dose 80 MG; Start 10/29/18 at 21:00 Carvedilol (Coreg) 3.125 mg BID PO Last administered on 10/30/18 09:32; Admin Dose 3.125 MG; Start 10/28/18 at 09:00 Aspirin (Aspirin) 81 mg DAILY PO Last administered on 10/30/18 09:32; Admin Dose 81 MG; Start 10/28/18 at 09:00 Furosemide (Lasix) 40 mg DAILY IV Last administered on 10/29/18 08:18; Admin Dose 40 MG; Start 10/28/18 at 11:00; Status Hold Ceftriaxone Sodium 50 ml @ 100 mls/hr Q24H IVPB Last administered on 10/30/18 13:16; Admin Dose 100 MLS/HR; Start 10/29/18 at 12:30 IZZY LEBLANC Oct 30, 2018 15:15
[2018-10-30] MEDS: FILGRASTIM-AAFI 480 MCG/0.8 ML SYRINGE SC SCH (17:00)
[2018-10-30] MEDS: SOD CHLORIDE 0.9% 1,000 ML IV SCH (17:29)
--- NOTE | 2018-10-30 18:49 | CONS ---
Assessment/Plan Assessment/Plan Hospital Course (Demo Recall) assessment/impression - severe sepsis due to pneumonia - multilobar pneumonia - neutropenic fever - acute hypoxic resp failure - NSTEMI - multiple myeloma - immunocompromised state - pancytopenia due to multiple myeloma and chemo - anemia - CKD III - resp virus panel returned negative, crypto neg, legionella screen neg, TB Quant Gold indeterminate, [id number] level non-diagnostic due to the presence of interfering substances, crypto antigen negative, pneumocystis antigen negative recommendations: - pending results: coccidioides, fungal blood cultures, fungal sputum culture, aspergillus Ab/Ag, histoplasma antigen, mycoplasma IgG, IgM, procalcitonin level - will d/c voriconazole today - ceftriaxone may be stopped soon - Pt requests an incentive spirometer-->ordered - continue nystatin - neutropenic precautions until ANC>1000 management d/w Pt, his , Dr. Gandara and AZALEA Cam Consultation Date/Type/Reason Admit Date/Time Oct 20, 2018 at 19:11 Initial Consult Date 10/28/18 Type of Consult ID Requesting Provider: IZZY LEBLANC Date/Time of Note DATE: 10/30/18 TIME: 18:42 24 HR Interval Summary Constitutional: no complaints Detailed Summary Eyes: no complaints ENT: no complaints Respiratory: shortness of breath (slight dyspnea this morning) Cardiovascular: no complaints Gastrointestinal: no complaints Genitourinary: no complaints Musculoskeletal: no complaints Skin: no complaints Neurologic: other (slurred speech in the morning) Exam/Review of Systems Exam Vitals Vital Signs Date Temp Pulse Resp B/P (MAP) Pulse Ox O2 O2 Flow FiO2 Time Delivery Rate 10/30/18 78 16:00 10/30/18 98.2 16 140/74 99 15:26 (96) 10/30/18 2.0 15:18 10/30/18 Nasal 15:12 Cannula 10/26/18 35 19:55 Intake and Output 10/29/18 10/29/18 10/30/18 1515:00 23:00 07:00 IntakeIntake Total 800 ml 800 ml OutputOutput Total 1750 ml 850 ml BalanceBalance -950 ml -50 ml Constitutional: frail Psych: no complaints, nl mood/affect; No confusion Head: normocephalic, atraumatic Eyes: nl conjunctiva, nl lids ENMT: nl external ears & nose, nl nasal mucosa & septum Neck: non-tender, other (not swollen) Respiratory: clear to auscultation, normal air movement Cardiovascular: regular rate and rhythm, nl pulses Gastrointestinal: soft, non-tender; No distended, No tender Musculoskeletal: nl extremities to inspection Extremities: No edema Neurological: ZIPPER SETTER CHAINSTITCH II-XII intact, nl mental status, nl speech, nl strength Skin: nl turgor; No rash or lesions Results Result Diagram: 10/30/18 0525 10/30/18 1357 Results 24hrs Laboratory Tests Test 10/30/18 05:25 10/30/18 11:20 10/30/18 13:57 White Blood Count 2.9 #L Red Blood Count 3.13 L Hemoglobin 9.1 L Hematocrit 28.5 L Mean Corpuscular Volume 91.1 Mean Corpuscular Hemoglobin 29.1 Mean Corpuscular 31.9 L Hemoglobin Concent Red Cell Distribution Width 16.1 H Platelet Count 27 #*L Mean Platelet Volume Immature Granulocytes % 1.700 H Neutrophils % Segmented Neutrophils % (Manual) 84 H Band Neutrophils % (Manual) 12 H Lymphocytes % Lymphocytes % (Manual) 3 L Monocytes % Monocytes % (Manual) 1 Eosinophils % Basophils % Nucleated Red Blood Cells % 0.0 Immature Granulocytes # 0.050 H Neutrophils # Neutrophils # (Manual) 2.4 Band Neutrophils # 0.3 Lymphocytes (Manual) 0.0 L Lymphocytes # Monocytes # Monocytes # (Manual) 0.0 L Eosinophils # Basophils # Nucleated Red Blood Cells # Platelet Estimate SIG DECREASED Giant Platelets 8 H Polychromasia 1+ Spherocytes 1+ Prothrombin Time 18.7 #H Prothrombin Time Ratio 1.5 INR International 1.55 Normalized Ratio Activated Partial Thromboplast 25.6 Time Sodium Level 135 136 Potassium Level 6.2 *H 5.6 H Chloride Level 104 102 Carbon Dioxide Level 24 25 Anion Gap 7 9 Blood Urea Nitrogen 68 H 72 H Creatinine 1.56 H 1.71 H Est Glomerular Filtrat 44 L 40 L Rate mL/min Glucose Level 123 141 Calcium Level 7.7 L 7.9 L Phosphorus Level 3.8 Magnesium Level 2.7 H Urine Color STRAW Urine Clarity CLEAR Urine pH 5.0 Urine Specific [place] 1.008 Urine Ketones NEGATIVE Urine Nitrite NEGATIVE Urine Bilirubin NEGATIVE Urine Urobilinogen NEGATIVE Urine Leukocyte Esterase NEGATIVE Urine Microscopic RBC 0 Urine Microscopic WBC 0 Urine Hemoglobin 1+ H Urine Random Creatinine 13.29 L Urine Random Sodium 120 H Urine Glucose NEGATIVE Urine Total Protein 49.0 H Medications Medication Current Medications IV Flush (NS 3 ml) 3 ml PER PROTOCOL IV ; Start 10/20/18 at 19:30 Ondansetron HCl (Zofran Inj) 4 mg Q6H PRN IV NAUSEA/VOMITING Last administered on 10/28/18 15:07; Admin Dose 4 MG; Start 10/20/18 at 19:30 Acetaminophen (Tylenol Tab) 650 mg Q6H PRN PO .PAIN 1-3 OR TEMP Last ad ministered on 10/27/18 21:17; Admin Dose 650 MG; Start 10/20/18 at 19:30 Albuterol/ Ipratropium (Duoneb) 3 ml Q6HWA RESP THERAPY HHN Last administered on 10/30/18 15:09; Admin Dose 3 ML; Start 10/20/18 at 20:00 Albuterol/ Ipratropium (Duoneb) 3 ml Q2H RESP THERAPY PRN HHN shortness of breath Last administered on 10/24/18 06:25; Admin Dose 3 ML; Start 10/20/18 at 19:30 Acetaminophen/ Hydrocodone Bitart ([place] (10/325)) 1 tab Q6H PRN PO MODERATE PAIN LEVEL 4-6 Last administered on 10/27/18 19:00; Admin Dose 1 TAB; Start 10/21/18 at 07:00 Nystatin (Nystatin Susp) 5 ml QID PO Last administered on 10/30/18 17:04; Admin Dose 5 ML; Start 10/23/18 at 13:00 Magnesium Hydroxide (Milk Of Mag) 30 ml DAILY PRN PO CONSTIPATION Last administered on 10/28/18 17:59; Admin Dose 30 ML; Start 10/24/18 at 00:30 Miscellaneous Information (* Miscellaneous Pharmacy Order) Please adjust voriconazole dosing ... ONCE XX ; Start 10/24/18 at 19:00 Docusate Sodium (Colace) 100 mg DAILY PRN PO CONSTIPATION Last administered on 10/25/18 13:28; Admin Dose 100 MG; Start 10/25/18 at 10:30 Methylnaltrexone [place] (Relistor) 12 mg DAILY SC Last administered on 10/30/18 09:36; Admin Dose 12 MG; Start 10/26/18 at 09:00 Voriconazole (Vfend) 200 mg BID PO Last administered on 10/30/18 09:32; Admin Dose 200 MG; Start 10/26/18 at 21:00 Methylprednisolone Sodium Succinate (Solu-Medrol) 40 mg Q12 IV Last administered on 10/30/18 09:32; Admin Dose 40 MG; Start 10/27/18 at 21:00 Calcium Carbonate (Tums) 500 mg PRN PRN PO HEARTBURN Last administered on 10/27/18 20:45; Admin Dose 500 MG; Start 10/27/18 at 14:00 Filgrastim (Nivestym) 480 mcg DAILY@1700 SC Last administered on 10/29/18 21:00; Admin Dose 480 MCG; Start 10/27/18 at 18:45 Morphine Sulfate (morphine) 2 mg Q4H PRN IV SEVERE PAIN LEVEL 7-10 Last administered on 10/27/18 22:10; Admin Dose 2 MG; Start 10/27/18 at 22:30 Nitroglycerin (Nitroglycerin 0.2 Mg/Hr) 1 patch DAILY TRANSDERM Last administered on 10/30/18 09:33; Admin Dose 1 PATCH; Start 10/28/18 at 01:30 Al Hydrox/Mg Hydrox/Simethicone (Mag-Al Plus) 30 ml Q6H PRN PO GASTROINTESTINAL UPSET Last administered on 10/29/18 19:23; Admin Dose 30 ML; Start 10/28/18 at 06:00 Atorvastatin Calcium (Lipitor) 80 mg HS PO Last administered on 10/29/18 21:39; Admin Dose 80 MG; Start 10/29/18 at 21:00 Carvedilol (Coreg) 3.125 mg BID PO Last administered on 10/30/18 09:32; Admin Dose 3.125 MG; Start 10/28/18 at 09:00 Aspirin (Aspirin) 81 mg DAILY PO Last administered on 10/30/18 09:32; Admin Dose 81 MG; Start 10/28/18 at 09:00 Furosemide (Lasix) 40 mg DAILY IV Last administered on 10/29/18 08:18; Admin Dose 40 MG; Start 10/28/18 at 11:00; Status Hold Ceftriaxone Sodium 50 ml @ 100 mls/hr Q24H IVPB Last administered on 10/30/18at 13:16; Admin Dose 100 MLS/HR; Start 10/29/18 at 12:30 Sodium Chloride 1,000 ml @ 50 mls/hr Q20H IV Last administered on 10/30/18at 17:29; Admin Dose 50 MLS/HR; Start 10/30/18 at 17:30 CHANTAL LE M.D. Oct 30, 2018 18:49
--- NOTE | 2018-10-30 20:42 | PN ---
DATE: 10/30/2018 SUBJECTIVE: The patient states he is feeling better, was up walking today. No complaints of chest p ain. No increasing shortness of breath. The patient's appetite is fair, although he does complain of some reflux type symptoms for which he h as been taking a "Maalox." The angiogram which was to be done today was canceled because of the patient's thrombocytopenia. OBJECTIVE: GENERAL: The patient is a well-developed, chronically ill-appearing male who is in no acute distress . VITAL SIGNS: Temperature 98.2 axillary, pulse 78 per minute and regular, respirations 16, blood pres sure 140/74, pulse oximetry is 99% on 2 liters. SKIN: No ecchymosis, no petechiae or rashes. HEENT: Normocephalic. No evidence of trauma. Pupils equal, round, react to light and accommodation . Sclerae nonicteric. Oral mucosa is moist without lesions. There is nasal oxygen in place. The c onjunctiva and oral mucosa are pale. NECK: Supple. No jugular venous distention or thyroid enlargement. CHEST: Bilateral rales. No rubs. HEART: Regular sinus rhythm, no S3, S4 or murmurs. ABDOMEN: Soft, no masses, no ascites. EXTREMITIES: No clubbing. No edema or cyanosis. No palpable cords or Homans sign. NEUROLOGIC: Normal. WBCs 2900 with absolute neutrophil count of 2400, hemoglobin 9.1, hematocrit 25.5, and platelet count 27,000. Sodium 136, potassium 5.6, BUN 72, creatinine 1.71, calcium 7.9. ASSESSMENT: 1. Pneumonia in an immunocompromised host, improving. 2. Pancytopenia secondary to chemotherapy and to multiple myeloma. 3. Multiple myeloma with neutropenic fever. 4. Non-ST segment elevation myocardial infarction. DISCUSSION: The patient's white count is climbing. Now has an absolute neutrophil count of 2400. C an therefore discontinue neutropenic precautions. We will continue the patient on filgrastim. Since the patient's platelet count today of 23,000, he had received 2 units of platelets. The patient's partner has described some times of expressive aphasia, although the patient denies toma t. If this occurs again, we will get a CT scan of the brain. However, there are no focal neurologic abnormalities to suggest intracranial bleed. If the patient's bone marrow continues to improve, hopefully will be able to undergo the coronary ang iogram and possible stent placement. Dictated By: KVNG GONSALES MD SR/NTS Conf#: [id number] DID#: [id number] CC: CHET THOMAS MD;*End*
[2018-10-30] MEDS: AL HYDROX/MG HYDROX/SIMETH 30 ML CUP PO PRN (21:38)
[2018-10-30] MEDS: ATORVASTATIN 80 MG TAB PO SCH (21:38)
[2018-10-31] VITALS (12 sets, daily range): BP systolic 107–148; BP diastolic 59–75; PULSE 69–91; RESP 18–20
[2018-10-31] MEDS: SOD CHLORIDE 0.9% 1,000 ML IV SCH (04:44)
[2018-10-31] MEDS: PANTOPRAZOLE (EC) 40 MG TAB PO SCH (06:43)
[2018-10-31] MEDS: ALBUTEROL/IPRATROPIUM (NEB) 3 ML AMP HHN SCH ×3 (08:00→20:15)
[2018-10-31] MEDS ORDERED: REGADENOSON 0.4 MG/5 ML SYG ONE (09:06)
--- NOTE | 2018-10-31 09:41 | CONS ---
Assessment/Plan Assessment/Plan Hospital Course (Demo Recall) 68 yo with multiple myeloma and opportunistic infections, pneumonia, who had an NSTEMI four nights ago, with chest pain, dynamic ekg changes, and elevation of troponin. He is undergoing pharmacologic nuclear stress testing today. Impression: NSTEMI severe thrombocytopenia, multifactorial Multiple myeloma Recommendations: Continue asa, statin, bb Awaiting reading of pharmacologic nuclear stress testing -- if this is a small defect then I think that conservative care would be better suited. However, if there are significant abnormalities on the scan, then can consider an invasive approach with cath and possible PCI. Consultation Date/Type/Reason Admit Date/Time Oct 20, 2018 at 19:11 Initial Consult Date 10/28/18 Type of Consult Cardiology Requesting Provider: IZZY LEBLANC Date/Time of Note DATE: 10/31/18 TIME: 09:38 24 HR Interval Summary Free Text/Dictation Overnight no events. Patient seen and examined during stress test. Denies further chest pain. Exam/Review of Systems Vital Signs Vitals Vital Signs Date Temp Pulse Resp B/P (MAP) Pulse Ox O2 O2 Flow FiO2 Time Delivery Rate 10/31/18 78 08:38 10/31/18 97.7 18 113/66 98 Nasal 2.0 07:45 (82) Cannula Intake and Output 10/30/18 10/30/18 10/31/18 1515:00 23:00 07:00 IntakeIntake Total 700 ml 850 ml OutputOutput Total 750 ml 800 ml BalanceBalance -50 ml 50 ml Exam Constitutional: alert, oriented, well developed Psych: no complaints, nl mood/affect Head: normocephalic, atraumatic Eyes: EOMI, nl lids ENMT: nl external ears & nose Neck: No jvd, No bruits Respiratory: clear to auscultation, normal air movement Cardiovascular: regular rate and rhythm; No murmurs/extra sounds Gastrointestinal: soft, non-tender Musculoskeletal: nl extremities to inspection Extremities: No edema Neurological: nl mental status, nl speech Skin: nl turgor Labs Result Diagram: 10/31/1852110/31/18521 Results 24hrs Laboratory Tests Test 10/30/18 11:20 10/30/18 13:57 10/31/18 05:22 10/31/18 05:24 Urine Color STRAW Urine Clarity CLEAR Urine pH 5.0 Urine Specific 1.008 [place] Urine Ketones NEGATIVE Urine Nitrite NEGATIVE Urine Bilirubin NEGATIVE Urine NEGATIVE Urobilinogen Urine Leukocyte NEGATIVE Esterase Urine 0 Microscopic RBC Urine 0 Microscopic WBC Urine 1+ H Hemoglobin Urine Random 13.29 L Creatinine Urine Random 120 H Sodium Urine Glucose NEGATIVE Urine Total 49.0 H Protein Sodium Level 136 138 Potassium Level 5.6 H 5.6 H Chloride Level 102 106 Carbon Dioxide 25 25 Level Anion Gap 9 7 Blood Urea 72 H 69 H Nitrogen Creatinine 1.71 H 1.35 H Est Glomerular 40 L 52 L Filtrat Rate mL/min Glucose Level 141 125 Calcium Level 7.9 L 7.5 L White Blood 2.8 L Count Red Blood Count 2.90 L Hemoglobin 8.6 L Hematocrit 26.9 L Mean 92.8 Corpuscular Volume Mean 29.7 Corpuscular Hemoglobin Mean 32.0 Corpuscular Hemoglobin Conc ent Red Cell 15.9 H Distribution Width Platelet Count 36 #L Mean Platelet Volume Immature 13.200 H Granulocytes % Neutrophils % Segmented 64 Neutrophils % (Manual) Band 31 H Neutrophils % (Manual) Lymphocytes % Lymphocytes % 4 L (Manual) Monocytes % Eosinophils % Basophils % Metamyelocytes 1 H % (manual) Nucleated Red 0.0 Blood Cells % Immature 0.370 H Granulocytes # Neutrophils # Neutrophils # 1.8 (Manual) Band 0.8 H Neutrophils # Lymphocytes 0.1 L (Manual) Lymphocytes # Monocytes # Eosinophils # Basophils # Metamyelocytes 0.0 # Nucleated Red Blood Cells # Platelet SIG DECREASED Estimate Giant Platelets 1 H Polychromasia 1+ Hypochromasia 1+ Poikilocytosis 1+ Anisocytosis 1+ Phosphorus 4.1 Level Magnesium Level 2.3 Lab Scanned BLOOD TRANSFUS Report ION Test 10/31/18 09:31 Lab Scanned REFERENCE LAB Report Medications Medications Current Medications IV Flush (NS 3 ml) 3 ml PER PROTOCOL IV ; Start 10/20/18 at 19:30 Ondansetron HCl (Zofran Inj) 4 mg Q6H PRN IV NAUSEA/VOMITING Last administered on 10/28/18at 15:07; Admin Dose 4 MG; Start 10/20/18 at 19:30 Acetaminophen (Tylenol Tab) 650 mg Q6H PRN PO .PAIN 1-3 OR TEMP Last a dministered on 10/27/18at 21:17; Admin Dose 650 MG; Start 10/20/18 at 19:30 Albuterol/ Ipratropium (Duoneb) 3 ml Q6HWA RESP THERAPY HHN Last administered on 10/30/18 20:29; Admin Dose 3 ML; Start 10/20/18 at 20:00 Albuterol/ Ipratropium (Duoneb) 3 ml Q2H RESP THERAPY PRN HHN shortness of breath Last administered on 10/24/18 06:25; Admin Dose 3 ML; Start 10/20/18 at 19:30 Acetaminophen/ Hydrocodone Bitart ([place] (10/325)) 1 tab Q6H PRN PO MODERATE PAIN LEVEL 4-6 Last administered on 10/27/18 19:00; Admin Dose 1 TAB; Start 10/21/18 at 07:00 Nystatin (Nystatin Susp) 5 ml QID PO Last administered on 10/30/18 21:34; Admin Dose 5 ML; Start 10/23/18 at 13:00 Magnesium Hydroxide (Milk Of Mag) 30 ml DAILY PRN PO CONSTIPATION Last administered on 10/28/18 17:59; Admin Dose 30 ML; Start 10/24/18 at 00:30 Miscellaneous Information (* Miscellaneous Pharmacy Order) Please adjust voriconazole dosing ... ONCE XX ; Start 10/24/18 at 19:00 Docusate Sodium (Colace) 100 mg DAILY PRN PO CONSTIPATION Last administered on 10/25/18 13:28; Admin Dose 100 MG; Start 10/25/18 at 10:30 Methylprednisolone Sodium Succinate (Solu-Medrol) 40 mg Q12 IV Last administered on 10/30/18 21:33; Admin Dose 40 MG; Start 10/27/18 at 21:00 Calcium Carbonate (Tums) 500 mg PRN PRN PO HEARTBURN Last administered on 10/27/18 20:45; Admin Dose 500 MG; Start 10/27/18 at 14:00 Filgrastim (Nivestym) 480 mcg DAILY@1700 SC Last administered on 10/30/18 17:00; Admin Dose 480 MCG; Start 10/27/18 at 18:45 Morphine Sulfate (morphine) 2 mg Q4H PRN IV SEVERE PAIN LEVEL 7-10 Last administered on 10/27/18at 22:10; Admin Dose 2 MG; Start 10/27/18 at 22:30 Nitroglycerin (Nitroglycerin 0.2 Mg/Hr) 1 patch DAILY TRANSDERM Last administered on 10/30/18 09:33; Admin Dose 1 PATCH; Start 10/28/18 at 01:30 Al Hydrox/Mg Hydrox/Simethicone (Mag-Al Plus) 30 ml Q6H PRN PO GASTROINTESTINAL UPSET Last administered on 10/30/18 21:38; Admin Dose 30 ML; Start 10/28/18 at 06:00 Atorvastatin Calcium (Lipitor) 80 mg HS PO Last administered on 10/30/18 21:38; Admin Dose 80 MG; Start 10/29/18 at 21:00 Carvedilol (Coreg) 3.125 mg BID PO Last administered on 10/30/18 21:35; Admin Dose 3.125 MG; Start 10/28/18 at 09:00 Aspirin (Aspirin) 81 mg DAILY PO Last administered on 10/30/18 09:32; Admin Dose 81 MG; Start 10/28/18 at 09:00 Furosemide (Lasix) 40 mg DAILY IV Last administered on 10/29/18 08:18; Admin Dose 40 MG; Start 10/28/18 at 11:00; Status Hold Ceftriaxone Sodium 50 ml @ 100 mls/hr Q24H IVPB Last administered on 10/30/18 13:16; Admin Dose 100 MLS/HR; Start 10/29/18 at 12:30 Pantoprazole (Protonix Tab) 40 mg DAILY@06 PO Last administered on 10/31/18 06:43; Admin Dose 40 MG; Start 10/31/18 at 06:00 GUANAKITO MOHAN Oct 31, 2018 09:41
--- NOTE | 2018-10-31 10:01 | PN ---
DATE: 10/31/2018 SUBJECTIVE: The patient is stable. The patient is anxious about going home. The patient is pending for a stress test today. No other events noted. OBJECTIVE: VITAL SIGNS: Blood pressure is 113/66, pulse 78, respirations 18, temperature 97.7. HEENT: Head is normocephalic. NECK: Supple. HEART: Regular rate. LUNGS: Show diminished breath sounds at the base. ABDOMEN: Soft, nontender to palpation without rebound or guarding. EXTREMITIES: Negative for clubbing, cyanosis, no edema. DERMATOLOGIC: No rashes. MUSCULOSKELETAL: No joint effusion. NEUROLOGIC: No change in exam. MEDICATIONS: Reviewed. LABORATORY DATA: From 10/31/2018 was reviewed. ASSESSMENT AND PLAN: 1. Nonoliguric acute kidney injury on top of chronic kidney disease with previous baseline creatinin e of around 1.5 to 2.0 mg/dL. Etiology of acute kidney injury is secondary to hemodynamics. Renal f unction has been fluctuating, improved with a course of IV fluids. Plan is to discontinue IV hydrati on. Continue current treatment plans, supportive care, renally dose all medications. 2. Hyperkalemia. Etiology is multifactorial secondary to Bactrim effect, ALYSSA inhibitor, chronic kid cosme disease. The patient's potassium level slowly improving status post Kayexalate. Continue to mon itor closely. Continue low-potassium diet. 3. Hypernatremia secondary to acute kidney injury, improved. Continue to monitor. 4. Non-ST elevation myocardial infarction. Continue medical management. The patient is pending a s tress test, is significantly positive. The patient may require cardiac catheterization. I spoke wit h her real estate salesperson, Dr. Gandara about the risk of possible contrast-associated nephropathy. We will continue to optimize the patient. 5. Multiple myeloma. The patient is status post chemotherapy. Continue to monitor. 6. Pancytopenia secondary to multiple myeloma, on chemotherapy, improving. Continue to monitor. 7. Acute respiratory failure secondary to pneumonia. The patient is currently on antibiotic therapy , nebulizers. We will discontinue IV fluids and monitor. 8. Mineral bone disorder. Monitor calcium and phosphorus levels. 9. Hypertension. Continue to monitor. Dictated By: NICHOLAS BENOIT/SHARON Conf#: [id number] DID#: [id number] CC: CHET THOMAS MD; IZZY LEBLANC MD; TRESA SABILLON MD;*[facility]*
--- NOTE | 2018-10-31 11:53 | CONS ---
Assessment/Plan Assessment/Plan Hospital Course (Demo Recall) assessment/impression - severe sepsis due to pneumonia, improved - multilobar pneumonia - neutropenic fever, improved - acute hypoxic resp failure, improved - NSTEMI - stress test 10/31/2018: moderate size nonreversible perfusion defect in the inferoapical, inferior, distal inferoseptal and distal inferolateral jackson likely due to [place] - multiple myeloma - immunocompromised state - pancytopenia due to multiple myeloma and chemo - anemia - CKD III - resp virus panel returned negative, crypto neg, legionella screen neg, TB Quant Gold indeterminate, [id number] level non-diagnostic due to the presence of interfering substances, crypto antigen negative, pneumocystis antigen negative, coccidioides compliment fixation negative recommendations: - pending results: fungal blood cultures, fungal sputum culture, aspergillus Ab/Ag, histoplasma antigen, mycoplasma IgG, IgM, procalcitonin level - d/c ceftriaxone - continue to use an incentive spirometer - continue nystatin - d/c neutropenic precautions until ANC>1000 management d/w Pt, his Consultation Date/Type/Reason Admit Date/Time Oct 20, 2018 at 19:11 Initial Consult Date 10/28/18 Type of Consult ID Requesting Provider: IZZY LEBLANC Date/Time of Note DATE: 10/31/18 TIME: 11:48 24 HR Interval Summary Constitutional: improved, requiring O2 Detailed Summary Eyes: no complaints ENT: no complaints Respiratory: No cough, No shortness of breath Cardiovascular: no complaints Gastrointestinal: no complaints Genitourinary: no complaints Musculoskeletal: no complaints Skin: no complaints Exam/Review of Systems Exam Vitals Vital Signs Date Temp Pulse Resp B/P (MAP) Pulse Ox O2 O2 Flow FiO2 Time Delivery Rate 10/31/18 78 08:38 10/31/18 Nasal 3.0 08:08 Cannula 10/31/18 97.7 18 113/66 98 07:45 (82) Intake and Output 10/30/18 10/30/18 10/31/18 1515:00 23:00 07:00 IntakeIntake Total 700 ml 850 ml OutputOutput Total 750 ml 800 ml BalanceBalance -50 ml 50 ml Constitutional: alert, frail Psych: no complaints, nl mood/affect Head: normocephalic, atraumatic Eyes: nl conjunctiva, nl lids, nl sclera ENMT: nl external ears & nose, nl nasal mucosa & septum, mucosa pink and moist Neck: other (not swollen) Respiratory: clear to auscultation, normal air movement Cardiovascular: regular rate and rhythm, nl pulses; No edema Gastrointestinal: soft, non-tender; No distended Musculoskeletal: nl extremities to inspection; No swelling Extremities: normal pulses Neurological: nl mental status, nl speech Skin: nl turgor; No rash or lesions Results Result Diagram: 10/31/1852110/31/18521 Results 24hrs Laboratory Tests Test 10/30/18 13:57 10/31/18 05:22 10/31/18 05:24 10/31/18 09:31 Sodium Level 136 138 Potassium Level 5.6 H 5.6 H Chloride Level 102 106 Carbon Dioxide 25 25 Level Anion Gap 9 7 Blood Urea 72 H 69 H Nitrogen Creatinine 1.71 H 1.35 H Est Glomerular 40 L 52 L Filtrat Rate mL/min Glucose Level 141 125 Calcium Level 7.9 L 7.5 L White Blood 2.8 L Count Red Blood Count 2.90 L Hemoglobin 8.6 L Hematocrit 26.9 L Mean 92.8 Corpuscular Volume Mean 29.7 Corpuscular Hemoglobin Mean 32.0 Corpuscular Hemoglobin Conc ent Red Cell 15.9 H Distribution Width Platelet Count 36 #L Mean Platelet Volume Immature 13.200 H Granulocytes % Neutrophils % Segmented 64 Neutrophils % (Manual) Band 31 H Neutrophils % (Manual) Lymphocytes % Lymphocytes % 4 L (Manual) Monocytes % Eosinophils % Basophils % Metamyelocytes 1 H % (manual) Nucleated Red 0.0 Blood Cells % Immature 0.370 H Granulocytes # Neutrophils # Neutrophils # 1.8 (Manual) Band 0.8 H Neutrophils # Lymphocytes 0.1 L (Manual) Lymphocytes # Monocytes # Eosinophils # Basophils # Metamyelocytes 0.0 # Nucleated Red Blood Cells # Platelet SIG DECREASED Estimate Giant Platelets 1 H Polychromasia 1+ Hypochromasia 1+ Poikilocytosis 1+ Anisocytosis 1+ Phosphorus 4.1 Level Magnesium Level 2.3 Lab Scanned BLOOD TRANSFUSI REFERENCE LAB Report ON Medications Medication Current Medications IV Flush (NS 3 ml) 3 ml PER PROTOCOL IV ; Start 10/20/18 at 19:30 Ondansetron HCl (Zofran Inj) 4 mg Q6H PRN IV NAUSEA/VOMITING Last administered on 10/28/18 15:07; Admin Dose 4 MG; Start 10/20/18 at 19:30 Acetaminophen (Tylenol Tab) 650 mg Q6H PRN PO .PAIN 1-3 OR TEMP Last administered on 10/27/18 21:17; Admin Dose 650 MG; Start 10/20/18 at 19:30 Albuterol/ Ipratropium (Duoneb) 3 ml Q6HWA RESP THERAPY HHN Last administered on 10/30/18 20:29; Admin Dose 3 ML; Start 10/20/18 at 20:00 Albuterol/ Ipratropium (Duoneb) 3 ml Q2H RESP THERAPY PRN HHN shortness of breath Last administered on 10/24/18 06:25; Admin Dose 3 ML; Start 10/20/18 at 19:30 Acetaminophen/ Hydrocodone Bitart ([place] (10/325)) 1 tab Q6H PRN PO MODERATE PAIN LEVEL 4-6 Last administered on 10/27/18 19:00; Admin Dose 1 TAB; Start 10/21/18 at 07:00 Nystatin (Nystatin Susp) 5 ml QID PO Last administered on 10/30/18 21:34; Admin Dose 5 ML; Start 10/23/18 at 13:00 Magnesium Hydroxide (Milk Of Mag) 30 ml DAILY PRN PO CONSTIPATION Last administered on 10/28/18 17:59; Admin Dose 30 ML; Start 10/24/18 at 00:30 Miscellaneous Information (* Miscellaneous Pharmacy Order) Please adjust voriconazole dosing ... ONCE XX ; Start 10/24/18 at 19:00 Docusate Sodium (Colace) 100 mg DAILY PRN PO CONSTIPATION Last administered on 10/25/18 13:28; Admin Dose 100 MG; Start 10/25/18 at 10:30 Methylprednisolone Sodium Succinate (Solu-Medrol) 40 mg Q12 IV Last administered on 10/30/18 21:33; Admin Dose 40 MG; Start 10/27/18 at 21:00 Calcium Carbonate (Tums) 500 mg PRN PRN PO HEARTBURN Last administered on 10/27/18 20:45; Admin Dose 500 MG; Start 10/27/18 at 14:00 Filgrastim (Nivestym) 480 mcg DAILY@1700 SC Last administered on 10/30/18 17:00; Admin Dose 480 MCG; Start 10/27/18 at 18:45 Morphine Sulfate (morphine) 2 mg Q4H PRN IV SEVERE PAIN LEVEL 7-10 Last administered on 10/27/18 22:10; Admin Dose 2 MG; Start 10/27/18 at 22:30 Nitroglycerin (Nitroglycerin 0.2 Mg/Hr) 1 patch DAILY TRANSDERM Last administered on 10/30/18 09:33; Admin Dose 1 PATCH; Start 10/28/18 at 01:30 Al Hydrox/Mg Hydrox/Simethicone (Mag-Al Plus) 30 ml Q6H PRN PO GASTROINTESTINAL UPSET Last administered on 10/30/18 21:38; Admin Dose 30 ML; Start 10/28/18 at 06:00 Atorvastatin Calcium (Lipitor) 80 mg HS PO Last administered on 10/30/18 21:38; Admin Dose 80 MG; Start 10/29/18 at 21:00 Carvedilol (Coreg) 3.125 mg BID PO Last administered on 10/30/18 21:35; Admin Dose 3.125 MG; Start 10/28/18 at 09:00 Aspirin (Aspirin) 81 mg DAILY PO Last administered on 10/30/18 09:32; Admin Dose 81 MG; Start 10/28/18 at 09:00 Furosemide (Lasix) 40 mg DAILY IV Last administered on 10/29/18 08:18; Admin Dose 40 MG; Start 10/28/18 at 11:00; Status Hold Ceftriaxone Sodium 50 ml @ 100 mls/hr Q24H IVPB Last administered on 10/30/18 13:16; Admin Dose 100 MLS/HR; Start 10/29/18 at 12:30 Pantoprazole (Protonix Tab) 40 mg DAILY@06 PO Last administered on 10/31/18 06 :43; Admin Dose 40 MG; Start 10/31/18 at 06:00 CHANTAL LE M.D. Oct 31, 2018 11:53
--- NOTE | 2018-10-31 12:16 | CONS ---
Assessment/Plan Assessment/Plan Hospital Course (Demo Recall) assessment/impression - severe sepsis due to pneumonia, improved - multilobar pneumonia - neutropenic fever, improved - acute hypoxic resp failure, improved - NSTEMI - stress test 10/31/2018: moderate size nonreversible perfusion defect in the inferoapical, inferior, distal inferoseptal and distal inferolateral jackson likely due to [place] - multiple myeloma - immunocompromised state - pancytopenia due to multiple myeloma and chemo - anemia - CKD III - resp virus panel returned negative, crypto neg, legionella screen neg, TB Quant Gold indeterminate, [id number] level non-diagnostic due to the presence of interfering substances, crypto antigen negative, pneumocystis antigen negative, coccidioides compliment fixation negative revised recommendations: - pending results: fungal blood cultures, fungal sputum culture, aspergillus Ab/Ag, histoplasma antigen, mycoplasma IgG, IgM, procalcitonin level - will review the results of chest and brain CT. They are not uploaded on the [employer]. I called the radiology suite and the process controls technician is trying to upload them on the system. If the results show improvement, will d/c ceftriaxone - continue to use an incentive spirometer - continue nystatin - d/c neutropenic precautions management d/w Pt, his , charge nurse Melanie and nanotechnician the total time I took to care for this Pt today was from 1115 to 1200 Consultation Date/Type/Reason Admit Date/Time Oct 20, 2018 at 19:11 Initial Consult Date 10/28/18 Type of Consult ID Requesting Provider: IZZY LEBLANC Date/Time of Note DATE: 10/31/18 TIME: 12:14 Exam/Review of Systems Exam Vitals Vital Signs Date Temp Pulse Resp B/P (MAP) Pulse Ox O2 O2 Flow FiO2 Time Delivery Rate 10/31/18 98.7 79 18 121/69 98 Nasal 2.0 12:03 (86) Cannula Intake and Output 10/30/18 10/30/18 10/31/18 1414:59 22:59 06:59 IntakeIntake Total 700 ml 850 ml OutputOutput Total 750 ml 800 ml BalanceBalance -50 ml 50 ml Results Result Diagram: 10/31/18 0510/31/18521 Results 24hrs Laboratory Tests Test 10/30/18 13:57 10/31/18 05:22 10/31/18 05:24 10/31/18 09:31 Sodium Level 136 138 Potassium Level 5.6 H 5.6 H Chloride Level 102 106 Carbon Dioxide 25 25 Level Anion Gap 9 7 Blood Urea 72 H 69 H Nitrogen Creatinine 1.71 H 1.35 H Est Glomerular 40 L 52 L Filtrat Rate mL/min Glucose Level 141 125 Calcium Level 7.9 L 7.5 L White Blood 2.8 L Count Red Blood Count 2.90 L Hemoglobin 8.6 L Hematocrit 26.9 L Mean 92.8 Corpuscular Volume Mean 29.7 Corpuscular Hemoglobin Mean 32.0 Corpuscular Hemoglobin Conc ent Red Cell 15.9 H Distribution Width Platelet Count 36 #L Mean Platelet Volume Immature 13.200 H Granulocytes % Neutrophils % Segmented 64 Neutrophils % (Manual) Band 31 H Neutrophils % (Manual) Lymphocytes % Lymphocytes % 4 L (Manual) Monocytes % Eosinophils % Basophils % Metamyelocytes 1 H % (manual) Nucleated Red 0.0 Blood Cells % Immature 0.370 H Granulocytes # Neutrophils # Neutrophils # 1.8 (Manual) Band 0.8 H Neutrophils # Lymphocytes 0.1 L (Manual) Lymphocytes # Monocytes # Eosinophils # Basophils # Metamyelocytes 0.0 # Nucleated Red Blood Cells # Platelet SIG DECREASED Estimate Giant Platelets 1 H Polychromasia 1+ Hypochromasia 1+ Poikilocytosis 1+ Anisocytosis 1+ Phosphorus 4.1 Level Magnesium Level 2.3 Lab Scanned BLOOD TRANSFUSI REFERENCE LAB Report ON Medications Medication Current Medications IV Flush (NS 3 ml) 3 ml PER PROTOCOL IV ; Start 10/20/18 at 19:30 Ondansetron HCl (Zofran Inj) 4 mg Q6H PRN IV NAUSEA/VOMITING Last administered on 10/28/18at 15:07; Admin Dose 4 MG; Start 10/20/18 at 19:30 Acetaminophen (Tylenol Tab) 650 mg Q6H PRN PO .PAIN 1-3 OR TEMP Last administered on 10/27/18at 21:17; Admin Dose 650 MG; Start 10/20/18 at 19:30 Albuterol/ Ipratropium (Duoneb) 3 ml Q6HWA RESP THERAPY HHN Last administered on 10/30/18at 20:29; Admin Dose 3 ML; Start 10/20/18 at 20:00 Albuterol/ Ipratropium (Duoneb) 3 ml Q2H RESP THERAPY PRN HHN shortness of breath Last administered on 10/24/18 06:25; Admin Dose 3 ML; Start 10/20/18 at 19:30 Acetaminophen/ Hydrocodone Bitart ([place] (10/325)) 1 tab Q6H PRN PO MODERATE PAIN LEVEL 4-6 Last administered on 10/27/18 19:00; Admin Dose 1 TAB; Start 10/21/18 at 07:00 Nystatin (Nystatin Susp) 5 ml QID PO Last administered on 10/30/18 21:34; Admin Dose 5 ML; Start 10/23/18 at 13:00 Magnesium Hydroxide (Milk Of Mag) 30 ml DAILY PRN PO CONSTIPATION Last administered on 10/28/18 17:59; Admin Dose 30 ML; Start 10/24/18 at 00:30 Miscellaneous Information (* Miscellaneous Pharmacy Order) Please adjust voriconazole dosing ... ONCE XX ; Start 10/24/18 at 19:00 Docusate Sodium (Colace) 100 mg DAILY PRN PO CONSTIPATION Last administered on 10/25/18 13:28; Admin Dose 100 MG; Start 10/25/18 at 10:30 Methylprednisolone Sodium Succinate (Solu-Medrol) 40 mg Q12 IV Last administered on 10/30/18 21:33; Admin Dose 40 MG; Start 10/27/18 at 21:00 Calcium Carbonate (Tums) 500 mg PRN PRN PO HEARTBURN Last administered on 10/27/18 20:45; Admin Dose 500 MG; Start 10/27/18 at 14:00 Filgrastim (Nivestym) 480 mcg DAILY@1700 SC Last administered on 10/30/18 17:00; Admin Dose 480 MCG; Start 10/27/18 at 18:45 Morphine Sulfate (morphine) 2 mg Q4H PRN IV SEVERE PAIN LEVEL 7-10 Last administered on 10/27/18 22:10; Admin Dose 2 MG; Start 10/27/18 at 22:30 Nitroglycerin (Nitroglycerin 0.2 Mg/Hr) 1 patch DAILY TRANSDERM Last administered on 10/30/18 09:33; Admin Dose 1 PATCH; Start 10/28/18 at 01:30 Al Hydrox/Mg Hydrox/Simethicone (Mag-Al Plus) 30 ml Q6H PRN PO GASTROINTESTINAL UPSET Last administered on 10/30/18 21:38; Admin Dose 30 ML; Start 10/28/18 at 06:00 Atorvastatin Calcium (Lipitor) 80 mg HS PO Last administered on 10/30/18 21:38; Admin Dose 80 MG; Start 10/29/18 at 21:00 Carvedilol (Coreg) 3.125 mg BID PO Last administered on 10/30/18 21:35; Admin Dose 3.125 MG; Start 10/28/18 at 09:00 Aspirin (Aspirin) 81 mg DAILY PO Last administered on 10/30/18 09:32; Admin Dose 81 MG; Start 10/28/18 at 09:00 Furosemide (Lasix) 40 mg DAILY IV Last administered on 10/29/18 08:18; Admin Dose 40 MG; Start 10/28/18 at 11:00; Status Hold Pantoprazole (Protonix Tab) 40 mg DAILY@06 PO Last administered on 10/31/18 06:43; Admin Dose 40 MG; Start 10/31/18 at 06:00 CHANTAL LE M.D. Oct 31, 2018 12:16
[2018-10-31] MEDS: ASPIRIN 81 MG TAB PO SCH (13:28)
[2018-10-31] MEDS: DOCUSATE SODIUM 100 MG CAP PO PRN (13:28)
[2018-10-31] MEDS: NYSTATIN SUSP 5 ML CUP PO SCH ×4 (13:28→20:06)
[2018-10-31] MEDS: NITROGLYCERIN 0.2 MG/HR PATCH TRANSDERM SCH (13:30)
[2018-10-31] MEDS: METHYLPREDNISOLONE 40 MG INJ IV SCH ×2 (13:30→20:05)
--- NOTE | 2018-10-31 15:06 | PN ---
Date/Time of Note Date/Time of Note DATE: 10/31/18 TIME: 15:04 Assessment/Plan VTE [place]axis [place] [facility] [place]: 2 [place] [facility] [place] Yes Pharmacological prophylaxis: NA/contraindicated Pharm contraindication: blood coag disorder Lines/Catheters [facility] Peripheral IV Urinary Cath still in place: No Assessment/Plan Hospital Course 68 yo male with MM presented with neutropenic fevers 2/2 pneumonia leading to hypoxic respiratory failure MM with pancytopenia/neutropenia: - Neupogen per hematology. Neutrophil count thankfully is starting to respond and is no longer neutropenic Intermittent slurred speech -Patient with intermittent slurred speech and difficulty finding words, etiology unclear -Neurology consultation appreciated, CT head shows no acute findings NSTEMI: -Stress test shows a nonreversible defect, follow-up on cardiology recommendations, continue cardiac meds Pneumonia: -Status post antibiotics per ID Acute respiratory failure: - Continue O2 by NC as needed - Lasix as needed for pulmonary edema Acute kidney injury on CKD 3 - renal function has improved - result of MM -Nephrology consultation appreciated Hyperkalemia secondary to CKD and Bactrim effect -Status post Kayexalate Result Diagram: 10/31/18 0522 10/31/18 0522 Results 24hrs Laboratory Tests Test 10/31/18 05:22 10/31/18 05:24 10/31/18 09:31 White Blood Count 2.8 L Red Blood Count 2.90 L Hemoglobin 8.6 L Hematocrit 26.9 L Mean Corpuscular Volume 92.8 Mean Corpuscular 29.7 Hemoglobin Mean Corpuscular 32.0 Hemoglobin Concent Red Cell Distribution 15.9 H Width Platelet Count 36 #L Mean Platelet Volume Immature Granulocytes % 13.200 H Neutrophils % Segmented Neutrophils 64 % (Manual) Band Neutrophils % 31 H (Manual) Lymphocytes % Lymphocytes % (Manual) 4 L Monocytes % Eosinophils % Basophils % Metamyelocytes % (manual) 1 H Nucleated Red Blood Cells 0.0 % Immature Granulocytes # 0.370 H Neutrophils # Neutrophils # (Manual) 1.8 Band Neutrophils # 0.8 H Lymphocytes (Manual) 0.1 L Lymphocytes # Monocytes # Eosinophils # Basophils # Metamyelocytes # 0.0 Nucleated Red Blood Cells # Platelet Estimate SIG DECREASED Giant Platelets 1 H Polychromasia 1+ Hypochromasia 1+ Poikilocytosis 1+ Anisocytosis 1+ Sodium Level 138 Potassium Level 5.6 H Chloride Level 106 Carbon Dioxide Level 25 Anion Gap 7 Blood Urea Nitrogen 69 H Creatinine 1.35 H Est Glomerular Filtrat 52 L Rate mL/min Glucose Level 125 Calcium Level 7.5 L Phosphorus Level 4.1 Magnesium Level 2.3 Lab Scanned Report BLOOD TRANSFUSION REFERENCE LAB Subjective 24 Hr Interval Summary Constitutional: no complaints Exam/Review of Systems Exam Vitals Vital Signs Date Temp Pulse Resp B/P (MAP) Pulse Ox O2 O2 Flow FiO2 Time Delivery Rate 10/31/18 73 20 99 Nasal 2.0 13:58 Cannula 10/31/18 98.7 121/69 12:03 (86) Intake and Output 10/30/18 10/30/18 10/31/18 1515:00 23:00 07:00 IntakeIntake Total 700 ml 850 ml OutputOutput Total 750 ml 800 ml BalanceBalance -50 ml 50 ml Constitutional: alert, oriented Respiratory: clear to auscultation Cardiovascular: regular rate and rhythm Gastrointestinal: soft; No distended Musculoskeletal: nl extremities to inspection Results Results 24hrs Laboratory Tests Test 10/31/18 05:22 10/31/18 05:24 10/31/18 09:31 White Blood Count 2.8 L Red Blood Count 2.90 L Hemoglobin 8.6 L Hematocrit 26.9 L Mean Corpuscular Volume 92.8 Mean Corpuscular 29.7 Hemoglobin Mean Corpuscular 32.0 Hemoglobin Concent Red Cell Distribution 15.9 H Width Platelet Count 36 #L Mean Platelet Volume Immature Granulocytes % 13.200 H Neutrophils % Segmented Neutrophils 64 % (Manual) Band Neutrophils % 31 H (Manual) Lymphocytes % Lymphocytes % (Manual) 4 L Monocytes % Eosinophils % Basophils % Metamyelocytes % (manual) 1 H Nucleated Red Blood Cells 0.0 % Immature Granulocytes # 0.370 H Neutrophils # Neutrophils # (Manual) 1.8 Band Neutrophils # 0.8 H Lymphocytes (Manual) 0.1 L Lymphocytes # Monocytes # Eosinophils # Basophils # Metamyelocytes # 0.0 Nucleated Red Blood Cells # Platelet Estimate SIG DECREASED Giant Platelets 1 H Polychromasia 1+ Hypochromasia 1+ Poikilocytosis 1+ Anisocytosis 1+ Sodium Level 138 Potassium Level 5.6 H Chloride Level 106 Carbon Dioxide Level 25 Anion Gap 7 Blood Urea Nitrogen 69 H Creatinine 1.35 H Est Glomerular Filtrat 52 L Rate mL/min Glucose Level 125 Calcium Level 7.5 L Phosphorus Level 4.1 Magnesium Level 2.3 Lab Scanned Report BLOOD TRANSFUSION REFERENCE LAB Medications Medication Current Medications IV Flush (NS 3 ml) 3 ml PER PROTOCOL IV ; Start 10/20/18 at 19:30 Ondansetron HCl (Zofran Inj) 4 mg Q6H PRN IV NAUSEA/VOMITING Last administered on 10/28/18 15:07; Admin Dose 4 MG; Start 10/20/18 at 19:30 Acetaminophen (Tylenol Tab) 650 mg Q6H PRN PO .PAIN 1-3 OR TEMP Last administered on 10/27/18 21:17; Admin Dose 650 MG; Start 10/20/18 at 19:30 Albuterol/ Ipratropium (Duoneb) 3 ml Q6HWA RESP THERAPY HHN Last administered on 10/31/18 13:58; Admin Dose 3 ML; Start 10/20/18 at 20:00 Albuterol/ Ipratropium (Duoneb) 3 ml Q2H RESP THERAPY PRN HHN shortness of breath Last administered on 10/24/18 06:25; Admin Dose 3 ML; Start 10/20/18 at 19:30 Acetaminophen/ Hydrocodone Bitart ([place] (10/325)) 1 tab Q6H PRN PO MODERATE PAIN LEVEL 4-6 Last administered on 10/27/18 19:00; Admin Dose 1 TAB; Start 10/21/18 at 07:00 Nystatin (Nystatin Susp) 5 ml QID PO Last administered on 10/31/18 13:37; Admin Dose 5 ML; Start 10/23/18 at 13:00 Magnesium Hydroxide (Milk Of Mag) 30 ml DAILY PRN PO CONSTIPATION Last administered on 10/28/18 17:59; Admin Dose 30 ML; Start 10/24/18 at 00:30 Miscellaneous Information (* Miscellaneous Pharmacy Order) Please adjust voriconazole dosing ... ONCE XX ; Start 10/24/18 at 19:00 Docusate Sodium (Colace) 100 mg DAILY PRN PO CONSTIPATION Last administered on 10/31/18 13:28; Admin Dose 100 MG; Start 10/25/18 at 10:30 Methylprednisolone Sodium Succinate (Solu-Medrol) 40 mg Q12 IV Last administered on 10/31/18 13:30; Admin Dose 40 MG; Start 10/27/18 at 21:00 Calcium Carbonate (Tums) 500 mg PRN PRN PO HEARTBURN Last administered on 10/27/18 20:45; Admin Dose 500 MG; Start 10/27/18 at 14:00 Filgrastim (Nivestym) 480 mcg DAILY@1700 SC Last administered on 10/30/18 17:00; Admin Dose 480 MCG; Start 10/27/18 at 18:45 Morphine Sulfate (morphine) 2 mg Q4H PRN IV SEVERE PAIN LEVEL 7-10 Last administered on 10/27/18 22:10; Admin Dose 2 MG; Start 10/27/18 at 22:30 Nitroglycerin (Nitroglycerin 0.2 Mg/Hr) 1 patch DAILY TRANSDERM Last administered on 10/31/18 13:30; Admin Dose 1 PATCH; Start 10/28/18 at 01:30 Al Hydrox/Mg Hydrox/Simethicone (Mag-Al Plus) 30 ml Q6H PRN PO GASTROINTESTINAL UPSET Last administered on 10/30/18 21:38; Admin Dose 30 ML; Start 10/28/18 at 06:00 Atorvastatin Calcium (Lipitor) 80 mg HS PO Last administered on 10/30/18 21:38; Admin Dose 80 MG; Start 10/29/18 at 21:00 Carvedilol (Coreg) 3.125 mg BID PO Last administered on 10/31/18 13:31; Admin Dose 3.125 MG; Start 10/28/18 at 09:00 Aspirin (Aspirin) 81 mg DAILY PO Last administered on 10/31/18 13:28; Admin Dose 81 MG; Start 10/28/18 at 09:00 Furosemide (Lasix) 40 mg DAILY IV Last administered on 10/29/18 08:18; Admin Dose 40 MG; Start 10/28/18 at 11:00; Status Hold Pantoprazole (Protonix Tab) 40 mg DAILY@06 PO Last administered on 10/31/18 06:43; Admin Dose 40 MG; Start 10/31/18 at 06:00 IZZY LEBLANC Oct 31, 2018 15:06
--- NOTE | 2018-10-31 15:43 | CONS ---
Assessment/Plan Assessment/Plan Hospital Course 68 yo M with hx of multiple myeloma on Revlimid and other comorbidities who presents for evaluation of cough, SOB and fevers. He was additionally noted to have dysphasia... for which neurology is consulted. The clinical picture is most ominously concerning for minor stroke. CTH is without acute intracranial pathology P: MRI brain without contrast for further evaluation Ok to cautiously give aspirin pending the above; LDL is at goal Cont other medical management per primary PT/OT/ST as necessary Will follow clinically, to recommend neurologic studies, as necessary Consultation Date/Type/Reason Admit Date/Time Oct 20, 2018 at 19:11 Type of Consult Neurology Reason for Consultation slurred speech, word finding Requesting Provider: IZZY LEBLANC Date/Time of Note DATE: 10/31/18 TIME: 15:42 24 HR Interval Summary Free Text/Dictation Continues acute care. S/p HCT, stress test. Pt states that his speech is fine today, without slurred speech or difficulty with word finding. Exam Vital Signs Vitals Vital Signs Date Temp Pulse Resp B/P (MAP) Pulse Ox O2 O2 Flow FiO2 Time Delivery Rate 10/31/18 73 20 99 Nasal 2.0 13:58 Cannula 10/31/18 98.7 121/69 12:03 (86) Intake and Output 10/30/18 10/30/18 10/31/18 1515:00 23:00 07:00 IntakeIntake Total 700 ml 850 ml OutputOutput Total 750 ml 800 ml BalanceBalance -50 ml 50 ml Exam PE: Gen Appearance: No Apparent Distress HEENT: Normocephalic Cardiovascular: Regular rate Lungs: Clear bilaterally Abdomen: Soft Extremities: Dry NE: The patient was alert and oriented. Language was normal. Fund of knowledge was normal. Pupils were equal and reactive to light. There was no afferent pupillary defect. Visual rasheed were normal. Funduscopic examination was limited. Extra-ocular movements were full. Ptosis was absent. There was no nystagmus. Facial sensation was normal. Face was symmetric with normal strength. Hearing was intact. Palate movements were normal. Neck strength was normal. There was normal tongue bulk and speed of movement. Tone was normal. Muscle bulk was normal. I did not see fasciculations. Arms and legs were strong to confrontation. Vibration sensation was normal. Temperature and pinprick sensation was normal. Rapid alternating movements were normal. There was no dysmetria. There was no intention tremor. Gait was deferred due to bedrest. Arm and leg reflexes were 2+ and symmetric. Ragsdale's sign was absent. Plantar responses were flexor. NORMA CABRALES NP Oct 31, 2018 15:43
[2018-10-31] MEDS: MAGNESIUM HYDROXIDE 30ML CUP PO PRN (18:39)
--- NOTE | 2018-10-31 18:45 | PN ---
DATE: 10/31/2018 SUBJECTIVE: The patient states he is feeling well. He is increasing ambulation, less complaints of shortness of breath. Still has some symptoms suggestive of reflux and some epigastric discomfort. H as not actually had nausea or vomiting. Still has some loose stools. Episodes of expressive aphasia have been reported, but the patient and partner denied that this has occurred today. OBJECTIVE: GENERAL: The patient is a well-developed, but chronically appearing male in no acute distress. VITAL SIGNS: Temperature 98 orally, pulse 88 per minute and regular, respirations 18, blood pressure 180/59, pulse oximetry 98% on 2 liters by nasal cannula. SKIN: No ecchymosis, no petechiae or rashes. HEENT: Normocephalic. No evidence of trauma. Pupils are equal, round, react to light and accommoda tion. Sclerae are nonicteric. Oral mucosa is moist without lesions. There is nasal oxygen in place . The oral mucosa and conjunctivae are pale. NECK: Supple. No jugular venous distention or thyroid enlargement. CHEST: No pain on percussion of spine, sternum, clavicles or ribs. There is some improvement in eduarda ath sounds, but still bilateral rales are heard. No rubs. HEART: Regular sinus rhythm. No S3, S4 or murmurs. No rubs. ABDOMEN: Soft. No masses, no ascites. EXTREMITIES: Good range of motion. No clubbing, no edema or cyanosis. No palpable cords or Homans sign. NEUROLOGIC: At this time is normal. LABORATORY DATA: WBC is 2800 with an absolute neutrophil count of 1800, hemoglobin 8.6, hematocrit 2 6.9 and platelet count of 36,000. Pro time is 18.7 seconds, INR 1.55, PTT 27.6 seconds. Sodium 138, potassium 5.6, BUN 69, creatinine 1.35, calcium 7.5. DIAGNOSTIC DATA: CT scan of the brain does not show any evidence of intracranial hemorrhage or mass. There is intracranial atherosclerosis consistent with age, also lytic calvarial lesions. These are unchanged from scan of 04/2018. A SPECT nuclear medicine cardiac scan does show nonreversible perfusion defect in the inferior apical , inferior distal and inferoseptal and distal inferolateral jackson likely related to myocardial infarc tion. Left ventricular ejection fraction is 45% at stress. ASSESSMENT: 1. Pneumonia in immunocompromised host, improving. 2. Pancytopenia secondary to chemotherapy and to myeloma. 3. Multiple myeloma with neutropenic fever. 4. Non-ST segment elevation myocardial infarction. 5. Episodes of expressive aphasia. Question has been raised as to whether or not these episodes of expressive aphasia are related to the patient's myeloma. I think it is very unlikely. The patient does not have any other evidence or si gns of hyperviscosity. Hyperviscosity is usually associated with IgM or polymerize IgA, very rarely with IgG especially with an IgG level of only 4.3 grams. The patient does not have any other signs or symptoms suggesting hyperviscosity. One could theorize that the patient is having thromboembolic events. Certainly, this would be unusua l given the fact that the patient's platelet count is only 36,000 and has been below 50,000 since the se episodes have been documented. We will obtain a viscosity level. Dictated By: KVNG GONSALES MD SR/NTS Conf#: [id number] DID#: [id number] CC: IZZY LEBLANC MD; TRESA SABILLON MD; CHET THOMAS MD;*End*
[2018-10-31] MEDS: FILGRASTIM-AAFI 480 MCG/0.8 ML SYRINGE SC SCH (18:46)
[2018-10-31] MEDS: ATORVASTATIN 80 MG TAB PO SCH (20:05)
[2018-11-01] VITALS (10 sets, daily range): BP systolic 107–112; BP diastolic 59–67; PULSE 68–86; RESP 18–19
[2018-11-01] MEDS: PANTOPRAZOLE (EC) 40 MG TAB PO SCH ×2 (06:00→20:54)
[2018-11-01] MEDS: ALBUTEROL/IPRATROPIUM (NEB) 3 ML AMP HHN SCH ×3 (08:51→19:39)
[2018-11-01] MEDS: ASPIRIN 81 MG TAB PO SCH (09:03)
[2018-11-01] MEDS: METHYLPREDNISOLONE 40 MG INJ IV SCH (09:03)
[2018-11-01] MEDS: NYSTATIN SUSP 5 ML CUP PO SCH ×4 (09:03→20:53)
[2018-11-01] MEDS: NITROGLYCERIN 0.2 MG/HR PATCH TRANSDERM SCH (09:07)
--- NOTE | 2018-11-01 09:16 | PN ---
DATE: 11/01/2018 SUBJECTIVE: The patient is stable, no events overnight. No fevers, chills, nausea, vomiting. OBJECTIVE: VITAL SIGNS: Blood pressure is 109/67, pulse 80, temperature 97.7. HEENT: Head is normocephalic. NECK: Supple. HEART: Regular rate. LUNGS: Show diminished breath sounds at the base. ABDOMEN: Soft, nontender to palpation without rebound or guarding. EXTREMITIES: Negative for clubbing, cyanosis, no edema. DERMATOLOGIC: No rashes. MUSCULOSKELETAL: No joint effusion. NEUROLOGIC: No change in exam. MEDICATIONS: Reviewed. LABORATORY DATA: Reviewed. The patient's stress test has been reviewed. ASSESSMENT AND PLAN: 1. Nonoliguric acute kidney injury on top of chronic kidney disease with previous baseline creatinin e of 1.5 to 2.0 mg/dL. Etiology of acute kidney injury is secondary to hemodynamics. Renal function has been fluctuating, but has been improving. We will continue current treatment plan, supportive c are, renally dose all medicines. 2. Hyperkalemia. Etiology is felt to multifactorial, initially due to Bactrim effect, ALYSSA inhibitor , chronic kidney disease. Other possibilities will also need to be evaluated. The patient's potassi um levels have been low, but stable. Continue to monitor. Continue low-potassium diet. 3. Hypernatremia secondary to acute kidney injury, resolved. 4. Non-ST elevated myocardial infarction. Continue medical management. The patient's stress test w as positive but showed nonreversible defect. No plan for cardiac catheterization. Continue medical management. 5. Multiple myeloma. Continue medical management. Follow up with oncology. 6. Pancytopenia, improving. 7. Acute respiratory failure secondary to pneumonia. The patient is completing antibiotic course. 8. Mineral bone disorder. 9. Hypertension. Continue to monitor. Dictated By: NICHOLAS CONCEPCION DO NR/NTS Conf#: [id number] DID#: [id number] CC: TRESA SABILLON MD; IZZY LEBLANC MD; CHET THOMAS MD;*End*
--- NOTE | 2018-11-01 10:15 | CONS ---
[facility] HCIS Consult Follow-up Patient Name: Cornell Kay Unit Number: [id number] Date of : 1950 Patient Status: Admitted Inpatient Attending Doctor: Sonia Graves Edit: CHANTAL ADAIR M.D. on 11/01/18 @ 15:53 Mana: I discussed the management with RAUL Patten and agree Assessment/Plan Assessment/Plan Hospital Course (Demo Recall) assessment/impression: - severe sepsis due to pneumonia, improved - multilobar pneumonia - neutropenic fever, improved - acute hypoxic resp failure, s/p vapotherm, improved - NSTEMI - stress test 10/31/2018: moderate size nonreversible perfusion defect in the inferoapical, inferior, distal inferoseptal and distal inferolateral jackson likely due to OH - multiple myeloma - immunocompromised state - pancytopenia due to multiple myeloma and chemo - acute on chronic anemia requiring PRBC - CKD III - resp virus panel returned negative, crypto neg, legionella screen neg, TB Quant Gold indeterminate, [id number] level non-diagnostic due to the presence of interfering substances, crypto antigen negative, pneumocystis antigen negative, coccidioides compliment fixation negative recommendations: - pending results: fungal blood cultures, fungal sputum culture, aspergillus Ab/Ag, histoplasma antigen, mycoplasma IgG, IgM, procalcitonin level from 10/29 - DC ceftriaxone - continue to use an incentive spirometer - continue nystatin Management d/w Pt, pt's , Dr. Middleton, and with Dr. Adair Consultation Date/Type/Reason Admit Date/Time Oct 20, 2018 at 19:11 Initial Consult Date 10/21/18 Type of Consult Infectious Disease Requesting Provider: SONIA GRAVES Date/Time of Note DATE: 11/01/18 TIME: 10:08 24 HR Interval Summary Free Text/Dictation Pt had Nuclear Stress test and CT brain done yesterday, not CT chest per d/w Merly from Radiology. MRI Brain is pending. Serial CXRs shows gradual improvement per d/w Dr. Middleton. Pt states he is feeling "better". States has to sit upright and chew food slowly to prevent aspiration as he has had some trouble swallowing in the recent past per pt/pt's . Denies pain, n/v/d, dysuria. Anxious to go home. Exam/Review of Systems Exam Vitals Vital Signs Date Temp Pulse Resp B/P (MAP) Pulse Ox O2 O2 Flow FiO2 Time Delivery Rate 11/01/18 78 20 98 Nasal 2.0 08:51 Cannula 11/01/18 97.7 109/67 07:28 (81) Intake and Output 10/31/18 10/31/18 11/01/18 1515:00 23:00 07:00 IntakeIntake Total 550 ml 300 ml OutputOutput Total 700 ml BalanceBalance -150 ml 300 ml Constitutional: alert, well developed Psych: nl mood/affect Head: normocephalic, atraumatic Eyes: nl conjunctiva, nl lids ENMT: nl external ears & nose, nl lips & teeth, nl nasal mucosa & septum, mucosa pink and moist Neck: supple Respiratory: clear to auscultation, normal air movement Cardiovascular: regular rate and rhythm, nl pulses; No edema Gastrointestinal: soft, non-tender Musculoskeletal: nl extremities to inspection; No swelling Extremities: normal pulses Neurological: nl mental status, nl speech Skin: nl turgor; No rash or lesions Results Result Diagram: 11/01/18 0515 11/01/18 0515 Results 24hrs Laboratory Tests Test 11/01/18 05:15 White Blood Count 2.6 L Red Blood Count 2.88 L Hemoglobin 8.4 L Hematocrit 26.9 L Mean Corpuscular Volume 93.4 Mean Corpuscular Hemoglobin 29.2 Mean Corpuscular Hemoglobin Concent 31.2 L Red Cell Distribution Width 15.9 H Platelet Count 25 #*L Mean Platelet Volume Immature Granulocytes % 6.900 H Neutrophils % Segmented Neutrophils % (Manual) 89 H Band Neutrophils % (Manual) 1 Lymphocytes % Lymphocytes % (Manual) 10 L Monocytes % Eosinophils % Nucleated Red Blood Cells % 0.0 Immature Granulocytes # 0.180 H Neutrophils # Neutrophils # (Manual) 2.3 Band Neutrophils # 0.0 Lymphocytes (Manual) 0.2 L Lymphocytes # Monocytes # Eosinophils # Platelet Estimate SIG DECREASED Giant Platelets 2 H Polychromasia 2+ Anisocytosis 1+ Sodium Level 137 Potassium Level 5.5 H Chloride Level 108 Carbon Dioxide Level 24 Anion Gap 5 Blood Urea Nitrogen 67 H Creatinine 1.15 Est Glomerular Filtrat Rate mL/min > 60 Glucose Level 107 Calcium Level 8.0 L Phosphorus Level 4.2 Magnesium Level 2.2 Imaging Imaging Lexiscan Myocardial Perfusion Study 10/31/2018: 1. The type and distribution of the scintigraphic abnormalities are most consistent with a moderate size nonreversible perfusion defect in the inferoapical, inferior, distal inferoseptal and distal inferolateral jackson likely due to myocardial infarction. 2. Mild hypokinesis of the left ventricle. 3. The left ventricle ejection fraction at stress is 45%. CT Brain 10/31/2018: 1. No intracranial hemorrhage, mass effect or midline shift. 2. Intracranial atherosclerosis. 3. Multiple lytic calvarial lesions without significant interval change compared to CT head 04/12/2018. 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 Medications Medication Current Medications IV Flush (NS 3 ml) 3 ml PER PROTOCOL IV ; Start 10/20/18 at 19:30 Ondansetron HCl (Zofran Inj) 4 mg Q6H PRN IV NAUSEA/VOMITING Last administered on 10/28/18 15:07; Admin Dose 4 MG; Start 10/20/18 at 19:30 Acetaminophen (Tylenol Tab) 650 mg Q6H PRN PO .PAIN 1-3 OR TEMP Last administered on 10/27/18 21:17; Admin Dose 650 MG; Start 10/20/18 at 19:30 Albuterol/ Ipratropium (Duoneb) 3 ml Q6HWA RESP THERAPY HHN Last administered on 11/01/18 08:51; Admin Dose 3 ML; Start 10/20/18 at 20:00 Albuterol/ Ipratropium (Duoneb) 3 ml Q2H RESP THERAPY PRN HHN shortness of breath Last administered on 10/24/18 06:25; Admin Dose 3 ML; Start 10/20/18 at 19:30 Acetaminophen/ Hydrocodone Bitart ([place] (10/325)) 1 tab Q6H PRN PO MODERATE PAIN LEVEL 4-6 Last administered on 10/27/18 19:00; Admin Dose 1 TAB; Start 10/21/18 at 07:00 Nystatin (Nystatin Susp) 5 ml QID PO Last administered on 11/01/18 09:03; Admin Dose 5 ML; Start 10/23/18 at 13:00 Magnesium Hydroxide (Milk Of Mag) 30 ml DAILY PRN PO CONSTIPATION Last adminis tered on 10/31/18 18:39; Admin Dose 30 ML; Start 10/24/18 at 00:30 Miscellaneous Information (* Miscellaneous Pharmacy Order) Please adjust voriconazole dosing ... ONCE XX ; Start 10/24/18 at 19:00 Docusate Sodium (Colace) 100 mg DAILY PRN PO CONSTIPATION Last administered on 10/31/18 13:28; Admin Dose 100 MG; Start 10/25/18 at 10:30 Calcium Carbonate (Tums) 500 mg PRN PRN PO HEARTBURN Last administered on 10/27/18 20:45; Admin Dose 500 MG; Start 10/27/18 at 14:00 Filgrastim (Nivestym) 480 mcg DAILY@1700 SC Last administered on 10/31/18 18:46; Admin Dose 480 MCG; Start 10/27/18 at 18:45 Morphine Sulfate (morphine) 2 mg Q4H PRN IV SEVERE PAIN LEVEL 7-10 Last administered on 10/27/18 22:10; Admin Dose 2 MG; Start 10/27/18 at 22:30 Nitroglycerin (Nitroglycerin 0.2 Mg/Hr) 1 patch DAILY TRANSDERM Last administered on 11/01/18 09:07; Admin Dose 1 PATCH; Start 10/28/18 at 01:30 Al Hydrox/Mg Hydrox/Simethicone (Mag-Al Plus) 30 ml Q6H PRN PO GASTROINTESTINAL UPSET Last administered on 10/30/18 21:38; Admin Dose 30 ML; Start 10/28/18 at 06:00 Atorvastatin Calcium (Lipitor) 80 mg HS PO Last administered on 10/31/18 20:05; Admin Dose 80 MG; Start 10/29/18 at 21:00 Carvedilol (Coreg) 3.125 mg BID PO Last administered on 11/01/18 09:04; Admin Dose 3.125 MG; Start 10/28/18 at 09:00 Aspirin (Aspirin) 81 mg DAILY PO Last administered on 11/01/18at 09:03; Admin Dose 81 MG; Start 10/28/18 at 09:00 Furosemide (Lasix) 40 mg DAILY IV Last administered on 10/29/18at 08:18; Admin Dose 40 MG; Start 10/28/18 at 11:00; Status Hold Pantoprazole (Protonix Tab) 40 mg DAILY@06 PO Last administered on 11/01/18at 06:00; Admin Dose 40 MG; Start 10/31/18 at 06:00 PAULO PATTEN NP Nov 01, 2018 10:15
[2018-11-01] MEDS ORDERED: CARV3.1260 PO (11:14)
[2018-11-01] MEDS ORDERED: ASPI-831 PO (11:14)
[2018-11-01] MEDS ORDERED: ATOR-2 PO (11:14)
--- NOTE | 2018-11-01 11:15 | PDOCDIS ---
Discharge Instructions CONDITION [id number] Patient Condition: Besia7y Good HOME CARE INSTRUCTIONS: [id number] Diet Instructions: [id number] Regular ACTIVITY: [id number] Activity Restrictions: [id number] No Restrictions FOLLOW UP/APPOINTMENTS Follow-up Plan FOLLOW UP WITH YOUR PCP AND DR GONSALES IN 1-2 WEEKS IZZY LEBLANC Nov 01, 2018 11:15
--- NOTE | 2018-11-01 11:17 | CONS ---
Consult Date/Type/Reason Admit Date/Time Oct 20, 2018 at 19:11 Initial Consult Date 10/21/18 Type of Consult Pulmonary Requesting Provider: IZZY LEBLANC Date/Time of Note DATE: 11/01/18 TIME: 11:16 Subjective Continues to improve 3 to 4 L nasal cannula with significantly less shortness of breath. Objective Vital Signs Date Temp Pulse Resp B/P (MAP) Pulse Ox O2 O2 Flow FiO2 Time Delivery Rate 11/01/18 78 20 98 Nasal 2.0 08:51 Cannula 11/01/18 97.7 109/67 07:28 (81) Intake and Output 10/31/18 10/31/18 11/01/18 1515:00 23:00 07:00 IntakeIntake Total 550 ml 300 ml OutputOutput Total 700 ml BalanceBalance -150 ml 300 ml Exam PHYSICAL EXAMINATION: GENERAL: A well-nourished, well-developed gentleman, comfortable at rest, no acute distress. 4 L nasal cannula VITAL SIGNS: NECK: Supple. No JVD or lymphadenopathy. CARDIAC: S1, S2. No added sounds or murmurs. CHEST: Bilateral rales. Improved. ABDOMEN: Soft, nontender. No guarding or rebound. EXTREMITIES: No cyanosis or clubbing. A 1+ edema. NEUROLOGIC: Generalized weakness. Vent Setting Fraction of Inspired Oxygen pe: 35 Results/Medications Result Diagram: 11/01/18 0515 11/01/18 0515 Results 24 hrs Laboratory Tests Test 11/01/18 05:15 White Blood Count 2.6 L Red Blood Count 2.88 L Hemoglobin 8.4 L Hematocrit 26.9 L Mean Corpuscular Volume 93.4 Mean Corpuscular Hemoglobin 29.2 Mean Corpuscular Hemoglobin Concent 31.2 L Red Cell Distribution Width 15.9 H Platelet Count 25 #*L Mean Platelet Volume Immature Granulocytes % 6.900 H Neutrophils % Segmented Neutrophils % (Manual) 89 H Band Neutrophils % (Manual) 1 Lymphocytes % Lymphocytes % (Manual) 10 L Monocytes % Eosinophils % Nucleated Red Blood Cells % 0.0 Immature Granulocytes # 0.180 H Neutrophils # Neutrophils # (Manual) 2.3 Band Neutrophils # 0.0 Lymphocytes (Manual) 0.2 L Lymphocytes # Monocytes # Eosinophils # Platelet Estimate SIG DECREASED Giant Platelets 2 H Polychromasia 2+ Anisocytosis 1+ Sodium Level 137 Potassium Level 5.5 H Chloride Level 108 Carbon Dioxide Level 24 Anion Gap 5 Blood Urea Nitrogen 67 H Creatinine 1.15 Est Glomerular Filtrat Rate mL/min > 60 Glucose Level 107 Calcium Level 8.0 L Phosphorus Level 4.2 Magnesium Level 2.2 Medications Current Medications IV Flush (NS 3 ml) 3 ml PER PROTOCOL IV ; Start 10/20/18 at 19:30 Ondansetron HCl (Zofran Inj) 4 mg Q6H PRN IV NAUSEA/VOMITING Last administered on 10/28/18 15:07; Admin Dose 4 MG; Start 10/20/18 at 19:30 Acetaminophen (Tylenol Tab) 650 mg Q6H PRN PO .PAIN 1-3 OR TEMP Last administered on 10/27/18 21:17; Admin Dose 650 MG; Start 10/20/18 at 19:30 Albuterol/ Ipratropium (Duoneb) 3 ml Q6HWA RESP THERAPY HHN Last administered on 11/01/18 08:51; Admin Dose 3 ML; Start 10/20/18 at 20:00 Albuterol/ Ipratropium (Duoneb) 3 ml Q2H RESP THERAPY PRN HHN shortness of breath Last administered on 10/24/18 06:25; Admin Dose 3 ML; Start 10/20/18 at 19:30 Acetaminophen/ Hydrocodone Bitart ([place] (10/325)) 1 tab Q6H PRN PO MODERATE PAIN LEVEL 4-6 Last administered on 10/27/18 19:00; Admin Dose 1 TAB; Start 10/21/18 at 07:00 Nystatin (Nystatin Susp) 5 ml QID PO Last administered on 11/01/18 09:03; Admin Dose 5 ML; Start 10/23/18 at 13:00 Magnesium Hydroxide (Milk Of Mag) 30 ml DAILY PRN PO CONSTIPATION Last administered on 10/31/18 18:39; Admin Dose 30 ML; Start 10/24/18 at 00:30 Miscellaneous Information (* Miscellaneous Pharmacy Order) Please adjust voriconazole dosing ... ONCE XX ; Start 10/24/18 at 19:00 Docusate Sodium (Colace) 100 mg DAILY PRN PO CONSTIPATION Last administered on 10/31/18 13:28; Admin Dose 100 MG; Start 10/25/18 at 10:30 Calcium Carbonate (Tums) 500 mg PRN PRN PO HEARTBURN Last administered on 10/27/18 20:45; Admin Dose 500 MG; Start 10/27/18 at 14:00 Filgrastim (Nivestym) 480 mcg DAILY@1700 SC Last administered on 10/31/18 18:46; Admin Dose 480 MCG; Start 10/27/18 at 18:45 Morphine Sulfate (morphine) 2 mg Q4H PRN IV SEVERE PAIN LEVEL 7-10 Last administered on 10/27/18 22:10; Admin Dose 2 MG; Start 10/27/18 at 22:30 Nitroglycerin (Nitroglycerin 0.2 Mg/Hr) 1 patch DAILY TRANSDERM Last administered on 11/01/18 09:07; Admin Dose 1 PATCH; Start 10/28/18 at 01:30 Al Hydrox/Mg Hydrox/Simethicone (Mag-Al Plus) 30 ml Q6H PRN PO GASTROINTESTINAL UPSET Last administered on 10/30/18 21:38; Admin Dose 30 ML; Start 10/28/18 at 06:00 Atorvastatin Calcium (Lipitor) 80 mg HS PO Last administered on 10/31/18 20:05; Admin Dose 80 MG; Start 10/29/18 at 21:00 Carvedilol (Coreg) 3.125 mg BID PO Last administered on 11/01/18 09:04; Admin Dose 3.125 MG; Start 10/28/18 at 09:00 Aspirin (Aspirin) 81 mg DAILY PO Last administered on 11/01/18 09:03; Admin Dose 81 MG; Start 10/28/18 at 09:00 Furosemide (Lasix) 40 mg DAILY IV Last administered on 10/29/18 08:18; Admin Dose 40 MG; Start 10/28/18 at 11:00; Status Hold Pantoprazole (Protonix Tab) 40 mg DAILY@06 PO Last administered on 11/01/18 06:00; Admin Dose 40 MG; Start 10/31/18 at 06:00 Assessment/Plan Hospital Course (Demo Recall) IMPRESSION AND PLAN: 1. Acute hypoxemic respiratory failure, possibly secondary to opportunistic infection. 2. Severe neutropenia, status post chemotherapy for multiple myeloma. Improving WBC, still thrombocytopenic. 3. Renal insufficiency. 4. Non-STEMI acute. Plan 1. Continue diuretics, decrease steroids will need a slow prednisone taper on discharge. 2. Continue supplemental O2 3. Continue broad-spectrum antibiotic coverage. 4. Monitor platelet count 5. Cardiology recommendations cardiac catheterization canceled according to arnaud laughlin. 6. Physical therapy recommendations Discharge planning. SAI JACKSON MD, [facility] Nov 01, 2018 11:17
[2018-11-01] MEDS: AL HYDROX/MG HYDROX/SIMETH 30 ML CUP PO PRN (13:05)
--- NOTE | 2018-11-01 13:34 | PN ---
Date/Time of Note Date/Time of Note DATE: 11/01/18 TIME: 13:29 Assessment/Plan VTE Prophylaxis Risk score (from Ns)>0 risk: 4 SCD applied (from Ns): Yes Pharmacological prophylaxis: other (aspirin) Lines/Catheters IV Catheter Type (from Nrs): Saline Lock Urinary Cath still in place: No Assessment/Plan Assessment/Plan Pt is stable but weak and has some symptoms that sound like reflux. Note that the neutropenia has improved with cessation of treatment for myeloma and administration of filgrastim. There were complaints of intermittent difficulty speaking. Dr. Hill ordered viscosity but it is pending. Discharge is being planned. If he is discharged, he should f/u with Dr. Hill in the office for pancytopenia and treatment of the myeloma. Note that the thrombocytopenia is significant but stable. There is no bleeding or bruising noted. Result Diagram: 11/01/1815 11/01/18 0515 Results 24hrs Laboratory Tests Test 11/01/18 05:15 White Blood Count 2.6 L Red Blood Count 2.88 L Hemoglobin 8.4 L Hematocrit 26.9 L Mean Corpuscular Volume 93.4 Mean Corpuscular Hemoglobin 29.2 Mean Corpuscular Hemoglobin Concent 31.2 L Red Cell Distribution Width 15.9 H Platelet Count 25 #*L Mean Platelet Volume Immature Granulocytes % 6.900 H Neutrophils % Segmented Neutrophils % (Manual) 89 H Band Neutrophils % (Manual) 1 Lymphocytes % Lymphocytes % (Manual) 10 L Monocytes % Eosinophils % Nucleated Red Blood Cells % 0.0 Immature Granulocytes # 0.180 H Neutrophils # Neutrophils # (Manual) 2.3 Band Neutrophils # 0.0 Lymphocytes (Manual) 0.2 L Lymphocytes # Monocytes # Eosinophils # Platelet Estimate SIG DECREASED Giant Platelets 2 H Polychromasia 2+ Anisocytosis 1+ Sodium Level 137 Potassium Level 5.5 H Chloride Level 108 Carbon Dioxide Level 24 Anion Gap 5 Blood Urea Nitrogen 67 H Creatinine 1.15 Est Glomerular Filtrat Rate mL/min > 60 Glucose Level 107 Calcium Level 8.0 L Phosphorus Level 4.2 Magnesium Level 2.2 Subjective 24 Hr Interval Summary Free Text/Dictation Pt is resting quietly. Girlfriend is concerned that it is difficult for him to eat. Exam/Review of Systems Exam Vitals Vital Signs Date Temp Pulse Resp B/P (MAP) Pulse Ox O2 O2 Flow FiO2 Time Delivery Rate 11/01/18 86 12:28 11/01/18 20 98 Nasal 2.0 08:51 Cannula 11/01/18 97.7 109/67 07:28 (81) Intake and Output 10/31/18 10/31/18 11/01/18 1414:59 22:59 06:59 IntakeIntake Total 550 ml 300 ml OutputOutput Total 700 ml BalanceBalance -150 ml 300 ml Exam Pt is asleep now but appears in no distress. Results Results 24hrs Laboratory Tests Test 11/01/18 05:15 White Blood Count 2.6 L Red Blood Count 2.88 L Hemoglobin 8.4 L Hematocrit 26.9 L Mean Corpuscular Volume 93.4 Mean Corpuscular Hemoglobin 29.2 Mean Corpuscular Hemoglobin Concent 31.2 L Red Cell Distribution Width 15.9 H Platelet Count 25 #*L Mean Platelet Volume Immature Granulocytes % 6.900 H Neutrophils % Segmented Neutrophils % (Manual) 89 H Band Neutrophils % (Manual) 1 Lymphocytes % Lymphocytes % (Manual) 10 L Monocytes % Eosinophils % Nucleated Red Blood Cells % 0.0 Immature Granulocytes # 0.180 H Neutrophils # Neutrophils # (Manual) 2.3 Band Neutrophils # 0.0 Lymphocytes (Manual) 0.2 L Lymphocytes # Monocytes # Eosinophils # Platelet Estimate SIG DECREASED Giant Platelets 2 H Polychromasia 2+ Anisocytosis 1+ Sodium Level 137 Potassium Level 5.5 H Chloride Level 108 Carbon Dioxide Level 24 Anion Gap 5 Blood Urea Nitrogen 67 H Creatinine 1.15 Est Glomerular Filtrat Rate mL/min > 60 Glucose Level 107 Calcium Level 8.0 L Phosphorus Level 4.2 Magnesium Level 2.2 Medications Medication Current Medications IV Flush (NS 3 ml) 3 ml PER PROTOCOL IV ; Start 10/20/18 at 19:30 Ondansetron HCl (Zofran Inj) 4 mg Q6H PRN IV NAUSEA/VOMITING Last administered on 10/28/18at 15:07; Admin Dose 4 MG; Start 10/20/18 at 19:30 Acetaminophen (Tylenol Tab) 650 mg Q6H PRN PO .PAIN 1-3 OR TEMP Last administered on 10/27/18at 21:17; Admin Dose 650 MG; Start 10/20/18 at 19:30 Albuterol/ Ipratropium (Duoneb) 3 ml Q6HWA RESP THERAPY HHN Last administered on 11/01/18 08:51; Admin Dose 3 ML; Start 10/20/18 at 20:00 Albuterol/ Ipratropium (Duoneb) 3 ml Q2H RESP THERAPY PRN HHN shortness of breath Last administered on 10/24/18 06:25; Admin Dose 3 ML; Start 10/20/18 at 19:30 Acetaminophen/ Hydrocodone Bitart ([place] (10/325)) 1 tab Q6H PRN PO MODERATE PAIN LEVEL 4-6 Last administered on 10/27/18 19:00; Admin Dose 1 TAB; Start 10/21/18 at 07:00 Nystatin (Nystatin Susp) 5 ml QID PO Last administered on 11/01/18 13:05; Admin Dose 5 ML; Start 10/23/18 at 13:00 Magnesium Hydroxide (Milk Of Mag) 30 ml DAILY PRN PO CONSTIPATION Last administered on 10/31/18 18:39; Admin Dose 30 ML; Start 10/24/18 at 00:30 Miscellaneous Information (* Miscellaneous Pharmacy Order) Please adjust voriconazole dosing ... ONCE XX ; Start 10/24/18 at 19:00 Docusate Sodium (Colace) 100 mg DAILY PRN PO CONSTIPATION Last administered on 10/31/18 13:28; Admin Dose 100 MG; Start 10/25/18 at 10:30 Calcium Carbonate (Tums) 500 mg PRN PRN PO HEARTBURN Last administered on 10/27/18 20:45; Admin Dose 500 MG; Start 10/27/18 at 14:00 Filgrastim (Nivestym) 480 mcg DAILY@1700 SC Last administered on 10/31/18 18:46; Admin Dose 480 MCG; Start 10/27/18 at 18:45 Morphine Sulfate (morphine) 2 mg Q4H PRN IV SEVERE PAIN LEVEL 7-10 Last administered on 10/27/18 22:10; Admin Dose 2 MG; Start 10/27/18 at 22:30 Nitroglycerin (Nitroglycerin 0.2 Mg/Hr) 1 patch DAILY TRANSDERM Last administered on 11/01/18 09:07; Admin Dose 1 PATCH; Start 10/28/18 at 01:30 Al Hydrox/Mg Hydrox/Simethicone (Mag-Al Plus) 30 ml Q6H PRN PO GASTROINTESTINAL UPSET Last administered on 11/01/18 13:05; Admin Dose 30 ML; Start 10/28/18 at 06:00 Atorvastatin Calcium (Lipitor) 80 mg HS PO Last administered on 10/31/18 20:05; Admin Dose 80 MG; Start 10/29/18 at 21:00 Carvedilol (Coreg) 3.125 mg BID PO Last administered on 11/01/18 09:04; Admin Dose 3.125 MG; Start 10/28/18 at 09:00 Aspirin (Aspirin) 81 mg DAILY PO Last administered on 11/01/18 09:03; Admin Dose 81 MG; Start 10/28/18 at 09:00 Furosemide (Lasix) 40 mg DAILY IV Last administered on 10/29/18 08:18; Admin Dose 40 MG; Start 10/28/18 at 11:00; Status Hold Pantoprazole (Protonix Tab) 40 mg DAILY@06 PO Last administered on 11/01/18 06:00; Admin Dose 40 MG; Start 10/31/18 at 06:00 TRESA SABILLON MD Nov 01, 2018 13:34
--- NOTE | 2018-11-01 13:56 | CONS ---
Assessment/Plan Assessment/Plan Hospital Course 68 yo M with hx of multiple myeloma on Revlimid and other comorbidities who presents for evaluation of cough, SOB and fevers. He was additionally noted to have dysphasia... for which neurology is consulted. The clinical picture is most ominously concerning for minor stroke. CTH is without acute intracranial pathology MRI contraindicated d/t reported shrapnel in shoulder P: Ok to cautiously give aspirin per ops; LDL is at goal Cont other medical management per primary PT/OT/ST as necessary Will follow clinically, to recommend neurologic studies, as necessary Consultation Date/Type/Reason Admit Date/Time Oct 20, 2018 at 19:11 Type of Consult Neurology Reason for Consultation slurred speech, word finding Requesting Provider: IZZY LEBLANC Date/Time of Note DATE: 11/01/18 TIME: 13:56 24 HR Interval Summary Free Text/Dictation Continues acute care. Pt continues to deny further episodes of dysarthria, dysphasia. He does, however, endorse some difficulty swallowing, like the food gets stuck in his esophagus. Unable to obtain MRI at this time d/t shrapnel in the pt's shoulder. Exam Vital Signs Vitals Vital Signs Date Temp Pulse Resp B/P (MAP) Pulse Ox O2 O2 Flow FiO2 Time Delivery Rate 11/01/18 86 12:28 11/01/18 20 98 Nasal 2.0 08:51 Cannula 11/01/18 97.7 109/67 07:28 (81) Intake and Output 10/31/18 10/31/18 11/01/18 1515:00 23:00 07:00 IntakeIntake Total 550 ml 300 ml OutputOutput Total 700 ml BalanceBalance -150 ml 300 ml Exam PE: Gen Appearance: No Apparent Distress HEENT: Normocephalic Cardiovascular: Regular rate Lungs: Clear bilaterally Abdomen: Soft Extremities: Dry NE: The patient was alert and oriented. Language was normal. Fund of knowledge was normal. Pupils were equal and reactive to light. There was no afferent pupillary defect. Visual rasheed were normal. Funduscopic examination was limited. Extra-ocular movements were full. Ptosis was absent. There was no nystagmus. Facial sensation was normal. Face was symmetric with normal strength. Hearing was intact. Palate movements were normal. Neck strength was normal. There was normal tongue bulk and speed of movement. Tone was normal. Muscle bulk was normal. I did not see fasciculations. Arms and legs were strong to confrontation. Vibration sensation was normal. Temperature and pinprick sensation was normal. Rapid alternating movements were normal. There was no dysmetria. There was no intention tremor. Gait was deferred due to bedrest. Arm and leg reflexes were 2+ and symmetric. Ragsdale's sign was absent. Plantar responses were flexor. NORMA CABRALES NP Nov 01, 2018 13:56
--- NOTE | 2018-11-01 15:01 | PN ---
Date/Time of Note Date/Time of Note DATE: 11/01/18 TIME: 14:58 Assessment/Plan VTE Prophylaxis Risk score (from Ns)>0 risk: 4 SCD applied (from Ns): Yes Pharmacological prophylaxis: NA/contraindicated Pharm contraindication: low risk/ambulating Lines/Catheters [facility] Saline Lock Urinary Cath still in place: No Assessment/Plan Hospital Course 68 yo male with MM presented with neutropenic fevers 2/2 pneumonia leading to hypoxic respiratory failure MM with pancytopenia/neutropenia: - Neupogen per hematology. Neutrophil count thankfully is starting to respond and is no longer neutropenic Intermittent slurred speech -Patient with intermittent slurred speech and difficulty finding words, etiology unclear but may be related to steroids, have discontinued steroids -Neurology consultation appreciated, CT head shows no acute findings -MRI brain unable to be done secondary to metal and shoulder Dysphasia/gastritis -Etiology may be secondary to gastritis from steroids which have been discontinued -GI consultation obtained -Continue PPI and have added Carafate NSTEMI: -Stress test shows a nonreversible defect, cardiology recommendations is to continue medical therapy, no plans for cath Pneumonia: -Status post antibiotics per ID Acute respiratory failure: -Patient no longer requires supplements O2 - Lasix as needed for pulmonary edema Acute kidney injury on CKD 3 - renal function has improved - result of MM -Nephrology consultation appreciated Hyperkalemia secondary to CKD and Bactrim effect -Status post Kayexalate DC planning: Anticipate DC home in 1 to 2 days, follow-up with GI recommendations Result Diagram: 11/01/18 0515 11/01/18 0515 Results 24hrs Laboratory Tests Test 11/01/18 05:15 White Blood Count 2.6 L Red Blood Count 2.88 L Hemoglobin 8.4 L Hematocrit 26.9 L Mean Corpuscular Volume 93.4 Mean Corpuscular Hemoglobin 29.2 Mean Corpuscular Hemoglobin Concent 31.2 L Red Cell Distribution Width 15.9 H Platelet Count 25 #*L Mean Platelet Volume Immature Granulocytes % 6.900 H Neutrophils % Segmented Neutrophils % (Manual) 89 H Band Neutrophils % (Manual) 1 Lymphocytes % Lymphocytes % (Manual) 10 L Monocytes % Eosinophils % Nucleated Red Blood Cells % 0.0 Immature Granulocytes # 0.180 H Neutrophils # Neutrophils # (Manual) 2.3 Band Neutrophils # 0.0 Lymphocytes (Manual) 0.2 L Lymphocytes # Monocytes # Eosinophils # Platelet Estimate SIG DECREASED Giant Platelets 2 H Polychromasia 2+ Anisocytosis 1+ Sodium Level 137 Potassium Level 5.5 H Chloride Level 108 Carbon Dioxide Level 24 Anion Gap 5 Blood Urea Nitrogen 67 H Creatinine 1.15 Est Glomerular Filtrat Rate mL/min > 60 Glucose Level 107 Calcium Level 8.0 L Phosphorus Level 4.2 Magnesium Level 2.2 Subjective 24 Hr Interval Summary Gastrointestinal: other (Difficulty swallowing) Exam/Review of Systems Exam Vitals Vital Signs Date Temp Pulse Resp B/P (MAP) Pulse Ox O2 O2 Flow FiO2 Time Delivery Rate 11/01/18 82 20 97 Nasal 2.0 14:08 Cannula 11/01/18 97.9 112/62 11:10 (79) Intake and Output 10/31/18 10/31/18 11/01/18 1515:00 23:00 07:00 IntakeIntake Total 550 ml 300 ml OutputOutput Total 700 ml BalanceBalance -150 ml 300 ml Constitutional: alert, oriented Respiratory: clear to auscultation Cardiovascular: regular rate and rhythm Gastrointestinal: soft; No distended Musculoskeletal: nl extremities to inspection Results Results 24hrs Laboratory Tests Test 11/01/18 05:15 White Blood Count 2.6 L Red Blood Count 2.88 L Hemoglobin 8.4 L Hematocrit 26.9 L Mean Corpuscular Volume 93.4 Mean Corpuscular Hemoglobin 29.2 Mean Corpuscular Hemoglobin Concent 31.2 L Red Cell Distribution Width 15.9 H Platelet Count 25 #*L Mean Platelet Volume Immature Granulocytes % 6.900 H Neutrophils % Segmented Neutrophils % (Manual) 89 H Band Neutrophils % (Manual) 1 Lymphocytes % Lymphocytes % (Manual) 10 L Monocytes % Eosinophils % Nucleated Red Blood Cells % 0.0 Immature Granulocytes # 0.180 H Neutrophils # Neutrophils # (Manual) 2.3 Band Neutrophils # 0.0 Lymphocytes (Manual) 0.2 L Lymphocytes # Monocytes # Eosinophils # Platelet Estimate SIG DECREASED Giant Platelets 2 H Polychromasia 2+ Anisocytosis 1+ Sodium Level 137 Potassium Level 5.5 H Chloride Level 108 Carbon Dioxide Level 24 Anion Gap 5 Blood Urea Nitrogen 67 H Creatinine 1.15 Est Glomerular Filtrat Rate mL/min > 60 Glucose Level 107 Calcium Level 8.0 L Phosphorus Level 4.2 Magnesium Level 2.2 Medications Medication Current Medications IV Flush (NS 3 ml) 3 ml PER PROTOCOL IV ; Start 10/20/18 at 19:30 Ondansetron HCl (Zofran Inj) 4 mg Q6H PRN IV NAUSEA/VOMITING Last administered on 10/28/18at 15:07; Admin Dose 4 MG; Start 10/20/18 at 19:30 Acetaminophen (Tylenol Tab) 650 mg Q6H PRN PO .PAIN 1-3 OR TEMP Last administered on 10/27/18 21:17; Admin Dose 650 MG; Start 10/20/18 at 19:30 Albuterol/ Ipratropium (Duoneb) 3 ml Q6HWA RESP THERAPY HHN Last administered on 11/01/18 14:07; Admin Dose 3 ML; Start 10/20/18 at 20:00 Albuterol/ Ipratropium (Duoneb) 3 ml Q2H RESP THERAPY PRN HHN shortness of b reath Last administered on 10/24/18 06:25; Admin Dose 3 ML; Start 10/20/18 at 19:30 Acetaminophen/ Hydrocodone Bitart ([place] (10/325)) 1 tab Q6H PRN PO MODERATE PAIN LEVEL 4-6 Last administered on 10/27/18 19:00; Admin Dose 1 TAB; Start 10/21/18 at 07:00 Nystatin (Nystatin Susp) 5 ml QID PO Last administered on 11/01/18 13:05; Admin Dose 5 ML; Start 10/23/18 at 13:00 Magnesium Hydroxide (Milk Of Mag) 30 ml DAILY PRN PO CONSTIPATION Last administered on 10/31/18 18:39; Admin Dose 30 ML; Start 10/24/18 at 00:30 Miscellaneous Information (* Miscellaneous Pharmacy Order) Please adjust voric onazole dosing ... ONCE XX ; Start 10/24/18 at 19:00 Docusate Sodium (Colace) 100 mg DAILY PRN PO CONSTIPATION Last administered on 10/31/18 13:28; Admin Dose 100 MG; Start 10/25/18 at 10:30 Calcium Carbonate (Tums) 500 mg PRN PRN PO HEARTBURN Last administered on 10/27/18at 20:45; Admin Dose 500 MG; Start 10/27/18 at 14:00 Filgrastim (Nivestym) 480 mcg DAILY@1700 SC Last administered on 10/31/18 18:46; Admin Dose 480 MCG; Start 10/27/18 at 18:45 Morphine Sulfate (morphine) 2 mg Q4H PRN IV SEVERE PAIN LEVEL 7-10 Last administered on 10/27/18 22:10; Admin Dose 2 MG; Start 10/27/18 at 22:30 Nitroglycerin (Nitroglycerin 0.2 Mg/Hr) 1 patch DAILY TRANSDERM Last administered on 11/01/18 09:07; Admin Dose 1 PATCH; Start 10/28/18 at 01:30 Al Hydrox/Mg Hydrox/Simethicone (Mag-Al Plus) 30 ml Q6H PRN PO GASTROINTESTINAL UPSET Last administered on 11/01/18 13:05; Admin Dose 30 ML; Start 10/28/18 at 06:00 Atorvastatin Calcium (Lipitor) 80 mg HS PO Last administered on 10/31/18 20:05; Admin Dose 80 MG; Start 10/29/18 at 21:00 Carvedilol (Coreg) 3.125 mg BID PO Last administered on 11/01/18 09:04; Admin Dose 3.125 MG; Start 10/28/18 at 09:00 Aspirin (Aspirin) 81 mg DAILY PO Last administered on 11/01/18 09:03; Admin Dose 81 MG; Start 10/28/18 at 09:00 Furosemide (Lasix) 40 mg DAILY IV Last administered on 10/29/18 08:18; Admin Dose 40 MG; Start 10/28/18 at 11:00; Status Hold Pantoprazole (Protonix Tab) 40 mg DAILY@06 PO Last administered on 11/01/18 06:00; Admin Dose 40 MG; Start 10/31/18 at 06:00 IZZY LEBLANC Nov 01, 2018 15:01
--- NOTE | 2018-11-01 15:47 | CONS ---
Assessment/Plan Assessment/Plan Hospital Course (Demo Recall) 68 yo with multiple myeloma and opportunistic infections, pneumonia, who had an NSTEMI five nights ago, with chest pain, dynamic ekg changes, and elevation of troponin. Pharmacologic stress testing demonstrates a moderate sized defect, with no guerita-infarct ischemia. Platelet count remains low. Impression: NSTEMI severe thrombocytopenia, multifactorial Multiple myeloma Possible CVA, being worked up by neurology Recommendations: Continue conservative medical therapy with asa, statin, bb No dual antiplatelet therapy due to platelet count under 30K Healthy plant-based eating discussed with patient and He may be active when he gets home but encouraged him to be gradual in his incre ases in activity Follow up with me in 1-2 weeks Consultation Date/Type/Reason Admit Date/Time Oct 20, 2018 at 19:11 Initial Consult Date 10/28/18 Type of Consult Cardiology Requesting Provider: IZZY LEBLANC Date/Time of Note DATE: 11/01/18 TIME: 15:37 24 HR Interval Summary Free Text/Dictation Feels well today, able to ambulate in halls, no dyspnea, no chest pain, eager to go home. Exam/Review of Systems Vital Signs Vitals Vital Signs Date Temp Pulse Resp B/P (MAP) Pulse Ox O2 O2 Flow FiO2 Time Delivery Rate 11/01/18 82 20 97 Nasal 2.0 14:08 Cannula 11/01/18 97.9 112/62 11:10 (79) Intake and Output 10/31/18 10/31/18 11/01/18 1515:00 23:00 07:00 IntakeIntake Total 550 ml 300 ml OutputOutput Total 700 ml BalanceBalance -150 ml 300 ml Exam Constitutional: alert, oriented, well developed Psych: nl mood/affect Head: normocephalic, atraumatic Eyes: EOMI, nl lids, nl sclera ENMT: nl external ears & nose, nl lips & teeth Neck: supple; No jvd, No bruits Respiratory: clear to auscultation, crackles/rales (few crackles at the right base) Cardiovascular: regular rate and rhythm, nl pulses; No murmurs/extra sounds Gastrointestinal: soft, nl liver, spleen, non-tender Musculoskeletal: nl extremities to inspection Extremities: normal pulses Neurological: nl mental status, nl speech Skin: nl turgor; No rash or lesions Labs Result Diagram: 11/01/18 0515 11/01/18 0515 Results 24hrs Laboratory Tests Test 11/01/18 05:15 White Blood Count 2.6 L Red Blood Count 2.88 L Hemoglobin 8.4 L Hematocrit 26.9 L Mean Corpuscular Volume 93.4 Mean Corpuscular Hemoglobin 29.2 Mean Corpuscular Hemoglobin Concent 31.2 L Red Cell Distribution Width 15.9 H Platelet Count 25 #*L Mean Platelet Volume Immature Granulocytes % 6.900 H Neutrophils % Segmented Neutrophils % (Manual) 89 H Band Neutrophils % (Manual) 1 Lymphocytes % Lymphocytes % (Manual) 10 L Monocytes % Eosinophils % Nucleated Red Blood Cells % 0.0 Immature Granulocytes # 0.180 H Neutrophils # Neutrophils # (Manual) 2.3 Band Neutrophils # 0.0 Lymphocytes (Manual) 0.2 L Lymphocytes # Monocytes # Eosinophils # Platelet Estimate SIG DECREASED Giant Platelets 2 H Polychromasia 2+ Anisocytosis 1+ Sodium Level 137 Potassium Level 5.5 H Chloride Level 108 Carbon Dioxide Level 24 Anion Gap 5 Blood Urea Nitrogen 67 H Creatinine 1.15 Est Glomerular Filtrat Rate mL/min > 60 Glucose Level 107 Calcium Level 8.0 L Phosphorus Level 4.2 Magnesium Level 2.2 Medications Medications Current Medications IV Flush (NS 3 ml) 3 ml PER PROTOCOL IV ; Start 10/20/18 at 19:30 Ondansetron HCl (Zofran Inj) 4 mg Q6H PRN IV NAUSEA/VOMITING Last administered on 10/28/18at 15:07; Admin Dose 4 MG; Start 10/20/18 at 19:30 Acetaminophen (Tylenol Tab) 650 mg Q6H PRN PO .PAIN 1-3 OR TEMP Last administered on 10/27/18at 21:17; Admin Dose 650 MG; Start 10/20/18 at 19:30 Albuterol/ Ipratropium (Duoneb) 3 ml Q6HWA RESP THERAPY HHN Last administered on 11/01/18at 14:07; Admin Dose 3 ML; Start 10/20/18 at 20:00 Albuterol/ Ipratropium (Duoneb) 3 ml Q2H RESP THERAPY PRN HHN shortness of breath Last administered on 10/24/18 06:25; Admin Dose 3 ML; Start 10/20/18 at 19:30 Acetaminophen/ Hydrocodone Bitart ([place] (10/325)) 1 tab Q6H PRN PO MODERATE PAIN LEVEL 4-6 Last administered on 10/27/18 19:00; Admin Dose 1 TAB; Start 10/21/18 at 07:00 Nystatin (Nystatin Susp) 5 ml QID PO Last administered on 11/01/18 13:05; Admin Dose 5 ML; Start 10/23/18 at 13:00 Magnesium Hydroxide (Milk Of Mag) 30 ml DAILY PRN PO CONSTIPATION Last administered on 10/31/18 18:39; Admin Dose 30 ML; Start 10/24/18 at 00:30 Miscellaneous Information (* Miscellaneous Pharmacy Order) Please adjust voriconazole dosing ... ONCE XX ; Start 10/24/18 at 19:00 Docusate Sodium (Colace) 100 mg DAILY PRN PO CONSTIPATION Last administered on 10/31/18 13:28; Admin Dose 100 MG; Start 10/25/18 at 10:30 Calcium Carbonate (Tums) 500 mg PRN PRN PO HEARTBURN Last administered on 10/27/18 20:45; Admin Dose 500 MG; Start 10/27/18 at 14:00 Filgrastim (Nivestym) 480 mcg DAILY@1700 SC Last administered on 10/31/18 18:46; Admin Dose 480 MCG; Start 10/27/18 at 18:45 Morphine Sulfate (morphine) 2 mg Q4H PRN IV SEVERE PAIN LEVEL 7-10 Last administered on 10/27/18 22:10; Admin Dose 2 MG; Start 10/27/18 at 22:30 Nitroglycerin (Nitroglycerin 0.2 Mg/Hr) 1 patch DAILY TRANSDERM Last administered on 11/01/18 09:07; Admin Dose 1 PATCH; Start 10/28/18 at 01:30 Al Hydrox/Mg Hydrox/Simethicone (Mag-Al Plus) 30 ml Q6H PRN PO GASTROINTESTINAL UPSET Last administered on 11/01/18 13:05; Admin Dose 30 ML; Start 10/28/18 at 06:00 Atorvastatin Calcium (Lipitor) 80 mg HS PO Last administered on 10/31/18 20:05; Admin Dose 80 MG; Start 10/29/18 at 21:00 Carvedilol (Coreg) 3.125 mg BID PO Last administered on 4/25/19at 09:04; Admin Dose 3.125 MG; Start 10/28/18 at 09:00 Aspirin (Aspirin) 81 mg DAILY PO Last administered on 11/01/18at 09:03; Admin Dose 81 MG; Start 10/28/18 at 09:00 Furosemide (Lasix) 40 mg DAILY IV Last administered on 10/29/18at 08:18; Admin Dose 40 MG; Start 10/28/18 at 11:00; Status Hold Pantoprazole (Protonix Tab) 40 mg DAILY@06 PO Last administered on 11/01/18at 06:00; Admin Dose 40 MG; Start 10/31/18 at 06:00 Sucralfate (Carafate) 1 gm QID PO ; Start 11/01/18 at 17:00 GUANAKITO MOHAN Nov 01, 2018 15:47
--- NOTE | 2018-11-01 16:02 | CONS ---
Assessment/Plan Assessment/Plan Hospital Course (Demo Recall) Summary Assessment and Plan: Assessment: Dysphagia/odynophagia/epigastric pain -Rule out Consuelo versus gastritis versus PUD versus Multiple myeloma with pancytopenia - Followed by hematology. Intermittent slurred speech -Followed by neurology -CT brain- No intracranial hemorrhage, mass effect or midline shift. NSTEMI -Followed by cardiology Pneumonia: -Status post antibiotics per ID MARK on CKD- improved Coagulopathy Plan: Cardiac clearance: "He is reasonably safe for EGD, which is a low risk procedure." Will recheck INR- at 1800- call with results as patient may require FFP prior to procedure PLT transfusion to optimize PLT count prior to EGD- recommends PLT 50 or higher NPO after midnight Endoscopy - risks/benefits/alternatives/indications of procedure and sedation/anesthesia discussed with patient who states understanding and gives informed consent to proceed. Patient seen in collaboration with Dr. Mcclellan CC: ROBERT MCCLELLAN MD ; Consultation Date/Type/Reason Admit Date/Time Oct 20, 2018 at 19:11 Date of Consultation: Nov 01, 2018 Type of Consult GI Reason for Consultation Dysphasia Date/Time of Note DATE: 11/01/18 TIME: 16:02 Hx of Present Illness This a 68-year-old male with past medical history of multiple myeloma pancytopenia, MARK on CKD he was admitted for pneumonia non-STEMI. Overall patie nt was improving with plan to be discharged today however has had progressive dysphasia therefore discharge was canceled and GI was consulted. Patient notes dysphagia/Orinase and epigastric pain appears to be a new symptom recently started past 2 days he notes he is having difficulty swallowing both solids and liquids not able to tolerate p.o. intake well. Of note patient is currently on prednisone which could be contributing to possible gastritis vs consuelo vs other. Given symptoms I discussed plan for EGD reviewed risk/benefits of both procedure and sedation patient and his significant other both verbalized understanding and agreeable to procedure. Discussed thrombocytopenia and need f or platelet transfusion prior to EGD. Per request of patient/significant other called Dr. Hill discussed plan for EGD he to is in agreement to move forward with EGD. Review of Systems: A 12 system, review was conducted and is negative except as noted in the HPI or here. Past Medical History Medical History: cancer, other (See HPI) Home Meds Active Scripts Aspirin (Aspirin) 81 Mg Chew, 81 MG PO DAILY, #60 TAB Prov:IZZY LEBLANC 11/01/18 Carvedilol* (Carvedilol*) 3.125 Mg Tablet, 3.125 MG PO BID, #60 TAB 1 Refill Prov:IZZY LEBLANC 11/01/18 Atorvastatin* (Atorvastatin*) 80 Mg Tablet, 80 MG PO HS, #60 TAB Prov:IZZY LEBLANC 11/01/18 Reported Medications Hydromorphone Hcl* (Hydromorphone Hcl*) 4 Mg Tablet, 4 MG PO Q4H PRN for PAIN, TAB 04/12/18 Naproxen* (Naproxen*) 375 Mg Tablet, 375 MG PO BID PRN for PAIN LEVEL 6-10, TAB TAKE 1 - 2 TABLETS BY MOUTH NEEDED FOR PAIN 04/12/18 Lenalidomide (Revlimid) 15 Mg Capsule, 15 MG PO, CAP 04/12/18 Dexamethasone* (Dexamethasone*) 4 Mg Tablet, 4 MG PO Q8, TAB Take 3 tablets by mouth Once a Week. QWED 04/12/18 Discontinued Scripts Cephalexin* (Keflex*) 500 Mg Capsule, 500 MG PO QID for 7 Days, CAP Prov:EVERETT GALICIA PA-C 08/18/18 Medications Current Medications IV Flush (NS 3 ml) 3 ml PER PROTOCOL IV ; Start 10/20/18 at 19:30 Ondansetron HCl (Zofran Inj) 4 mg Q6H PRN IV NAUSEA/VOMITING Last administered on 10/28/18at 15:07; Admin Dose 4 MG; Start 10/20/18 at 19:30 Acetaminophen (Tylenol Tab) 650 mg Q6H PRN PO .PAIN 1-3 OR TEMP Last administered on 10/27/18at 21:17; Admin Dose 650 MG; Start 10/20/18 at 19:30 Albuterol/ Ipratropium (Duoneb) 3 ml Q6HWA RESP THERAPY HHN Last administered on 11/01/18at 14:07; Admin Dose 3 ML; Start 10/20/18 at 20:00 Albuterol/ Ipratropium (Duoneb) 3 ml Q2H RESP THERAPY PRN HHN shortness of breath Last administered on 10/24/18at 06:25; Admin Dose 3 ML; Start 10/20/18 at 19:30 Acetaminophen/ Hydrocodone Bitart (Triangle (10/)) 1 tab Q6H PRN PO MODERATE PAIN LEVEL 4-6 Last administered on 10/27/18 19:00; Admin Dose 1 TAB; Start 10/21/18 at 07:00 Nystatin (Nystatin Susp) 5 ml QID PO Last administered on 11/01/18 13:05; Admin Dose 5 ML; Start 10/23/18 at 13:00 Magnesium Hydroxide (Milk Of Mag) 30 ml DAILY PRN PO CONSTIPATION Last ad ministered on 10/31/18 18:39; Admin Dose 30 ML; Start 10/24/18 at 00:30 Miscellaneous Information (* Miscellaneous Pharmacy Order) Please adjust voriconazole dosing ... ONCE XX ; Start 10/24/18 at 19:00 Docusate Sodium (Colace) 100 mg DAILY PRN PO CONSTIPATION Last administered on 10/31/18 13:28; Admin Dose 100 MG; Start 10/25/18 at 10:30 Calcium Carbonate (Tums) 500 mg PRN PRN PO HEARTBURN Last administered on 10/27/18 20:45; Admin Dose 500 MG; Start 10/27/18 at 14:00 Filgrastim (Nivestym) 480 mcg DAILY@1700 SC Last administered on 10/31/18 18:46; Admin Dose 480 MCG; Start 10/27/18 at 18:45 Morphine Sulfate (morphine) 2 mg Q4H PRN IV SEVERE PAIN LEVEL 7-10 Last administered on 10/27/18 22:10; Admin Dose 2 MG; Start 10/27/18 at 22:30 Nitroglycerin (Nitroglycerin 0.2 Mg/Hr) 1 patch DAILY TRANSDERM Last administered on 11/01/18 09:07; Admin Dose 1 PATCH; Start 10/28/18 at 01:30 Al Hydrox/Mg Hydrox/Simethicone (Mag-Al Plus) 30 ml Q6H PRN PO GASTROINTESTINAL UPSET Last administered on 11/01/18 13:05; Admin Dose 30 ML; Start 10/28/18 at 06:00 Atorvastatin Calcium (Lipitor) 80 mg HS PO Last administered on 10/31/18 20:05; Admin Dose 80 MG; Start 10/29/18 at 21:00 Carvedilol (Coreg) 3.125 mg BID PO Last administered on 11/01/18at 09:04; Admin Dose 3.125 MG; Start 10/28/18 at 09:00 Aspirin (Aspirin) 81 mg DAILY PO Last administered on 11/01/18at 09:03; Admin Dose 81 MG; Start 10/28/18 at 09:00 Furosemide (Lasix) 40 mg DAILY IV Last administered on 10/29/18at 08:18; Admin Dose 40 MG; Start 10/28/18 at 11:00; Status Hold Pantoprazole (Protonix Tab) 40 mg DAILY@06 PO Last administered on 11/01/18at 06:00; Admin Dose 40 MG; Start 10/31/18 at 06:00 Sucralfate (Carafate) 1 gm QID PO ; Start 11/01/18 at 17:00 Allergies: Coded Allergies: No Known Allergy (Unverified , 04/12/18) Social History Alcohol Use: none Smoking Status: Never smoker Drug Use: none Exam/Review of Systems Exam Vitals Vital Signs Date Temp Pulse Resp B/P (MAP) Pulse Ox O2 O2 Flow FiO2 Time Delivery Rate 11/01/18 82 20 97 Nasal 2.0 14:08 Cannula 11/01/18 97.9 112/62 11:10 (79) Intake and Output 10/31/18 10/31/18 11/01/18 1414:59 22:59 06:59 IntakeIntake Total 550 ml 300 ml OutputOutput Total 700 ml BalanceBalance -150 ml 300 ml Exam PHYSICAL EXAMINATION: GENERAL: Well developed, well nourished, alert & oriented x 3 SKIN: No lesions. HEAD: Normocephalic, atraumatic, no tenderness. EYES: Pupils equal reactive to light, no discharge. EARS/NOSE AND THROAT: Ears normal, nose normal. NECK: Supple, no masses. CHEST: Inspection within normal limits. CARDIOVASCULAR: Heart: Regular rate and rhythm. RESPIRATORY: Lungs clear to auscultation and percussion, no wheezing, no rubs GASTROINTESTINAL AND LIVER: Abdomen: Soft, non tenderness, non-distended, no h ernias, no masses, no organomegaly, normoactive bowel sounds. Rectal: Deferred. EXTREMITIES: No cyanosis, clubbing or edema. Results Result Diagram: 11/01/18 0515 11/01/18 0515 Results 24hrs Laboratory Tests Test 11/01/18 05:15 White Blood Count 2.6 L Red Blood Count 2.88 L Hemoglobin 8.4 L Hematocrit 26.9 L Mean Corpuscular Volume 93.4 Mean Corpuscular Hemoglobin 29.2 Mean Corpuscular Hemoglobin Concent 31.2 L Red Cell Distribution Width 15.9 H Platelet Count 25 #*L Mean Platelet Volume Immature Granulocytes % 6.900 H Neutrophils % Segmented Neutrophils % (Manual) 89 H Band Neutrophils % (Manual) 1 Lymphocytes % Lymphocytes % (Manual) 10 L Monocytes % Eosinophils % Nucleated Red Blood Cells % 0.0 Immature Granulocytes # 0.180 H Neutrophils # Neutrophils # (Manual) 2.3 Band Neutrophils # 0.0 Lymphocytes (Manual) 0.2 L Lymphocytes # Monocytes # Eosinophils # Platelet Estimate SIG DECREASED Giant Platelets 2 H Polychromasia 2+ Anisocytosis 1+ Sodium Level 137 Potassium Level 5.5 H Chloride Level 108 Carbon Dioxide Level 24 Anion Gap 5 Blood Urea Nitrogen 67 H Creatinine 1.15 Est Glomerular Filtrat Rate mL/min > 60 Glucose Level 107 Calcium Level 8.0 L Phosphorus Level 4.2 Magnesium Level 2.2 Medications Medication Current Medications IV Flush (NS 3 ml) 3 ml PER PROTOCOL IV ; Start 10/20/18 at 19:30 Ondansetron HCl (Zofran Inj) 4 mg Q6H PRN IV NAUSEA/VOMITING Last administered on 10/28/18at 15:07; Admin Dose 4 MG; Start 10/20/18 at 19:30 Acetaminophen (Tylenol Tab) 650 mg Q6H PRN PO .PAIN 1-3 OR TEMP Last administered on 10/27/18at 21:17; Admin Dose 650 MG; Start 10/20/18 at 19:30 Albuterol/ Ipratropium (Duoneb) 3 ml Q6HWA RESP THERAPY HHN Last administered on 11/01/18at 14:07; Admin Dose 3 ML; Start 10/20/18 at 20:00 Albuterol/ Ipratropium (Duoneb) 3 ml Q2H RESP THERAPY PRN HHN shortness of breath Last administered on 10/24/18 06:25; Admin Dose 3 ML; Start 10/20/18 at 19:30 Acetaminophen/ Hydrocodone Bitart (Triangle (10/325)) 1 tab Q6H PRN PO MODERATE PAIN LEVEL 4-6 Last administered on 10/27/18 19:00; Admin Dose 1 TAB; Start 10/21/18 at 07:00 Nystatin (Nystatin Susp) 5 ml QID PO Last administered on 11/01/18 13:05; Admin Dose 5 ML; Start 10/23/18 at 13:00 Magnesium Hydroxide (Milk Of Mag) 30 ml DAILY PRN PO CONSTIPATION Last administered on 10/31/18 18:39; Admin Dose 30 ML; Start 10/24/18 at 00:30 Miscellaneous Information (* Miscellaneous Pharmacy Order) Please adjust voriconazole dosing ... ONCE XX ; Start 10/24/18 at 19:00 Docusate Sodium (Colace) 100 mg DAILY PRN PO CONSTIPATION Last administered on 10/31/18 13:28; Admin Dose 100 MG; Start 10/25/18 at 10:30 Calcium Carbonate (Tums) 500 mg PRN PRN PO HEARTBURN Last administered on 10/27/18 20:45; Admin Dose 500 MG; Start 10/27/18 at 14:00 Filgrastim (Nivestym) 480 mcg DAILY@1700 SC Last administered on 10/31/18 18:46; Admin Dose 480 MCG; Start 10/27/18 at 18:45 Morphine Sulfate (morphine) 2 mg Q4H PRN IV SEVERE PAIN LEVEL 7-10 Last administered on 10/27/18 22:10; Admin Dose 2 MG; Start 10/27/18 at 22:30 Nitroglycerin (Nitroglycerin 0.2 Mg/Hr) 1 patch DAILY TRANSDERM Last administered on 11/01/18 09:07; Admin Dose 1 PATCH; Start 10/28/18 at 01:30 Al Hydrox/Mg Hydrox/Simethicone (Mag-Al Plus) 30 ml Q6H PRN PO GASTROINTESTINAL UPSET Last administered on 11/01/18 13:05; Admin Dose 30 ML; Start 10/28/18 at 06:00 Atorvastatin Calcium (Lipitor) 80 mg HS PO Last administered on 10/31/18 20 :05; Admin Dose 80 MG; Start 10/29/18 at 21:00 Carvedilol (Coreg) 3.125 mg BID PO Last administered on 11/01/18 09:04; Admin Dose 3.125 MG; Start 10/28/18 at 09:00 Aspirin (Aspirin) 81 mg DAILY PO Last administered on 11/01/18at 09:03; Admin Dose 81 MG; Start 10/28/18 at 09:00 Furosemide (Lasix) 40 mg DAILY IV Last administered on 10/29/18at 08:18; Admin Dose 40 MG; Start 10/28/18 at 11:00; Status Hold Pantoprazole (Protonix Tab) 40 mg DAILY@06 PO Last administered on 11/01/18at 06:00; Admin Dose 40 MG; Start 10/31/18 at 06:00 Sucralfate (Carafate) 1 gm QID PO ; Start 11/01/18 at 17:00 JOSE GAGE Nov 01, 2018 16:02
[2018-11-01] MEDS ORDERED: SUCRALFATE 1 GM TAB PO SCH (17:00)
[2018-11-01] MEDS: FILGRASTIM-AAFI 480 MCG/0.8 ML SYRINGE SC SCH (18:39)
[2018-11-01] MEDS: SUCRALFATE (100 MG/ML) 10ML CUP PO SCH (20:53)
[2018-11-01] MEDS: ATORVASTATIN 80 MG TAB PO SCH (20:54)
[2018-11-02] VITALS (19 sets, daily range): BP systolic 86–106; BP diastolic 56–66; PULSE 74–87; RESP 18–24
[2018-11-02] MEDS: ALBUTEROL/IPRATROPIUM (NEB) 3 ML AMP HHN SCH ×2 (08:23→19:41)
[2018-11-02] MEDS: NYSTATIN SUSP 5 ML CUP PO SCH ×4 (09:00→20:21)
[2018-11-02] MEDS: PANTOPRAZOLE (EC) 40 MG TAB PO SCH ×2 (09:00→20:21)
[2018-11-02] MEDS: SUCRALFATE (100 MG/ML) 10ML CUP PO SCH ×4 (09:00→20:21)
--- NOTE | 2018-11-02 09:00 | PN ---
DATE: 11/02/2018 SUBJECTIVE: The patient's main complaint at this time is some mild dysphagia and a feeling of food " sticking." Complains of pain both in the lower cervical area as well as the epigastric area. There has not been nausea or vomiting. No complaints of chest pain. The patient and partner deny any episodes of expressive aphasia. The patient does not complain of shortness of breath or cough at this time. OBJECTIVE: GENERAL: The patient is a well-developed, but chronically appearing male in no acute distress. VITAL SIGNS: Temperature 98.2 orally, pulse 82 per minute and regular, respirations 18, blood pressu re 99/62, pulse oximetry 97% on room air. SKIN: No ecchymosis, no petechiae or rashes. HEENT: Normocephalic. No evidence of trauma. Pupils equal, round, react to light and accommodation . Sclerae nonicteric. Oral mucosa is moist without lesions. The oral mucosa and conjunctivae are p suresh. No Phillip's spots seen. NECK: Supple. No jugular venous distention or thyroid enlargement. CHEST: Marked clearing of the chest. Still rales heard in the right base but remainder of the chest , now sounds clear. There are no rubs. No pain on percussion of spine, sternum, clavicles or ribs. HEART: Regular sinus rhythm, no S3, S4 or murmurs. No rubs. ABDOMEN: Soft, no masses, no ascites. EXTREMITIES: No clubbing. No edema or cyanosis. No palpable cords or Homans' sign. NEUROLOGIC: Normal. LABORATORY DATA: WBC 2700 with absolute neutrophil count of 2000, hemoglobin 8, hematocrit 25.5, jayant telet count 61,000. Sodium 138, potassium 5.3, creatinine 1.08, BUN 59, calcium 8.3. IMAGING STUDIES: An MRI of the brain done on 11/01/2017 without intravenous contrast demonstrates a "acute/recent" nonhemorrhagic infarcts located in the posterior left insular cortex, the left parieta l cortex, in the posterior right temporal cortex of the right postcentral gyrus, the left superior pa rietal lobule and multiple other areas including cerebellum. ASSESSMENT: 1. Pneumonia in an immunocompromised host, continues to improve. 2. Pancytopenia secondary to chemotherapy and myeloma. 3. Multiple myeloma with neutropenic fever. 4. Non-ST segment elevation myocardial infarction. 5. Episodes of expressive aphasia with multiple areas of infarct seen on MRI. 6. Dysphagia. DISCUSSION: The patient is to have an EGD today to help to determine the etiology of the patient's d ysphagia. He did receive platelet transfusions. The finding of multiple infarcts in MRI is somewhat surprising given the patient's thrombocytopenia. He has no murmurs. There are no Phillip's spots or splinter hemorrhages seen. No other evidence of emb olic phenomenon, but I am concerned that the infarcts are a representation of multiple embolic events . The patient may require a transesophageal echocardiogram to rule out bacterial endocarditis. Ultraso und of the carotid may also be helpful, but I would not explain the diffuse and bilateral nature of t he thromboembolism. Dictated By: KVNG GONSALES MD SR/NTS Conf#: [id number] DID#: [id number] CC: TRESA SABILLON MD;*EndCC*
--- NOTE | 2018-11-02 09:42 | PN ---
DATE: 11/02/2018 SUBJECTIVE: Patient is stable. No events overnight. OBJECTIVE: VITAL SIGNS: Blood pressure 99/62, pulse 82, respiration 18, temperature 98.2. HEENT: Head is normocephalic. NECK: Supple. HEART: Regular rate. LUNGS: Show diminished breath sounds at the base. ABDOMEN: Soft, nontender to palpation without rebound or guarding. EXTREMITIES: Negative for clubbing, cyanosis, no edema. DERMATOLOGIC: No rashes. MUSCULOSKELETAL: No joint effusion. NEUROLOGIC: No change in exam. MEDICATIONS: Have been reviewed. LABORATORY DATA: From 11/02/2018 was reviewed. ASSESSMENT AND PLAN: 1. Nonoliguric acute kidney injury on top of chronic kidney disease with previous baseline creatinin e around 1.5 to 2 mg/dL. Etiology of acute kidney injury is secondary to hemodynamics. Renal functi on is fluctuating, but improving. Continue current treatment plan, supportive care, renally dose all meds. 2. Hyperkalemia. Etiology is felt to be multifactorial secondary to Bactrim effect, ALYSSA inhibitors, chronic kidney disease. The patient's potassium levels have slowly been improving. Continue low-po tassium diet. 3. Hyponatremia, resolved. Continue to monitor. 4. Non-ST elevation myocardial infarction. Continue medical management. No plan for intervention a t this time. 5. Multiple myeloma. Continue medical management. Follow up with oncology. 6. Acute respiratory failure secondary to pneumonia, resolving. Continue high flow oxygen as tolera [place]. Continue antibiotic therapy. 7. Epigastric pain, dyspepsia. Etiology may be secondary to gastritis. The patient has been consul [place] by GI, pending possible EGD. 8. Hypertension. Continue current blood pressure regimen. 9. Mineral bone disorder, monitor calcium and phosphorus levels. Dictated By: NICHOLAS CONCEPCION DO NR/NTS Conf#: [id number] DID#: [id number] CC: CHET THOMAS MD;*EndCC*
[2018-11-02] MEDS ORDERED: APIXABAN 5 MG TABLET PO SCH (11:30)
--- NOTE | 2018-11-02 11:32 | CONS ---
Consult Date/Type/Reason Admit Date/Time Oct 20, 2018 at 19:11 Initial Consult Date 10/21/18 Type of Consult Pulmonary Requesting Provider: IZZY LEBLANC Date/Time of Note DATE: 11/02/18 TIME: 11:30 Subjective Awake alert comfortable. Objective Vital Signs Date Temp Pulse Resp B/P (MAP) Pulse Ox O2 O2 Flow FiO2 Time Delivery Rate 11/02/18 75 08:39 11/02/18 98.2 18 99/62 (74) 97 08:02 11/01/18 Nasal 2.0 20:00 Cannula 11/01/18 21 19:40 Intake and Output 11/01/18 11/01/18 11/02/18 1414:59 22:59 06:59 IntakeIntake Total 800 ml 720 ml OutputOutput Total 1200 ml BalanceBalance -400 ml 720 ml Exam PHYSICAL EXAMINATION: GENERAL: A well-nourished, well-developed gentleman, comfortable at rest, no acute distress. nasal cannula VITAL SIGNS: NECK: Supple. No JVD or lymphadenopathy. CARDIAC: S1, S2. No added sounds or murmurs. CHEST: Bilateral rales. Improved. ABDOMEN: Soft, nontender. No guarding or rebound. EXTREMITIES: No cyanosis or clubbing. + edema. NEUROLOGIC: Generalized weakness. Vent Setting Fraction of Inspired Oxygen pe: 21 Results/Medications Result Diagram: 11/02/18 0531 11/02/18 0531 Results 24 hrs Laboratory Tests Test 11/02/18 02:12 11/02/18 05:31 11/02/18 09:21 Prothrombin Time 14.6 # Prothrombin Time Ratio 1.1 INR International 1.13 Normalized Ratio White Blood Count 2.7 L Red Blood Count 2.71 L Hemoglobin 8.0 L Hematocrit 25.5 L Mean Corpuscular Volume 94.1 Mean Corpuscular Hemoglobin 29.5 Mean Corpuscular 31.4 L Hemoglobin Concent Red Cell Distribution Width 15.9 H Platelet Count 61 #L Mean Platelet Volume 11.7 H Immature Granulocytes % 11.600 H Neutrophils % Segmented Neutrophils 72 % (Manual) Band Neutrophils % (Manual) 19 H Lymphocytes % Lymphocytes % (Manual) 6 L Monocytes % Monocytes % (Manual) 1 Eosinophils % Eosinophils % (Manual) 1 Basophils % Myelocytes % (Manual) 1 H Nucleated Red Blood Cells % 0.0 Immature Granulocytes # 0.310 H Neutrophils # Neutrophils # (Manual) 2.0 Band Neutrophils # 0.5 Lymphocytes (Manual) 0.1 L Lymphocytes # Monocytes # Monocytes # (Manual) 0.0 L Eosinophils # Basophils # Myelocytes # 0.0 Nucleated Red Blood Cells # Toxic Granulation 3+ Platelet Estimate SIG DECREASED Giant Platelets 3 H Polychromasia 1+ Poikilocytosis 1+ Anisocytosis 1+ Microcytosis 1+ Sodium Level 138 Potassium Level 5.3 H Chloride Level 107 Carbon Dioxide Level 24 Anion Gap 7 Blood Urea Nitrogen 59 H Creatinine 1.08 Est Glomerular Filtrat > 60 Rate mL/min Glucose Level 95 Calcium Level 8.3 L Phosphorus Level 3.6 Magnesium Level 2.1 Lab Scanned Report REFERENCE LAB Medications Current Medications IV Flush (NS 3 ml) 3 ml PER PROTOCOL IV ; Start 10/20/18 at 19:30 Ondansetron HCl (Zofran Inj) 4 mg Q6H PRN IV NAUSEA/VOMITING Last administered on 10/28/18at 15:07; Admin Dose 4 MG; Start 10/20/18 at 19:30 Acetaminophen (Tylenol Tab) 650 mg Q6H PRN PO .PAIN 1-3 OR TEMP Last admini stered on 10/27/18 21:17; Admin Dose 650 MG; Start 10/20/18 at 19:30 Albuterol/ Ipratropium (Duoneb) 3 ml Q6HWA RESP THERAPY HHN Last administered on 11/02/18 08:23; Admin Dose 3 ML; Start 10/20/18 at 20:00 Albuterol/ Ipratropium (Duoneb) 3 ml Q2H RESP THERAPY PRN HHN shortness of breath Last administered on 10/24/18 06:25; Admin Dose 3 ML; Start 10/20/18 at 19:30 Acetaminophen/ Hydrocodone Bitart ([place] (10/325)) 1 tab Q6H PRN PO MODERATE PAIN LEVEL 4-6 Last administered on 10/27/18 19:00; Admin Dose 1 TAB; Start 10/21/18 at 07:00 Nystatin (Nystatin Susp) 5 ml QID PO Last administered on 11/01/18 20:53; Admin Dose 5 ML; Start 10/23/18 at 13:00 Magnesium Hydroxide (Milk Of Mag) 30 ml DAILY PRN PO CONSTIPATION Last administered on 10/31/18 18:39; Admin Dose 30 ML; Start 10/24/18 at 00:30 Miscellaneous Information (* Miscellaneous Pharmacy Order) Please adjust voriconazole dosing ... ONCE XX ; Start 10/24/18 at 19:00 Docusate Sodium (Colace) 100 mg DAILY PRN PO CONSTIPATION Last administered on 10/31/18 13:28; Admin Dose 100 MG; Start 10/25/18 at 10:30 Calcium Carbonate (Tums) 500 mg PRN PRN PO HEARTBURN Last administered on 10/27/18 20:45; Admin Dose 500 MG; Start 10/27/18 at 14:00 Filgrastim (Nivestym) 480 mcg DAILY@1700 SC Last administered on 11/01/18 18:39; Admin Dose 480 MCG; Start 10/27/18 at 18:45 Morphine Sulfate (morphine) 2 mg Q4H PRN IV SEVERE PAIN LEVEL 7-10 Last administered on 10/27/18 22:10; Admin Dose 2 MG; Start 10/27/18 at 22:30 Nitroglycerin (Nitroglycerin 0.2 Mg/Hr) 1 patch DAILY TRANSDERM Last administered on 11/01/18 09:07; Admin Dose 1 PATCH; Start 10/28/18 at 01:30 Al Hydrox/Mg Hydrox/Simethicone (Mag-Al Plus) 30 ml Q6H PRN PO GASTROINTESTINAL UPSET Last administered on 11/01/18 13:05; Admin Dose 30 ML; Start 10/28/18 at 06:00 Atorvastatin Calcium (Lipitor) 80 mg HS PO Last administered on 11/01/18 20:54; Admin Dose 80 MG; Start 10/29/18 at 21:00 Carvedilol (Coreg) 3.125 mg BID PO Last administered on 11/01/18 20:55; Admin Dose 3.125 MG; Start 10/28/18 at 09:00 Furosemide (Lasix) 40 mg DAILY IV Last administered on 10/29/18 08:18; Admin Dose 40 MG; Start 10/28/18 at 11:00; Status Hold Sucralfate (Carafate Susp) 1 gm QID PO Last administered on 11/01/18 20:53; Admin Dose 1 GM; Start 11/01/18 at 21:00 Pantoprazole (Protonix Tab) 40 mg BID PO Last administered on 11/01/18at 20:54; Admin Dose 40 MG; Start 11/01/18 at 21:00 Apixaban (Eliquis) 5 mg BID PO ; Start 11/02/18 at 11:30 Assessment/Plan Hospital Course (Demo Recall) IMPRESSION AND PLAN: 1. Acute hypoxemic respiratory failure, possibly secondary to opportunistic infection. 2. s/p Severe neutropenia, status post chemotherapy for multiple myeloma. Improving WBC, still thrombocytopenic. 3. Renal insufficiency. 4. Non-STEMI acute. 5. CVA. Multiple small infarcts on MRI noted. 6. Dysphagia pending EGD Plan 1. Continue diuretics, decrease steroids will need a slow prednisone taper on discharge. 2. Continue supplemental O2 3. Pending EGD for dysphagia. 4. Monitor platelet count s/p transfusion. 5. Cardiology recommendations cardiac catheterization canceled according to family. +/- septic emboli ? DANISH. 6. Physical therapy recommendations SAI JACKSON MD, [facility] Nov 02, 2018 11:32
[2018-11-02] MEDS: NITROGLYCERIN 0.2 MG/HR PATCH TRANSDERM SCH (12:13)
--- NOTE | 2018-11-02 13:48 | CONS ---
Assessment/Plan Assessment/Plan Hospital Course (Demo Recall) assessment/impression # sepsis - severe sepsis due to pneumonia, improved - multilobar pneumonia - procalcitonin 18.87 on 10/23/2018 - neutropenic fever, resolved - acute hypoxic resp failure, improved - immunocompromised state - so far negative: resp virus panel, cryptococcal antigen, legionella screen, TB Quant Gold indeterminate, [id number] level non-diagnostic due to the presence of interfering substances, pneumocystis antigen, coccidioides compliment fixation, aspergillus antigen, histoplasma antigen, mycoplasma IgG # cardiovascular, neuro - s/p NSTEMI - stress test 10/31/2018: moderate size nonreversible perfusion defect in the inferoapical, inferior, distal inferoseptal and distal inferolateral jackson likely due to PA - s/p slurred speech due to CVA, resolved - CVA: acute non-hemorrhagic infarcts located in the posterior L insular cortex, L parietal cortex, the posterior R temporal cortex, the R post central gyrus, the L superior parietal lobule, and the bilateral centrum semiovale, the bilateral parietal boyce radiata, and the inferior R cerebellum on brain MRI 11/01/2018. no e/o hemodynamically significant stenosis in b/l internal carotid arteries on 11/02/2018 # heme/onc, renal - multiple myeloma - pancytopenia due to multiple myeloma and chemo - anemia - CKD III # GI, head and neck - dysphagia, scheduled for EGD on 11/02/2018 - h/o total jaw reconstruction and 7-8 dental implants approximately 8 years ago. Pt told his that one of the implants was bothersome prior to the onset of current illness recommendations: - pending results: fungal blood cultures, fungal sputum culture, aspergillus Ab, mycoplasma IgM (IgG was negative) - Pt had total jaw reconstruction and 7-8 dental implants approximately 8 years ago. Pt told his that one of the implants was bothersome prior to the onset of current illness. This history, together with high fever on admission, and multiple emboli to the brain raise a concern for endocarditis, either bacterial or marantic - ordered: rheumatoid factor - Although Pt has only two minor Huntley's criteria, given the extent of this embolic event, I recommend transesophageal echo to r/o endocarditis, either bacterial or marantic - continue to use an incentive spirometer - continue nystatin management d/w Pt, his , his RN and Dr. Graves the total time I took to care for this Pt today was from 1130 to 1220 Consultation Date/Type/Reason Admit Date/Time Oct 20, 2018 at 19:11 Initial Consult Date 10/28/18 Type of Consult ID Requesting Provider: IZZY GRAVES Date/Time of Note DATE: 11/02/18 TIME: 13:34 24 HR Interval Summary Constitutional: other (hungry) Detailed Summary Eyes: no complaints ENT: other (+odynophagia) Respiratory: no complaints Cardiovascular: no complaints Gastrointestinal: no complaints Genitourinary: no complaints Musculoskeletal: no complaints Skin: no complaints Neurologic: no complaints Exam/Review of Systems Exam Vitals Vital Signs Date Temp Pulse Resp B/P (MAP) Pulse Ox O2 O2 Flow FiO2 Time Delivery Rate 11/02/18 82 12:30 11/02/18 98.3 18 106/61 95 12:07 (76) 11/02/18 21 08:23 11/01/18 Nasal 2.0 20:00 Cannula Intake and Output 11/01/18 11/01/18 11/02/18 1515:00 23:00 07:00 IntakeIntake Total 800 ml 720 ml OutputOutput Total 1200 ml BalanceBalance -400 ml 720 ml Constitutional: frail Psych: no complaints, nl mood/affect Head: normocephalic, atraumatic Eyes: nl conjunctiva, nl lids, nl sclera ENMT: nl external ears & nose, nl nasal mucosa & septum, mucosa pink and moist, other (no gingival or pharyngeal lesions) Respiratory: clear to auscultation, normal air movement Cardiovascular: regular rate and rhythm, nl pulses Gastrointestinal: soft, non-tender; No distended Musculoskeletal: No swelling Extremities: normal pulses Neurological: SOCIAL WORK COORDINATOR II-XII intact, nl mental status, nl speech Skin: nl turgor; No rash or lesions Results Result Diagram: 11/02/1853011/02/18530 Results 24hrs Laboratory Tests Test 11/02/18 02:12 11/02/18 05:31 11/02/18 09:21 Prothrombin Time 14.6 # Prothrombin Time Ratio 1.1 INR International 1.13 Normalized Ratio White Blood Count 2.7 L Red Blood Count 2.71 L Hemoglobin 8.0 L Hematocrit 25.5 L Mean Corpuscular Volume 94.1 Mean Corpuscular Hemoglobin 29.5 Mean Corpuscular 31.4 L Hemoglobin Concent Red Cell Distribution Width 15.9 H Platelet Count 61 #L Mean Platelet Volume 11.7 H Immature Granulocytes % 11.600 H Neutrophils % Segmented Neutrophils 72 % (Manual) Band Neutrophils % (Manual) 19 H Lymphocytes % Lymphocytes % (Manual) 6 L Monocytes % Monocytes % (Manual) 1 Eosinophils % Eosinophils % (Manual) 1 Basophils % Myelocytes % (Manual) 1 H Nucleated Red Blood Cells % 0.0 Immature Granulocytes # 0.310 H Neutrophils # Neutrophils # (Manual) 2.0 Band Neutrophils # 0.5 Lymphocytes (Manual) 0.1 L Lymphocytes # Monocytes # Monocytes # (Manual) 0.0 L Eosinophils # Basophils # Myelocytes # 0.0 Nucleated Red Blood Cells # Toxic Granulation 3+ Platelet Estimate SIG DECREASED Giant Platelets 3 H Polychromasia 1+ Poikilocytosis 1+ Anisocytosis 1+ Microcytosis 1+ Sodium Level 138 Potassium Level 5.3 H Chloride Level 107 Carbon Dioxide Level 24 Anion Gap 7 Blood Urea Nitrogen 59 H Creatinine 1.08 Est Glomerular Filtrat > 60 Rate mL/min Glucose Level 95 Calcium Level 8.3 L Phosphorus Level 3.6 Magnesium Level 2.1 Lab Scanned Report REFERENCE LAB Medications Medication Current Medications IV Flush (NS 3 ml) 3 ml PER PROTOCOL IV ; Start 10/20/18 at 19:30 Ondansetron HCl (Zofran Inj) 4 mg Q6H PRN IV NAUSEA/VOMITING Last administered on 10/28/18 15:07; Admin Dose 4 MG; Start 10/20/18 at 19:30 Acetaminophen (Tylenol Tab) 650 mg Q6H PRN PO .PAIN 1-3 OR TEMP Last administered on 10/27/18at 21:17; Admin Dose 650 MG; Start 10/20/18 at 19:30 Albuterol/ Ipratropium (Duoneb) 3 ml Q6HWA RESP THERAPY HHN Last administered on 11/02/18 08:23; Admin Dose 3 ML; Start 10/20/18 at 20:00 Albuterol/ Ipratropium (Duoneb) 3 ml Q2H RESP THERAPY PRN HHN shortness of breath Last administered on 10/24/18 06:25; Admin Dose 3 ML; Start 10/20/18 at 19:30 Acetaminophen/ Hydrocodone Bitart ([place] (10/)) 1 tab Q6H PRN PO MODERATE PAIN LEVEL 4-6 Last administered on 10/27/18 19:00; Admin Dose 1 TAB; Start 10/21/18 at 07:00 Nystatin (Nystatin Susp) 5 ml QID PO Last administered on 11/01/18 20:53; Admin Dose 5 ML; Start 10/23/18 at 13:00 Magnesium Hydroxide (Milk Of Mag) 30 ml DAILY PRN PO CONSTIPATION Last administered on 10/31/18 18:39; Admin Dose 30 ML; Start 10/24/18 at 00:30 Miscellaneous Information (* Miscellaneous Pharmacy Order) Please adjust voriconazole dosing ... ONCE XX ; Start 10/24/18 at 19:00 Docusate Sodium (Colace) 100 mg DAILY PRN PO CONSTIPATION Last administered on 10/31/18 13:28; Admin Dose 100 MG; Start 10/25/18 at 10:30 Calcium Carbonate (Tums) 500 mg PRN PRN PO HEARTBURN Last administered on 10/27/18 20:45; Admin Dose 500 MG; Start 10/27/18 at 14:00 Filgrastim (Nivestym) 480 mcg DAILY@1700 SC Last administered on 11/01/18 18:39; Admin Dose 480 MCG; Start 10/27/18 at 18:45 Morphine Sulfate (morphine) 2 mg Q4H PRN IV SEVERE PAIN LEVEL 7-10 Last administered on 10/27/18 22:10; Admin Dose 2 MG; Start 10/27/18 at 22:30 Nitroglycerin (Nitroglycerin 0.2 Mg/Hr) 1 patch DAILY TRANSDERM Last administered on 11/02/18 12:13; Admin Dose 1 PATCH; Start 10/28/18 at 01:30 Al Hydrox/Mg Hydrox/Simethicone (Mag-Al Plus) 30 ml Q6H PRN PO GASTROINTESTINAL UPSET Last administered on 11/01/18 13:05; Admin Dose 30 ML; Start 10/28/18 at 06:00 Atorvastatin Calcium (Lipitor) 80 mg HS PO Last administered on 11/01/18 20:54; Admin Dose 80 MG; Start 10/29/18 at 21:00 Carvedilol (Coreg) 3.125 mg BID PO Last administered on 11/02/18at 12:13; Admin Dose 3.125 MG; Start 10/28/18 at 09:00 Furosemide (Lasix) 40 mg DAILY IV Last administered on 10/29/18at 08:18; Admin Dose 40 MG; Start 10/28/18 at 11:00; Status Hold Sucralfate (Carafate Susp) 1 gm QID PO Last administered on 11/01/18at 20:53; Admin Dose 1 GM; Start 11/01/18 at 21:00 Pantoprazole (Protonix Tab) 40 mg BID PO Last administered on 11/01/18at 20:54; Admin Dose 40 MG; Start 11/01/18 at 21:00 Apixaban (Eliquis) 5 mg BID PO ; Start 11/02/18 at 11:30 CHANTAL LE M.D. Nov 02, 2018 13:45
[2018-11-02] MEDS ORDERED: PROPOFOL 20 ML ONE ×2 (14:14→15:34)
--- NOTE | 2018-11-02 14:14 | PREAC ---
Date/Time of Note Date/Time of Note DATE: 11/02/18 TIME: 14:11 Anesthesia Eval and Record Evaluation Time Pre-Procedure Interview DATE: 11/02/18 TIME: 14:11 Age 68 Sex male NPO: 8 hrs Preoperative diagnosis dysphagia Planned procedure EGD Past Medical History Past Medical History: Includes Pulm: Other (pneumonia) Renal: CKD Heme: Other (MM) Surgery & Anesthesia Issues No known issue Meds Anticoagulation: No Beta Mauricio within 24 hr: No Reason Beta Mauricio not given: Pt. not on B-Mauricio Active Scripts Aspirin (Aspirin) 81 Mg Chew, 81 MG PO DAILY, #60 TAB Prov:IZZY LEBLANC 11/01/18 Carvedilol* (Carvedilol*) 3.125 Mg Tablet, 3.125 MG PO BID, #60 TAB 1 Refill Prov:IZZY LEBLANC 11/01/18 Atorvastatin* (Atorvastatin*) 80 Mg Tablet, 80 MG PO HS, #60 TAB Prov:IZZY LEBLANC 11/01/18 Reported Medications Hydromorphone Hcl* (Hydromorphone Hcl*) 4 Mg Tablet, 4 MG PO Q4H PRN for PAIN, TAB 04/12/18 Naproxen* (Naproxen*) 375 Mg Tablet, 375 MG PO BID PRN for PAIN LEVEL 6-10, TAB TAKE 1 - 2 TABLETS BY MOUTH NEEDED FOR PAIN 04/12/18 Lenalidomide (Revlimid) 15 Mg Capsule, 15 MG PO, CAP 04/12/18 Dexamethasone* (Dexamethasone*) 4 Mg Tablet, 4 MG PO Q8, TAB Take 3 tablets by mouth Once a Week. QWED 04/12/18 Discontinued Scripts Cephalexin* (Keflex*) 500 Mg Capsule, 500 MG PO QID for 7 Days, CAP Prov:EVERETT GALICIA PA-C 08/18/18 Current Medications IV Flush (NS 3 ml) 3 ml PER PROTOCOL IV ; Start 10/20/18 at 19:30 Ondansetron HCl (Zofran Inj) 4 mg Q6H PRN IV NAUSEA/VOMITING Last administered on 10/28/18at 15:07; Admin Dose 4 MG; Start 10/20/18 at 19:30 Acetaminophen (Tylenol Tab) 650 mg Q6H PRN PO .PAIN 1-3 OR TEMP Last administered on 10/27/18 21:17; Admin Dose 650 MG; Start 10/20/18 at 19:30 Albuterol/ Ipratropium (Duoneb) 3 ml Q6HWA RESP THERAPY HHN Last administered on 11/02/18 08:23; Admin Dose 3 ML; Start 10/20/18 at 20:00 Albuterol/ Ipratropium (Duoneb) 3 ml Q2H RESP THERAPY PRN HHN shortness of breath Last administered on 10/24/18 06:25; Admin Dose 3 ML; Start 10/20/18 at 19:30 Acetaminophen/ Hydrocodone Bitart ([place] ()) 1 tab Q6H PRN PO MODERATE PAIN LEVEL 4-6 Last administered on 10/27/18 19:00; Admin Dose 1 TAB; Start 10/21/18 at 07:00 Nystatin (Nystatin Susp) 5 ml QID PO Last administered on 11/01/18 20:53; Admin Dose 5 ML; Start 10/23/18 at 13:00 Magnesium Hydroxide (Milk Of Mag) 30 ml DAILY PRN PO CONSTIPATION Last administered on 10/31/18 18:39; Admin Dose 30 ML; Start 10/24/18 at 00:30 Miscellaneous Information (* Miscellaneous Pharmacy Order) Please adjust voriconazole dosing ... ONCE XX ; Start 10/24/18 at 19:00 Docusate Sodium (Colace) 100 mg DAILY PRN PO CONSTIPATION Last administered on 10/31/18 13:28; Admin Dose 100 MG; Start 10/25/18 at 10:30 Calcium Carbonate (Tums) 500 mg PRN PRN PO HEARTBURN Last administered on 10/27/18 20:45; Admin Dose 500 MG; Start 10/27/18 at 14:00 Filgrastim (Nivestym) 480 mcg DAILY@1700 SC Last administered on 11/01/18 18:39; Admin Dose 480 MCG; Start 10/27/18 at 18:45 Morphine Sulfate (morphine) 2 mg Q4H PRN IV SEVERE PAIN LEVEL 7-10 Last administered on 10/27/18 22:10; Admin Dose 2 MG; Start 10/27/18 at 22:30 Nitroglycerin (Nitroglycerin 0.2 Mg/Hr) 1 patch DAILY TRANSDERM Last adminis tered on 11/02/18 12:13; Admin Dose 1 PATCH; Start 10/28/18 at 01:30 Al Hydrox/Mg Hydrox/Simethicone (Mag-Al Plus) 30 ml Q6H PRN PO GASTROINTESTINAL UPSET Last administered on 11/01/18 13:05; Admin Dose 30 ML; Start 10/28/18 at 06:00 Atorvastatin Calcium (Lipitor) 80 mg HS PO Last administered on 11/01/18 20:54; Admin Dose 80 MG; Start 10/29/18 at 21:00 Carvedilol (Coreg) 3.125 mg BID PO Last administered on 11/02/18 12:13; Admin Dose 3.125 MG; Start 10/28/18 at 09:00 Furosemide (Lasix) 40 mg DAILY IV Last administered on 10/29/18 08:18; Admin Dose 40 MG; Start 10/28/18 at 11:00; Status Hold Sucralfate (Carafate Susp) 1 gm QID PO Last administered on 11/01/18 20:53; Admin Dose 1 GM; Start 11/01/18 at 21:00 Pantoprazole (Protonix Tab) 40 mg BID PO Last administered on 11/01/18 20:54; Admin Dose 40 MG; Start 11/01/18 at 21:00 Apixaban (Eliquis) 5 mg BID PO ; Start 11/02/18 at 11:30 Meds reviewed: Yes Allergies Coded Allergies: No Known Allergy (Unverified , 04/12/18) Allergies Reviewed: Yes Labs/Studies Labs Reviewed: Reviewed by anesthesiologist Result Diagram: 11/02/1831 11/02/1831 Laboratory Tests 11/02/18 05:31 Blood Bank Test 11/01/18 18:01 Antibody Screen NEGATIVE Blood Product Summary Counts Blood Type A NEGATIVE test: N/A Studies: ECG (sr), CXR (patchy infiltration,) Pre-procedure Exam Last vitals Vital Signs Date Temp Pulse Resp B/P (MAP) Pulse Ox O2 O2 Flow FiO2 Time Delivery Rate 11/02/18 82 12:30 11/02/18 98.3 18 106/61 95 12:07 (76) 11/02/18 21 08:23 11/01/18 Nasal 2.0 20:00 Cannula Airway: Adequate mouth opening Mallampati: Mallampati I Teeth: Normal Lung: Normal Heart: Normal ASA Physical Status ASA physical status: 2 Emergency: None Planned Anesthetic General/MAC: MAC Planned Pain Management Parenteral pain med Pre-operative Attestations Prior to commencing anesthesia and surgery, the patient was re-evaluated, there was verification of: *The patient's identity *The results of appropriate recent lab work and preoperative vital signs *The above evaluation not changing prior to induction *Anesthetic plan, risk benefits, alternative and complications discussed with patient/family; questions answered; patient/family understands, accepts and wishes to proceed. PEPITO SANCHEZ MD Nov 02, 2018 14:14
--- NOTE | 2018-11-02 14:36 | HPN ---
Date/Time of Note Date/Time of Note DATE: 11/02/18 TIME: 14:36 Interval H&P Admission Note Pt. seen H&P reviewed: No system changes GLORIA HERRERA Nov 02, 2018 14:36
--- NOTE | 2018-11-02 15:31 | PREAC ---
Date/Time of Note Date/Time of Note DATE: 11/02/18 TIME: 15:25 Anesthesia Eval and Record Evaluation Time Pre-Procedure Interview DATE: 11/02/18 TIME: 15:25 Age 68 Sex male NPO: 8 hrs Preoperative diagnosis 5 days ago NSTEMI , Poss CVA, brain emboli on scan Planned procedure DANISH Past Medical History Past Medical History: Includes Cardio: CAD, Other (EF 55%) Heme: Other (MM) Surgery & Anesthesia Issues No known issue Meds Anticoagulation: No Beta Mauricio within 24 hr: No Reason Beta Mauricio not given: Pt. not on B-Mauricio Active Scripts Aspirin (Aspirin) 81 Mg Chew, 81 MG PO DAILY, #60 TAB Prov:IZZY LEBLANC 11/01/18 Carvedilol* (Carvedilol*) 3.125 Mg Tablet, 3.125 MG PO BID, #60 TAB 1 Refill Prov:IZZY LEBLANC 11/01/18 Atorvastatin* (Atorvastatin*) 80 Mg Tablet, 80 MG PO HS, #60 TAB Prov:IZZY LEBLANC 11/01/18 Reported Medications Hydromorphone Hcl* (Hydromorphone Hcl*) 4 Mg Tablet, 4 MG PO Q4H PRN for PAIN, TAB 04/12/18 Naproxen* (Naproxen*) 375 Mg Tablet, 375 MG PO BID PRN for PAIN LEVEL 6-10, TAB TAKE 1 - 2 TABLETS BY MOUTH NEEDED FOR PAIN 04/12/18 Lenalidomide (Revlimid) 15 Mg Capsule, 15 MG PO, CAP 04/12/18 Dexamethasone* (Dexamethasone*) 4 Mg Tablet, 4 MG PO Q8, TAB Take 3 tablets by mouth Once a Week. QWED 04/12/18 Discontinued Scripts Cephalexin* (Keflex*) 500 Mg Capsule, 500 MG PO QID for 7 Days, CAP Prov:EVERETT GALICIA PA-C 08/18/18 Current Medications IV Flush (NS 3 ml) 3 ml PER PROTOCOL IV ; Start 10/20/18 at 19:30 Ondansetron HCl (Zofran Inj) 4 mg Q6H PRN IV NAUSEA/VOMITING Last administered on 10/28/18at 15:07; Admin Dose 4 MG; Start 10/20/18 at 19:30 Acetaminophen (Tylenol Tab) 650 mg Q6H PRN PO .PAIN 1-3 OR TEMP Last administered on 10/27/18 21:17; Admin Dose 650 MG; Start 10/20/18 at 19:30 Albuterol/ Ipratropium (Duoneb) 3 ml Q6HWA RESP THERAPY HHN Last administered on 11/02/18 08:23; Admin Dose 3 ML; Start 10/20/18 at 20:00 Albuterol/ Ipratropium (Duoneb) 3 ml Q2H RESP THERAPY PRN HHN shortness of breath Last administered on 10/24/18 06:25; Admin Dose 3 ML; Start 10/20/18 at 19:30 Acetaminophen/ Hydrocodone Bitart ([place] ()) 1 tab Q6H PRN PO MODERATE PA IN LEVEL 4-6 Last administered on 10/27/18 19:00; Admin Dose 1 TAB; Start 10/21/18 at 07:00 Nystatin (Nystatin Susp) 5 ml QID PO Last administered on 11/01/18 20:53; Admin Dose 5 ML; Start 10/23/18 at 13:00 Magnesium Hydroxide (Milk Of Mag) 30 ml DAILY PRN PO CONSTIPATION Last administered on 10/31/18 18:39; Admin Dose 30 ML; Start 10/24/18 at 00:30 Miscellaneous Information (* Miscellaneous Pharmacy Order) Please adjust voriconazole dosing ... ONCE XX ; Start 10/24/18 at 19:00 Docusate Sodium (Colace) 100 mg DAILY PRN PO CONSTIPATION Last administered on 10/31/18 13:28; Admin Dose 100 MG; Start 10/25/18 at 10:30 Calcium Carbonate (Tums) 500 mg PRN PRN PO HEARTBURN Last administered on 10/27/18 20:45; Admin Dose 500 MG; Start 10/27/18 at 14:00 Filgrastim (Nivestym) 480 mcg DAILY@1700 SC Last administered on 11/01/18 18:39; Admin Dose 480 MCG; Start 10/27/18 at 18:45 Morphine Sulfate (morphine) 2 mg Q4H PRN IV SEVERE PAIN LEVEL 7-10 Last administered on 10/27/18 22:10; Admin Dose 2 MG; Start 10/27/18 at 22:30 Nitroglycerin (Nitroglycerin 0.2 Mg/Hr) 1 patch DAILY TRANSDERM Last administered on 11/02/18 12:13; Admin Dose 1 PATCH; Start 10/28/18 at 01:30 Al Hydrox/Mg Hydrox/Simethicone (Mag-Al Plus) 30 ml Q6H PRN PO GASTROINTESTINAL UPSET Last administered on 11/01/18 13:05; Admin Dose 30 ML; Start 10/28/18 at 06:00 Atorvastatin Calcium (Lipitor) 80 mg HS PO Last administered on 11/01/18 20:54; Admin Dose 80 MG; Start 10/29/18 at 21:00 Carvedilol (Coreg) 3.125 mg BID PO Last administered on 11/02/18 12:13; Admin Dose 3.125 MG; Start 10/28/18 at 09:00 Furosemide (Lasix) 40 mg DAILY IV Last administered on 10/29/18 08:18; Admin Dose 40 MG; Start 10/28/18 at 11:00; Status Hold Sucralfate (Carafate Susp) 1 gm QID PO Last administered on 11/01/18 20:53; Admin Dose 1 GM; Start 11/01/18 at 21:00 Pantoprazole (Protonix Tab) 40 mg BID PO Last administered on 11/01/18 20:54; Admin Dose 40 MG; Start 11/01/18 at 21:00 Apixaban (Eliquis) 5 mg BID PO ; Start 11/02/18 at 11:30 Meds reviewed: Yes Allergies Coded Allergies: No Known Allergy (Unverified , 04/12/18) Allergies Reviewed: Yes Labs/Studies Labs Reviewed: Reviewed by anesthesiologist Result Diagram: 11/02/1853011/02/18530 Laboratory Tests 11/02/18 05:31 Blood Bank Test 11/01/18 18:01 Antibody Screen NEGATIVE Blood Product Summary Counts Blood Type A NEGATIVE test: N/A Studies: ECG (SR), CXR (patchy infiltration) Pre-procedure Exam Last vitals Vital Signs Date Temp Pulse Resp B/P (MAP) Pulse Ox O2 O2 Flow FiO2 Time Delivery Rate 11/02/18 80 24 86/61 (69) 94 Room Air 15:16 11/02/18 97.3 14:51 11/02/18 21 08:23 11/01/18 2.0 20:00 Airway: Adequate mouth opening Mallampati: Mallampati I Teeth: Normal Lung: Normal Heart: Normal ASA Physical Status ASA physical status: 3 Emergency: None Planned Anesthetic General/MAC: MAC Planned Pain Management Parenteral pain med Pre-operative Attestations Prior to commencing anesthesia and surgery, the patient was re-evaluated, there was verification of: *The patient's identity *The results of appropriate recent lab work and preoperative vital signs *The above evaluation not changing prior to induction *Anesthetic plan, risk benefits, alternative and complications discussed with patient/family; questions answered; patient/family understands, accepts and wishes to proceed. PEPITO SANCHEZ MD Nov 02, 2018 15:31
--- NOTE | 2018-11-02 15:34 | PN ---
Date/Time of Note Date/Time of Note DATE: 11/02/18 TIME: 15:20 Assessment/Plan VTE Prophylaxis Risk score (from Ns)>0 risk: 6 SCD applied (from Ns): Yes Pharmacological prophylaxis: apixaban Lines/Catheters IV [facility]ter [facility] (from [facility]): Peripheral IV Urinary Cath still in place: No Assessment/Plan Hospital Course 68 yo male with MM presented with neutropenic fevers 2/2 pneumonia leading to hypoxic respiratory failure MM with pancytopenia/neutropenia: - Neupogen per hematology. Neutrophil count thankfully is starting to respond and is no longer neutropenic Intermittent slurred speech -Patient with intermittent slurred speech and difficulty finding words, etiology secondary to bilateral shoulder emboli -Neurology consultation appreciated, CT head shows no acute findings but MRI does show bilateral shower of emboli -Plan is for DANISH either today or Monday to evaluate for possible infectious endocarditis, of note patient has negative blood cultures -Patient started on Eliquis for possible hypercoagulable state, aspirin discontinued Dysphasia/gastritis-persists -Etiology may be secondary to gastritis from steroids which have been discontinued -GI consultation appreciated, plan for EGD today -Continue PPI and Carafate NSTEMI: -Stress test shows a nonreversible defect, cardiology recommendations is to continue medical therapy, no plans for cath -Have discontinued aspirin and started Eliquis for possible hypercoagulable state Pneumonia: -Status post antibiotics per ID Acute respiratory failure: -Patient no longer requires supplements O2 - Lasix as needed for pulmonary edema Acute kidney injury on CKD 3 - renal function has improved - result of MM -Nephrology consultation appreciated Hyperkalemia secondary to CKD and Bactrim effect -Status post Kayexalate Prophylaxis: Eliquis DC planning: EGD and possible DANISH today Result Diagram: 11/02/18 0531 11/02/18 0531 Results 24hrs Laboratory Tests Test 11/02/18 02:12 11/02/18 05:31 11/02/18 09:21 Prothrombin Time 14.6 # Prothrombin Time Ratio 1.1 INR International 1.13 Normalized Ratio White Blood Count 2.7 L Red Blood Count 2.71 L Hemoglobin 8.0 L Hematocrit 25.5 L Mean Corpuscular Volume 94.1 Mean Corpuscular Hemoglobin 29.5 Mean Corpuscular 31.4 L Hemoglobin Concent Red Cell Distribution Width 15.9 H Platelet Count 61 #L Mean Platelet Volume 11.7 H Immature Granulocytes % 11.600 H Neutrophils % Segmented Neutrophils 72 % (Manual) Band Neutrophils % (Manual) 19 H Lymphocytes % Lymphocytes % (Manual) 6 L Monocytes % Monocytes % (Manual) 1 Eosinophils % Eosinophils % (Manual) 1 Basophils % Myelocytes % (Manual) 1 H Nucleated Red Blood Cells % 0.0 Immature Granulocytes # 0.310 H Neutrophils # Neutrophils # (Manual) 2.0 Band Neutrophils # 0.5 Lymphocytes (Manual) 0.1 L Lymphocytes # Monocytes # Monocytes # (Manual) 0.0 L Eosinophils # Basophils # Myelocytes # 0.0 Nucleated Red Blood Cells # Toxic Granulation 3+ Platelet Estimate SIG DECREASED Giant Platelets 3 H Polychromasia 1+ Poikilocytosis 1+ Anisocytosis 1+ Microcytosis 1+ Sodium Level 138 Potassium Level 5.3 H Chloride Level 107 Carbon Dioxide Level 24 Anion Gap 7 Blood Urea Nitrogen 59 H Creatinine 1.08 Est Glomerular Filtrat > 60 Rate mL/min Glucose Level 95 Calcium Level 8.3 L Phosphorus Level 3.6 Magnesium Level 2.1 Lab Scanned Report REFERENCE LAB Subjective 24 Hr Interval Summary Constitutional: no complaints Exam/Review of Systems Exam Vitals Vital Signs Date Temp Pulse Resp B/P (MAP) Pulse Ox O2 O2 Flow FiO2 Time Delivery Rate 11/02/18 80 24 86/61 (69) 94 Room Air 15:16 11/02/18 97.3 14:51 11/02/18 21 08:23 11/01/18 2.0 20:00 Intake and Output 11/01/18 11/01/18 11/02/18 1515:00 23:00 07:00 IntakeIntake Total 800 ml 720 ml OutputOutput Total 1200 ml BalanceBalance -400 ml 720 ml Constitutional: alert, oriented Respiratory: clear to auscultation Cardiovascular: regular rate and rhythm Gastrointestinal: soft; No distended Musculoskeletal: nl extremities to inspection Results Results 24hrs Laboratory Tests Test 11/02/18 02:12 11/02/18 05:31 11/02/18 09:21 Prothrombin Time 14.6 # Prothrombin Time Ratio 1.1 INR International 1.13 Normalized Ratio White Blood Count 2.7 L Red Blood Count 2.71 L Hemoglobin 8.0 L Hematocrit 25.5 L Mean Corpuscular Volume 94.1 Mean Corpuscular Hemoglobin 29.5 Mean Corpuscular 31.4 L Hemoglobin Concent Red Cell Distribution Width 15.9 H Platelet Count 61 #L Mean Platelet Volume 11.7 H Immature Granulocytes % 11.600 H Neutrophils % Segmented Neutrophils 72 % (Manual) Band Neutrophils % (Manual) 19 H Lymphocytes % Lymphocytes % (Manual) 6 L Monocytes % Monocytes % (Manual) 1 Eosinophils % Eosinophils % (Manual) 1 Basophils % Myelocytes % (Manual) 1 H Nucleated Red Blood Cells % 0.0 Immature Granulocytes # 0.310 H Neutrophils # Neutrophils # (Manual) 2.0 Band Neutrophils # 0.5 Lymphocytes (Manual) 0.1 L Lymphocytes # Monocytes # Monocytes # (Manual) 0.0 L Eosinophils # Basophils # Myelocytes # 0.0 Nucleated Red Blood Cells # Toxic Granulation 3+ Platelet Estimate SIG DECREASED Giant Platelets 3 H Polychromasia 1+ Poikilocytosis 1+ Anisocytosis 1+ Microcytosis 1+ Sodium Level 138 Potassium Level 5.3 H Chloride Level 107 Carbon Dioxide Level 24 Anion Gap 7 Blood Urea Nitrogen 59 H Creatinine 1.08 Est Glomerular Filtrat > 60 Rate mL/min Glucose Level 95 Calcium Level 8.3 L Phosphorus Level 3.6 Magnesium Level 2.1 Lab Scanned Report REFERENCE LAB Medications Medication Current Medications IV Flush (NS 3 ml) 3 ml PER PROTOCOL IV ; Start 10/20/18 at 19:30 Ondansetron HCl (Zofran Inj) 4 mg Q6H PRN IV NAUSEA/VOMITING Last administered on 10/28/18at 15:07; Admin Dose 4 MG; Start 10/20/18 at 19:30 Acetaminophen (Tylenol Tab) 650 mg Q6H PRN PO .PAIN 1-3 OR TEMP Last administered on 10/27/18at 21:17; Admin Dose 650 MG; Start 10/20/18 at 19:30 Albuterol/ Ipratropium (Duoneb) 3 ml Q6HWA RESP THERAPY HHN Last administered on 11/02/18 08:23; Admin Dose 3 ML; Start 10/20/18 at 20:00 Albuterol/ Ipratropium (Duoneb) 3 ml Q2H RESP THERAPY PRN HHN shortness of breath Last administered on 10/24/18 06:25; Admin Dose 3 ML; Start 10/20/18 at 19:30 Acetaminophen/ Hydrocodone Bitart ([place] (10/325)) 1 tab Q6H PRN PO MODERATE PAIN LEVEL 4-6 Last administered on 10/27/18 19:00; Admin Dose 1 TAB; Start 10/21/18 at 07:00 Nystatin (Nystatin Susp) 5 ml QID PO Last administered on 11/01/18 20:53; Admin Dose 5 ML; Start 10/23/18 at 13:00 Magnesium Hydroxide (Milk Of Mag) 30 ml DAILY PRN PO CONSTIPATION Last administered on 10/31/18 18:39; Admin Dose 30 ML; Start 10/24/18 at 00:30 Miscellaneous Information (* Miscellaneous Pharmacy Order) Please adjust voriconazole dosing ... ONCE XX ; Start 10/24/18 at 19:00 Docusate Sodium (Colace) 100 mg DAILY PRN PO CONSTIPATION Last administered on 10/31/18 13:28; Admin Dose 100 MG; Start 10/25/18 at 10:30 Calcium Carbonate (Tums) 500 mg PRN PRN PO HEARTBURN Last administered on 10/27/18 20:45; Admin Dose 500 MG; Start 10/27/18 at 14:00 Filgrastim (Nivestym) 480 mcg DAILY@1700 SC Last administered on 11/01/18 18:39; Admin Dose 480 MCG; Start 10/27/18 at 18:45 Morphine Sulfate (morphine) 2 mg Q4H PRN IV SEVERE PAIN LEVEL 7-10 Last administered on 10/27/18 22:10; Admin Dose 2 MG; Start 10/27/18 at 22:30 Nitroglycerin (Nitroglycerin 0.2 Mg/Hr) 1 patch DAILY TRANSDERM Last administered on 11/02/18 12:13; Admin Dose 1 PATCH; Start 10/28/18 at 01:30 Al Hydrox/Mg Hydrox/Simethicone (Mag-Al Plus) 30 ml Q6H PRN PO GASTROINTESTINAL UPSET Last administered on 11/01/18 13:05; Admin Dose 30 ML; Start 10/28/18 at 06:00 Atorvastatin Calcium (Lipitor) 80 mg HS PO Last administered on 11/01/18 20:54; Admin Dose 80 MG; Start 10/29/18 at 21:00 Carvedilol (Coreg) 3.125 mg BID PO Last administered on 11/02/18 12:13; Admin Dose 3.125 MG; Start 10/28/18 at 09:00 Furosemide (Lasix) 40 mg DAILY IV Last administered on 10/29/18at 08:18; Admin Dose 40 MG; Start 10/28/18 at 11:00; Status Hold Sucralfate (Carafate Susp) 1 gm QID PO Last administered on 11/01/18at 20:53; Admin Dose 1 GM; Start 11/01/18 at 21:00 Pantoprazole (Protonix Tab) 40 mg BID PO Last administered on 11/01/18at 20:54; Admin Dose 40 MG; Start 11/01/18 at 21:00 Apixaban (Eliquis) 5 mg BID PO ; Start 11/02/18 at 11:30 IZZY LEBLANC Nov 02, 2018 15:30
--- NOTE | 2018-11-02 16:29 | CONS ---
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 Pharmacologic stress testing demonstrates a moderate sized defect, with no guerita-infarct ischemia. DANISH demonstrates no cardioembolic source of emboli. 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 No pain, no dyspnea. Concern is for cardiac sources of emboli leading to small CVA's and possibly his LA. Exam/Review of Systems Vital Signs Vitals Vital Signs Date Temp Pulse Resp B/P (MAP) Pulse Ox O2 O2 Flow FiO2 Time Delivery Rate 11/02/18 80 24 86/61 (69) 94 Room Air 15:16 11/02/18 97.3 14:51 11/02/18 21 08:23 11/02/18 2.0 07:35 Intake and Output 11/01/18 11/01/18 11/02/18 1515:00 23:00 07:00 IntakeIntake Total 800 ml 720 ml OutputOutput Total 1200 ml BalanceBalance -400 ml 720 ml Exam Constitutional: alert, well developed Psych: no complaints, nl mood/affect Head: normocephalic, atraumatic Eyes: EOMI, nl lids, nl sclera ENMT: nl external ears & nose, nl lips & teeth Neck: supple; No jvd, No bruits Respiratory: clear to auscultation Cardiovascular: regular rate and rhythm Gastrointestinal: soft, non-tender Musculoskeletal: nl extremities to inspection Extremities: No edema Neurological: nl mental status, nl speech Skin: nl turgor Labs Result Diagram: 11/02/18 0531 11/02/18 0531 Results 24hrs Laboratory Tests Test 11/02/18 02:12 11/02/18 05:31 11/02/18 09:21 Prothrombin Time 14.6 # Prothrombin Time Ratio 1.1 INR International 1.13 Normalized Ratio White Blood Count 2.7 L Red Blood Count 2.71 L Hemoglobin 8.0 L Hematocrit 25.5 L Mean Corpuscular Volume 94.1 Mean Corpuscular Hemoglobin 29.5 Mean Corpuscular 31.4 L Hemoglobin Concent Red Cell Distribution Width 15.9 H Platelet Count 61 #L Mean Platelet Volume 11.7 H Immature Granulocytes % 11.600 H Neutrophils % Segmented Neutrophils 72 % (Manual) Band Neutrophils % (Manual) 19 H Lymphocytes % Lymphocytes % (Manual) 6 L Monocytes % Monocytes % (Manual) 1 Eosinophils % Eosinophils % (Manual) 1 Basophils % Myelocytes % (Manual) 1 H Nucleated Red Blood Cells % 0.0 Immature Granulocytes # 0.310 H Neutrophils # Neutrophils # (Manual) 2.0 Band Neutrophils # 0.5 Lymphocytes (Manual) 0.1 L Lymphocytes # Monocytes # Monocytes # (Manual) 0.0 L Eosinophils # Basophils # Myelocytes # 0.0 Nucleated Red Blood Cells # Toxic Granulation 3+ Platelet Estimate SIG DECREASED Giant Platelets 3 H Polychromasia 1+ Poikilocytosis 1+ Anisocytosis 1+ Microcytosis 1+ Sodium Level 138 Potassium Level 5.3 H Chloride Level 107 Carbon Dioxide Level 24 Anion Gap 7 Blood Urea Nitrogen 59 H Creatinine 1.08 Est Glomerular Filtrat > 60 Rate mL/min Glucose Level 95 Calcium Level 8.3 L Phosphorus Level 3.6 Magnesium Level 2.1 Lab Scanned Report REFERENCE LAB Medications Medications Current Medications IV Flush (NS 3 ml) 3 ml PER PROTOCOL IV ; Start 10/20/18 at 19:30 Ondansetron HCl (Zofran Inj) 4 mg Q6H PRN IV NAUSEA/VOMITING Last administered on 10/28/18at 15:07; Admin Dose 4 MG; Start 10/20/18 at 19:30 Acetaminophen (Tylenol Tab) 650 mg Q6H PRN PO .PAIN 1-3 OR TEMP Last administered on 10/27/18at 21:17; Admin Dose 650 MG; Start 10/20/18 at 19:30 Albuterol/ Ipratropium (Duoneb) 3 ml Q6HWA RESP THERAPY HHN Last administered on 11/02/18at 08:23; Admin Dose 3 ML; Start 10/20/18 at 20:00 Albuterol/ Ipratropium (Duoneb) 3 ml Q2H RESP THERAPY PRN HHN shortness of breath Last administered on 10/24/18 06:25; Admin Dose 3 ML; Start 10/20/18 at 19:30 Acetaminophen/ Hydrocodone Bitart ([place] (10/325)) 1 tab Q6H PRN PO MODERATE PAIN LEVEL 4-6 Last administered on 10/27/18 19:00; Admin Dose 1 TAB; Start 10/21/18 at 07:00 Nystatin (Nystatin Susp) 5 ml QID PO Last administered on 11/01/18 20:53; Admin Dose 5 ML; Start 10/23/18 at 13:00 Magnesium Hydroxide (Milk Of Mag) 30 ml DAILY PRN PO CONSTIPATION Last administered on 10/31/18 18:39; Admin Dose 30 ML; Start 10/24/18 at 00:30 Miscellaneous Information (* Miscellaneous Pharmacy Order) Please adjust voriconazole dosing ... ONCE XX ; Start 10/24/18 at 19:00 Docusate Sodium (Colace) 100 mg DAILY PRN PO CONSTIPATION Last administered on 10/31/18 13:28; Admin Dose 100 MG; Start 10/25/18 at 10:30 Calcium Carbonate (Tums) 500 mg PRN PRN PO HEARTBURN Last administered on 10/27/18 20:45; Admin Dose 500 MG; Start 10/27/18 at 14:00 Filgrastim (Nivestym) 480 mcg DAILY@1700 SC Last administered on 11/01/18 18:39; Admin Dose 480 MCG; Start 10/27/18 at 18:45 Morphine Sulfate (morphine) 2 mg Q4H PRN IV SEVERE PAIN LEVEL 7-10 Last administered on 10/27/18 22:10; Admin Dose 2 MG; Start 10/27/18 at 22:30 Nitroglycerin (Nitroglycerin 0.2 Mg/Hr) 1 patch DAILY TRANSDERM Last administered on 11/02/18 12:13; Admin Dose 1 PATCH; Start 10/28/18 at 01:30 Al Hydrox/Mg Hydrox/Simethicone (Mag-Al Plus) 30 ml Q6H PRN PO GASTROINTESTINAL UPSET Last administered on 11/01/18 13:05; Admin Dose 30 ML; Start 10/28/18 at 06:00 Atorvastatin Calcium (Lipitor) 80 mg HS PO Last administered on 11/01/18 20:54; Admin Dose 80 MG; Start 10/29/18 at 21:00 Carvedilol (Coreg) 3.125 mg BID PO Last administered on 11/02/18 12:13; Admin Dose 3.125 MG; Start 10/28/18 at 09:00 Furosemide (Lasix) 40 mg DAILY IV Last administered on 10/29/18 08:18; Admin Dose 40 MG; Start 10/28/18 at 11:00; Status Hold Sucralfate (Carafate Susp) 1 gm QID PO Last administered on 11/01/18 20:53; Ad min Dose 1 GM; Start 11/01/18 at 21:00 Pantoprazole (Protonix Tab) 40 mg BID PO Last administered on 11/01/18 20:54; Admin Dose 40 MG; Start 11/01/18 at 21:00 Apixaban (Eliquis) 5 mg BID PO ; Start 11/02/18 at 11:30 GUANAKITO MOHAN Nov 02, 2018 16:29
[2018-11-02] MEDS ORDERED: ASPIRIN 81 MG TAB PO SCH (17:00)
[2018-11-02] MEDS: ASPIRIN (EC) 81 MG TAB PO SCH (18:29)
[2018-11-02] MEDS: FILGRASTIM-AAFI 480 MCG/0.8 ML SYRINGE SC SCH (18:34)
--- NOTE | 2018-11-02 18:48 | RADRPT ---
Transesophageal Echo Report Patient Name: ELISE CLARKPatient ID: [id number] : 1950 (68y 1m)Study Date: 11/02/2018 3:38:44 PM Gender: MAccession #: [id number] Tech: Tono Herrera [facility] Location: [facility] Ref.Physician: IZZY LEBLANC Height(Cm): BSA: Weight(Kg): Quality: AdequateAccount #: Procedures: Transesophageal Echo Report: Transesophageal echocardiogram was performed. PREP: Patient received pre-procedure education; informed consent, baseline vital signs, and focused history and physical were obtained. Systemic sedation was achieved. ESOPHAGEAL INTUBATION: After suitable sedation, the probe was passed. Continuous pulse oximetry, electrocardiographic, and blood pressure monitoring were maintained throughout the procedure. Standard views were obtained in the transgastric, mid-esophageal, and basal planes at approximately 0, 30, 90, and 120 degrees. In addition, a normal saline study was performed. No immediate DANISH complications noted. Indications: Cerebrovascular Accident. Description of Procedure: Dr. Mily Gandara MD. Findings: Left Ventricle: Normal left ventricular systolic function. Normal left ventricular size. Ejection fraction is measured at 55 %. No left ventricular thrombus visualized. Right Ventricle: Normal right ventricular systolic function. Left Atrium: The left atrium is normal in size. Right Atrium: The right atrium is normal in size. Prominent Eustachian valve (normal variant). Atrial Septum: No shunt by color Doppler and bubble study. Aneurysmal atrial septum. Mitral Valve: Normal appearance and function of the mitral valve with trace physiologic regurgitation. Aortic Valve: Aortic cusps appear mildly calcified. Trileaflet aortic valve. Tricuspid Valve: Normal appearance and function of the tricuspid valve with trace physiologic regurgitation. Pulmonic Valve: Normal pulmonic valve appearance and function. No evidence of pulmonic regurgitation. Pericardium: Normal pericardium with no significant pericardial effusion. Aorta: Normal aortic root. Ascending aorta is normal. Aortic arch is normal. Descending aorta is normal. Mild atherosclerosis of the descending aorta. Pulmonary Veins: Pulmonary veins are normal in appearance. Atrial Appendage: Normal atrial appendage no thrombi or echogenic structure seen. Conclusions: Normal left ventricular systolic function. Atrial septal aneurysm without evidence of interatrial shunting. No significant valvular abnormalities. Mild atherosclerosis of the descending thoracic aorta. Electronically Signed By: Mily Gandara 2018-11-02 18:47:19 PDT
--- NOTE | 2018-11-02 19:22 | CONS ---
Assessment/Plan Assessment/Plan Hospital Course 68 yo M with hx of multiple myeloma on Revlimid and other comorbidities who presents for evaluation of cough, SOB and fevers. He was additionally noted to have dysphasia... for which neurology is consulted. 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 Of note, the pt has been taking Revlimid, which is known to cause strokes and IA... CUS is unremarkable. DANISH was notable for a possible aortic plaque, but is otherwise unrevealing. P: Add serum hyperviscosity panel to eval for HVS Hold Eliquis for total of 7 days post-stroke, given increased risk of hemorrhagic conversion in the short-term Cautiously resume low dose aspirin per ops; LDL is at goal Consider alternative to Revlimid where possible Cont other medical management per primary PT/OT/ST as necessary Will follow clinically Consultation Date/Type/Reason Admit Date/Time Oct 20, 2018 at 19:11 Type of Consult Neurology Reason for Consultation slurred speech, word finding Requesting Provider: IZZY LEBLANC Date/Time of Note DATE: 11/02/18 TIME: 19:13 24 HR Interval Summary Free Text/Dictation Continues acute care. S/p MRI brain, EGD, DANISH. Exam Vital Signs Vitals Vital Signs Date Temp Pulse Resp B/P (MAP) Pulse Ox O2 O2 Flow FiO2 Time Delivery Rate 11/02/18 97.7 83 18 104/61 96 17:05 (75) 11/02/18 Room Air 15:16 11/02/18 21 08:23 11/02/18 2.0 07:35 Intake and Output 11/01/18 11/01/18 11/02/18 1515:00 23:00 07:00 IntakeIntake Total 800 ml 720 ml OutputOutput Total 1200 ml BalanceBalance -400 ml 720 ml Exam PE: Gen Appearance: No Apparent Distress HEENT: Normocephalic Cardiovascular: Regular rate Lungs: Clear bilaterally Abdomen: Soft Extremities: Dry NE: The patient was alert and oriented. Language was normal. Fund of knowledge was normal. Pupils were equal and reactive to light. There was no afferent pupillary defect. Visual rasheed were normal. Funduscopic examination was limited. Extra-ocular movements were full. Ptosis was absent. There was no nystagmus. Facial sensation was normal. Face was symmetric with normal strength. Hearing was intact. Palate movements were normal. Neck strength was normal. There was normal tongue bulk and speed of movement. Tone was normal. Muscle bulk was normal. I did not see fasciculations. Arms and legs were strong to confrontation. Vibration sensation was normal. Temperature and pinprick sensation was normal. Rapid alternating movements were normal. There was no dysmetria. There was no intention tremor. Gait was deferred due to bedrest. Arm and leg reflexes were 2+ and symmetric. Ragsdale's sign was absent. Plantar responses were flexor. NORMA CABRALES NP Nov 02, 2018 19:22 ROXIE ROSEN Nov 03, 2018 06:56
[2018-11-02] MEDS: ATORVASTATIN 80 MG TAB PO SCH (20:21)
[2018-11-03] VITALS (10 sets, daily range): BP systolic 99–108; BP diastolic 56–63; PULSE 79–95; RESP 16–20
[2018-11-03] MEDS ORDERED: CEPASTAT LOZENGE MT PRN (07:30)
[2018-11-03] MEDS ORDERED: PHENOL 1.4% SOLN 180 ML BTL MT PRN (08:00)
[2018-11-03] MEDS: ALBUTEROL/IPRATROPIUM (NEB) 3 ML AMP HHN SCH ×3 (08:11→20:00)
--- NOTE | 2018-11-03 08:44 | CONS ---
Assessment/Plan Assessment/Plan Hospital Course 68 yo M with hx of multiple myeloma on Revlimid and other comorbidities who presents for evaluation of cough, SOB and fevers. He was additionally noted to have dysphasia... for which neurology is consulted. 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 Of note, the pt has been taking Revlimid, which is known to cause strokes and ME... CUS is unremarkable. DANISH was unrevealing. HVS test in process. P: Anticoagulation not presently indicated from a neurologic perspective Hold Eliquis for total of 7 days post-stroke, given increased risk of hemorrhagic conversion in the short-term Cautiously resume low dose aspirin per ops; LDL is at goal Consider alternative to Revlimid where possible Cont other medical management per primary PT/OT/ST as necessary Will follow clinically Consultation Date/Type/Reason Admit Date/Time Oct 20, 2018 at 19:11 Type of Consult Neurology Reason for Consultation slurred speech, word finding Requesting Provider: IZZY LEBLANC Date/Time of Note DATE: 11/03/18 TIME: 08:44 24 HR Interval Summary Free Text/Dictation Continues acute care. Exam Vital Signs Vitals Vital Signs Date Temp Pulse Resp B/P (MAP) Pulse Ox O2 O2 Flow FiO2 Time Delivery Rate 11/03/18 21 08:13 11/03/18 80 20 95 08:11 11/03/18 98.2 102/56 07:11 (71) 11/02/18 Nasal 2.0 20:00 Cannula Intake and Output 11/02/18 11/02/18 11/03/18 1515:00 23:00 07:00 IntakeIntake Total 400 ml 200 ml OutputOutput Total 1375 ml BalanceBalance -975 ml 200 ml Exam PE: Gen Appearance: No Apparent Distress HEENT: Normocephalic Cardiovascular: Regular rate Lungs: Clear bilaterally Abdomen: Soft Extremities: Dry NE: The patient was alert and oriented. Language was normal. Fund of knowledge was normal. Pupils were equal and reactive to light. There was no afferent pupillary defect. Visual rasheed were normal. Funduscopic examination was limited. Extra-ocular movements were full. Ptosis was absent. There was no nystagmus. Facial sensation was normal. Face was symmetric with normal strength. Hearing was intact. Palate movements were normal. Neck strength was normal. There was normal tongue bulk and speed of movement. Tone was normal. Muscle bulk was normal. I did not see fasciculations. Arms and legs were strong to confrontation. Vibration sensation was normal. Temperature and pinprick sensation was normal. Rapid alternating movements were normal. There was no dysmetria. There was no intention tremor. Gait was deferred due to bedrest. Arm and leg reflexes were 2+ and symmetric. Ragsdale's sign was absent. Plantar responses were flexor. NORMA CABRALES NP Nov 03, 2018 08:44
[2018-11-03] MEDS: PANTOPRAZOLE (EC) 40 MG TAB PO SCH ×2 (09:07→21:09)
[2018-11-03] MEDS: SUCRALFATE (100 MG/ML) 10ML CUP PO SCH ×4 (09:07→21:09)
[2018-11-03] MEDS: ASPIRIN (EC) 81 MG TAB PO SCH (09:07)
[2018-11-03] MEDS: NITROGLYCERIN 0.2 MG/HR PATCH TRANSDERM SCH (09:09)
[2018-11-03] MEDS: NYSTATIN SUSP 5 ML CUP PO SCH ×4 (09:12→21:09)
--- NOTE | 2018-11-03 09:39 | PN ---
DATE: 11/03/2018 SUBJECTIVE: The patient is stable. No events overnight. OBJECTIVE: VITAL SIGNS: Blood pressure is 102/56, pulse 80, respirations 20, temperature 98.2. HEENT: Head is normocephalic. NECK: Supple. HEART: Regular rate. LUNGS: Show diminished breath sounds at the base. ABDOMEN: Soft, nontender to palpation. No rebound or guarding. EXTREMITIES: Negative for clubbing, cyanosis. No edema. DERMATOLOGIC: No rashes. MUSCULOSKELETAL: No joint effusion. NEUROLOGIC: No change in exam. MEDICATIONS: Have been reviewed. LABORATORY DATA: Has been reviewed. ASSESSMENT AND PLAN: 1. Nonoliguric acute kidney injury on top of chronic kidney disease with previous baseline creatinin e around 1.5 to 2.0 mg/dL. Etiology of acute kidney injury is secondary to hemodynamics. Renal func tion is improving. Continue current treatment plan, supportive care, and renally dose all medication s. 2. Hyperkalemia, improved. Continue to monitor. Continue low-potassium diet. 3. Hyponatremia, resolved. 4. Vqe-ET-vaomegyn myocardial infarction. Continue medical management. No plans for cardiac cathet erization. 5. Multiple myeloma. Continue current treatment plan. Follow up with oncology. 6. Acute respiratory failure secondary to pneumonia, resolving. Continue medical management. 7. Dyspepsia. The patient is status post EGD. We will follow up results. Continue proton pump inh ibitor. 8. Hypertension. Continue current blood pressure regimen. Dictated By: NICHOLAS BENOIT/NTS Conf#: [id number] DID#: [id number] CC: CHET THOMAS MD;*EndCC*
--- NOTE | 2018-11-03 11:00 | CONS ---
Assessment/Plan Assessment/Plan Hospital Course (Demo Recall) assessment/impression # sepsis - s/p severe sepsis due to pneumonia - multilobar pneumonia, improved - procalcitonin 18.87 on 10/23/2018 and 0.92 on 10/30/2018 - neutropenic fever, resolved - acute hypoxic resp failure, improved - immunocompromised state - so far negative: resp virus panel, cryptococcal antigen, legionella screen, TB Quant Gold indeterminate, [id number] level non-diagnostic due to the presence of interfering substances, pneumocystis antigen, coccidioides compliment fixati on, aspergillus antigen, histoplasma antigen, mycoplasma IgG # cardiovascular, neuro - s/p NSTEMI - stress test 10/31/2018: moderate size nonreversible perfusion defect in the inferoapical, inferior, distal inferoseptal and distal inferolateral jackson likely due to ID - s/p slurred speech due to CVA, resolved - CVA: acute non-hemorrhagic infarcts located in the posterior L insular cortex, L parietal cortex, the posterior R temporal cortex, the R post central gyrus, the L superior parietal lobule, and the bilateral centrum semiovale, the bilateral parietal boyce radiata, and the inferior R cerebellum on brain MRI 11/01/2018. no e/o hemodynamically significant stenosis in b/l internal carotid a rteries on 11/02/2018 - DANISH 11/02/2018 with no mention of thrombus # heme/onc, renal - multiple myeloma - pancytopenia due to multiple myeloma and chemo - anemia of chronic disease - CKD III # GI, head and neck - dysphagia - severe erosive/hemorrhagic esophagitis per EGD with biopsy on 11/02/2018 - h/o total jaw reconstruction and 7-8 dental implants approximately 8 years ago. Pt told his that one of the implants was bothersome prior to the onset of current illness - oral candidiasis - improving with nystatin recommendations: - pending results: fungal blood cultures, fungal sputum culture, aspergillus Ab, mycoplasma IgM (IgG was negative), rheumatoid factor - continue to use an incentive spirometer - continue nystatin Management d/w Pt, pt's , AZALEA Meyers, and with Dr. Bailey. All questions answered. Therapeutic time provided. Consultation Date/Type/Reason Admit Date/Time Oct 20, 2018 at 19:11 Initial Consult Date 10/21/18 Type of Consult Infectious Disease Requesting Provider: IZZY LEBLANC Date/Time of Note DATE: 11/03/18 TIME: 10:43 24 HR Interval Summary Free Text/Dictation Sore throat unchanged but states throat spray is effective. states she is going to cafeteria to get pt oatmeal as breakfast that was brought to bedside are things pt cannot eat. Pt/ inquiring about how to get EGD biopsy results post DC. DC planning for tomorrow per d/w nursing. Exam/Review of Systems Exam Vitals Vital Signs Date Temp Pulse Resp B/P (MAP) Pulse Ox O2 O2 Flow FiO2 Time Delivery Rate 11/03/18 95 09:01 11/03/18 21 08:13 11/03/18 20 95 08:11 11/03/18 98.2 102/56 07:11 (71) 11/02/18 Nasal 2.0 20:00 Cannula Intake and Output 11/02/18 11/02/18 11/03/18 1515:00 23:00 07:00 IntakeIntake Total 400 ml 200 ml OutputOutput Total 1375 ml BalanceBalance -975 ml 200 ml Exam Constitutional: alert, well developed Psych: nl mood/affect Head: normocephalic, atraumatic Eyes: nl conjunctiva, nl lids, nl sclera ENMT: nl external ears & nose, nl lips & teeth, nl nasal mucosa & septum, mucosa pink and moist, other (posterior tongue with residual thrush) Neck: supple Respiratory: clear to auscultation, normal air movement, other (on 2L via NC) Cardiovascular: regular rate and rhythm, nl pulses; No edema Gastrointestinal: soft, non-tender Musculoskeletal: nl extremities to inspection; No swelling Extremities: normal pulses Neurological: nl mental status, nl speech Skin: nl turgor; No rash or lesions Results Result Diagram: 11/02/18 0531 11/03/18 0534 Results 24hrs Laboratory Tests Test 11/02/18 17:43 11/03/18 05:34 Prothrombin Time 14.8 Prothrombin Time Ratio 1.2 INR International Normalized Ratio 1.15 Sodium Level 137 Potassium Level 5.1 Chloride Level 109 Carbon Dioxide Level 23 Anion Gap 5 Blood Urea Nitrogen 49 H Creatinine 1.13 Est Glomerular Filtrat Rate mL/min > 60 Glucose Level 105 Calcium Level 8.3 L Phosphorus Level 4.0 Magnesium Level 1.9 Imaging Imaging DANISH 11/02/2018: Normal left ventricular systolic function. Atrial septal aneurysm without evidence of interatrial shunting. No significant valvular abnormalities. Mild atherosclerosis of the descending thoracic aorta. Carotid doppler 11/02/2018: No evidence for hemodynamically significant stenosis in the bilateral internal carotid arteries - validated velocity measurements with angiographic measurements, velocity criteria are extrapolated from diameter data as defined by the Society of Radiologists in Ultrasound Consensus Conference Radiology 2003; 229;340-346. This study does indirectly reference the measurement of the distal ICA diameter as the denominator for stenosis measurement. Normal antegrade flow in the vertebral arteries bilaterally. Medications Medication Current Medications IV Flush (NS 3 ml) 3 ml PER PROTOCOL IV ; Start 10/20/18 at 19:30 Ondansetron HCl (Zofran Inj) 4 mg Q6H PRN IV NAUSEA/VOMITING Last administered on 10/28/18at 15:07; Admin Dose 4 MG; Start 10/20/18 at 19:30 Acetaminophen (Tylenol Tab) 650 mg Q6H PRN PO .PAIN 1-3 OR TEMP Last administered on 10/27/18 21:17; Admin Dose 650 MG; Start 10/20/18 at 19:30 Albuterol/ Ipratropium (Duoneb) 3 ml Q6HWA RESP THERAPY HHN Last administered on 11/03/18 08:11; Admin Dose 3 ML; Start 10/20/18 at 20:00 Albuterol/ Ipratropium (Duoneb) 3 ml Q2H RESP THERAPY PRN HHN shortness of breath Last administered on 10/24/18 06:25; Admin Dose 3 ML; Start 10/20/18 at 19:30 Acetaminophen/ Hydrocodone Bitart ([place] (10/325)) 1 tab Q6H PRN PO MODERATE PAIN LEVEL 4-6 Last administered on 10/27/18 19:00; Admin Dose 1 TAB; Start 10/21/18 at 07:00 Nystatin (Nystatin Susp) 5 ml QID PO Last administered on 11/03/18 09:12; Admin Dose 5 ML; Start 10/23/18 at 13:00 Magnesium Hydroxide (Milk Of Mag) 30 ml DAILY PRN PO CONSTIPATION Last administered on 10/31/18 18:39; Admin Dose 30 ML; Start 10/24/18 at 00:30 Miscellaneous Information (* Miscellaneous Pharmacy Order) Please adjust vo riconazole dosing ... ONCE XX ; Start 10/24/18 at 19:00 Docusate Sodium (Colace) 100 mg DAILY PRN PO CONSTIPATION Last administered on 10/31/18 13:28; Admin Dose 100 MG; Start 10/25/18 at 10:30 Calcium Carbonate (Tums) 500 mg PRN PRN PO HEARTBURN Last administered on 10/27/18 20:45; Admin Dose 500 MG; Start 10/27/18 at 14:00 Filgrastim (Nivestym) 480 mcg DAILY@1700 SC Last administered on 11/02/18 18:34; Admin Dose 480 MCG; Start 10/27/18 at 18:45 Morphine Sulfate (morphine) 2 mg Q4H PRN IV SEVERE PAIN LEVEL 7-10 Last administered on 10/27/18 22:10; Admin Dose 2 MG; Start 10/27/18 at 22:30 Nitroglycerin (Nitroglycerin 0.2 Mg/Hr) 1 patch DAILY TRANSDERM Last administered on 11/03/18 09:09; Admin Dose 1 PATCH; Start 10/28/18 at 01:30 Al Hydrox/Mg Hydrox/Simethicone (Mag-Al Plus) 30 ml Q6H PRN PO GASTROINTESTINAL UPSET Last administered on 11/01/18 13:05; Admin Dose 30 ML; Start 10/28/18 at 06:00 Atorvastatin Calcium (Lipitor) 80 mg HS PO Last administered on 11/02/18 20:21; Admin Dose 80 MG; Start 10/29/18 at 21:00 Carvedilol (Coreg) 3.125 mg BID PO Last administered on 11/03/18 09:08; Admin Dose 3.125 MG; Start 10/28/18 at 09:00 Furosemide (Lasix) 40 mg DAILY IV Last administered on 10/29/18 08:18; Admin Dose 40 MG; Start 10/28/18 at 11:00; Status Hold Sucralfate (Carafate Susp) 1 gm QID PO Last administered on 11/03/18 09:07; Admin Dose 1 GM; Start 11/01/18 at 21:00 Pantoprazole (Protonix Tab) 40 mg BID PO Last administered on 4/27/19at 09:07; Admin Dose 40 MG; Start 11/01/18 at 21:00 Aspirin (Halfprin) 81 mg DAILY PO Last administered on 11/03/18at 09:07; Admin Dose 81 MG; Start 11/02/18 at 17:20 Phenol (Chloraseptic Throat [place]) 2 spray Q2H PRN MT SORE THROAT Last administered on 11/03/18at 09:14; Admin Dose 2 SPRAY; Start 11/03/18 at 08:00 Phenol (Cepastat Lozenge) 1 lozenge Q2H PRN MT SORE THROAT; Start 11/03/18 at 07:30 PAULO PATTEN NP Nov 03, 2018 10:54
--- NOTE | 2018-11-03 11:16 | PN ---
Date/Time of Note Date/Time of Note DATE: 11/03/18 TIME: 11:13 Assessment/Plan VTE Prophylaxis Risk score (from Nsg)>0 risk: 4 SCD applied (from Nsg): Yes Pharmacological prophylaxis: other (scds) Lines/Catheters IV Catheter Type (from Nrsg): Saline Lock Urinary Cath still in place: No Assessment/Plan Hospital Course Assessment: Dysphagia/odynophagia/epigastric pain EGD 11/02/2018 Severe erosive/hemorrhagic esophagitis Rule out ischemia, viral esophagitis versus consuelo given patient's immunosuppression history Multiple myeloma with pancytopenia - Followed by hematology. Intermittent slurred speech -Followed by neurology -CT brain- No intracranial hemorrhage, mass effect or midline shift. NSTEMI -Followed by cardiology Pneumonia: -Status post antibiotics per ID MARK on CKD- improved Coagulopathy Plan: Continue oral nystatin Await biopsy results Continue PPI/Carafate for now Viscous lidocaine as needed for topical pain relief F/u with GI after d/c to review bx results Patient seen in collaboration with Dr. Mcclellan Subjective: Course reviewed with nursing staff Patient interviewed and examined All labs, imaging and other results reviewed The patient no overt night events, patient notes minimal improvement with lozenges and spray. I reviewed results with patient's longtime girlfriend and patient both verbalized understanding. PHYSICAL EXAMINATION: GENERAL: Ill appearing, alert & oriented x 3 NECK: Supple, no masses. CHEST: Inspection within normal limits. CARDIOVASCULAR: Heart: Regular rate and rhythm. RESPIRATORY: Lungs clear to auscultation and percussion, no wheezing, no rubs GASTROINTESTINAL AND LIVER: Abdomen: Soft, non tenderness, non-distended, no hernias, no masses, no organomegaly, normoactive bowel sounds. Rectal: Deferred. EXTREMITIES: No cyanosis, clubbing or edema. Result Diagram: 11/02/18 0531 11/03/18 0534 Results 24hrs Laboratory Tests Test 11/02/18 17:43 11/03/18 05:34 Prothrombin Time 14.8 Prothrombin Time Ratio 1.2 INR International Normalized Ratio 1.15 Sodium Level 137 Potassium Level 5.1 Chloride Level 109 Carbon Dioxide Level 23 Anion Gap 5 Blood Urea Nitrogen 49 H Creatinine 1.13 Est Glomerular Filtrat Rate mL/min > 60 Glucose Level 105 Calcium Level 8.3 L Phosphorus Level 4.0 Magnesium Level 1.9 Exam/Review of Systems Exam Vitals Vital Signs Date Temp Pulse Resp B/P (MAP) Pulse Ox O2 O2 Flow FiO2 Time Delivery Rate 11/03/18 95 09:01 11/03/18 21 08:13 11/03/18 20 95 08:11 11/03/18 98.2 102/56 07:11 (71) 11/02/18 Nasal 2.0 20:00 Cannula Intake and Output 11/02/18 11/02/18 11/03/18 1515:00 23:00 07:00 IntakeIntake Total 400 ml 200 ml OutputOutput Total 1375 ml BalanceBalance -975 ml 200 ml Results Results 24hrs Laboratory Tests Test 11/02/18 17:43 11/03/18 05:34 Prothrombin Time 14.8 Prothrombin Time Ratio 1.2 INR International Normalized Ratio 1.15 Sodium Level 137 Potassium Level 5.1 Chloride Level 109 Carbon Dioxide Level 23 Anion Gap 5 Blood Urea Nitrogen 49 H Creatinine 1.13 Est Glomerular Filtrat Rate mL/min > 60 Glucose Level 105 Calcium Level 8.3 L Phosphorus Level 4.0 Magnesium Level 1.9 Medications Medication Current Medications IV Flush (NS 3 ml) 3 ml PER PROTOCOL IV ; Start 10/20/18 at 19:30 Ondansetron HCl (Zofran Inj) 4 mg Q6H PRN IV NAUSEA/VOMITING Last administered on 10/28/18at 15:07; Admin Dose 4 MG; Start 10/20/18 at 19:30 Acetaminophen (Tylenol Tab) 650 mg Q6H PRN PO .PAIN 1-3 OR TEMP Last administered on 10/27/18at 21:17; Admin Dose 650 MG; Start 10/20/18 at 19:30 Albuterol/ Ipratropium (Duoneb) 3 ml Q6HWA RESP THERAPY HHN Last administered on 11/03/18at 08:11; Admin Dose 3 ML; Start 10/20/18 at 20:00 Albuterol/ Ipratropium (Duoneb) 3 ml Q2H RESP THERAPY PRN HHN shortness of breath Last administered on 10/24/18 06:25; Admin Dose 3 ML; Start 10/20/18 at 19:30 Acetaminophen/ Hydrocodone Bitart ([place] (10/325)) 1 tab Q6H PRN PO MODERATE PAIN LEVEL 4-6 Last administered on 10/27/18 19:00; Admin Dose 1 TAB; Start 10/21/18 at 07:00 Nystatin (Nystatin Susp) 5 ml QID PO Last administered on 11/03/18 09:12; Ad min Dose 5 ML; Start 10/23/18 at 13:00 Magnesium Hydroxide (Milk Of Mag) 30 ml DAILY PRN PO CONSTIPATION Last administered on 10/31/18 18:39; Admin Dose 30 ML; Start 10/24/18 at 00:30 Miscellaneous Information (* Miscellaneous Pharmacy Order) Please adjust voriconazole dosing ... ONCE XX ; Start 10/24/18 at 19:00 Docusate Sodium (Colace) 100 mg DAILY PRN PO CONSTIPATION Last administered on 10/31/18 13:28; Admin Dose 100 MG; Start 10/25/18 at 10:30 Calcium Carbonate (Tums) 500 mg PRN PRN PO HEARTBURN Last administered on 10/27/18 20:45; Admin Dose 500 MG; Start 10/27/18 at 14:00 Filgrastim (Nivestym) 480 mcg DAILY@1700 SC Last administered on 11/02/18 18:34; Admin Dose 480 MCG; Start 10/27/18 at 18:45 Morphine Sulfate (morphine) 2 mg Q4H PRN IV SEVERE PAIN LEVEL 7-10 Last administered on 10/27/18 22:10; Admin Dose 2 MG; Start 10/27/18 at 22:30 Nitroglycerin (Nitroglycerin 0.2 Mg/Hr) 1 patch DAILY TRANSDERM Last administered on 11/03/18 09:09; Admin Dose 1 PATCH; Start 10/28/18 at 01:30 Al Hydrox/Mg Hydrox/Simethicone (Mag-Al Plus) 30 ml Q6H PRN PO GASTROINTESTINAL UPSET Last administered on 11/01/18 13:05; Admin Dose 30 ML; Start 10/28/18 at 06:00 Atorvastatin Calcium (Lipitor) 80 mg HS PO Last administered on 11/02/18 20:21; Admin Dose 80 MG; Start 10/29/18 at 21:00 Carvedilol (Coreg) 3.125 mg BID PO Last administered on 11/03/18 09:08; Admin Dose 3.125 MG; Start 10/28/18 at 09:00 Furosemide (Lasix) 40 mg DAILY IV Last administered on 10/29/18 08:18; Admin Dose 40 MG; Start 10/28/18 at 11:00; Status Hold Sucralfate (Carafate Susp) 1 gm QID PO Last administered on 11/03/18 09:07; Admin Dose 1 GM; Start 11/01/18 at 21:00 Pantoprazole (Protonix Tab) 40 mg BID PO Last administered on 11/03/18 09:07; Admin Dose 40 MG; Start 11/01/18 at 21:00 Aspirin (Halfprin) 81 mg DAILY PO Last administered on 11/03/18 09:07; Admin Dose 81 MG; Start 11/02/18 at 17:20 Phenol (Chloraseptic Throat [place]) 2 spray Q2H PRN MT SORE THROAT Last administered on 11/03/18 09:14; Admin Dose 2 SPRAY; Start 11/03/18 at 08:00 Phenol (Cepastat Lozenge) 1 lozenge Q2H PRN MT SORE THROAT; Start 11/03/18 at 07:30 JOSE GAGE Nov 03, 2018 11:16
--- NOTE | 2018-11-03 11:29 | PN ---
Date/Time of Note Date/Time of Note DATE: 11/03/18 TIME: 11:26 Assessment/Plan VTE Prophylaxis Risk score (from Ns)>0 risk: 4 SCD applied (from Nsg): Yes Pharmacological prophylaxis: apixaban Lines/Catheters IV Catheter Type (from Nrs): Saline Lock Urinary Cath still in place: No Assessment/Plan Hospital Course 68 yo male with MM presented with neutropenic fevers 2/2 pneumonia leading to hypoxic respiratory failure MM with pancytopenia/neutropenia: - Neupogen per hematology. Neutrophil count thankfully is starting to respond and is no longer neutropenic Intermittent slurred speech -Patient with intermittent slurred speech and difficulty finding words, etiology secondary to bilateral shower of emboli -Neurology consultation appreciated, CT head shows no acute findings but MRI does show bilateral shower of emboli -DANISH was done which was negative for endocarditis vegetations, aortic plaque was noted -Patient may have a hypercoagulable state and will be started on Eliquis this coming Monday which will be 1 week after the onset of symptoms, neurology has recommended waiting 1 week before initiating anticoagulation at a risk for hemorrhagic conversion -Continue aspirin for now, will DC once Eliquis has been started Dysphasia/gastritis-persists -EGD does show esophagitis, follow-up on biopsy results -Continue phenol spray -Continue PPI and Carafate NSTEMI: -Stress test shows a nonreversible defect, cardiology recommendations is to continue medical therapy, no plans for cath -Continue aspirin for now, once again this will be discontinued once Eliquis is started Pneumonia: -Status post antibiotics per ID Acute respiratory failure: -Continue O2 as needed - Lasix as needed for pulmonary edema Acute kidney injury on CKD 3 - renal function has improved - result of MM -Nephrology consultation appreciated Hyperkalemia secondary to CKD and Bactrim effect -Status post Kayexalate Prophylaxis: Eliquis DC planning: Anticipate DC home in 1 to 2 days Result Diagram: 11/02/18 0531 11/03/18 0534 Results 24hrs Laboratory Tests Test 11/02/18 17:43 11/03/18 05:34 Prothrombin Time 14.8 Prothrombin Time Ratio 1.2 INR International Normalized Ratio 1.15 Sodium Level 137 Potassium Level 5.1 Chloride Level 109 Carbon Dioxide Level 23 Anion Gap 5 Blood Urea Nitrogen 49 H Creatinine 1.13 Est Glomerular Filtrat Rate mL/min > 60 Glucose Level 105 Calcium Level 8.3 L Phosphorus Level 4.0 Magnesium Level 1.9 Subjective 24 Hr Interval Summary Gastrointestinal: other (Difficulty with swallowing) Exam/Review of Systems Exam Vitals Vital Signs Date Temp Pulse Resp B/P (MAP) Pulse Ox O2 O2 Flow FiO2 Time Delivery Rate 11/03/18 98.2 87 19 108/58 96 11:14 (75) 11/03/18 21 08:13 11/02/18 Nasal 2.0 20:00 Cannula Intake and Output 11/02/18 11/02/18 11/03/18 1515:00 23:00 07:00 IntakeIntake Total 400 ml 200 ml OutputOutput Total 1375 ml BalanceBalance -975 ml 200 ml Constitutional: alert, oriented Respiratory: clear to auscultation Cardiovascular: regular rate and rhythm Gastrointestinal: soft; No distended Musculoskeletal: nl extremities to inspection Results Results 24hrs Laboratory Tests Test 11/02/18 17:43 11/03/18 05:34 Prothrombin Time 14.8 Prothrombin Time Ratio 1.2 INR International Normalized Ratio 1.15 Sodium Level 137 Potassium Level 5.1 Chloride Level 109 Carbon Dioxide Level 23 Anion Gap 5 Blood Urea Nitrogen 49 H Creatinine 1.13 Est Glomerular Filtrat Rate mL/min > 60 Glucose Level 105 Calcium Level 8.3 L Phosphorus Level 4.0 Magnesium Level 1.9 Medications Medication Current Medications IV Flush (NS 3 ml) 3 ml PER PROTOCOL IV ; Start 10/20/18 at 19:30 Ondansetron HCl (Zofran Inj) 4 mg Q6H PRN IV NAUSEA/VOMITING Last administered on 10/28/18at 15:07; Admin Dose 4 MG; Start 10/20/18 at 19:30 Acetaminophen (Tylenol Tab) 650 mg Q6H PRN PO .PAIN 1-3 OR TEMP Last administered on 10/27/18at 21:17; Admin Dose 650 MG; Start 10/20/18 at 19:30 Albuterol/ Ipratropium (Duoneb) 3 ml Q6HWA RESP THERAPY HHN Last administered on 11/03/18at 08:11; Admin Dose 3 ML; Start 10/20/18 at 20:00 Albuterol/ Ipratropium (Duoneb) 3 ml Q2H RESP THERAPY PRN HHN shortness of breath Last administered on 10/24/18 06:25; Admin Dose 3 ML; Start 10/20/18 at 19:30 Acetaminophen/ Hydrocodone Bitart ([place] (10/325)) 1 tab Q6H PRN PO MODERATE PAIN LEVEL 4-6 Last administered on 10/27/18 19:00; Admin Dose 1 TAB; Start 10/21/18 at 07:00 Nystatin (Nystatin Susp) 5 ml QID PO Last administered on 11/03/18 09:12; Admin Dose 5 ML; Start 10/23/18 at 13:00 Magnesium Hydroxide (Milk Of Mag) 30 ml DAILY PRN PO CONSTIPATION Last administered on 10/31/18 18:39; Admin Dose 30 ML; Start 10/24/18 at 00:30 Miscellaneous Information (* Miscellaneous Pharmacy Order) Please adjust voriconazole dosing ... ONCE XX ; Start 10/24/18 at 19:00 Docusate Sodium (Colace) 100 mg DAILY PRN PO CONSTIPATION Last administered on 10/31/18 13:28; Admin Dose 100 MG; Start 10/25/18 at 10:30 Calcium Carbonate (Tums) 500 mg PRN PRN PO HEARTBURN Last administered on 10/27/18 20:45; Admin Dose 500 MG; Start 10/27/18 at 14:00 Filgrastim (Nivestym) 480 mcg DAILY@1700 SC Last administered on 11/02/18 18:34; Admin Dose 480 MCG; Start 10/27/18 at 18:45 Morphine Sulfate (morphine) 2 mg Q4H PRN IV SEVERE PAIN LEVEL 7-10 Last administered on 10/27/18 22:10; Admin Dose 2 MG; Start 10/27/18 at 22:30 Nitroglycerin (Nitroglycerin 0.2 Mg/Hr) 1 patch DAILY TRANSDERM Last administered on 11/03/18 09:09; Admin Dose 1 PATCH; Start 10/28/18 at 01:30 Al Hydrox/Mg Hydrox/Simethicone (Mag-Al Plus) 30 ml Q6H PRN PO GASTROINTESTINAL UPSET Last administered on 11/01/18 13:05; Admin Dose 30 ML; Start 10/28/18 at 06:00 Atorvastatin Calcium (Lipitor) 80 mg HS PO Last administered on 11/02/18 2 0:21; Admin Dose 80 MG; Start 10/29/18 at 21:00 Carvedilol (Coreg) 3.125 mg BID PO Last administered on 11/03/18 09:08; Admin Dose 3.125 MG; Start 10/28/18 at 09:00 Furosemide (Lasix) 40 mg DAILY IV Last administered on 10/29/18 08:18; Admin Dose 40 MG; Start 10/28/18 at 11:00; Status Hold Sucralfate (Carafate Susp) 1 gm QID PO Last administered on 11/03/18 09:07; Admin Dose 1 GM; Start 11/01/18 at 21:00 Pantoprazole (Protonix Tab) 40 mg BID PO Last administered on 11/03/18 09:07; Admin Dose 40 MG; Start 11/01/18 at 21:00 Aspirin (Halfprin) 81 mg DAILY PO Last administered on 11/03/18 09:07; Admin Dose 81 MG; Start 11/02/18 at 17:20 Phenol (Chloraseptic Throat [place]) 2 spray Q2H PRN MT SORE THROAT Last administered on 11/03/18 09:14; Admin Dose 2 SPRAY; Start 11/03/18 at 08:00 Phenol (Cepastat Lozenge) 1 lozenge Q2H PRN MT SORE THROAT; Start 11/03/18 at 07:30 IZZY LEBLANC Nov 03, 2018 11:29
--- NOTE | 2018-11-03 16:12 | PN ---
Date/Time of Note Date/Time of Note DATE: 11/03/18 TIME: 16:09 Assessment/Plan VTE Prophylaxis Risk score (from [facility])>0 risk: 4 SCD applied (from [facility]): Yes Pharmacological prophylaxis: NA/contraindicated Pharm contraindication: blood coag disorder, thrombocytopenia Lines/Catheters IV Catheter Type (from [facility]): [place] Urinary Cath still in place: No Assessment/Plan Assessment/Plan ASSESSMENT: 1. Pneumonia in an immunocompromised host, continues to improve. 2. Pancytopenia secondary to chemotherapy and myeloma. 3. Multiple myeloma with neutropenic fever. 4. Non-ST segment elevation myocardial infarction. 5. Episodes of expressive aphasia with multiple areas of infarct seen on MRI. 6. Dysphagia from esophagitis DISCUSSION: EGD shows esophagitis and has empirically been started on nystatin The finding of multiple infarcts in MRI is somewhat surprising given the patient's thrombocytopenia. The patient may require a transesophageal echocardiogram to rule out bacterial endocarditis. Ultrasound of the carotid showed no clinically significant stenosis Patient will continue on growth factor and monitor CBC Case discussed with RN and S.O with all questions answered Result Diagram: 11/02/18 0531 11/03/18 0534 Results 24hrs Laboratory Tests Test 11/02/18 17:43 11/03/18 05:34 Prothrombin Time 14.8 Prothrombin Time Ratio 1.2 INR International Normalized Ratio 1.15 Sodium Level 137 Potassium Level 5.1 Chloride Level 109 Carbon Dioxide Level 23 Anion Gap 5 Blood Urea Nitrogen 49 H Creatinine 1.13 Est Glomerular Filtrat Rate mL/min > 60 Glucose Level 105 Calcium Level 8.3 L Phosphorus Level 4.0 Magnesium Level 1.9 Subjective 24 Hr Interval Summary Free Text/Dictation Patient able to eat little S.O and friend at bedside Exam/Review of Systems Exam Vitals Vital Signs Date Temp Pulse Resp B/P (MAP) Pulse Ox O2 O2 Flow FiO2 Time Delivery Rate 11/03/18 98.5 89 16 101/63 100 14:12 (76) 11/03/18 2.0 28 13:28 11/03/18 Nasal 13:25 Cannula Intake and Output 11/02/18 11/02/18 11/03/18 1515:00 23:00 07:00 IntakeIntake Total 400 ml 200 ml OutputOutput Total 1375 ml BalanceBalance -975 ml 200 ml Constitutional: alert, oriented Psych: no complaints, nl mood/affect Eyes: nl conjunctiva, EOMI ENMT: nl external ears & nose, nl lips & teeth Neck: supple, non-tender Respiratory: clear to auscultation, normal air movement Cardiovascular: regular rate and rhythm, nl pulses Gastrointestinal: soft, non-tender Extremities: normal pulses Results Results 24hrs Laboratory Tests Test 11/02/18 17:43 11/03/18 05:34 Prothrombin Time 14.8 Prothrombin Time Ratio 1.2 INR International Normalized Ratio 1.15 Sodium Level 137 Potassium Level 5.1 Chloride Level 109 Carbon Dioxide Level 23 Anion Gap 5 Blood Urea Nitrogen 49 H Creatinine 1.13 Est Glomerular Filtrat Rate mL/min > 60 Glucose Level 105 Calcium Level 8.3 L Phosphorus Level 4.0 Magnesium Level 1.9 Medications Medication Current Medications IV Flush (NS 3 ml) 3 ml PER PROTOCOL IV ; Start 10/20/18 at 19:30 Ondansetron HCl (Zofran Inj) 4 mg Q6H PRN IV NAUSEA/VOMITING Last administered on 10/28/18at 15:07; Admin Dose 4 MG; Start 10/20/18 at 19:30 Acetaminophen (Tylenol Tab) 650 mg Q6H PRN PO .PAIN 1-3 OR TEMP Last administered on 10/27/18at 21:17; Admin Dose 650 MG; Start 10/20/18 at 19:30 Albuterol/ Ipratropium (Duoneb) 3 ml Q6HWA RESP THERAPY HHN Last administered on 11/03/18at 13:24; Admin Dose 3 ML; Start 10/20/18 at 20:00 Albuterol/ Ipratropium (Duoneb) 3 ml Q2H RESP THERAPY PRN HHN shortness of breath Last administered on 10/24/18at 06:25; Admin Dose 3 ML; Start 10/20/18 at 19:30 Acetaminophen/ Hydrocodone Bitart ([place] (10/325)) 1 tab Q6H PRN PO MODERATE PAIN LEVEL 4-6 Last administered on 10/27/18at 19:00; Admin Dose 1 TAB; Start 10/21/18 at 07:00 Nystatin (Nystatin Susp) 5 ml QID PO Last administered on 11/03/18at 12:41; Admin Dose 5 ML; Start 10/23/18 at 13:00 Magnesium Hydroxide (Milk Of Mag) 30 ml DAILY PRN PO CONSTIPATION Last administered on 10/31/18 18:39; Admin Dose 30 ML; Start 10/24/18 at 00:30 Miscellaneous Information (* Miscellaneous Pharmacy Order) Please adjust vor iconazole dosing ... ONCE XX ; Start 10/24/18 at 19:00 Docusate Sodium (Colace) 100 mg DAILY PRN PO CONSTIPATION Last administered on 10/31/18 13:28; Admin Dose 100 MG; Start 10/25/18 at 10:30 Calcium Carbonate (Tums) 500 mg PRN PRN PO HEARTBURN Last administered on 10/27/18 20:45; Admin Dose 500 MG; Start 10/27/18 at 14:00 Filgrastim (Nivestym) 480 mcg DAILY@1700 SC Last administered on 11/02/18 18:34; Admin Dose 480 MCG; Start 10/27/18 at 18:45 Morphine Sulfate (morphine) 2 mg Q4H PRN IV SEVERE PAIN LEVEL 7-10 Last administered on 10/27/18 22:10; Admin Dose 2 MG; Start 10/27/18 at 22:30 Nitroglycerin (Nitroglycerin 0.2 Mg/Hr) 1 patch DAILY TRANSDERM Last administered on 11/03/18 09:09; Admin Dose 1 PATCH; Start 10/28/18 at 01:30 Al Hydrox/Mg Hydrox/Simethicone (Mag-Al Plus) 30 ml Q6H PRN PO GASTROINTESTINAL UPSET Last administered on 11/01/18 13:05; Admin Dose 30 ML; Start 10/28/18 at 06:00 Atorvastatin Calcium (Lipitor) 80 mg HS PO Last administered on 11/02/18 20:21; Admin Dose 80 MG; Start 10/29/18 at 21:00 Carvedilol (Coreg) 3.125 mg BID PO Last administered on 11/03/18 09:08; Admin Dose 3.125 MG; Start 10/28/18 at 09:00 Furosemide (Lasix) 40 mg DAILY IV Last administered on 10/29/18 08:18; Admin Dose 40 MG; Start 10/28/18 at 11:00; Status Hold Sucralfate (Carafate Susp) 1 gm QID PO Last administered on 11/03/18 12:41; Admin Dose 1 GM; Start 11/01/18 at 21:00 Pantoprazole (Protonix Tab) 40 mg BID PO Last administered on 11/03/18 09:07; Admin Dose 40 MG; Start 11/01/18 at 21:00 Aspirin (Halfprin) 81 mg DAILY PO Last administered on 11/03/18at 09:07; Admin Dose 81 MG; Start 11/02/18 at 17:20 Phenol (Chloraseptic Throat [place]) 2 spray Q2H PRN MT SORE THROAT Last administered on 11/03/18at 09:14; Admin Dose 2 SPRAY; Start 11/03/18 at 08:00 Phenol (Cepastat Lozenge) 1 lozenge Q2H PRN MT SORE THROAT; Start 11/03/18 at 07:30 CHRISTOFER AMARO MD Nov 03, 2018 16:12
[2018-11-03] MEDS: FILGRASTIM-AAFI 480 MCG/0.8 ML SYRINGE SC SCH (18:02)
[2018-11-03] MEDS: ATORVASTATIN 80 MG TAB PO SCH (21:09)
--- NOTE | 2018-11-03 21:50 | CONS ---
Consult Date/Type/Reason Admit Date/Time Oct 20, 2018 at 19:11 Initial Consult Date 11/01/18 Type of Consultation: Pulm Requesting Provider: IZZY LEBLANC Date/Time of Note DATE: 11/03/18 TIME: 21:48 Subjective EGD results noted. No overnight events. Objective Vitals Vital Signs Date Temp Pulse Resp B/P (MAP) Pulse Ox O2 O2 Flow FiO2 Time Delivery Rate 11/03/18 96 21 21:35 11/03/18 86 18 21:35 11/03/18 98.7 99/59 (72) 19:39 11/03/18 2.0 13:28 11/03/18 Nasal 13:25 Cannula Intake and Output 11/02/18 11/02/18 11/03/18 1515:00 23:00 07:00 IntakeIntake Total 400 ml 200 ml OutputOutput Total 1375 ml BalanceBalance -975 ml 200 ml Exam GENERAL: A well-nourished, well-developed gentleman, comfortable at rest, no acute distress. nasal cannula VITAL SIGNS: NECK: Supple. No JVD or lymphadenopathy. CARDIAC: S1, S2. No added sounds or murmurs. CHEST: Bilateral rales. Improved. ABDOMEN: Soft, nontender. No guarding or rebound. EXTREMITIES: No cyanosis or clubbing. + edema. NEUROLOGIC: Generalized weakness. Results/Medications Result Diagram: 11/02/18 0531 11/03/18 0534 Results 24 hrs Laboratory Tests Test 11/03/18 05:34 Sodium Level 137 Potassium Level 5.1 Chloride Level 109 Carbon Dioxide Level 23 Anion Gap 5 Blood Urea Nitrogen 49 H Creatinine 1.13 Est Glomerular Filtrat Rate mL/min > 60 Glucose Level 105 Calcium Level 8.3 L Phosphorus Level 4.0 Magnesium Level 1.9 Rheumatoid Factor Screen NEGATIVE Home Meds Active Scripts Aspirin (Aspirin) 81 Mg Chew, 81 MG PO DAILY, #60 TAB Prov:IZZY LEBLANC 11/01/18 Carvedilol* (Carvedilol*) 3.125 Mg Tablet, 3.125 MG PO BID, #60 TAB 1 Refill Prov:IZZY LEBLANC 11/01/18 Atorvastatin* (Atorvastatin*) 80 Mg Tablet, 80 MG PO HS, #60 TAB Prov:IZZY LEBLANC 11/01/18 Reported Medications Hydromorphone Hcl* (Hydromorphone Hcl*) 4 Mg Tablet, 4 MG PO Q4H PRN for PAIN, TAB 04/12/18 Naproxen* (Naproxen*) 375 Mg Tablet, 375 MG PO BID PRN for PAIN LEVEL 6-10, TAB TAKE 1 - 2 TABLETS BY MOUTH NEEDED FOR PAIN 04/12/18 Lenalidomide (Revlimid) 15 Mg Capsule, 15 MG PO, CAP 04/12/18 Dexamethasone* (Dexamethasone*) 4 Mg Tablet, 4 MG PO Q8, TAB Take 3 tablets by mouth Once a Week. QWED 04/12/18 Discontinued Scripts Cephalexin* (Keflex*) 500 Mg Capsule, 500 MG PO QID for 7 Days, CAP Prov:EVERETT GALICIA PA-C 08/18/18 Medications Current Medications IV Flush (NS 3 ml) 3 ml PER PROTOCOL IV ; Start 10/20/18 at 19:30 Ondansetron HCl (Zofran Inj) 4 mg Q6H PRN IV NAUSEA/VOMITING Last administered on 10/28/18at 15:07; Admin Dose 4 MG; Start 10/20/18 at 19:30 Acetaminophen (Tylenol Tab) 650 mg Q6H PRN PO .PAIN 1-3 OR TEMP Last administered on 10/27/18at 21:17; Admin Dose 650 MG; Start 10/20/18 at 19:30 Albuterol/ Ipratropium (Duoneb) 3 ml Q6HWA RESP THERAPY HHN Last administered on 11/03/18 20:00; Admin Dose 3 ML; Start 10/20/18 at 20:00 Albuterol/ Ipratropium (Duoneb) 3 ml Q2H RESP THERAPY PRN HHN shortness of eduarda ath Last administered on 10/24/18 06:25; Admin Dose 3 ML; Start 10/20/18 at 19:30 Acetaminophen/ Hydrocodone Bitart ([place] (10/325)) 1 tab Q6H PRN PO MODERATE PAIN LEVEL 4-6 Last administered on 10/27/18at 19:00; Admin Dose 1 TAB; Start 10/21/18 at 07:00 Nystatin (Nystatin Susp) 5 ml QID PO Last administered on 11/03/18 21:09; Admin Dose 5 ML; Start 10/23/18 at 13:00 Magnesium Hydroxide (Milk Of Mag) 30 ml DAILY PRN PO CONSTIPATION Last administered on 10/31/18 18:39; Admin Dose 30 ML; Start 10/24/18 at 00:30 Miscellaneous Information (* Miscellaneous Pharmacy Order) Please adjust voricon azole dosing ... ONCE XX ; Start 10/24/18 at 19:00 Docusate Sodium (Colace) 100 mg DAILY PRN PO CONSTIPATION Last administered on 10/31/18 13:28; Admin Dose 100 MG; Start 10/25/18 at 10:30 Calcium Carbonate (Tums) 500 mg PRN PRN PO HEARTBURN Last administered on 10/27/18 20:45; Admin Dose 500 MG; Start 10/27/18 at 14:00 Filgrastim (Nivestym) 480 mcg DAILY@1700 SC Last administered on 11/03/18 18:02; Admin Dose 480 MCG; Start 10/27/18 at 18:45 Morphine Sulfate (morphine) 2 mg Q4H PRN IV SEVERE PAIN LEVEL 7-10 Last administered on 10/27/18 22:10; Admin Dose 2 MG; Start 10/27/18 at 22:30 Nitroglycerin (Nitroglycerin 0.2 Mg/Hr) 1 patch DAILY TRANSDERM Last administered on 11/03/18 09:09; Admin Dose 1 PATCH; Start 10/28/18 at 01:30 Al Hydrox/Mg Hydrox/Simethicone (Mag-Al Plus) 30 ml Q6H PRN PO GASTROINTESTINAL UPSET Last administered on 11/01/18 13:05; Admin Dose 30 ML; Start 10/28/18 at 06:00 Atorvastatin Calcium (Lipitor) 80 mg HS PO Last administered on 11/03/18 21:09; Admin Dose 80 MG; Start 10/29/18 at 21:00 Carvedilol (Coreg) 3.125 mg BID PO Last administered on 11/03/18 09:08; Admin Dose 3.125 MG; Start 10/28/18 at 09:00 Furosemide (Lasix) 40 mg DAILY IV Last administered on 10/29/18 08:18; Admin Dose 40 MG; Start 10/28/18 at 11:00; Status Hold Sucralfate (Carafate Susp) 1 gm QID PO Last administered on 11/03/18 21:09; Admin Dose 1 GM; Start 11/01/18 at 21:00 Pantoprazole (Protonix Tab) 40 mg BID PO Last administered on 11/03/18 21:09; Admin Dose 40 MG; Start 11/01/18 at 21:00 Aspirin (Halfprin) 81 mg DAILY PO Last administered on 11/03/18 09:07; Admin Dose 81 MG; Start 11/02/18 at 17:20 Phenol (Chloraseptic Throat [place]) 2 spray Q2H PRN MT SORE THROAT Last administered on 11/03/18at 09:14; Admin Dose 2 SPRAY; Start 11/03/18 at 08:00 Phenol (Cepastat Lozenge) 1 lozenge Q2H PRN MT SORE THROAT; Start 11/03/18 at 07:30 Assessment/Plan Assessment/Plan (Daily) IMP 1. s/p Acute hypoxemic respiratory failure, possibly secondary to opportunistic infection. 2. s/p Severe neutropenia, status post chemotherapy for multiple myeloma. Improving WBC, still thrombocytopenic. 3. Renal insufficiency. 4. Non-STEMI acute. 5. CVA. Multiple small infarcts on MRI noted. 6. Esophagitis RECS: 1. Abx per ID 2. Am CXR 3. PT/OT 4. ICS ANN JAMA MD Nov 03, 2018 21:50
[2018-11-04 02:00] VITALS: BP 101/61; PULSE 89; RESP 18
[2018-11-04 07:40] VITALS: BP 91/57; PULSE 86; RESP 20
--- NOTE | 2018-11-04 08:29 | PN ---
DATE: 11/04/2018 SUBJECTIVE: Patient is stable, no events overnight. The patient transferred to [facility]. OBJECTIVE: VITAL SIGNS: Blood pressure is 91/57, pulse 86, respirations 20, temperature 98.6. HEENT: Head is normocephalic. NECK: Supple. HEART: Regular rate. LUNGS: Show diminished breath sounds at the base. ABDOMEN: Soft, nontender to palpation without rebound or guarding. EXTREMITIES: Negative for clubbing, cyanosis, no edema. DERMATOLOGIC: No rashes. MUSCULOSKELETAL: No joint effusion. NEUROLOGIC: No change in exam. MEDICATIONS: Have been reviewed. LABORATORY DATA: Has been reviewed. ASSESSMENT AND PLAN: 1. Nonoliguric acute kidney injury on top of chronic kidney disease with previous baseline creatinin e of 1.5 mg/dL. Etiology of acute kidney injury is secondary to hemodynamics. Renal function is imp roved, currently below baseline. Continue current treatment plan, supportive care, renally dose all medication. 2. Hyperkalemia, improved. Continue to monitor. 3. Hyponatremia, resolved. 4. Non-ST elevation myocardial infarction. Continue medical management. Follow up with cardiology. 5. Multiple myeloma. Continue current treatment plan. Follow up with hematology. 6. Acute respiratory failure secondary to pneumonia, resolving. Continue medical management. 7. Dyspepsia. The patient is status post EGD which showed esophagitis. Continue PPI. Continue Car afate. 8. Hypertension. Continue current blood pressure regimen. Dictated By: NICHOLAS CONCEPCION DO NR/NTS Conf#: [id number] DID#: [id number] CC: CHET THOMAS MD;*EndCC*
[2018-11-04] MEDS: NITROGLYCERIN 0.2 MG/HR PATCH TRANSDERM SCH (09:00)
[2018-11-04] MEDS: SUCRALFATE (100 MG/ML) 10ML CUP PO SCH ×2 (09:17→12:41)
[2018-11-04] MEDS: PANTOPRAZOLE (EC) 40 MG TAB PO SCH (09:17)
[2018-11-04] MEDS: NYSTATIN SUSP 5 ML CUP PO SCH ×2 (09:17→12:41)
[2018-11-04] MEDS: ASPIRIN (EC) 81 MG TAB PO SCH (09:18)
--- NOTE | 2018-11-04 10:20 | CONS ---
Assessment/Plan Assessment/Plan Hospital Course 68 yo M with hx of multiple myeloma on Revlimid and other comorbidities who presents for evaluation of cough, SOB and fevers. He was additionally noted to have dysphasia... for which neurology is consulted. 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 Of note, the pt has been taking Revlimid, which is known to cause strokes and PR... CUS is unremarkable. DANISH was unrevealing. HVS test in process. P: Anticoagulation not presently indicated from a neurologic perspective Hold Eliquis for total of 7 days post-stroke, given increased risk of hemorrhagic conversion in the short-term Cautiously resume low dose aspirin per ops; LDL is at goal Consider alternative to Revlimid where possible Cont other medical management per primary PT/OT/ST as necessary Will follow clinically Consultation Date/Type/Reason Admit Date/Time Oct 20, 2018 at 19:11 Type of Consult Neurology Reason for Consultation slurred speech, word finding Requesting Provider: IZZY LEBLANC Date/Time of Note DATE: 11/04/18 TIME: 10:19 24 HR Interval Summary Free Text/Dictation Continues acute care. Pt states his swallowing has improved. Exam Vital Signs Vitals Vital Signs Date Temp Pulse Resp B/P (MAP) Pulse Ox O2 O2 Flow FiO2 Time Delivery Rate 11/04/18 98.6 86 20 91/57 (68) 96 07:40 11/03/18 21 21:35 11/03/18 2.0 13:28 11/03/18 Nasal 13:25 Cannula Intake and Output 11/03/18 11/03/18 11/04/18 1515:00 23:00 07:00 IntakeIntake Total 600 ml OutputOutput Total 1500 ml BalanceBalance -900 ml Exam PE: Gen Appearance: No Apparent Distress HEENT: Normocephalic Cardiovascular: Regular rate Lungs: Clear bilaterally Abdomen: Soft Extremities: Dry NE: The patient was alert and oriented. Language was normal. Fund of knowledge was normal. Pupils were equal and reactive to light. There was no afferent pupillary defect. Visual rasheed were normal. Funduscopic examination was limited. Extra-ocular movements were full. Ptosis was absent. There was no nystagmus. Facial sensation was normal. Face was symmetric with normal strength. Hearing was intact. Palate movements were normal. Neck strength was normal. There was normal tongue bulk and speed of movement. Tone was normal. Muscle bulk was normal. I did not see fasciculations. Arms and legs were strong to confrontation. Vibration sensation was normal. Temperature and pinprick sensation was normal. Rapid alternating movements were normal. There was no dysmetria. There was no intention tremor. Gait was deferred due to bedrest. Arm and leg reflexes were 2+ and symmetric. Ragsdale's sign was absent. Plantar responses were flexor. NORMA CABRALES NP Nov 04, 2018 10:20
[2018-11-04] MEDS ORDERED: NYST1000 PO (10:41)
[2018-11-04] MEDS ORDERED: CARAS PO (10:41)
[2018-11-04] MEDS ORDERED: PANT40TA3 PO (10:41)
[2018-11-04] MEDS ORDERED: APIX5TAB PO (10:41)
[2018-11-04] MEDS ORDERED: PHEN177S68 MT (10:41)
[2018-11-04] MEDS ORDERED: BENZ1LOZ4 MT (10:41)
[2018-11-04] MEDS ORDERED: DOCU-144 PO (10:43)
--- NOTE | 2018-11-04 11:35 | CONS ---
[facility] HCIS Consult Follow-up Patient Name: Cornell Kay Unit Number: [id number] Date of : 1950 Patient Status: Admitted Inpatient Attending Doctor: Sonia Graves Edit: CHANTAL ADAIR M.D. on 11/05/18 @ 15:14 I discussed the management with RAUL Patten and agree Assessment/Plan Assessment/Plan Hospital Course (Demo Recall) assessment/impression # sepsis - s/p severe sepsis due to pneumonia - multilobar pneumonia, improved - procalcitonin 18.87 on 10/23/2018 and 0.92 on 10/30/2018 - neutropenic fever, resolved - s/p acute hypoxic resp failure - immunocompromised state - so far negative: resp virus panel, cryptococcal antigen, legionella screen, TB Quant Gold indeterminate, [id number]-R-[id number] level non-diagnostic due to the presence of interfering substances, pneumocystis antigen, coccidioides compliment fixation, aspergillus antigen, histoplasma antigen, mycoplasma IgG # cardiovascular, neuro - s/p NSTEMI - stress test 10/31/2018: moderate size nonreversible perfusion defect in the inferoapical, inferior, distal inferoseptal and distal inferolateral jackson likely due to NC - s/p slurred speech due to CVA, resolved - CVA: acute non-hemorrhagic infarcts located in the posterior L insular cortex, L parietal cortex, the posterior R temporal cortex, the R post central gyrus, the L superior parietal lobule, and the bilateral centrum semiovale, the bilateral parietal boyce radiata, and the inferior R cerebellum on brain MRI 11/01/2018. no e/o hemodynamically significant stenosis in b/l internal carotid arteries on 11/02/2018 - DANISH 11/02/2018 with no mention of thrombus # heme/onc, renal - multiple myeloma - pancytopenia due to multiple myeloma and chemo - anemia of chronic disease - CKD III # GI, head and neck - dysphagia - severe erosive/hemorrhagic esophagitis per EGD with biopsy on 11/02/2018 - h/o total jaw reconstruction and 7-8 dental implants approximately 8 years ago. Pt told his that one of the implants was bothersome prior to the onset of current illness - oral candidiasis - resolving with nystatin recommendations: - continue to monitor off antibiotics - pending results: fungal blood cultures, fungal sputum culture - okay for discharge from ID standpoint - outpatient f/u with GI for biopsy results Management d/w Pt, pt's , AZALEA Calabrese, and with Dr. Adair Consultation Date/Type/Reason Admit Date/Time Oct 20, 2018 at 19:11 Initial Consult Date 10/21/18 Type of Consult Infectious Disease Requesting Provider: SONIA GRAVES Date/Time of Note DATE: 11/04/18 TIME: 11:34 24 HR Interval Summary Free Text/Dictation Anxious to go home. No complaints. Denies SOB. Has occ non-productive cough. Throat pain has almost resolved. Ate breakfast without difficulty. Exam/Review of Systems Exam Vitals Vital Signs Date Temp Pulse Resp B/P (MAP) Pulse Ox O2 O2 Flow FiO2 Time Delivery Rate 11/04/18 98.6 86 20 91/57 (68) 96 07:40 11/03/18 21 21:35 11/03/18 2.0 13:28 11/03/18 Nasal 13:25 Cannula Intake and Output 11/03/18 11/03/18 11/04/18 1515:00 23:00 07:00 IntakeIntake Total 600 ml OutputOutput Total 1500 ml BalanceBalance -900 ml Exam Constitutional: alert, well developed Psych: nl mood/affect Head: normocephalic, atraumatic Eyes: nl conjunctiva, nl lids, nl sclera ENMT: nl external ears & nose, nl lips & teeth, nl nasal mucosa & septum, mucosa pink and moist, other (posterior tongue with resolving thrush) Neck: supple Respiratory: clear to auscultation (anteriorly), normal air movement, other (Faint rales bibasilar; on room air) Cardiovascular: regular rate and rhythm, nl pulses; No edema Gastrointestinal: soft, non-tender Musculoskeletal: nl extremities to inspection; No swelling Extremities: normal pulses Neurological: nl mental status, nl speech Skin: nl turgor; No rash or lesions Results Result Diagram: 11/04/18 0455 11/03/18 0534 Results 24hrs Laboratory Tests Test 11/04/18 04:55 11/04/18 06:03 White Blood Count 2.9 L Red Blood Count 2.72 L Hemoglobin 8.0 L Hematocrit 25.2 L Mean Corpuscular Volume 92.6 Mean Corpuscular Hemoglobin 29.4 Mean Corpuscular Hemoglobin Concent 31.7 L Red Cell Distribution Width 15.9 H Platelet Count 75 #L Mean Platelet Volume 12.0 H Immature Granulocytes % 12.300 H Neutrophils % Segmented Neutrophils % (Manual) 68 Band Neutrophils % (Manual) 27 H Lymphocytes % Lymphocytes % (Manual) 4 L Monocytes % Eosinophils % Eosinophils % (Manual) 1 Basophils % Nucleated Red Blood Cells % 0.0 Immature Granulocytes # 0.360 H Neutrophils # Neutrophils # (Manual) 2.0 Band Neutrophils # 0.7 H Lymphocytes (Manual) 0.1 L Lymphocytes # Monocytes # Eosinophils # Basophils # Nucleated Red Blood Cells # Toxic Granulation 2+ Platelet Estimate DECREASED Giant Platelets 2 H Polychromasia 3+ Anisocytosis 1+ Microcytosis 1+ Ovalocytes 1+ Lab Scanned Report BLOOD TRANSFUSION Imaging Imaging CXR 11/04/2018: Right greater than left multifocal alveolar infiltrates concerning for pneumonia. Angulation deformity and expansion of the left mid ribs concerning for primary bone lesion or metastatic disease. CT scan of the chest recommended for further evaluation. Medications Medication Current Medications IV Flush (NS 3 ml) 3 ml PER PROTOCOL IV ; Start 10/20/18 at 19:30 Ondansetron HCl (Zofran Inj) 4 mg Q6H PRN IV NAUSEA/VOMITING Last administered on 10/28/18at 15:07; Admin Dose 4 MG; Start 10/20/18 at 19:30 Acetaminophen (Tylenol Tab) 650 mg Q6H PRN PO .PAIN 1-3 OR TEMP Last administered on 10/27/18at 21:17; Admin Dose 650 MG; Start 10/20/18 at 19:30 Albuterol/ Ipratropium (Duoneb) 3 ml Q6HWA RESP THERAPY HHN Last administered on 11/03/18at 20:00; Admin Dose 3 ML; Start 10/20/18 at 20:00 Albuterol/ Ipratropium (Duoneb) 3 ml Q2H RESP THERAPY PRN HHN shortness of breath Last administered on 10/24/18 06:25; Admin Dose 3 ML; Start 10/20/18 at 19:30 Acetaminophen/ Hydrocodone Bitart ([place] (10/325)) 1 tab Q6H PRN PO MODERATE PAIN LEVEL 4-6 Last administered on 10/27/18 19:00; Admin Dose 1 TAB; Start 10/21/18 at 07:00 Nystatin (Nystatin Susp) 5 ml QID PO Last administered on 11/04/18 09:17; Admin Dose 5 ML; Start 10/23/18 at 13:00 Magnesium Hydroxide (Milk Of Mag) 30 ml DAILY PRN PO CONSTIPATION Last administered on 10/31/18 18:39; Admin Dose 30 ML; Start 10/24/18 at 00:30 Miscellaneous Information (* Miscellaneous Pharmacy Order) Please adjust voriconazole dosing ... ONCE XX ; Start 10/24/18 at 19:00 Docusate Sodium (Colace) 100 mg DAILY PRN PO CONSTIPATION Last administered on 10/31/18 13:28; Admin Dose 100 MG; Start 10/25/18 at 10:30 Calcium Carbonate (Tums) 500 mg PRN PRN PO HEARTBURN Last administered on 10/27/18 20:45; Admin Dose 500 MG; Start 10/27/18 at 14:00 Filgrastim (Nivestym) 480 mcg DAILY@1700 SC Last administered on 11/03/18 18:02; Admin Dose 480 MCG; Start 10/27/18 at 18:45 Morphine Sulfate (morphine) 2 mg Q4H PRN IV SEVERE PAIN LEVEL 7-10 Last administered on 10/27/18 22:10; Admin Dose 2 MG; Start 10/27/18 at 22:30 Nitroglycerin (Nitroglycerin 0.2 Mg/Hr) 1 patch DAILY TRANSDERM Last administered on 11/03/18 09:09; Admin Dose 1 PATCH; Start 10/28/18 at 01:30 Al Hydrox/Mg Hydrox/Simethicone (Mag-Al Plus) 30 ml Q6H PRN PO GASTROINTESTINAL UPSET Last administered on 11/01/18 13:05; Admin Dose 30 ML; Start 10/28/18 at 06:00 Atorvastatin Calcium (Lipitor) 80 mg HS PO Last administered on 11/03/18 21:09; Admin Dose 80 MG; Start 10/29/18 at 21:00 Carvedilol (Coreg) 3.125 mg BID PO Last administered on 11/03/18 09:08; Admin Dose 3.125 MG; Start 10/28/18 at 09:00 Furosemide (Lasix) 40 mg DAILY IV Last administered on 10/29/18 08:18; Admin Dose 40 MG; Start 10/28/18 at 11:00; Status Hold Sucralfate (Carafate Susp) 1 gm QID PO Last administered on 11/04/18 09:17; Admin Dose 1 GM; Start 11/01/18 at 21:00 Pantoprazole (Protonix Tab) 40 mg BID PO Last administered on 11/04/18 09:17; Admin Dose 40 MG; Start 11/01/18 at 21:00 Aspirin (Halfprin) 81 mg DAILY PO Last administered on 11/04/18 09:18; Admin Dose 81 MG; Start 11/02/18 at 17:20 Phenol (Chloraseptic Throat [place]) 2 spray Q2H PRN MT SORE THROAT Last administered on 11/03/18 09:14; Admin Dose 2 SPRAY; Start 11/03/18 at 08:00 Phenol (Cepastat Lozenge) 1 lozenge Q2H PRN MT SORE THROAT; Start 11/03/18 at 07:30 PAULO PATTEN NP Nov 04, 2018 11:35
--- NOTE | 2018-11-04 12:09 | DS ---
Date/Time of Note Date/Time of Note DATE: 11/04/18 TIME: 11:56 Discharge Summary Admission/Discharge Info Admit Date/Time Oct 20, 2018 at 19:11 Discharge Date/Time November 04, 2018 Discharge Diagnosis 68 yo male with MM presented with neutropenic fevers 2/2 pneumonia leading to hypoxic respiratory failure MM with pancytopenia/neutropenia-significantly improved -Status post Neupogen per hematology. Neutrophil count has responded and is no longer neutropenic Intermittent slurred speech-resolved -Patient did have intermittent slurred speech and difficulty finding words, etiology secondary to bilateral shower of emboli -Neurology consultation appreciated, CT head shows no acute findings but MRI does show bilateral shower of emboli -DANISH was done which was negative for endocarditis vegetations, aortic plaque was noted -Patient may have a hypercoagulable state and will be started on Eliquis to s tart this coming Monday which will be 1 week after the onset of symptoms, neurology has recommended waiting 1 week before initiating anticoagulation due to risk for hemorrhagic conversion -Has been on aspirin but will DC once Eliquis has been started Dysphasia/gastritis-persists -EGD does show esophagitis, follow-up on biopsy results -DC with phenol spray and lozenger -Continue PPI and Carafate NSTEMI: -Stress test shows a nonreversible defect, cardiology recommendations is to continue medical therapy, no plans for cath -Continue aspirin for now, once again this will be discontinued once Eliquis is started Pneumonia: -Status post antibiotics per ID Acute respiratory failure: -No longer requires oxygen, no indication for further Lasix Acute kidney injury on CKD 3 - renal function has improved - result of MM -Nephrology consultation appreciated Hyperkalemia secondary to CKD and Bactrim effect-resolved -Status post Kayexalate Patient Condition: Good Hospital Course Patient is a 68 yo male with MM on therapy who presented with neutropenic fevers 2/2 pneumonia leading to hypoxic respiratory failure. Patient was seen by his oncologist Dr. Hill as well as ID and was started on Neupogen and antibiotics with ultimate resolution of his pneumonia and neutropenia. Patient did have a prolonged hospitalization due to a variety of other conditions that arose, patient developed intermittent slurred speech the etiology being bilateral shower of emboli as noted on MRI brain, patient was seen by neurology and cardiology, DANISH was done and showed no vegetations but mild aortic plaque was noted. Patient also had a non-STEMI and was going to have a cath but platelets were too low, stress test showed a nonreversible defect and it was decided to treat with medical therapy. Of note patient had no chest pain during the non- STEMI and event may have been embolic. It was believed that patient was in a hypercoagulable state thus explaining the shower of emboli, patient was to be started on Eliquis 1 week after the onset of slurred speech, it was not started sooner due to the risk of hemorrhagic conversion per neurology. Consideration was given to the possibility of multiple myeloma being the etiology of the shower of emboli but oncology did not believe that the protein chains involved in multiple myeloma especially considering the normal calcium would be responsi ble for these emboli. Fortunately patient's slurred speech did resolve and he exhibited no neurological deficiencies, patient subsequently reported dysphasia and GI was consulted, EGD showed esophagitis and biopsy is pending as per his discharge. Etiology of esophagitis may be viral or fungal due to immunosuppressed state and patient was started on nystatin swish for possible thrush. Esophagitis did improve with phenol spray and lozenges as well as PPI and Carafate and patient was able to tolerate a p.o. diet. Of note patient does have CKD secondary to multiple myeloma and potassium at one-point did rise requiring Kayexalate, hyperkalemia was thought to be secondary to CKD and Bactrim that he had been taking. Patient's neutropenia and sepsis did resolve and no longer required further antibiotics. Patient was stable for DC to home, on the day of discharge patient's vitals, labs and physical exam are stable. Questions were answered. Patient has an appointment to follow-up with his oncologist Dr. Hill tomorrow in clinic to evaluate the reinitiation of his multiple myeloma chemotherapy. Home Meds Active Scripts Docusate Sodium* (Colace*) 100 Mg Capsule, 100 MG PO BID, #60 CAP Prov:IZZY LEBLANC 11/04/18 Pantoprazole* (Protonix*) 40 Mg Tablet.dr, 40 MG PO DAILY for 30 Days, #30 TAB Prov:IZZY LEBLANC 11/04/18 Apixaban* (Eliquis*) 5 Mg Tablet, 5 MG PO BID, #60 TAB 1 Refill Prov:IZZY LEBLANC 11/04/18 Sucralfate* (Carafate*) 1 Gm/10 Ml Susp, 1 GM PO QID, #30 BOTTLE Prov:IZZY LEBLANC 11/04/18 Phenol (Phenaseptic) 177 Ml [place], 2 SPRAY MT Q2H PRN for SORE THROAT, #60 SPRAYS 1 Refill Prov:IZZY LEBLANC 11/04/18 Benzocaine/Menthol (SORE THROAT LOZENGE) 1 Each Lozenge, 1 LOZENGE MT Q2H PRN for SORE THROAT, #30 LOZENGE 1 Refill Prov:IZZY LEBLANC 11/04/18 Nystatin (Nystatin) 100,000 Unit/1 Ml Oral.susp, 5 ML PO QID, #30 BOTTLE 1 Refill Prov:IZZY LEBLANC 11/04/18 Atorvastatin* (Atorvastatin*) 80 Mg Tablet, 80 MG PO HS, #60 TAB Prov:IZZY LEBLANC 11/01/18 Reported Medications Hydromorphone Hcl* (Hydromorphone Hcl*) 4 Mg Tablet, 4 MG PO Q4H PRN for PAIN, TAB 04/12/18 Lenalidomide (Revlimid) 15 Mg Capsule, 15 MG PO, CAP 04/12/18 Dexamethasone* (Dexamethasone*) 4 Mg Tablet, 4 MG PO Q8, TAB Take 3 tablets by mouth Once a Week. QWED 04/12/18 Discontinued Scripts Cephalexin* (Keflex*) 500 Mg Capsule, 500 MG PO QID for 7 Days, CAP Prov:EVERETT GALICIA PA-C 08/18/18 Follow-up Plan FOLLOW UP WITH YOUR PCP AND DR HILL IN 1-2 WEEKS Primary Care Provider Elfego Hill MD Time spent on discharge: > 30 minutes IZZY LEBLANC Nov 04, 2018 12:08
--- NOTE | 2018-11-04 16:07 | CONS ---
Consult Date/Type/Reason Admit Date/Time Oct 20, 2018 at 19:11 Initial Consult Date 11/01/18 Type of Consultation: Pulm Requesting Provider: IZZY LEBLANC Date/Time of Note DATE: 11/04/18 TIME: 16:06 Subjective Patient being discharged at the time of my visit. Objective Vitals Vital Signs Date Temp Pulse Resp B/P (MAP) Pulse Ox O2 O2 Flow FiO2 Time Delivery Rate 11/04/18 98.6 86 20 91/57 (68) 96 07:40 11/03/18 21 21:35 11/03/18 2.0 13:28 11/03/18 Nasal 13:25 Cannula Intake and Output 11/03/18 11/03/18 11/04/18 1515:00 23:00 07:00 IntakeIntake Total 600 ml OutputOutput Total 1500 ml BalanceBalance -900 ml Exam NECK: Supple. No JVD or lymphadenopathy. CARDIAC: S1, S2. No added sounds or murmurs. CHEST: Bilateral rales. Improved. ABDOMEN: Soft, nontender. No guarding or rebound. EXTREMITIES: No cyanosis or clubbing. + edema. NEUROLOGIC: Generalized weakness. Results/Medications Result Diagram: 11/04/18 0455 11/03/18 0534 Results 24 hrs Laboratory Tests Test 11/04/18 04:55 11/04/18 06:03 White Blood Count 2.9 L Red Blood Count 2.72 L Hemoglobin 8.0 L Hematocrit 25.2 L Mean Corpuscular Volume 92.6 Mean Corpuscular Hemoglobin 29.4 Mean Corpuscular Hemoglobin Concent 31.7 L Red Cell Distribution Width 15.9 H Platelet Count 75 #L Mean Platelet Volume 12.0 H Immature Granulocytes % 12.300 H Neutrophils % Segmented Neutrophils % (Manual) 68 Band Neutrophils % (Manual) 27 H Lymphocytes % Lymphocytes % (Manual) 4 L Monocytes % Eosinophils % Eosinophils % (Manual) 1 Basophils % Nucleated Red Blood Cells % 0.0 Immature Granulocytes # 0.360 H Neutrophils # Neutrophils # (Manual) 2.0 Band Neutrophils # 0.7 H Lymphocytes (Manual) 0.1 L Lymphocytes # Monocytes # Eosinophils # Basophils # Nucleated Red Blood Cells # Toxic Granulation 2+ Platelet Estimate DECREASED Giant Platelets 2 H Polychromasia 3+ Anisocytosis 1+ Microcytosis 1+ Ovalocytes 1+ Lab Scanned Report BLOOD TRANSFUSION Home Meds Active Scripts Docusate Sodium* (Colace*) 100 Mg Capsule, 100 MG PO BID, #60 CAP Prov:IZZY LEBLANC 11/04/18 Pantoprazole* (Protonix*) 40 Mg Tablet.dr, 40 MG PO DAILY for 30 Days, #30 TAB Prov:IZZY LEBLANC 11/04/18 Apixaban* (Eliquis*) 5 Mg Tablet, 5 MG PO BID, #60 TAB 1 Refill Prov:IZZY LEBLANC 11/04/18 Sucralfate* (Carafate*) 1 Gm/10 Ml Susp, 1 GM PO QID, #30 BOTTLE Prov:IZZY LEBLANC 11/04/18 Phenol (Phenaseptic) 177 Ml [place], 2 SPRAY MT Q2H PRN for SORE THROAT, #60 SPRAYS 1 Refill Prov:IZZY LEBLANC 11/04/18 Benzocaine/Menthol (SORE THROAT LOZENGE) 1 Each Lozenge, 1 LOZENGE MT Q2H PRN for SORE THROAT, #30 LOZENGE 1 Refill Prov:IZZY LEBLANC 11/04/18 Nystatin (Nystatin) 100,000 Unit/1 Ml Oral.susp, 5 ML PO QID, #30 BOTTLE 1 Refill Prov:IZZY LEBLANC 11/04/18 Atorvastatin* (Atorvastatin*) 80 Mg Tablet, 80 MG PO HS, #60 TAB Prov:IZZY LEBLANC 11/01/18 Reported Medications Hydromorphone Hcl* (Hydromorphone Hcl*) 4 Mg Tablet, 4 MG PO Q4H PRN for PAIN, TAB 04/12/18 Lenalidomide (Revlimid) 15 Mg Capsule, 15 MG PO, CAP 04/12/18 Dexamethasone* (Dexamethasone*) 4 Mg Tablet, 4 MG PO Q8, TAB Take 3 tablets by mouth Once a Week. QWED 04/12/18 Discontinued Scripts Cephalexin* (Keflex*) 500 Mg Capsule, 500 MG PO QID for 7 Days, CAP Prov:EVERETT GALICIA PA-C 08/18/18 Assessment/Plan Assessment/Plan (Daily) IMP 1. s/p Acute hypoxemic respiratory failure, possibly secondary to opportunistic infection. 2. s/p Severe neutropenia, status post chemotherapy for multiple myeloma. Improving WBC, still thrombocytopenic. 3. Renal insufficiency. 4. Non-STEMI acute. 5. CVA. Multiple small infarcts on MRI noted. 6. Esophagitis RECS: 1. Outpatient Onc follow-up tomorrow. 2. No new pulm recs ANN JAMA MD Nov 04, 2018 16:07
--- NOTE | 2018-11-05 07:31 | PAC ---
Date/Time of Note Date/Time of Note DATE: 11/03/18 TIME: 07:30 Post-Anesthesia Notes Post-Anesthesia Note Last documented vital signs Vital Signs Date Temp Pulse Resp B/P (MAP) Pulse Ox O2 O2 Flow FiO2 Time Delivery Rate 11/04/18 98.6 86 20 91/57 (68) 96 07:40 11/03/18 21 21:35 11/03/18 2.0 13:28 11/03/18 Nasal 13:25 Cannula Activity: WNL Respiratory function: WNL Cardiovascular function: WNL Mental status: Baseline Pain reasonably controlled: Yes Hydration appropriate: Yes Nausea/Vomiting absent: No PEPITO SANCHEZ MD Nov 05, 2018 07:31
== END 2018-11-04 14:35 | disposition home or self-care (01) | DRG 871 ==
LOC: E/R 17:09 → 5EC 19:11 → MS1 22:06 → 6WM 10-21 05:55 → ICU 10-24 16:18 → 6WM 10-26 14:46 → 2NE 11-03 13:56
PROVIDERS: ADMIT Internal Medicine; ATTEND Internal Medicine
PROC: 30233N1 Transfusion of Nonautologous Red Blood Cells into Peripheral Vein, Percutaneous Approach (ICD-10-PCS; 2018-10-21)
PROC: 5A09357 Assistance with Respiratory Ventilation, Less than 24 Consecutive Hours, Continuous Positive Airway Pressure (ICD-10-PCS; 2018-10-24)
PROC: 30233R1 Transfusion of Nonautologous Platelets into Peripheral Vein, Percutaneous Approach (ICD-10-PCS; 2018-10-28)
PROC: B24BZZ4 Ultrasonography of Heart with Aorta, Transesophageal (ICD-10-PCS; 2018-11-02)
PROC: 0DB58ZX Excision of Esophagus, Via Natural or Artificial Opening Endoscopic, Diagnostic (ICD-10-PCS; principal; 2018-11-02 15:30)
DX: A41.89 Other specified sepsis (principal); D61.810 Antineoplastic chemotherapy induced pancytopenia; J18.1 Lobar pneumonia, unspecified organism; J96.01 Acute respiratory failure with hypoxia; I21.4 Non-ST elevation (NSTEMI) myocardial infarction; K22.11 Ulcer of esophagus with bleeding; I63.9 Cerebral infarction, unspecified; C90.00 Multiple myeloma not having achieved remission; N17.9 Acute kidney failure, unspecified; E87.1 Hypo-osmolality and hyponatremia; R47.01 Aphasia; R65.20 Severe sepsis without septic shock; D70.3 Neutropenia due to infection; R50.81 Fever presenting with conditions classified elsewhere; T45.1X5A Adverse effect of antineoplastic and immunosuppressive drugs, initial encounter; E87.5 Hyperkalemia; K29.70 Gastritis, unspecified, without bleeding; K29.80 Duodenitis without bleeding; I12.9 Hypertensive chronic kidney disease with stage 1 through stage 4 chronic kidney disease, or unspecified chronic kidney disease; N18.3 Chronic kidney disease, stage 3 (moderate); R13.10 Dysphagia, unspecified; R47.81 Slurred speech
CPT/HCPCS: 36415; 36430; 36600; 70450; 70551; 71045; 71250; 74176; 78452; 80048; 80053; 80061; 80202; 81001; 81003; 82043; 82550; 82553; 82565; 82784; 82803; 82962; 83036; 83605; 83735; 84100; 84145; 84155; 84300; 84484; 84520; 85025; 85384; 85610; 85730; 85810; 86078; 86320; 86430; 86480; 86606; 86635; 86641; 86644; 86703; 86738; 86850; 86900; 86901; 86920; 87015; 87070; 87081; 87086; 87102; 87103; 87275; 87276; 87279; 87280; 87281; 87385; 87400; 87449; 88305; 88313; 92610; 93005; 93017; 93306; 93312; 93320; 93325; 93880; 94640; 94660; 96374; 97116; 97162; 97530; A9500; A9505; J0692; J0696; J1170; J1940; J2060; J2185; J2270; J2405; J2785; J2920; J2930; J3370; J3465; J3475; J7030; J7050; J7060; P9016; P9035; Q5110

== ENCOUNTER 2018-11-16 11:06 | Emergency (ER) | payer MEDICARE, OTHER ==
[~2018-11-16] VITALS: Ht 175.3 cm; Wt 61.4 kg
[~2018-11-16 11:06] MED LIST changes: +APIX5TAB PO; +ATOR-2 PO; +BENZ1LOZ4 MT; +CARAS PO; -CEPH-443 PO; +DOCU-144 PO; -NAPR-685 PO; +NYST1000 PO; +PANT40TA3 PO; +PHEN177S68 MT
[2018-11-16 11:07] VITALS: Ht 175.3 cm; Wt 61.4 kg
[2018-11-16] MEDS ORDERED: ALBUTEROL 0.083% (NEB) 2.5 MG/3 ML AMP HHN STA (11:25)
[2018-11-16] MEDS ORDERED: IPRATROPIUM (NEB) 0.5 MG/2.5 ML AMP INH ONE (11:30)
[2018-11-16] MEDS ORDERED: CARV3.1260 PO (12:31)
[2018-11-16] MEDS ORDERED: ALBU8.5H8 INH (12:57)
--- NOTE | 2018-11-16 13:03 | ERD ---
ER Documentation Chief Complaint Chief Complaint shortness of breath ; dissfulty swallowing ; weak; cough x 4 weeks HPI 68-year-old male presents the emergency department complaining of shortness of breath. Patient was in his usual state of health which is a say that he just was released from the hospital after prolonged hospitalization for pneumonia complicated by a pancytopenia, multiple myeloma and other concerns. Patient has been doing well at home. He followed up with his primary care doctor on Monday who apparently felt that he was healing well. He continues have occasional cough and shortness of breath. According to the family member, shortness of breath was again present today and he was brought back to the emerg ency department to check to see if he continued to have pneumonia. According to the patient, he feels better than what he was when he was in the hospital. He reports no new fevers, chest pain while he still has a cough he reports no sputum production or other high-risk features. ROS All systems reviewed and are negative except as per history of present illness. Medications Home Meds Active Scripts Albuterol Sulfate* (Proair HFA*) 8.5 Gm Hfa.aer.ad, 2 PUFF INH Q4H PRN for WHEEZING AND SOB, #1 INHALER Prov:SEPIDEH CASTILLO 11/16/18 Docusate Sodium* (Colace*) 100 Mg Capsule, 100 MG PO BID, #60 CAP Prov:IZZY LEBLANC 11/04/18 Pantoprazole* (Protonix*) 40 Mg Tablet.dr, 40 MG PO DAILY for 30 Days, #30 TAB Prov:IZZY LEBLANC 11/04/18 Apixaban* (Eliquis*) 5 Mg Tablet, 5 MG PO BID, #60 TAB 1 Refill Prov:IZZY LEBLANC 11/04/18 Sucralfate* (Carafate*) 1 Gm/10 Ml Susp, 1 GM PO QID, #30 BOTTLE Prov:IZZY LEBLANC 11/04/18 Phenol (Phenaseptic) 177 Ml [place], 2 SPRAY MT Q2H PRN for SORE THROAT, #60 SPRAYS 1 Refill Prov:IZZY LEBLANC 11/04/18 Benzocaine/Menthol (SORE THROAT LOZENGE) 1 Each Lozenge, 1 LOZENGE MT Q2H PRN for SORE THROAT, #30 LOZENGE 1 Refill Prov:IZZY LEBLANC 11/04/18 Nystatin (Nystatin) 100,000 Unit/1 Ml Oral.susp, 5 ML PO QID, #30 BOTTLE 1 Refill Prov:IZZY LEBLANC 11/04/18 Atorvastatin* (Atorvastatin*) 80 Mg Tablet, 80 MG PO HS, #60 TAB Prov:IZZY LEBLANC 11/01/18 Reported Medications Carvedilol* (Carvedilol*) 3.125 Mg Tablet, 3.125 MG PO BID, #60 TAB 11/16/18 Lenalidomide (Revlimid) 15 Mg Capsule, 15 MG PO, CAP 04/12/18 Dexamethasone* (Dexamethasone*) 4 Mg Tablet, 4 MG PO Q8, TAB Take 3 tablets by mouth Once a Week. QWED 04/12/18 Discontinued Reported Medications Hydromorphone Hcl* (Hydromorphone Hcl*) 4 Mg Tablet, 4 MG PO Q4H PRN for PAIN, TAB 04/12/18 Allergies Allergies: Coded Allergies: No Known Allergy (Unverified , 11/16/18) PMhx/Soc History of Surgery: Yes (arm/shoulder surgery) Anesthesia Reaction: No Hx Neurological Disorder: No Hx Respiratory Disorders: No Hx Cardiac Disorders: No Hx Psychiatric Problems: No Hx Miscellaneous Medical Probl: Yes (MULTIPLE MYLEOMA, ANEMIA) Hx Alcohol Use: No Hx Substance Use: No Hx Tobacco Use: No Smoking Status: Never smoker FmHx Noncontributory for chief complaint Physical Exam Vitals Vital Signs Date Temp Pulse Resp B/P (MAP) Pulse Ox O2 O2 Flow FiO2 Time Delivery Rate 11/16/18 78 25 98 21 11:48 11/16/18 99.3 82 21 99/66 (77) 99 Room Air 11:10 11/16/18 99.5 91 27 103/55 100 11:07 (71) Physical Exam GENERAL: Thin cachectic male in no acute distress. HEENT: Pupils equal, round, and reactive to light. EOMI. There is no scleral icterus. Temporal muscle wasting NECK: C-spine is soft and supple, there is no meningismus. There is no cervical lymphadenopathy. LUNGS: Crackles at the right base. No tachypnea retractions or use of accessory muscles HEART: Regular rate and rhythm, no murmurs, clicks, rubs or gallops. ABDOMEN: Soft, non-tender, non-distended. There are bowel sounds in all four quadrants. No rebound or guarding. EXTREMITIES: There is no peripheral cyanosis or edema. No focal swelling or erythema. NEURO: The patient moves all four extremities with 5/5 strength. Cranial nerves II - XII are intact. Normal gait. Alert and oriented SKIN: There is no apparent rash or petechiae. HEME/LYMPHATIC: There is no evidence of excessive bruising or lymphedema. PSYCHIATRIC: The patient does not appear anxious or depressed. Result Diagram: 11/16/18 1132 11/16/18 1132 Results 24 hrs Laboratory Tests Test 11/16/18 11:32 11/16/18 12:00 White Blood Count 2.8 10^3/ul Red Blood Count 2.46 10^6/ul Hemoglobin 7.3 g/dl Hematocrit 23.8 % Mean Corpuscular Volume 96.7 fl Mean Corpuscular Hemoglobin 29.7 pg Mean Corpuscular Hemoglobin Concent 30.7 g/dl Red Cell Distribution Width 18.6 % Platelet Count 213 10^3/UL Mean Platelet Volume 10.8 fl Immature Granulocytes % 0.700 % Neutrophils % % Segmented Neutrophils % (Manual) 47 % Band Neutrophils % (Manual) 12 % Lymphocytes % % Lymphocytes % (Manual) 37 % Monocytes % % Monocytes % (Manual) 1 % Eosinophils % % Eosinophils % (Manual) 3 % Basophils % % Nucleated Red Blood Cells % 0.0 /100WBC Immature Granulocytes # 0.020 10^3/ul Neutrophils # 10^3/ul Neutrophils # (Manual) 1.3 10^3/ul Band Neutrophils # 0.3 10^3/ul Lymphocytes (Manual) 1.0 10^3/ul Lymphocytes # 10^3/ul Monocytes # 10^3/ul Monocytes # (Manual) 0.0 10^3/ul Eosinophils # 10^3/ul Basophils # 10^3/ul Nucleated Red Blood Cells # 10^3/ul Platelet Estimate NORMAL Polychromasia 1+ Anisocytosis 1+ Sodium Level 139 mmol/L Potassium Level 4.7 mmol/L Chloride Level 106 mmol/L Carbon Dioxide Level 28 mmol/L Anion Gap 5 Blood Urea Nitrogen 28 mg/dl Creatinine 1.34 mg/dl Est Glomerular Filtrat Rate mL/min 53 mL/min Glucose Level 124 mg/dl Calcium Level 8.7 mg/dl POC Venous Lactate 1.5 mmol/L Current Medications Medications Dose Sig/Kareem Start Time Status Last (Trade) Ordered Route PRN Stop Time Admin Dose Reason Admin Albuterol 5 mg ONCE STAT 11/16/18 DC 11/16/18 (Proventil HHN 11:25 11:47 0.083% (Neb)) 11/16/18 11:27 Ipratropium 0.5 mg ONCE ONCE 11/16/18 DC 11/16/18 Rex INH 11:30 11:47 (Atrovent 11/16/18 11:55 0.02% (Neb)) Procedures/MDM Patient was taken to a room, seen and evaluated. Comfort measures were initiated. Diagnostic tests were ordered and reviewed. 3 LEAD RHYTHM STRIP: Normal sinus rhythm without ectopy RADIOLOGY: Reviewed with the radiologist REEVALUATION: Patient remained comfortable and stable in the emergency department. Diagnostic tests were discussed with the patient and he felt comfortable going home. MEDICAL DECISION MAKIN-year-old male with multiple comorbid conditions and a recent pneumonia presents to the emergency department with what appeared to be ongoing symptoms related to his pneumonia. However, he states he is feeling better. His x-ray still shows an infiltrate, which may be chronic in nature but does not seem to represent an acute pneumonia. He has already completed a course of antibiotics. The rest of his lab work including his blood counts, renal insufficiency all appears to be stable and/or better. Patient appears to be otherwise clinically comfortable and stable, he has good outpatient care and seems to be appropriate for outpatient discharge at this time. Departure Diagnosis: Primary Impression: Pneumonia Condition: Stable Patient Instructions: Pneumonia (Adult) Additional Instructions: See your doctor for follow-up as discussed. Take a copy of your test results, if appropriate, to this follow-up visit. See your doctor or return here if your symptoms do not improve as expected. At any time, please return to the emergency department for any change or worsening in her symptoms. SEPIDEH CASTILLO November 16, 2018 13:03
[2018-11-16 13:18] VITALS: BP 103/63; PULSE 81; RESP 18
== END 2018-11-16 13:20 | disposition home or self-care (01) ==
LOC: E/R 11:06
DX: J18.9 Pneumonia, unspecified organism (principal)
CPT/HCPCS: 36415; 71045; 80048; 83605; 85025; 94664